=== PATIENT | female | born 1965 | race Caucasian/White ===

== ENCOUNTER 2019-03-14 13:02 | Emergency (ER) | payer MEDICAID, SELFPAY ==
[2019-03-14 13:03] VITALS: BP 161/116; PULSE 112; RESP 16; TEMP 36.3; O2SAT 98; BMI 43.0
[2019-03-14 13:11] VITALS: RESP 18
--- NOTE | 2019-03-14 13:15 | RAD_ITS ---
STUDY: X-RAY - LEFT SHOULDER REASON FOR EXAM: Female, 53 years old. Injury. Pain. TECHNIQUE: 4 view(s) of the shoulder. COMPARISON: None. FINDINGS: Normal glenohumeral articulation. Normal acromioclavicular joint. Normal acromion. Normal humeral head and visualized proximal humerus. There is calcific tendinitis. Normal visualized pulmonary apex. RAD/Shoulder min 2 Views IMPRESSION: Calcific tendinitis. No acute osseous abnormality. Electronically Signed: Gage French MD at 13:43 EDT , Service support ,
[2019-03-14] MEDS: Ibuprofen 600 MG Tablet PO (13:22)
--- NOTE | 2019-03-14 14:22 | ED.VISSUMM ---
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 doing so he had immediate pain to her left shoulder recently, no direct trauma she does this activity routinely she has no history of joint problems no other complaints, she points directly to the anterior shoulder she has difficulty with forward elevation no numbness weakness paresthesias in the left hand Physical Examination: [] Blood pressure 160/100 General, no distress resting comfortably HEENT is generally unremarkable The neck is supple no adenopathy Cardiovascular, regular rate and rhythm Lungs, clear bilateral Abdomen, soft nontender Extremities, no clubbing cyanosis or edema she has some mild pain diffusely over the anterior left shoulder forward elevation is decreased, she can move at the elbow forearm wrist hand all unremarkable neurovascular function normal her neck is nontender chest is nontender there is no direct trauma to the shoulder the rest the exam is unremarkable Neurologic, awake alert answering questions appropriately moving all 4 extremities Test Results: [] Emergency Department Course and Treatment: [] X-rays obtained that shows nothing acute calcific tendinitis noted please see that report, explained the patient the concept of an occult injury to the rotator cuff or other shoulder mechanism muscles, she will be started with a sling Motrin which she can take for pain and she is referred to orthopedics or primary care for further management Treatment Plan: [] Disposition: [] Home stable Impression: [] Left shoulder injury This note was generated with [employer] dictation software. It may contain incorrect words, spelling, and punctuation that were not noted in review of the chart prior to signing ED Disposition - Plan for ED Patient: Referrals: William Willoughby MD [Primary Care Provider] -
--- NOTE | 2019-03-14 14:24 | ED.DEP ---
ED Disposition - Plan for ED Patient: Instructions: ED Tendinitis Rotator Cuff Prescriptions: Ibuprofen [Motrin] 800 mg PO TID PRN PRN #20 tab PRN Reason: Pain Referrals: William Willoughby MD [Primary Care Provider] -
[2019-03-14 14:53] VITALS: RESP 18
== END 2019-03-14 14:53 | disposition home or self-care (01) ==
LOC: ED 13:36
PROVIDERS: Emergency Provider Emergency Medicine; Family Provider Family Medicine; PCP Family Medicine
DX: S49.92XA Unspecified injury of left shoulder and upper arm, initial encounter (principal); X50.3XXA Overexertion from repetitive movements, initial encounter; X50.9XXA Other and unspecified overexertion or strenuous movements or postures, initial encounter; Y93.89 Activity, other specified; Y92.89 Other specified places as the place of occurrence of the external cause; Y99.8 Other external cause status
CPT/HCPCS: 73030; 99283

== ENCOUNTER 2019-06-19 16:32 | Emergency (ER) | payer MEDICAID, SELFPAY ==
[2019-06-19 16:34] VITALS: BP 145/116; PULSE 99; RESP 15; TEMP 35.9; O2SAT 95; BMI 43.7
--- NOTE | 2019-06-19 17:19 | ED.VIS.LOWEX ---
History of Present Illness Chief Complaint: Lower Extremity Injury Detail of Chief Complaint: Left foot injury Informant: Patient Occurred: Today Mechanism/Context: - - Dropped iron skillet on her foot Onset: Today Context: Sudden Onset Current Severity: Moderate Maximum Severity: Moderate Associated Symptoms: Negative for: Parasthesia Narrative: Patient states that she dropped her iron skillet on her left foot at home today. She was not wearing shoes at the time. She is having difficulty with weightbearing and is able to put a small amount of weight on her heel. Past Medical History - Allergies and Home Meds Allergies/Adverse Reactions: Allergies clarithromycin [From Biaxin] Allergy (Verified 06/19/19 16:33) Rash hydrocodone bitartrate [From Vicodin] Allergy (Verified 06/19/19 16:33) Rash naproxen [From Naprosyn] Allergy (Verified 06/19/19 16:33) Rash Penicillins Allergy (Verified 06/19/19 16:33) Rash Sulfa (Sulfonamide Antibiotics) Allergy (Verified 06/19/19 16:33) Rash codeine Adverse Reaction (Verified 06/19/19 16:33) Vomiting Primary Care Physician: William Willoughby MD [Primary Care Provider] - Prior records reviewed: Yes Past Medical History: - - Reviewed Smoking Status: Current every day smoker Review of Systems General: Denies: Chills, Fever Eyes: Denies: Visual changes - bilaterally ENT: Denies: Bilateral ear pain Cardiovascular: Denies: Chest pain Respiratory: Denies: Dyspnea Gastrointestinal: Denies: Abdominal pain Musculoskeletal: Reports: Swelling, Extremity Pain Neurological: Denies: Headache Hematologic: Denies: Easy bruising Allergy: Denies: Uticaria Physical Exam Vital Signs/Narrative: Vital Signs Temp Pulse Resp BP Pulse Ox 06/19/19 16:34 96.7 F L 99 15 145/116 H 95 - Extremity Exam Left Foot: - - Edema or ecchymosis noted over the MTP joint as well as the proximal fourth and fifth metatarsals of the left foot. Good cap refill distally. Normal sensation. No tenderness the ankle or knee. General: Well nourished Head: Normocephalic ENT: No Trauma Neck: Nontender Cardiovascular: Regular rate, Regular rhythm Respiratory: No distress, CTA bilaterally Abdomen: Nontender Skin: - - As above Neurological: Alert, Oriented x3 Psychological: Normal affect Diagnostic/Tx/Re-eval Impressions Foot X-Ray 06/19/19 17:32 IMPRESSION: Osteopenia with osteoarthritic changes. No acute finding. Electronically Signed: Gage French MD at 17:48 EDT , Service support , 06/19/19 17:32 Foot min 3 Views [RAD] Stat - Medical Decision Making Patient was given 1 tab of oxycodone for pain. She will take ibuprofen at home and be given a short course of oxycodone. There is no evidence of fracture at this time. She will be given a postop shoe and crutches, she may weight-bear as tolerated. ED Disposition - Plan for ED Patient: Disposition: Home or Assisted Living Diagnosis: Crush injury of left foot Instructions: CRUSH INJURY, Foot/Toe Prescriptions: Oxycodone HCl/Acetaminophen [Percocet 5/325] 1 tablet PO Q6H PRN PRN 3 Days #10 tablet PRN Reason: Pain Referrals: William Willoughby MD [Primary Care Provider] - 1 Week if not improving
[2019-06-19] MEDS: oxyCODONE 5 MG Tablet PO (17:27)
--- NOTE | 2019-06-19 17:32 | RAD_ITS ---
STUDY: X-RAY - LEFT FOOT CLINICAL: Female, 53 years old. Injury. Pain. TECHNIQUE: 3 view(s) of the foot. COMPARISON: July 16, 2016 FINDINGS: Generalized osteopenia. Stable inferior calcaneal spur. Separate ossification center for the navicular, unchanged. Normal visualized subtalar, talonavicular, calcaneocuboid, tarsal and tarsometatarsal articulations. Normal metatarsi. Stable mild arthrosis of the MTP and IP joints. The soft tissue structures are unremarkable. RAD/Foot min 3 Views IMPRESSION: Osteopenia with osteoarthritic changes. No acute finding. Electronically Signed: Gage French MD at 17:48 EDT , Service support ,
[2019-06-19 18:29] VITALS: BP 125/74; PULSE 62; RESP 15; O2SAT 98
== END 2019-06-19 18:31 | disposition home or self-care (01) ==
PROVIDERS: Emergency Provider Emergency Medicine; Family Provider Family Medicine; PCP Family Medicine
DX: S97.82XA Crushing injury of left foot, initial encounter (principal); F17.200 Nicotine dependence, unspecified, uncomplicated; W20.8XXA Other cause of strike by thrown, projected or falling object, initial encounter; Y93.89 Activity, other specified; Y92.009 Unspecified place in unspecified non-institutional (private) residence as the place of occurrence of the external cause; Y99.8 Other external cause status
CPT/HCPCS: 73630; 99284

== ENCOUNTER 2020-06-15 11:19 | Emergency (ER) | payer MEDICAID, SELFPAY ==
[2020-06-15 11:21] VITALS: BP 155/113; PULSE 97; RESP 18; TEMP 36.2; O2SAT 98; BMI 36.6
--- NOTE | 2020-06-15 11:45 | ED.VIS.GEN ---
History of Present Illness Chief Complaint: Edema Informant: Patient Onset: Today Current Severity: Moderate Maximum Severity: Moderate Narrative: Presents with left anterior foot pain and swelling. She states that she has no injury and had no pain yesterday. She woke this morning with pain over the anterior ankle and foot. She feels the area is swollen and a knot. No paresthesias. Past Medical History - Allergies and Home Meds Allergies/Adverse Reactions: Allergies clarithromycin [From Biaxin] Allergy (Verified 06/15/20 11:23) Rash hydrocodone bitartrate [From Vicodin] Allergy (Verified 06/15/20 11:23) Rash naproxen [From Naprosyn] Allergy (Verified 06/15/20 11:23) Rash Penicillins Allergy (Verified 06/15/20 11:23) Rash Sulfa (Sulfonamide Antibiotics) Allergy (Verified 06/15/20 11:23) Rash codeine Adverse Reaction (Verified 06/15/20 11:23) Vomiting Primary Care Physician: William Willoughby MD [Primary Care Provider] - Past Medical History: None Smoking Status: Current every day smoker Review of Systems General: Denies: Chills, Fever Eyes: Denies: Visual changes - bilaterally ENT: Denies: Bilateral ear pain Cardiovascular: Denies: Chest pain Respiratory: Denies: Dyspnea, Cough Gastrointestinal: Denies: Abdominal pain, Nausea, Vomiting, Diarrhea Genitourinary: Denies: Dysuria Musculoskeletal: Reports: Swelling, Extremity Pain Skin: Denies: Rash Neurological: Denies: Headache Hematologic: Denies: Easy bruising Allergy: Denies: Uticaria Physical Exam Vital Signs/Narrative: Vital Signs Temp Pulse Resp BP Pulse Ox 06/15/20 11:21 97.2 F L 97 18 155/113 H 98 Inital Vital Signs reviewed: Yes General: Well nourished, Well developed Head: Normocephalic ENT: Moist mucous membranes Neck: Supple Cardiovascular: Regular rate, Regular rhythm Respiratory: No distress, CTA bilaterally Abdomen: Soft, Nontender Extremities: - - Focal tenderness along the anterior ankle and proximal foot along the tendon. Minimal edema. No erythema or open wounds. Skin: Normal color Neurological: Alert, Oriented x3, Normal Strength - Increased pain with dorsiflexion. Psychological: Normal affect Diagnostic/Tx/Re-eval Impressions Foot X-Ray 06/15/20 11:50 IMPRESSION: Small plantar spur. Stable appearance of the separate ossification center of the tarsal navicular bone. Electronically Signed: Jama Bhandari, at 12:11 EDT , Service support , 06/15/20 11:50 Foot min 3 Views [RAD] Stat - Medical Decision Making She was given 1 tab of Percocet and p.o. prednisone. She has reproducible tenderness along the tendon. I believe she has tendinitis. She does have allergies noted to naproxen, codeine, and Virgin. She will be given a prescription for prednisone along with 6 tabs of Percocet for breakthrough pain. ED Disposition - Plan for ED Patient: Disposition: Home or Assisted Living Diagnosis: Tendinitis Instructions: Treating Tendonitis of the Foot Prescriptions: Prednisone [Deltasone] 40 mg PO DAILY #10 tab Transmission Status: Pending to [facility] #30 Oxycodone HCl/Acetaminophen [Percocet 5/325] 1 tab PO Q6H PRN PRN 3 Days #6 tab PRN Reason: Pain Transmission Status: Pending to [facility] Referrals: William Willoughby MD [Primary Care Provider] - 1 Week if not improving
--- NOTE | 2020-06-15 11:50 | RAD_ITS ---
STUDY: X-RAY - LEFT FOOT CLINICAL: Female, 54 years old. Patient having left foot pain, swollen on top, no injury TECHNIQUE: 3 view(s) of the foot. COMPARISON: Comparison is made with prior study dated 06/19/2019. FINDINGS: There is a plantar calcaneal spur. Normal visualized subtalar, talonavicular, calcaneocuboid, tarsal and tarsometatarsal articulations. Stable appearance of the separate ossification center of the navicular bone. Normal metatarsi. Normal metatarsophalangeal joint of the great toe. Normal tibial and fibular sesamoid bones. Normal interphalangeal joint of the great toe. Normal phalanges of the great toe. Normal second through fifth metatarsophalangeal joints. Normal interphalangeal joints and phalanges of the lesser toes. The soft tissue structures are unremarkable. RAD/Foot min 3 Views IMPRESSION: Small plantar spur. Stable appearance of the separate ossification center of the tarsal navicular bone. Electronically Signed: Jama Bhandari, at 12:11 EDT , Service support ,
[2020-06-15] MEDS: oxyCODONE 5 MG Tablet PO (11:55)
[2020-06-15] MEDS: predniSONE 20 MG Tablet 60 MG PO (11:55)
[2020-06-15 13:09] VITALS: BP 179/102; PULSE 89; RESP 18; O2SAT 97
== END 2020-06-15 13:10 | disposition home or self-care (01) ==
PROVIDERS: Emergency Provider Emergency Medicine; PCP Family Medicine
DX: M77.9 Enthesopathy, unspecified (principal); F17.200 Nicotine dependence, unspecified, uncomplicated
CPT/HCPCS: 73630; 99283

== ENCOUNTER 2020-07-04 19:30 | Emergency (ER) | payer MEDICAID, SELFPAY ==
[2020-07-04 19:31] VITALS: BP 144/97; PULSE 99; RESP 18; TEMP 36.4; O2SAT 97; BMI 45.2
--- NOTE | 2020-07-04 20:00 | RAD_ITS ---
STUDY: X-RAY - RIGHT KNEE REASON FOR EXAM: Female, 54 years old. WOKE UP WITH RIGHT KNEE PAIN. TECHNIQUE: 4 view(s) of the knee. COMPARISON: None. FINDINGS: Normal visualized distal femur. Normal visualized proximal tibia and fibula. Normal proximal tibiofibular articulation. There is mild degenerative arthrosis of the medial femorotibial compartment. Normal lateral femorotibial compartment. There is mild degenerative arthrosis of the patellofemoral articulation. The soft tissue structures are unremarkable. RAD/Knee 4 or More Views IMPRESSION: Degenerative arthrosis. Electronically Signed: Nandini Fields MD at 20:47 EDT Tel , Service support ,
--- NOTE | 2020-07-04 21:02 | ED.VIS.GEN ---
History of Present Illness Chief Complaint: Lower Extremity Injury Informant: Patient Onset: Days - 3 days Context: Gradual Onset Current Severity: Mild Maximum Severity: Moderate Narrative: She presents with 3-day history of right knee pain and pain into the proximal calf. She denies recent injury. She states she does go up and down steps quite a bit but no recent change in activity. No paresthesias. - Past Medical History (1) Asthma Status: Chronic (2) Anemia Status: Chronic Past Medical History - Allergies and Home Meds Allergies/Adverse Reactions: Allergies clarithromycin [From Biaxin] Allergy (Verified 06/15/20 11:23) Rash hydrocodone bitartrate [From Vicodin] Allergy (Verified 06/15/20 11:23) Rash naproxen [From Naprosyn] Allergy (Verified 06/15/20 11:23) Rash Penicillins Allergy (Verified 06/15/20 11:23) Rash Sulfa (Sulfonamide Antibiotics) Allergy (Verified 06/15/20 11:23) Rash codeine Adverse Reaction (Verified 06/15/20 11:23) Vomiting Primary Care Physician: William Willoughby MD [Primary Care Provider] - Prior records reviewed: Yes Lives: With Family Smoking Status: Current every day smoker Review of Systems General: Denies: Chills, Fever Eyes: Denies: Visual changes - bilaterally ENT: Denies: Bilateral ear pain Cardiovascular: Denies: Chest pain Respiratory: Denies: Dyspnea, Cough Gastrointestinal: Denies: Abdominal pain Musculoskeletal: Reports: Extremity Pain Skin: Denies: Rash Neurological: Denies: Headache Hematologic: Denies: Easy bruising, Easy bleeding Allergy: Denies: Uticaria Physical Exam Vital Signs/Narrative: Vital Signs Temp Pulse Resp BP Pulse Ox 07/04/20 19:31 97.6 F L 99 18 144/97 H 97 Inital Vital Signs reviewed: Yes General: Well nourished, Well developed Head: Normocephalic ENT: Moist mucous membranes Neck: Supple Cardiovascular: Regular rate, Regular rhythm Respiratory: No distress, CTA bilaterally Abdomen: Soft, Nontender Extremities: Calf Tenderness - Proximal posterior calf tenderness. No significant edema, erythema, or palpable cords. Good range of motion at the knee. Strong distal pulses and normal cap refill. Skin: Normal color Neurological: Alert, Oriented x3 Psychological: Normal affect Diagnostic/Tx/Re-eval Impressions Knee X-Ray 07/04/20 20:00 IMPRESSION: Degenerative arthrosis. Electronically Signed: Nandini Fields MD at 20:47 EDT Tel , Service support , Venous Duplex 07/04/20 21:37 IMPRESSION: No demonstrated deep vein thrombosis. Electronically Signed: Nandini Fields MD at 22:30 EDT Tel , Service support , 07/04/20 20:00 Knee 4 or More Views [RAD] Stat - Medical Decision Making Patient was given 1 tab of oxycodone here for pain control while awaiting test results. She does have evidence of arthrosis in her knee. There is no evidence of DVT on ultrasound. Ramesh wrap will be applied and she will be given a short course of steroids to help control pain. She will follow-up with her PCP. ED Disposition - Plan for ED Patient: Disposition: Home or Assisted Living Diagnosis: Right knee sprain Instructions: ED Sprain Knee Prescriptions: Prednisone [Deltasone] 40 mg PO DAILY #10 tablet Referrals: William Willoughby MD [Primary Care Provider] - 1 Week if not improving
[2020-07-04] MEDS: oxyCODONE 5 MG Tablet PO (21:15)
--- NOTE | 2020-07-04 21:37 | US_ITS ---
STUDY: VENOUS DOPPLER ULTRASOUND - RIGHT LOWER EXTREMITY REASON FOR EXAM: Female, 54 years old. PT FEELS RT KNEE NEEDS TO POP AND HAS CALF PAIN TECHNIQUE: Ultrasound evaluation of the deep vein system to include goodman-scale imaging and compression was performed. Goodman-scale imaging and Doppler sonographic evaluation, including duplex spectral analysis and qualitative color flow sonography, was performed. COMPARISON: None. FINDINGS: Common Femoral Vein: Normal compression, spontaneity and augmentation. Normal color Doppler. Common Femoral Vein/Greater Saphenous Junction: Normal compression. Femoral Proximal: Normal compression. Femoral Middle: Normal compression, spontaneity and augmentation. Normal color Doppler. Femoral Distal: Normal compression. Popliteal Vein: Normal compression, spontaneity and augmentation. Normal color Doppler. Posterior Tibial Vein: Normal compression. Peroneal Vein: Normal compression. US/Venous Duplex Imag/Limited/Uni IMPRESSION: No demonstrated deep vein thrombosis. Electronically Signed: Nandini Fields MD at 22:30 EDT Tel , Service support ,
[2020-07-04] MEDS: predniSONE 20 MG Tablet 60 MG PO (22:49)
== END 2020-07-04 23:03 | disposition home or self-care (01) ==
PROVIDERS: Emergency Provider Emergency Medicine; PCP Family Medicine
DX: S83.91XA Sprain of unspecified site of right knee, initial encounter (principal); F17.200 Nicotine dependence, unspecified, uncomplicated; X58.XXXA Exposure to other specified factors, initial encounter
CPT/HCPCS: 73564; 93971; 99283

== ENCOUNTER 2021-01-05 10:21 | Emergency (ER) | payer MEDICAID, SELFPAY ==
[2021-01-05 10:23] VITALS: BP 163/120; PULSE 89; RESP 18; TEMP 36.4; O2SAT 98; BMI 39.1
--- NOTE | 2021-01-05 11:00 | VDLE_ITS ---
Reason For Study: Right knee pain RIGHT GSV is normal. CFV is compressible, spontaneous, phasic, competent and demonstrates normal augmentation. FV is compressible, spontaneous, phasic, competent and demonstrates normal augmentation. POP V is compressible, spontaneous, phasic, competent and demonstrates normal augmentation. T/P Trunk is compressible. PTV is compressible. RT PerV is compressible. Procedure This is a venous duplex using B-mode, color flow and spectral Doppler. Exam performed portable in ED. A preliminary report was called and/or faxed to ED. Interpretation Summary There is no evidence of right lower extremity deep vein thrombosis. Right great saphenous vein appears patent and compressible segmentally. Ordering Physician: Marine Ulloa Referring Physician: William Willoughby Performed By: Pallavi Duffy RVT
--- NOTE | 2021-01-05 11:04 | ED.VISSUMM ---
- ER Visit Summary Date of Service: 01/05/21 Chief Complaint: Right knee pain History of Present Illness: The patient is a 55 F presenting with right knee pain. Patient states she woke up this morning with pain behind her right knee. When she stood up this caused her to fall. She had no injury with the fall. She states she was gardening yesterday but is unsure if this is related. She denies other complaints. Denies fever. Denies chest pain or shortness of breath. Denies PE/DVT risk factors. Physical Examination: Vitals are stable. Patient is afebrile. Alert no acute distress. HEENT exam is unremarkable. Neck is supple. Lungs are clear and equal bilaterally. Heart is regular rate and rhythm. Extremities right posterior knee tenderness with active full range of motion. No erythema or warmth. Normal distal pulses. Skin is warm and dry. No focal neurologic deficit. Remainder of exam is unremarkable. Emergency Department Course and Treatment: Right knee x-ray read by myself and radiology shows normal x-ray examination of the knee. Right lower extremity venous Doppler shows no evidence of DVT. Patient was able to ambulate in the ED. She is advised to rest, ice, elevate. She is allergic to NSAIDs. She is given a short course of Percocet. Advised to follow up with primary care physician. Advised return to ED for worsening complaints. Disposition: Discharge home Impression: Right knee pain This note was generated with [employer] dictation software. It may contain incorrect words, spelling, and punctuation that were not noted in review of the chart prior to signing ED Disposition - Plan for ED Patient: Instructions: ED Knee Sprain Prescriptions: Oxycodone HCl/Acetaminophen [Percocet 5/325] 1 tablet PO Q6H PRN PRN 3 Days #8 tab PRN Reason: Pain Prescription Printed Referrals: William Willoughby MD [Primary Care Provider] -
--- NOTE | 2021-01-05 11:29 | RAD_ITS ---
STUDY: X-RAY - RIGHT KNEE REASON FOR EXAM: Female, 55 years old. pain TECHNIQUE: 4 view(s) of the knee. COMPARISON: 07/04/2020 FINDINGS: Normal visualized distal femur. Normal visualized proximal tibia and fibula. Normal proximal tibiofibular articulation. Normal medial femorotibial compartment. Normal lateral femorotibial compartment. Normal patellofemoral articulation. The soft tissue structures are unremarkable. RAD/Knee 4 or More Views IMPRESSION: Normal x-ray examination of the knee. Electronically Signed: Edward Sargent MD at 11:39 EDT Tel , Service support ,
--- NOTE | 2021-01-05 11:57 | ED.DEP ---
ED Disposition - Plan for ED Patient: Instructions: ED Knee Sprain Prescriptions: Oxycodone HCl/Acetaminophen [Percocet 5/325] 1 tablet PO Q6H PRN PRN 3 Days #8 tab PRN Reason: Pain Prescription Printed Referrals: William Willoughby MD [Primary Care Provider] -
== END 2021-01-05 12:13 | disposition home or self-care (01) ==
LOC: ED 12:07
PROVIDERS: Emergency Provider Emergency Medicine; PCP Family Medicine
DX: M25.561 Pain in right knee (principal); F17.200 Nicotine dependence, unspecified, uncomplicated; J45.909 Unspecified asthma, uncomplicated; E11.9 Type 2 diabetes mellitus without complications; Z79.84 Long term (current) use of oral hypoglycemic drugs
CPT/HCPCS: 73564; 93971; 99282

== ENCOUNTER 2022-01-15 19:12 | Emergency (ER) | payer MEDICAID, SELFPAY ==
[2022-01-15 19:14] VITALS: BP 161/113; PULSE 90; RESP 18; TEMP 36.7; O2SAT 96; BMI 39.9
--- NOTE | 2022-01-15 19:45 | RAD_ITS ---
STUDY: X-RAY - RIGHT FOOT CLINICAL: Female, 56 years old. Fourth and fifth toe pain TECHNIQUE: 3 view(s) of the foot. COMPARISON: None. FINDINGS: Normal talus, calcaneus, and tarsal bones. Normal visualized subtalar, talonavicular, calcaneocuboid, tarsal and tarsometatarsal articulations. Normal metatarsi. Normal metatarsophalangeal joint of the great toe. Normal tibial and fibular sesamoid bones. Normal interphalangeal joint of the great toe. Normal phalanges of the great toe. Normal second through fifth metatarsophalangeal joints. Normal interphalangeal joints and phalanges of the lesser toes. Nonspecific lateral soft tissue swelling. RAD/Foot min 3 Views IMPRESSION: Intact osseous structures. Nonspecific lateral soft tissue swelling. Electronically Signed: Nahum Rascon MD at 20:50 EDT ,
--- NOTE | 2022-01-15 19:47 | ED.VIS.LOWEX ---
HPI History of Present Illness Chief Complaint: Lower Extremity Injury Narrative Narrative: 56-year-old female presenting with right fourth and fifth toe pain. She states he dropped a box of estimated about 20 pounds on her foot prior to arrival. She took nothing for pain. Patient able to ambulate. Patient has bruising to the fifth toe but the fourth toe does not have bruising. She states she is otherwise healthy. PFSH PFSH Home Medications Beclomethasone Diprop Inhaler [Qvar 80 Mcg Inhaler] 2 puff INHALATION BID PRN 01/02/14 [History Last Taken 06/19/19] albuterol sulfate [ProAir HFA] 1 - 2 puff INHALATION Q4H PRN PRN 01/02/14 [History Last Taken 06/19/19] ferrous sulfate [Iron (ferrous sulfate)] 325 mg PO DAILY 02/15/15 [History Last Taken 06/19/19] metformin 1,000 mg PO BIDCM 01/05/21 [History Last Taken Unknown] Allergy/AdvReac Type Severity Reaction Status Date / Time clarithromycin [From Biaxin] Allergy Rash Verified 01/15/22 19:15 hydrocodone bitartrate Allergy Rash Verified 01/15/22 19:15 [From Vicodin] naproxen [From Naprosyn] Allergy Rash Verified 01/15/22 19:15 Penicillins Allergy Rash Verified 01/15/22 19:15 Sulfa (Sulfonamide Allergy Rash Verified 01/15/22 19:15 Antibiotics) codeine AdvReac Vomiting Verified 01/15/22 19:15 Social History Smoking Status: Current every day smoker tobacco type: cigarettes ROS ROS ED Constitutional Constitutional ED: Denies chills or fever(s) Eyes Eyes: Denies blurry vision or change in vision ENT ENT ED: Denies rhinorrhea or sore throat Cardiovascular Cardiovascular: Denies chest pain or palpitations Respiratory/Chest Respiratory/Chest: Denies cough or dyspnea Gastrointestinal Gastrointestinal: Denies abdominal pain or nausea Genitourinary Genitourinary ED: Denies dysuria or hematuria Musculoskeletal Musculoskeletal: Reports other Details: Right foot fourth and fifth toe Integumentary Reports other Details: Bruising to the right fifth toe ; Denies rash Neurologic Neurologic: Denies headache(s) or weakness Psychiatric Psychiatric: Denies anxiety or depression EXAM Physical Exam Const Vital Signs: 01/15/22 19:14 Temperature 98.1 F Temperature Source Temporal Pulse Rate 90 Respiratory Rate 18 Blood Pressure 161/113 H Blood Pressure Mean 129 Pulse Ox 96 Oxygen Delivery Method Room Air Positive well nourished General Appearance ED: NAD HEENT Reports moist mucous membranes normocephalic and atraumatic Resp normal respiratory effort and clear to auscultation bilaterally Cardio regular rate and regular rhythm Extremity Extremity Narrative: Bruising noted to the right fifth toe. Tenderness to palpation of the right fourth and fifth toes. No pain over the navicular. No ankle pain. Right foot neurovascular intact brisk cap refill to all 5 toes. Neuro oriented x3 Sensorium / Orientation: alert Psych mental status grossly normal Skin Skin Narrative: Bruising as noted above Rashes: no rashes MDM MDM MDM Narrative Medical decision making narrative: I obtained an x-ray of the right foot which on my interpretation shows no acute fractures or subluxation. There is soft tissue swelling. The radiologist does agree. Patient was given a shot of Toradol for pain which did help her pain. At this point I feel the patient can be discharged home safely. She is to alternate Tylenol ibuprofen. Impression: 1. Right foot contusion Radiography Diagnostic Testing: Clinical Impression(s) from Imaging Studies Foot X-Ray 01/15/22 19:45 IMPRESSION: Intact osseous structures. Nonspecific lateral soft tissue swelling. Electronically Signed: Nahum Rascon MD at 20:50 EDT Reading Location ID and State: [address] [place] [address] Tel , Service support , Discharge Plan Triage Chief Complaint: Lower Extremity Injury ED Provider: Myron Sheppard Dx/Rx/DC Orders Instructions: ED Foot Contusion Prescriptions: No Action albuterol sulfate [ProAir HFA] 1 PUFF inhaler 1 - 2 puff inhalation Q4H PRN PRN (Reason: Shortness Of Breath) RF: 0 Beclomethasone Diprop Inhaler [Qvar 80 Mcg Inhaler] 1 PUFF inhaler 2 puff inhalation BID PRN (Reason: Shortness Of Breath) RF: 0 ferrous sulfate [Iron (ferrous sulfate)] 325 MG tablet 325 mg PO DAILY RF: 0 metformin 1,000 MG tablet 1,000 mg PO BIDCM RF: 0 Primary Care Provider: William Willoughby Referrals: William Willoughby MD [Primary Care Provider] - Disposition Disposition: Home, Self Care
[2022-01-15] MEDS: Ketorolac 15 MG/ML Vial IV (19:54)
== END 2022-01-15 20:57 | disposition home or self-care (01) ==
PROVIDERS: Emergency Provider Student in an Organized Health Care Education/Training Program; PCP Family Medicine; Visit Provider Student in an Organized Health Care Education/Training Program
DX: S90.31XA Contusion of right foot, initial encounter (principal); F17.210 Nicotine dependence, cigarettes, uncomplicated; X58.XXXA Exposure to other specified factors, initial encounter
CPT/HCPCS: 73630; 96374; 99282

== ENCOUNTER 2022-05-04 14:56 | Emergency (ER) | payer MEDICAID, SELFPAY ==
[2022-05-04 14:59] VITALS: BP 141/110; PULSE 99; RESP 16; TEMP 36.6; O2SAT 96; BMI 39.1
--- NOTE | 2022-05-04 15:33 | EX.ED.DYSGE1 ---
HPI History of Present Illness Chief Complaint: Complaint Detail of Chief Complaint: Dysuria and back pain x2 days Informant: patient Narrative Narrative: Patient presents the emergency department complaint of dysuria that started 2 days ago. Patient also complains of some lower back pain. She denies fever. She denies abdominal pain. She denies nausea or vomiting. She has not had a UTI in some time she states. Patient denies frequency or hematuria. [facility] similar symptoms: [facility] Medical History (Updated 05/04/22 @ 16:[address] Keo Soares DO) Asthma Home Medications Beclomethasone Diprop Inhaler [Qvar 80 Mcg Inhaler] 2 puff inhalation BID PRN Shortness Of Breath 01/02/14 [History Last Taken 06/19/19] albuterol sulfate 90 mcg/actuation aerosol inhaler (ProAir HFA) 1 - 2 puff inhalation Q4H PRN PRN Shortness Of Breath 01/02/14 [History Last Taken 06/19/19] ferrous sulfate 325 mg (65 mg iron) tablet (Iron (ferrous sulfate)) 325 mg PO DAILY 02/15/15 [History Last Taken 06/19/19] metformin 1,000 mg tablet 1,000 mg PO BIDCM 01/05/21 [History Last Taken Unknown] cephalexin 500 mg capsule 500 mg PO Q6 #28 CAPSULES 05/04/22 [Rx Last Taken Unknown] pantoprazole 20 mg tablet,delayed release 50 mg PO DAILY 05/04/22 [History Last Taken Unknown] phenazopyridine 200 mg tablet (Pyridium) 200 mg PO TID 6 doses #6 tabs 05/04/22 [Rx Last Taken Unknown] Allergy/AdvReac Type Severity Reaction Status Date / Time clarithromycin [From Biaxin] Allergy Rash Verified 05/04/22 15:01 hydrocodone bitartrate Allergy Rash Verified 05/04/22 15:01 [From Vicodin] naproxen [From Naprosyn] Allergy Rash Verified 05/04/22 15:01 Penicillins Allergy Rash Verified 05/04/22 15:01 Sulfa (Sulfonamide Allergy Rash Verified 05/04/22 15:01 Antibiotics) codeine AdvReac Vomiting Verified 05/04/22 15:01 Social History Smoking Status: Current every day smoker tobacco type: cigarettes ROS ROS ED Review of Systems ROS Unobtainable: other Constitutional Constitutional ED: Reports lethargy; Denies chills, fever(s), sweats or weight loss Eyes Eyes: Denies blurry vision, change in vision or diplopia ENT ENT ED: Denies rhinorrhea or sore throat Cardiovascular Cardiovascular: Reports chest pain and racing heartbeat; Denies orthopnea Respiratory/Chest Respiratory/Chest: Reports dyspnea and dyspnea on exertion; Denies cough, orthopnea or sputum Gastrointestinal Gastrointestinal: Denies abdominal pain, diarrhea, nausea or vomiting Genitourinary Genitourinary ED: Reports dysuria; Denies hematuria or urinary frequency Musculoskeletal Musculoskeletal: Reports back pain; Denies arthralgias, myalgias or neck pain Integumentary Denies abscess, Abrasions or rash Neurologic Neurologic: Denies headache(s) or weakness Psychiatric Psychiatric: Denies anxiety, depression or suicidal thoughts Endocrine Endocrinology: Denies polydipsia, polyphagia or polyuria Hematologic/Lymphatic Hematologic/Lymphatic: Denies easy bleeding, easy bruising or lymphadenopathy Allergic/Immunologic Allergic/Immunologic ED: Denies mouth swelling, tongue swelling or urticaria EXAM Physical Exam Const Vital Signs: 05/04/22 14:59 Temperature 98 F Temperature Source Temporal Pulse Rate 99 Respiratory Rate 16 Blood Pressure 141/110 H Blood Pressure Mean 120 Pulse Ox 96 Oxygen Delivery Method Room Air Positive well nourished and well developed General Appearance ED: well developed and NAD HEENT Reports TM's clear and moist mucous membranes normocephalic and atraumatic; Negative for trauma or tenderness Tympanic Membrane ED: Yes TM's clear Eyes PERRL and EOMs intact bilaterally General Eye ED: Negative for pale conjunctiva or scleral icterus Neck no lymphadenopathy, supple and no JVD General: Negative for tenderness Chest Wall inspection of chest normal and palpation of chest normal Chest: Negative for tenderness Resp normal respiratory effort and clear to auscultation bilaterally Effort and Inspection: Negative for respiratory distress or pain with movement Auscultation: Negative for rhonchi, wheezes or diminished lung sounds Cardio regular rate, regular rhythm, S1 normal heart sound, S2 normal heart sound and no murmurs Peripheral Pulses: pulses 2+ throughout GI normal to inspection, nondistended, normoactive bowel sounds, soft to palpation, non-tender, non-distended and no masses Back/Spine no CVA tenderness and no thoracic nor lumbar tenderness Extremity normal to inspection General Extremety ED: Negative for edema General Extremity: Negative for edema Neuro oriented x3, CN's II-XII intact bilaterally, no sensory deficits noted and gait normal Sensorium / Orientation: awake, alert, oriented to person, oriented to place and oriented to time Motor Exam: strength 5/5 throughout and strength abnormal Psych mental status grossly normal Skin no rashes or lesions noted and no wounds MDM MDM MDM Narrative Medical decision making narrative: Urinalysis obtained. Urine was consistent with UTI. Patient will be started on Keflex. I will send off a urine culture. Patient also started on Pyridium. She is to use ibuprofen or Tylenol for discomfort. Lab Data Attestation: I reviewed the patient's lab results. Labs: Laboratory Results - last 24 hr 05/04/22 15:06 Urine Color Yellow Urine Clarity Clear Urine pH 6.0 Ur Specific [place] 1.010 Urine Protein 30 H Urine Glucose (UA) Normal Urine Ketones 5 H Urine Occult Blood 50 H Urine Nitrite Negative Urine Bilirubin 1 H Urine Urobilinogen 1 H Ur Leukocyte Esterase 500 H Urine RBC 0 SEEN Urine WBC >100 SEEN Ur Squamous Epith Cells 0-5 SEEN Urine Bacteria 1+ Urine Mucus 0 SEEN Discharge Plan Triage Chief Complaint: Complaint ED Provider: Keo Soares Dx/Rx/DC Orders Clinical Impression: UTI (urinary tract infection) Instructions: ED CYSTITIS Female Adult Prescriptions: New cephalexin [cephalexin] 500 mg capsule 500 mg PO Q6 Qty: 28 0RF phenazopyridine [Pyridium] 200 mg tablet 200 mg PO TID Qty: 6 0RF No Action albuterol sulfate [ProAir HFA] 1 PUFF inhaler 1 - 2 puff inhalation Q4H PRN PRN (Reason: Shortness Of Breath) Label Comments: shortness of breath Beclomethasone Diprop Inhaler [Qvar 80 Mcg Inhaler] 1 PUFF inhaler 2 puff inhalation BID PRN (Reason: Shortness Of Breath) Label Comments: asthma ferrous sulfate [Iron (ferrous sulfate)] 325 MG tablet 325 mg PO DAILY Label Comments: iron supplement/anemia metformin 1,000 MG tablet 1,000 mg PO BIDCM pantoprazole 20 mg tablet,delayed release (DR/EC) 50 mg PO DAILY Label Comments: TAKE 1 TABLET BY MOUTH ONCE DAILY Primary Care Provider: William Willoughby Referrals: William Willoughby MD [Primary Care Provider] - 3-5 Days Disposition Disposition: Home, Self Care
[2022-05-04 15:47] LABS: Mucous, Urine 0 SEEN /hpf (<or=2+); Red Blood Cells-Urine 0 SEEN /hpf (0-5)
[2022-05-04 15:52] LABS: Color, Urine Yellow (Yellow); Glucose, Dipstick Normal (Normal); Ketone-Dipstick 5 mg/dl (Negative); Leukocyte Esterase-Dipstick 500 /ul (Negative); Nitrite-Dipstick Negative (Negative); Occult Blood-Urine 50 /ul (Negative); Protein-Dipstick 30 mg/dl (Negative); Urine Clarity Clear (Clear); Urine Urobilinogen 1 mg/dl (Normal)
[2022-05-04 16:00] LABS: Bacteria 1+ /hpf (None Seen); Squamous Epithelial Cells - UA 0-5 SEEN /hpf (5-10); Urine Bilirubin Dipstick 1 mg/dL (Negative); White Blood Cells >100 SEEN /hpf (0-5)
[2022-05-04] MEDS: Phenazopyridine 95 MG Tablet 190 MG PO (17:00)
[2022-05-04] MEDS: Cephalexin 250 MG Capsule 500 MG PO (17:00)
== END 2022-05-04 17:02 | disposition home or self-care (01) ==
PROVIDERS: Emergency Provider Emergency Medicine; PCP Family Medicine; Visit Provider Emergency Medicine
DX: N39.0 Urinary tract infection, site not specified (principal); F17.210 Nicotine dependence, cigarettes, uncomplicated; J45.909 Unspecified asthma, uncomplicated; Z79.84 Long term (current) use of oral hypoglycemic drugs; Z79.899 Other long term (current) drug therapy
CPT/HCPCS: 81001; 87077; 87086; 87088; 87186; 99283

== ENCOUNTER 2022-06-02 18:55 | Emergency (ER) | payer MEDICAID, SELFPAY ==
[2022-06-02 18:55] VITALS: BP 165/109; PULSE 96; RESP 16; TEMP 36.6; O2SAT 98; BMI 39.1
--- NOTE | 2022-06-02 19:00 | RAD_ITS ---
STUDY: XR Hand Min 3 Views REASON FOR EXAM: Female, 56 years old. INJURYTechnologist Notes PAIN TO LEFT INDEX FINGER AFTER TRYING TO PUT HAND IN POCKET. TECHNIQUE: XR Hand Min 3 Views LEFT COMPARISON: None. FINDINGS: Normal radiocarpal articulation. Normal distal radioulnar joint. Normal visualized carpal bones. Normal carpal articulations Normal carpometacarpal articulation of the thumb. Normal second through fifth carpometacarpal joints. Normal metacarpi. Normal metacarpophalangeal joint of the thumb. Normal interphalangeal joint of the thumb. Normal proximal and distal phalanges of the thumb. Normal metacarpophalangeal joints of the second through fifth fingers. Normal proximal and distal interphalangeal joints of the second through fifth fingers. Normal phalanges of the second through fifth fingers. The soft tissue structures are unremarkable. RAD/Hand Min 3 Views IMPRESSION: There are no acute findings. Electronically Signed: Mason Renee MD at 19:23 EDT ,
--- NOTE | 2022-06-02 20:26 | NURSING ---
pt states she was tired of waiting and walked out the door.
== END 2022-06-02 20:24 | disposition left against medical advice (07) ==
LOC: ED 20:35
PROVIDERS: PCP Family Medicine
DX: Z53.21 Procedure and treatment not carried out due to patient leaving prior to being seen by health care provider (principal)
CPT/HCPCS: 73130

== ENCOUNTER 2023-01-28 18:31 | Emergency (ER) | payer MEDICAID, SELFPAY ==
[2023-01-28 18:33] VITALS: BP 172/104; PULSE 93; RESP 18; TEMP 36.5; O2SAT 99; BMI 42.4
--- NOTE | 2023-01-28 19:00 | EDS_ITS ---
HPI History of Present Illness HPI Narrative: Patient presents with pain and swelling to her left thumb that began this morning. Patient states it began when she woke up today. Patient states the pain is over the distal phalanx of the left thumb. Patient states the pain radiates to the proximal phalanx of the thumb. Patient denies any fevers or chills. Patient denies any redness. Patient denies any discharge or drainage. Patient states it is better whenever she use warm compresses to the area. Patient states it is worse with certain movements. Patient describes her pain as sharp. Patient denies any trauma or injury. Chief Complaint: Upper Extremity Injury Informant: patient Onset/Context/Timing Onset: Today Context: Sudden Onset Timing: Continuous Quality of Pain: Sharp Location: Left thumb Worsened by: Movement Relieved by: Warm compresses Associated Symptoms Associated Symptoms: Negative for Parasthesia, Weakness or Loss of Funtion [facility] Medical History (Updated 01/28/23 @ 19:[address] Skip Mcfadden, DO) Asthma Diabetes GERD (gastroesophageal reflux disease) Home Medications Beclomethasone Diprop Inhaler [Qvar 80 Mcg Inhaler] 2 puff inhalation BID PRN Shortness Of Breath 01/02/14 [History Last Taken 06/19/19] albuterol sulfate 90 mcg/actuation aerosol inhaler (ProAir HFA) 1 - 2 puff inhalation Q4H PRN PRN Shortness Of Breath 01/02/14 [History Last Taken 06/19/19] ferrous sulfate 325 mg (65 mg iron) tablet (Iron (ferrous sulfate)) 325 mg PO DAILY 02/15/15 [History Last Taken 06/19/19] metformin 1,000 mg tablet 1,000 mg PO BIDCM 01/05/21 [History Last Taken Unknown] cephalexin 500 mg capsule 500 mg PO Q6 #28 CAPSULES 05/04/22 [Rx Last Taken Unknown] pantoprazole 20 mg tablet,delayed release 50 mg PO DAILY 05/04/22 [History Last Taken Unknown] phenazopyridine 200 mg tablet (Pyridium) 200 mg PO TID 6 doses #6 tabs 05/04/22 [Rx Last Taken Unknown] clindamycin HCl 300 mg capsule (Cleocin HCl) 300 mg PO Q6H #40 CAPSULES 01/28/23 [Rx Last Taken Unknown] Allergy/AdvReac Type Severity Reaction Status Date / Time clarithromycin [From Biaxin] Allergy Rash Verified 01/28/23 18:34 hydrocodone bitartrate Allergy Rash Verified 01/28/23 18:34 [From Vicodin] naproxen [From Naprosyn] Allergy Rash Verified 01/28/23 18:34 Penicillins Allergy Rash Verified 01/28/23 18:34 Sulfa (Sulfonamide Allergy Rash Verified 01/28/23 18:34 Antibiotics) codeine AdvReac Vomiting Verified 01/28/23 18:34 Surgical History (Updated 01/28/23 @ 19:[address] Skip Mcfadden DO) H/O section Social History Smoking Status: Current every day smoker tobacco type: cigarettes ROS ROS ED Constitutional Constitutional ED: Denies chills or fever(s) Eyes Eyes: Denies blurry vision or change in vision ENT ENT ED: Denies rhinorrhea or sore throat Cardiovascular Cardiovascular: Denies chest pain or palpitations Respiratory/Chest Respiratory/Chest: Reports cough; Denies dyspnea Gastrointestinal Gastrointestinal: Denies nausea or vomiting Genitourinary Genitourinary ED: Denies dysuria or hematuria Musculoskeletal Musculoskeletal: Denies back pain or neck pain Integumentary Denies abscess or rash Neurologic Neurologic: Denies headache(s) or weakness Allergic/Immunologic Allergic/Immunologic ED: Denies mouth swelling or urticaria EXAM Physical Exam Const Vital Signs: 01/28/23 18:33 Temperature 97.7 F L Temperature Source Temporal Pulse Rate 93 Respiratory Rate 18 Blood Pressure 172/104 H Blood Pressure Mean 126 Pulse Ox 99 Oxygen Delivery Method Room Air Positive well nourished, well developed and obese General Appearance ED: well developed and NAD Nutritional Appearance: obese Neck full ROM and supple Extremity Extremity Narrative: There is tenderness over the dorsal aspect of the distal phalanx of the left thumb between the nail margin and the IP joint. There is some questionable fluc tuance. There is no erythema or warmth noted. Range of motion of the IP joint was limited in flexion and extension secondary to pain. Sensation was intact to light touch in all digits. Capillary refill was less than 2 seconds in all digits. Neuro oriented x3, CN's II-XII intact bilaterally, moves all extremities, no focal motor deficits and no sensory deficits noted Sensorium / Orientation: alert Motor Exam: strength 5/5 throughout Psych mental status grossly normal MDM MDM MDM Narrative Medical decision making narrative: Differential diagnosis includes early paronychia, tendinitis, and soft tissue infection. Since there is no trauma or injury, I do not feel x-rays are necessary at this time. Patient was started on clindamycin and given her first dose here. Patient was instructed to use warm compresses to the area. Patient was instructed to follow-up with her primary care physician in 5 to 7 days. Patient was instructed to use ibuprofen as needed for pain. Patient was instructed return if worse in any way. Patient understood and was agreeable with the plan. All questions were answered. Discharge Plan Triage Chief Complaint: Upper Extremity Injury ED Provider: Skip Mcfadden Dx/Rx/DC Orders Clinical Impression: Acute paronychia of left thumb Instructions: ED Paronychia of the Finger or Toe Prescriptions: New clindamycin HCl [Cleocin HCl] 300 mg capsule 300 mg PO Q6H Qty: 40 0RF No Action albuterol sulfate [ProAir HFA] 1 PUFF inhaler 1 - 2 puff inhalation Q4H PRN PRN (Reason: Shortness Of Breath) Label Comments: shortness of breath Beclomethasone Diprop Inhaler [Qvar 80 Mcg Inhaler] 1 PUFF inhaler 2 puff inhalation BID PRN (Reason: Shortness Of Breath) Label Comments: asthma ferrous sulfate [Iron (ferrous sulfate)] 325 MG tablet 325 mg PO DAILY Label Comments: iron supplement/anemia metformin 1,000 MG tablet 1,000 mg PO BIDCM pantoprazole 20 mg tablet,delayed release (DR/EC) 50 mg PO DAILY Label Comments: TAKE 1 TABLET BY MOUTH ONCE DAILY cephalexin [cephalexin] 500 mg capsule 500 mg PO Q6 Qty: 28 0RF phenazopyridine [Pyridium] 200 mg tablet 200 mg PO TID Qty: 6 0RF Primary Care Provider: William Willoughby Referrals: William Willoughby MD [Primary Care Provider] - 5-7 Days Disposition Disposition: Home, Self Care
[2023-01-28] MEDS: Clindamycin HCl 150 MG Capsule 300 MG PO (19:12)
== END 2023-01-28 19:14 | disposition home or self-care (01) ==
LOC: ED 19:10
PROVIDERS: Emergency Provider Emergency Medicine; PCP Family Medicine; Visit Provider Emergency Medicine
DX: L03.012 Cellulitis of left finger (principal); F17.210 Nicotine dependence, cigarettes, uncomplicated; E66.9 Obesity, unspecified
CPT/HCPCS: 99283

== ENCOUNTER 2023-02-16 12:12 | Emergency (ER) | payer MEDICAID, SELFPAY ==
[2023-02-16 12:12] VITALS: BP 165/125; PULSE 119; RESP 18; TEMP 36; O2SAT 95; BMI 42.4
--- NOTE | 2023-02-16 12:19 | ED.VIS.FEGU ---
HPI HPI - Female History of Present Illness Chief Complaint: Complaint Narrative Narrative: 57-year-old female here for dysuria, cloudy urine and back pain for last 2 to 3 days. Patient further states she is got increasing frequency of urination. Denies any vaginal bleeding or discharge. Denies any diarrhea constipation or changes in bowel habits. Denies any recent falls. Patient denies any saddle anesthesia, urinary tension, bowel or bladder incontinence, lower extremity weakness, fever or IV drug use, no recent spinal manipulation or surgery, no recent urinary catheterization. PFSH [facility] Medical History (Updated 02/16/23 @ 14:[address] Perico Scanlon, DO) Asthma Diabetes GERD (gastroesophageal reflux disease) Home Medications Beclomethasone Diprop Inhaler [Qvar 80 Mcg Inhaler] 2 puff inhalation BID PRN Shortness Of Breath 01/02/14 [History Last Taken 06/19/19] albuterol sulfate 90 mcg/actuation aerosol inhaler (ProAir HFA) 1 - 2 puff inhalation Q4H PRN PRN Shortness Of Breath 01/02/14 [History Last Taken 06/19/19] ferrous sulfate 325 mg (65 mg iron) tablet (Iron (ferrous sulfate)) 325 mg PO DAILY 02/15/15 [History Last Taken 06/19/19] metformin 1,000 mg tablet 1,000 mg PO BIDCM 01/05/21 [History Last Taken Unknown] cephalexin 500 mg capsule 500 mg PO Q6 #28 CAPSULES 05/04/22 [Rx Last Taken Unknown] pantoprazole 20 mg tablet,delayed release 50 mg PO DAILY 05/04/22 [History Last Taken Unknown] phenazopyridine 200 mg tablet (Pyridium) 200 mg PO TID 6 doses #6 tabs 05/04/22 [Rx Last Taken Unknown] clindamycin HCl 300 mg capsule (Cleocin HCl) 300 mg PO Q6H #40 CAPSULES 01/28/23 [Rx Last Taken Unknown] cephalexin 500 mg capsule 500 mg PO Q6 7 days #28 CAPSULES 02/16/23 [Rx Last Taken Unknown] ciprofloxacin HCl 500 mg tablet 500 mg PO BID #14 TABLETS 02/16/23 [Rx Last Taken Unknown] Allergy/AdvReac Type Severity Reaction Status Date / Time clarithromycin [From Biaxin] Allergy Rash Verified 02/16/23 12:12 hydrocodone bitartrate Allergy Rash Verified 02/16/23 12:12 [From Vicodin] naproxen [From Naprosyn] Allergy Rash Verified 02/16/23 12:12 Penicillins Allergy Rash Verified 02/16/23 12:12 Sulfa (Sulfonamide Allergy Rash Verified 02/16/23 12:12 Antibiotics) codeine AdvReac Vomiting Verified 02/16/23 12:12 Surgical History H/O section Social History Smoking Status: Current every day smoker tobacco type: cigarettes ROS ROS ED ROS Narrative Constitutional: Denies fever HEENT: Denies sore throat Neck: Denies neck pain Cardiovascular: Denies chest pain, syncope Respiratory: Denies shortness of breath GI: Denies nausea vomiting or abdominal pain : Endorses dysuria, cloudy urine Musculoskeletal: Endorses back pain Neurologic: Denies numbness weakness or loss of sensation Skin denies rash EXAM Physical Exam Narrative Exam Narrative: Nursing triage notes reviewed, Vital signs reviewed Constitutional: please see mdm HENT: MMM Eyes: Pupils equal round and reactive to light, Extraocular muscles intact Neck: No stridor, no JVD, full neck ROM Lungs: Clear to auscultation, No wheezing or rales. No increased work of breathing, no conversational dyspnea, no accessory muscle use, no nasal flaring. No respiratory distress noted Heart: Regular rate and rhythm, No murmurs, No rubs and No gallops, 2+ distal pulses (radial, femoral, posterior tibial) in all extremities Abdomen: Soft, there is no tenderness, rigidity, rebound or guarding, no obvious peritoneal signs, no palpable pulsatile abdominal masses, no auscultated abdominal bruit : No CVAT Extremities: No edema Back: No midline step-offs or deformity Neuro: Intact sensation L1-S1 dermatomal distributions. Intact 5/5 strength in hip flexion (T12-L3). Knee extension (L2-L4). Ankle dorsiflexion (L4-L5). Ankle plantar flexion (S1). Great toe extension (L5). 2+ patellar and Achilles DTRs. Skin: No rash or lesions noted Const Vital Signs: 02/16/23 12:12 02/16/23 13:48 Temperature 96.8 F L Temperature Source Temporal Pulse Rate 119 H 90 Respiratory Rate 18 16 Blood Pressure 165/125 H 145/95 H Blood Pressure Mean 138 111 Pulse Ox 95 98 Oxygen Delivery Method Room Air MDM MDM MDM Narrative Medical decision making narrative: Chief Complaint: Dysuria External records reviewed: Seen for UTI in 2021. Urine culture grew E. coli that time that was sensitive to Bactrim, Keflex, ciprofloxacin MDM: Patient was initially tachycardic, hypertensive, afebrile. Exam I considered the following differential diagnosis: UTI, pyelonephritis, space-occupying spinal lesion Patient's UA showed evidence of UTI with CVA tenderness concern for pyelonephritis will give antibiotics. No signs of sepsis with tachycardia resolving without intervention no fever. Patient did not look toxic. She appeared well. Strict return precautions were discussed. After reviewing the patient's urine culture I was concerned that Keflex would not provide appropriate coverage so I switched her medicine to ciprofloxacin which her prior E. coli bacteria was more sensitive to. I called the patient and alerted her to go back to the pharmacy switch antibiotics. Patient agreed to return the pharmacy today and change antibiotic from Keflex to ciprofloxacin Factors affecting care: History of diabetes Social determinants of health: Current smoker History obtained from others: The patient's daughter Shared decision making: I will have a discussion with the patient and or visitors regarding risk/benefits of further testing or admission. They will be made aware of of the risk/benefits inherent in this decision they will be given the opportunity to voice understanding. Consults: None Lab Data Labs: Laboratory Results - last 24 hr 02/16/23 12:55 Urine Color Yellow Urine Clarity Cloudy Urine pH 6.5 Ur Specific [place] 1.010 Urine Protein 500 H Urine Glucose (UA) Normal Urine Ketones Negative Urine Occult Blood 250 H Urine Nitrite Positive H Urine Bilirubin Negative Urine Urobilinogen Normal Ur Leukocyte Esterase 500 H Urine RBC 25-50 SEEN Urine WBC 25-50 SEEN Ur Squamous Epith Cells 0-5 SEEN Urine Bacteria 2+ Urine Mucus 0 SEEN Discharge Plan Triage Chief Complaint: Complaint ED Provider: Perico Scanlon Dx/Rx/DC Orders Clinical Impression: UTI (urinary tract infection) Prescriptions: New cephalexin 500 mg capsule 500 mg PO Q6 7 Days Qty: 28 0RF ciprofloxacin HCl 500 mg tablet 500 mg PO BID Qty: 14 0RF No Action albuterol sulfate [ProAir HFA] 1 PUFF inhaler 1 - 2 puff inhalation Q4H PRN PRN (Reason: Shortness Of Breath) Label Comments: shortness of breath Beclomethasone Diprop Inhaler [Qvar 80 Mcg Inhaler] 1 PUFF inhaler 2 puff inhalation BID PRN (Reason: Shortness Of Breath) Label Comments: asthma ferrous sulfate [Iron (ferrous sulfate)] 325 MG tablet 325 mg PO DAILY Label Comments: iron supplement/anemia metformin 1,000 MG tablet 1,000 mg PO BIDCM pantoprazole 20 mg tablet,delayed release (DR/EC) 50 mg PO DAILY Label Comments: TAKE 1 TABLET BY MOUTH ONCE DAILY cephalexin [cephalexin] 500 mg capsule 500 mg PO Q6 Qty: 28 0RF phenazopyridine [Pyridium] 200 mg tablet 200 mg PO TID Qty: 6 0RF clindamycin HCl [Cleocin HCl] 300 mg capsule 300 mg PO Q6H Qty: 40 0RF Primary Care Provider: William Willoughby Referrals: William Willoughby MD [Primary Care Provider] - Activity Restrictions/Additional Instructions: Thank you for trusting us with your care today! Please take Tylenol (2 pills, 650 mg), ibuprofen (2 pills, 400 mg) every 6 hours as needed for pain and fever control. Please take antibiotics as prescribed. Please complete entire antibiotic course. Please return if he cannot tolerate antibiotics by mouth. Please return to the emergency department if your symptoms change or worsen. Please follow with your primary care physician for further outpatient evaluation and management. Disposition Disposition: Home, Self Care Discharge Date/Time: 02/16/23 15:06
[2023-02-16] MEDS: Ibuprofen 200 MG Tablet 400 MG PO (12:55)
[2023-02-16] MEDS: oxyCODONE 5 MG Tablet PO (12:55)
[2023-02-16 13:00] LABS: Mucous, Urine 0 SEEN /hpf (<or=2+)
[2023-02-16 13:06] LABS: Color, Urine Yellow (Yellow); Glucose, Dipstick Normal (Normal); Ketone-Dipstick Negative (Negative); Leukocyte Esterase-Dipstick 500 /ul (Negative); Nitrite-Dipstick Positive (Negative); Occult Blood-Urine 250 /ul (Negative); Protein-Dipstick 500 mg/dl (Negative); Urine Bilirubin Dipstick Negative (Negative); Urine Clarity Cloudy (Clear); Urine Urobilinogen Normal (Normal); Urine pH 6.5 (5.0 - 8.0)
[2023-02-16 13:14] LABS: Bacteria 2+ /hpf (None Seen); Red Blood Cells-Urine 25-50 SEEN /hpf (0-5); Squamous Epithelial Cells - UA 0-5 SEEN /hpf (5-10); White Blood Cells 25-50 SEEN /hpf (0-5)
[2023-02-16 13:48] VITALS: BP 145/95; PULSE 90; RESP 16; O2SAT 98
[2023-02-16] MEDS: Cephalexin 250 MG Capsule 500 MG PO (15:02)
== END 2023-02-16 15:06 | disposition home or self-care (01) ==
PROVIDERS: Emergency Provider Emergency Medicine; PCP Family Medicine; Visit Provider Emergency Medicine
DX: N39.0 Urinary tract infection, site not specified (principal); F17.210 Nicotine dependence, cigarettes, uncomplicated
CPT/HCPCS: 81001; 99283

== ENCOUNTER 2023-04-13 11:53 | Emergency (ER) | payer MEDICAID, SELFPAY ==
[2023-04-13 11:53] VITALS: BP 190/140; PULSE 103; RESP 18; TEMP 35.8; O2SAT 99
--- NOTE | 2023-04-13 12:14 | EX.ED.GENINJ ---
HPI History of Present Illness Chief Complaint: Laceration Informant: patient Narrative Narrative: 57-year-old female states she was mowing the grass and something flew up and hit her in the face very hard and she is in a lot of pain. States she has a cut on her face and her tooth hurts. No other injuries. [facility] Medical History Asthma Diabetes GERD (gastroesophageal reflux disease) Home Medications Beclomethasone Diprop Inhaler [Qvar 80 Mcg Inhaler] 2 puff inhalation BID PRN Shortness Of Breath 01/02/14 [History Last Taken 06/19/19] albuterol sulfate 90 mcg/actuation aerosol inhaler (ProAir HFA) 1 - 2 puff inhalation Q4H PRN PRN Shortness Of Breath 01/02/14 [History Last Taken 06/19/19] ferrous sulfate 325 mg (65 mg iron) tablet (Iron (ferrous sulfate)) 325 mg PO DAILY 02/15/15 [History Last Taken 06/19/19] metformin 1,000 mg tablet 1,000 mg PO BIDCM 01/05/21 [History Last Taken Unknown] cephalexin 500 mg capsule 500 mg PO Q6 #28 CAPSULES 05/04/22 [Rx Last Taken Unknown] pantoprazole 20 mg tablet,delayed release 50 mg PO DAILY 05/04/22 [History Last Taken Unknown] phenazopyridine 200 mg tablet (Pyridium) 200 mg PO TID 6 doses #6 tabs 05/04/22 [Rx Last Taken Unknown] clindamycin HCl 300 mg capsule (Cleocin HCl) 300 mg PO Q6H #40 CAPSULES 01/28/23 [Rx Last Taken Unknown] cephalexin 500 mg capsule 500 mg PO Q6 7 days #28 CAPSULES 02/16/23 [Rx Last Taken Unknown] ciprofloxacin HCl 500 mg tablet 500 mg PO BID #14 TABLETS 02/16/23 [Rx Last Taken Unknown] Allergy/AdvReac Type Severity Reaction Status Date / Time clarithromycin [From Biaxin] Allergy Rash Verified 02/16/23 12:12 hydrocodone bitartrate Allergy Rash Verified 02/16/23 12:12 [From Vicodin] naproxen [From Naprosyn] Allergy Rash Verified 02/16/23 12:12 Penicillins Allergy Rash Verified 02/16/23 12:12 Sulfa (Sulfonamide Allergy Rash Verified 02/16/23 12:12 Antibiotics) codeine AdvReac Vomiting Verified 02/16/23 12:12 Surgical History H/O section Social History Smoking Status: Current every day smoker tobacco type: cigarettes ROS ROS ED Eyes Eyes: Denies blurry vision or change in vision ENT ENT ED: Reports as per HPI and dental pain Gastrointestinal Gastrointestinal: Denies nausea or vomiting Neurologic Neurologic: Denies headache(s), paresthesias or weakness Psychiatric Psychiatric: Reports anxiety EXAM Physical Exam Const Vital Signs: 04/13/23 11:53 Temperature 96.5 F L Temperature Source Temporal Pulse Rate 103 H Respiratory Rate 18 Blood Pressure 190/140 H Blood Pressure Mean 156 Pulse Ox 99 Oxygen Delivery Method Room Air Positive well nourished, well developed and obese General Appearance ED: well developed and NAD Nutritional Appearance: obese HEENT HEENT Narrative: Small abrasion to the face below the left lower lip, does not involve the vermilion, there is no lesion at the oral mucosa opposite this, but the nearby mandibular lateral incisor which appears chronically crooked is tender without being loose, and there is a very superficial laceration at the gingiva just caudal to that tooth 0.5 cm without any need for repair. No lip laceration. No other areas of facial tenderness. Moving his jaw well without difficulty, no tenderness below the laceration at the margin of the bony mandible. Eyes PERRL and EOMs intact bilaterally Neck full ROM General: Negative for tenderness Extremity normal to inspection and full ROM Neuro oriented x3, CN's II-XII intact bilaterally, moves all extremities, no focal motor deficits, no sensory deficits noted and gait normal Psych Mood & Affect: anxious and tearful Skin no rashes or lesions noted Skin Narrative: Small superficial abrasion to the left lower face see above. No need for repair. MDM MDM MDM Narrative Medical decision making narrative: Patient reassured, no repair indicated for this. I will have nurses cleanse and place a bandage with bacitracin, I advised twice daily salt water rinses for her mouth to prevent infection and this should heal on its own without any difficulty, and I do not think she needs a mandible x-ray. Given ibuprofen prior to discharge. Discharge Plan Triage Chief Complaint: Laceration ED Provider: Tod Duron Dx/Rx/DC Orders Clinical Impression: Dental injury, Abrasion of face Instructions: First Aid: Cuts and Scrapes Prescriptions: No Action albuterol sulfate [ProAir HFA] 1 PUFF inhaler 1 - 2 puff inhalation Q4H PRN PRN (Reason: Shortness Of Breath) Label Comments: shortness of breath Beclomethasone Diprop Inhaler [Qvar 80 Mcg Inhaler] 1 PUFF inhaler 2 puff inhalation BID PRN (Reason: Shortness Of Breath) Label Comments: asthma ferrous sulfate [Iron (ferrous sulfate)] 325 MG tablet 325 mg PO DAILY Label Comments: iron supplement/anemia metformin 1,000 MG tablet 1,000 mg PO BIDCM pantoprazole 20 mg tablet,delayed release (DR/EC) 50 mg PO DAILY Label Comments: TAKE 1 TABLET BY MOUTH ONCE DAILY cephalexin [cephalexin] 500 mg capsule 500 mg PO Q6 Qty: 28 0RF phenazopyridine [Pyridium] 200 mg tablet 200 mg PO TID Qty: 6 0RF clindamycin HCl [Cleocin HCl] 300 mg capsule 300 mg PO Q6H Qty: 40 0RF cephalexin 500 mg capsule 500 mg PO Q6 7 Days Qty: 28 0RF ciprofloxacin HCl 500 mg tablet 500 mg PO BID Qty: 14 0RF Primary Care Provider: William Willoughby Referrals: William Willoughby MD [Primary Care Provider] - As Needed (And/or dentist) Activity Restrictions/Additional Instructions: Rinse the front of your mouth with mild salt water twice daily to help prevent infection. Apply ice pack to your face as needed. Change Band-Aid to your face as needed until no more bleeding or discharge. Disposition Disposition: Home, Self Care
[2023-04-13 12:28] VITALS: BMI 40.8
[2023-04-13] MEDS: Ibuprofen 600 MG Tablet PO (12:31)
--- NOTE | 2023-04-13 12:35 | ED.RN ---
WOUNDS CLEANSED AND BANDAID APPLIED. VERBALIZED UNDERSTANDING OF INSTRUCTIONS.
== END 2023-04-13 12:37 | disposition home or self-care (01) ==
LOC: ED 12:27
PROVIDERS: Emergency Provider Emergency Medicine; PCP Family Medicine; Visit Provider Emergency Medicine
DX: S00.81XA Abrasion of other part of head, initial encounter (principal); F17.210 Nicotine dependence, cigarettes, uncomplicated; X58.XXXA Exposure to other specified factors, initial encounter
CPT/HCPCS: 99283

== ENCOUNTER 2023-05-11 13:26 | Emergency (ER) | payer MEDICAID, SELFPAY ==
[2023-05-11 13:26] VITALS: BP 170/115
[2023-05-11 13:27] VITALS: PULSE 93; RESP 18; TEMP 35.3; O2SAT 99; BMI 41.8
--- NOTE | 2023-05-11 13:59 | RAD_ITS ---
STUDY: X-RAY - LEFT HAND, ATTENTION LEFT THUMB. REASON FOR EXAM: Female, 57 years old. Injury/Pain -- thumb TECHNIQUE: 3 view(s) of the finger were obtained. COMPARISON: None. FINDINGS: Normal metacarpal head. Normal metacarpophalangeal joint. Normal proximal phalanx. Findings suggestive of an old avulsion fracture at the base of the distal phalanx of the thumb. Normal distal interphalangeal joint. Soft tissue swelling. RAD/Finger(s) Min 2 Views IMPRESSION: Soft tissue swelling. Findings suggestive of an old avulsion fracture at the base of the distal phalanx of the thumb. Electronically Signed: Jama Bhandari MD at 14:29 EDT ,
--- NOTE | 2023-05-11 14:00 | EX.ED.UPPERE ---
HPI History of Present Illness Chief Complaint: Upper Extremity Injury Informant: patient Narrative Narrative: Patient is a 57-year-old female with history of asthma, anemia, diabetes mellitus who is right-hand dominant presenting with atraumatic left thumb pain. Patient notes for the past 2 to 3 days she has noticed a bump on her thumb that is painful. She states when she presses on it it makes of a sensation of nerve pain go up to the tip of her thumb. She denies any trauma or injury. Denies any significant skin changes or swelling. Does not bite her nails. Came in for further evaluation. Has tried ice and ibuprofen. She feels that the ice does not help and ibuprofen does provide some mild relief of the pain. No other complaints or concerns at this time. [facility] Medical History Asthma Diabetes GERD (gastroesophageal reflux disease) Home Medications Beclomethasone Diprop Inhaler [Qvar 80 Mcg Inhaler] 2 puff inhalation BID PRN Shortness Of Breath 01/02/14 [History Last Taken 06/19/19] albuterol sulfate 90 mcg/actuation aerosol inhaler (ProAir HFA) 1 - 2 puff inhalation Q4H PRN PRN Shortness Of Breath 01/02/14 [History Last Taken 06/19/19] ferrous sulfate 325 mg (65 mg iron) tablet (Iron (ferrous sulfate)) 325 mg PO DAILY 02/15/15 [History Last Taken 06/19/19] metformin 1,000 mg tablet 1,000 mg PO BIDCM 01/05/21 [History Last Taken Unknown] cephalexin 500 mg capsule 500 mg PO Q6 #28 CAPSULES 05/04/22 [Rx Last Taken Unknown] pantoprazole 20 mg tablet,delayed release 50 mg PO DAILY 05/04/22 [History Last Taken Unknown] phenazopyridine 200 mg tablet (Pyridium) 200 mg PO TID 6 doses #6 tabs 05/04/22 [Rx Last Taken Unknown] clindamycin HCl 300 mg capsule (Cleocin HCl) 300 mg PO Q6H #40 CAPSULES 01/28/23 [Rx Last Taken Unknown] cephalexin 500 mg capsule 500 mg PO Q6 7 days #28 CAPSULES 02/16/23 [Rx Last Taken Unknown] ciprofloxacin HCl 500 mg tablet 500 mg PO BID #14 TABLETS 02/16/23 [Rx Last Taken Unknown] Allergy/AdvReac Type Severity Reaction Status Date / Time clarithromycin [From Biaxin] Allergy Rash Verified 05/11/23 13:30 hydrocodone bitartrate Allergy Rash Verified 05/11/23 13:30 [From Vicodin] naproxen [From Naprosyn] Allergy Rash Verified 05/11/23 13:30 Penicillins Allergy Rash Verified 05/11/23 13:30 Sulfa (Sulfonamide Allergy Rash Verified 05/11/23 13:30 Antibiotics) codeine AdvReac Vomiting Verified 05/11/23 13:30 Surgical History H/O section Social History Smoking Status: Current every day smoker tobacco type: cigarettes ROS ROS ED Constitutional Constitutional ED: Denies chills or fever(s) Musculoskeletal Musculoskeletal: Reports other Details: left thumb pain Integumentary Denies rash Neurologic Neurologic: Reports paresthesias; Denies weakness Psychiatric Psychiatric: Denies anxiety or depression Hematologic/Lymphatic Hematologic/Lymphatic: Denies easy bleeding EXAM Physical Exam Const Vital Signs: 05/11/23 13:27 05/11/23 13:26 Temperature 95.6 F L Temperature Source Temporal Pulse Rate 93 Respiratory Rate 18 Blood Pressure 170/115 H Blood Pressure Mean 133 Pulse Ox 99 Oxygen Delivery Method Room Air Positive well nourished and well developed General Appearance ED: well developed and NAD Chest Wall inspection of chest normal Resp normal respiratory effort Cardio regular rate Cardio Narrative: 2+ radial pulse on left Extremity Extremity Narrative: Normal range of motion with no deformity of the left hand and specifically the thumb. She does have some associated tenderness to palpation of the left distal phalanges proximal to the nailbed along the radial/dorsal aspect. Neuro oriented x3, no focal motor deficits and no sensory deficits noted Sensorium / Orientation: alert Psych mental status grossly normal Skin Skin Narrative: Overlying erythema, fluctuance or other skin changes associated with the patient's area of pain on her thumb Lesions: no lesions Rashes: no rashes MDM MDM MDM Narrative Medical decision making narrative: Patient is evaluated for atraumatic left thumb pain. She feels that there is a bump there however not able to objectively appreciated. We will obtain an x-ray. There is no overlying skin changes or lower suspicion for paronychia. Does not appear infected. No range of motion pain and low suspicion for acute gout or other intra-articular process. Thumb x-ray reviewed by myself does not show any acute bony abnormality. Patient eloped from the ER prior to me reviewing the x-ray and receiving discharge instructions. I did discuss with patient on my initial evaluation that likely I would recommend warm soaks/compresses and possible outpatient orthopedic evaluation as well as continued alternating ibuprofen and Tylenol. X-ray interpretation by radiology is suggestive of an old erosion fracture at the base of the distal phalanx of the thumb, this does not correlate with the patient's area of pain. There is soft tissue swelling noted on the x-ray. Discharge Plan Triage Chief Complaint: Upper Extremity Injury ED Provider: Payal Lucas Dx/Rx/DC Orders Clinical Impression: Pain of left thumb Prescriptions: No Action albuterol sulfate [ProAir HFA] 1 PUFF inhaler 1 - 2 puff inhalation Q4H PRN PRN (Reason: Shortness Of Breath) Patient Comments: shortness of breath Beclomethasone Diprop Inhaler [Qvar 80 Mcg Inhaler] 1 PUFF inhaler 2 puff inhalation BID PRN (Reason: Shortness Of Breath) Patient Comments: asthma ferrous sulfate [Iron (ferrous sulfate)] 325 MG tablet 325 mg PO DAILY Patient Comments: iron supplement/anemia metformin 1,000 MG tablet 1,000 mg PO BIDCM pantoprazole 20 mg tablet,delayed release (DR/EC) 50 mg PO DAILY Patient Comments: TAKE 1 TABLET BY MOUTH ONCE DAILY cephalexin [cephalexin] 500 mg capsule 500 mg PO Q6 Qty: 28 0RF phenazopyridine [Pyridium] 200 mg tablet 200 mg PO TID Qty: 6 0RF clindamycin HCl [Cleocin HCl] 300 mg capsule 300 mg PO Q6H Qty: 40 0RF cephalexin 500 mg capsule 500 mg PO Q6 7 Days Qty: 28 0RF ciprofloxacin HCl 500 mg tablet 500 mg PO BID Qty: 14 0RF Primary Care Provider: William Willoughby Referrals: William Willoughby MD [Primary Care Provider] - Disposition Disposition: Home, Self Care Discharge Date/Time: 05/11/23 14:36
--- NOTE | 2023-05-11 14:29 | ED.RN ---
AT 1420 PT EDUCATED THAT XRAY RESULTS MAY TAKE 45-60 MINUTES. PT NOT IN ROOM AT 1425. PT NOT IN BATHROOM OR IN HALLWAY.
== END 2023-05-11 14:36 | disposition home or self-care (01) ==
LOC: ED 14:29
PROVIDERS: Emergency Provider Emergency Medicine; PCP Family Medicine; Visit Provider Emergency Medicine
DX: M79.645 Pain in left finger(s) (principal); F17.210 Nicotine dependence, cigarettes, uncomplicated
CPT/HCPCS: 73140; 99282

== ENCOUNTER 2023-08-11 13:41 | Emergency (ER) | payer MEDICAID, SELFPAY ==
[2023-08-11 13:42] VITALS: BP 150/111; PULSE 89; RESP 22; TEMP 35.5; O2SAT 96; BMI 40.1
--- NOTE | 2023-08-11 14:08 | VDLE_ITS ---
Reason For Study: Right knee pain RIGHT GSV is normal. CFV is compressible, spontaneous, phasic, competent and demonstrates normal augmentation. FV is compressible, spontaneous, phasic, competent and demonstrates normal augmentation. POP V is compressible, spontaneous, phasic, competent and demonstrates normal augmentation. T/P Trunk is compressible. PTV is compressible. RT PerV is compressible. Procedure This is a venous duplex using B-mode, color flow and spectral Doppler. Exam performed portable in ED. A preliminary report was called and/or faxed to Dr. Rea. VL/Venous Duplex US, Unilateral Interpretation Summary Deep veins of the right lower extremity are patent and compressible segmentally . There is no evidence of right lower extremity deep vein thrombosis. The right great sapheno us vein appears patent and compressible segmentally. Ordering Physician: Florinda Rea Referring Physician: William Willougbhy Performed By: Pallavi Duffy RVT
--- NOTE | 2023-08-11 14:11 | ED.VIS.LOWEX ---
HPI History of Present Illness Chief Complaint: Lower Extremity Injury Detail of Chief Complaint: Right knee pain Informant: patient Onset/Context/Timing Onset: Days (2 days ago) Narrative Narrative: Patient presents secondary to right knee pain. She states she woke 2 days ago with pain but denies any injury or change in activity. She states pain feels like it is centered over the anterior knee and will radiate both distally and proximally. She does have chronic back pain that is unchanged from baseline. Her back pain does not feel like it is radiating down her right leg. On review of records I did note patient was seen 2 years ago with similar right knee pain. She had an ultrasound that revealed no DVT and an x-ray that revealed chronic changes. She never followed up with orthopedics or anything further. [facility] Medical History Asthma Diabetes GERD (gastroesophageal reflux disease) Home Medications Beclomethasone Diprop Inhaler [Qvar 80 Mcg Inhaler] 2 puff inhalation BID PRN Shortness Of Breath 01/02/14 [History Last Taken 06/19/19] albuterol sulfate 90 mcg/actuation aerosol inhaler (ProAir HFA) 1 - 2 puff inhalation Q4H PRN PRN Shortness Of Breath 01/02/14 [History Last Taken 06/19/19] ferrous sulfate 325 mg (65 mg iron) tablet (Iron (ferrous sulfate)) 325 mg PO DAILY 02/15/15 [History Last Taken 06/19/19] metformin 1,000 mg tablet 1,000 mg PO BIDCM 01/05/21 [History Last Taken Unknown] cephalexin 500 mg capsule 500 mg PO Q6 #28 CAPSULES 05/04/22 [Rx Last Taken Unknown] pantoprazole 20 mg tablet,delayed release 50 mg PO DAILY 05/04/22 [History Last Taken Unknown] phenazopyridine 200 mg tablet (Pyridium) 200 mg PO TID 6 doses #6 tabs 05/04/22 [Rx Last Taken Unknown] clindamycin HCl 300 mg capsule (Cleocin HCl) 300 mg PO Q6H #40 CAPSULES 01/28/23 [Rx Last Taken Unknown] cephalexin 500 mg capsule 500 mg PO Q6 7 days #28 CAPSULES 02/16/23 [Rx Last Taken Unknown] ciprofloxacin HCl 500 mg tablet 500 mg PO BID #14 TABLETS 02/16/23 [Rx Last Taken Unknown] oxycodone-acetaminophen 5 mg-325 mg tablet (Percocet) 1 tab PO Q8H PRN pain 3 days #10 tabs 08/11/23 [Rx Last Taken Unknown] Allergy/AdvReac Type Severity Reaction Status Date / Time clarithromycin [From Biaxin] Allergy Rash Verified 08/11/23 13:48 hydrocodone bitartrate Allergy Rash Verified 08/11/23 13:48 [From Vicodin] naproxen [From Naprosyn] Allergy Rash Verified 08/11/23 13:48 Penicillins Allergy Rash Verified 08/11/23 13:48 Sulfa (Sulfonamide Allergy Rash Verified 08/11/23 13:48 Antibiotics) codeine AdvReac Vomiting Verified 08/11/23 13:48 Surgical History H/O section Social History Smoking Status: Current every day smoker tobacco type: cigarettes ROS ROS ED Constitutional Constitutional ED: Denies chills or fever(s) ENT ENT ED: Denies rhinorrhea Cardiovascular Cardiovascular: Denies chest pain Respiratory/Chest Respiratory/Chest: Denies cough or dyspnea Gastrointestinal Gastrointestinal: Denies abdominal pain, nausea or vomiting Musculoskeletal Musculoskeletal: Reports extremity pain; Denies back pain Integumentary Denies Abrasions or rash Neurologic Neurologic: Denies headache(s) or weakness Psychiatric Psychiatric: Denies anxiety or depression Allergic/Immunologic Allergic/Immunologic ED: Denies lip swelling or urticaria EXAM Physical Exam Const Vital Signs: 08/11/23 13:42 Temperature 96 F L Temperature Source Temporal Pulse Rate 89 Respiratory Rate 22 H Blood Pressure 150/111 H Blood Pressure Mean 124 Pulse Ox 96 Oxygen Delivery Method Room Air Positive well nourished and well developed General Appearance ED: well developed HEENT Reports normocephalic and head/scalp atraumatic Eyes PERRL and EOMs intact bilaterally Neck supple Chest Wall inspection of chest normal and palpation of chest normal Resp normal respiratory effort Resp Narrative: Slight expiratory wheeze bilaterally. Cardio regular rate and regular rhythm GI non-tender Palpation: soft Extremity Extremity Narrative: Mild to moderate muscular tenderness over the proximal calf and distal thigh. No significant edema. No erythema or warmth. No joint line tenderness. No significant edema or evidence of effusion. Strong distal pulses. Neuro oriented x3 and no sensory deficits noted Sensorium / Orientation: alert Motor Exam: strength 5/5 throughout Psych mental status grossly normal Skin no rashes or lesions noted MDM MDM MDM Narrative Medical decision making narrative: Patient is an allergy to NSAIDs and is given a dose of Percocet here for pain. Right knee x-rays obtained to evaluate for any bony injury. Venous ultrasound of the right lower extremity obtained to evaluate for DVT. Treatment and Re-Evaluation Narrative: Venous ultrasound of the right lower extremity reveals no evidence of DVT or Garnica's cyst. Right knee x-rays per my interpretation reveal mild chronic changes with narrowing of the medial joint space. No bony abnormality or significant effusion. Ramesh wrap is applied to the knee. Patient be given crutches that she can use to help with balance. She is referred to orthopedics if not improving. Return instructions given. Discharge Plan Triage Chief Complaint: Lower Extremity Injury ED Provider: Florinda Rea Dx/Rx/DC Orders Clinical Impression: Right knee sprain Instructions: ED Knee Sprain Prescriptions: New oxycodone-acetaminophen [Percocet] 5-325 mg tablet 1 tab PO Q8H PRN (Reason: pain) 3 Days Qty: 10 0RF No Action albuterol sulfate [ProAir HFA] 1 PUFF inhaler 1 - 2 puff inhalation Q4H PRN PRN (Reason: Shortness Of Breath) Patient Comments: shortness of breath Beclomethasone Diprop Inhaler [Qvar 80 Mcg Inhaler] 1 PUFF inhaler 2 puff inhalation BID PRN (Reason: Shortness Of Breath) Patient Comments: asthma ferrous sulfate [Iron (ferrous sulfate)] 325 MG tablet 325 mg PO DAILY Patient Comments: iron supplement/anemia metformin 1,000 MG tablet 1,000 mg PO BIDCM pantoprazole 20 mg tablet,delayed release (DR/EC) 50 mg PO DAILY Patient Comments: TAKE 1 TABLET BY MOUTH ONCE DAILY cephalexin [cephalexin] 500 mg capsule 500 mg PO Q6 Qty: 28 0RF phenazopyridine [Pyridium] 200 mg tablet 200 mg PO TID Qty: 6 0RF clindamycin HCl [Cleocin HCl] 300 mg capsule 300 mg PO Q6H Qty: 40 0RF cephalexin 500 mg capsule 500 mg PO Q6 7 Days Qty: 28 0RF ciprofloxacin HCl 500 mg tablet 500 mg PO BID Qty: 14 0RF Primary Care Provider: William Willoughby Referrals: Luke Bravo MD [Med Staff - Active Staff] - 1 Week if not improving William Willoughby MD [Primary Care Provider] - Disposition Disposition: Home, Self Care
[2023-08-11] MEDS: Acetaminophen 500 MG Tablet PO (14:16)
[2023-08-11] MEDS: oxyCODONE 5 MG Tablet PO (14:16)
--- NOTE | 2023-08-11 14:40 | RAD_ITS ---
STUDY: X-RAY - RIGHT KNEE REASON FOR EXAM: Female, 57 years old. 2 day history of knee pain. No known injury. TECHNIQUE: 4 view(s) of the knee. COMPARISON: Comparison is made with prior study of January 05, 2021. FINDINGS: Normal visualized distal femur. Normal visualized proximal tibia and fibula. Normal proximal tibiofibular articulation. Normal medial femorotibial compartment. Normal lateral femorotibial compartment. Normal patellofemoral articulation. The soft tissue structures are unremarkable. RAD/Knee 4 or More Views IMPRESSION: Normal x-ray examination of the knee. Electronically Signed: Jama Bhandari MD at 15:07 EDT ,
[2023-08-11 15:27] VITALS: BP 162/119; PULSE 76; RESP 18; O2SAT 94
== END 2023-08-11 15:28 | disposition home or self-care (01) ==
PROVIDERS: Emergency Provider Emergency Medicine; PCP Family Medicine; Visit Provider Emergency Medicine
DX: S83.91XA Sprain of unspecified site of right knee, initial encounter (principal); F17.210 Nicotine dependence, cigarettes, uncomplicated; G89.29 Other chronic pain; X58.XXXA Exposure to other specified factors, initial encounter
CPT/HCPCS: 73564; 93971; 99284

== ENCOUNTER 2023-10-05 13:35 | Emergency (ER) | payer MEDICAID, SELFPAY ==
[2023-10-05 13:36] VITALS: BP 173/128; PULSE 91; RESP 18; TEMP 36.1; O2SAT 97; BMI 38.9
--- NOTE | 2023-10-05 13:54 | EDS_ITS ---
HPI History of Present Illness Chief Complaint: Back Detail of Chief Complaint: Lower back pain, right Informant: patient Onset/Context/Timing Onset: Days (Approximately 3 days ago) Context: Sudden Onset Chronic pain exacerbated by: any type of movement Injury: - (No history of trauma per patient) Timing: Continuous and Waxes and wanes Quality: Dull and Aching Location: Lumbar (On the right side) Maximum Severity: Severe Worsened by: improves with Movement, Ambulation, Bending and Lifting Relieved by: Nothing Associated Symptoms Associated Symptoms: - (Denies saddle paresthesia or anesthesia. Denies foot drop with walking. Denies buckling of her knees going up or down stairs.); Negative for Numbness, Tingling, Radiation to Right Leg, Radiation to Left Leg, Fever, Abdominal Pain, Dysuria, Unable to Ambulate, Unable to Transfer, Urinary Retention, Urinary Incontinence, Constipation or Fecal Incontinence Narrative Narrative: Patient is a 58-year-old woman with history of lumbar problems . She denies any recent injury. She denies fever, chills or night sweats. She denies weight loss or weight gain. She denies bowel bladder dysfunction. Denies saddle paresthesia or anesthesia. She denies radicular pain. She denies foot drop. She denies quadricep weakness. Patient states she is applied heat and taken ibuprofen with no improvement. She denies recent dental procedure or any type of procedure. Prior similar symptoms: Yes and With Prior Back Pain Recent Illness/Hospitalization: No [facility] Medical History Asthma Diabetes GERD (gastroesophageal reflux disease) Home Medications Beclomethasone Diprop Inhaler [Qvar 80 Mcg Inhaler] 2 puff inhalation BID PRN Shortness Of Breath 01/02/14 [History Last Taken 06/19/19] albuterol sulfate 90 mcg/actuation aerosol inhaler (ProAir HFA) 1 - 2 puff inhalation Q4H PRN PRN Shortness Of Breath 01/02/14 [History Last Taken ] ferrous sulfate 325 mg (65 mg iron) tablet (Iron (ferrous sulfate)) 325 mg PO DAILY 02/15/15 [History Last Taken 06/19/19] metformin 1,000 mg tablet 1,000 mg PO BIDCM 01/05/21 [History Last Taken Unknown] cephalexin 500 mg capsule 500 mg PO Q6 #28 CAPSULES 05/04/22 [Rx Last Taken Unknown] pantoprazole 20 mg tablet,delayed release 50 mg PO DAILY 05/04/22 [History Last Taken Unknown] phenazopyridine 200 mg tablet (Pyridium) 200 mg PO TID 6 doses #6 tabs 05/04/22 [Rx Last Taken Unknown] clindamycin HCl 300 mg capsule (Cleocin HCl) 300 mg PO Q6H #40 CAPSULES 01/28/23 [Rx Last Taken Unknown] cephalexin 500 mg capsule 500 mg PO Q6 7 days #28 CAPSULES 02/16/23 [Rx Last Taken Unknown] ciprofloxacin HCl 500 mg tablet 500 mg PO BID #14 TABLETS 02/16/23 [Rx Last Taken Unknown] oxycodone-acetaminophen 5 mg-325 mg tablet (Percocet) 1 tab PO Q8H PRN pain 3 days #10 tabs 08/11/23 [Rx Last Taken Unknown] oxycodone-acetaminophen 5 mg-325 mg tablet (Percocet) 1 tab PO Q8H PRN pain 3 days #10 tabs 10/05/23 [Rx Last Taken Unknown] Allergy/AdvReac Type Severity Reaction Status Date / Time clarithromycin [From Biaxin] Allergy Rash Verified 10/05/23 13:36 hydrocodone bitartrate Allergy Rash Verified 10/05/23 13:36 [From Vicodin] naproxen [From Naprosyn] Allergy Rash Verified 10/05/23 13:36 Penicillins Allergy Rash Verified 10/05/23 13:36 Sulfa (Sulfonamide Allergy Rash Verified 10/05/23 13:36 Antibiotics) codeine AdvReac Vomiting Verified 10/05/23 13:36 Surgical History H/O section Social History (Updated 10/05/23 @ 13:[address] Badillo MD) household members: spouse Smoking Status: Current every day smoker tobacco type: cigarettes substance use type: does not use ROS ROS ED Constitutional Constitutional ED: Denies chills, fever(s), subjective or sweats Eyes Eyes: Denies blurry vision or change in vision ENT ENT ED: Denies ear pain, rhinorrhea or sore throat Cardiovascular Cardiovascular: Denies chest pain or palpitations Respiratory/Chest Respiratory/Chest: Denies dyspnea or dyspnea on exertion Gastrointestinal Gastrointestinal: Denies abdominal pain, constipation, nausea or vomiting Genitourinary Genitourinary ED: Denies dysuria, hematuria or urinary frequency Musculoskeletal Musculoskeletal: Reports back pain; Denies arthralgias, myalgias or neck pain Integumentary Denies rash Neurologic Neurologic: Reports other Details: See HPI narrative ; Denies headache(s), paresthesias or weakness Endocrine Endocrinology: Denies cold intolerance, polydipsia or polyuria Hematologic/Lymphatic Hematologic/Lymphatic: Denies easy bleeding or easy bruising EXAM Physical Exam Const Vital Signs: 10/05/23 13:36 Temperature 97.0 F L Temperature Source Temporal Pulse Rate 91 Respiratory Rate 18 Blood Pressure 173/128 H Blood Pressure Mean 143 Pulse Ox 97 Oxygen Delivery Method Room Air Positive well nourished, well developed and obese Constitutional Narrative: Has odor of tobacco noted. General Appearance ED: well developed and NAD Nutritional Appearance: obese HEENT Reports moist mucous membranes HEENT Narrative: Head is atraumatic and normocephalic. Ears are normal. Nares are patent. Posterior pharynx is unremarkable. Eyes PERRL and EOMs intact bilaterally General Eye ED: Negative for pale conjunctiva or scleral icterus Neck no lymphadenopathy, supple and no JVD Resp normal respiratory effort and clear to auscultation bilaterally Cardio regular rate, regular rhythm, S1 normal heart sound, S2 normal heart sound and no murmurs GI normal to inspection, nondistended, normoactive bowel sounds, soft to palpation, non-tender, non-distended and no masses GI Narrative: There is no palpable or pulsatile mass. There is no abdominal bruit. Exam is limited due to but habitus. Back/Spine normal to inspection Back/Spine Narrative: There is right para lumbar discomfort to palpation. Lumbar Spine / Lower Back: ROM limited and straight leg raise negative bilaterally Extremity normal to inspection and no clubbing, cyanosis or edema Extremity Narrative: There is no asymmetry, discoloration, leg vein distention, palpable cords or tenderness along the distribution of the deep venous system. Neuro oriented x3 and no sensory deficits noted Neuro Narrative: EHL is intact bilaterally. Sensation over L3-S1 1 dermatome are intact. There is 5/5 strength with dorsi and plantarflexion of the foot. Will assess for quadricep weakness once patient has been medicated. Sensorium / Orientation: alert Motor Exam: strength 5/5 throughout Deep Tendon Reflexes: Rt Patellar (L4): 1+, Lt Patellar (L4): 1+, Rt Ankle (S1): 1+ and Lt Ankle (S1): 1+ Deep Tendon Reflexes Back: Rt Patellar (L4): 1+, Lt Patellar (L4): 1+, Rt Ankle (S1): 1+ and Lt Ankle (S1): 1+ Plantar Reflex: Downgoing: bilateral Psych mental status grossly normal Skin no rashes or lesions noted and no wounds MDM MDM MDM Narrative Medical decision making narrative: Patient presents with low back pain. There are no red flags that would raise concern for cauda equina syndrome, epidural abscess, spontaneous epidural hematoma or discitis. Suspect this is myofascial lumbar strain. Patient reports rash to naproxen however she cannot take ibuprofen. She was medicated with morphine. Will reassess. Treatment and Re-Evaluation Narrative: Was reassessed at 1510. Sitting up smiling. She has had a 70% reduction of pain. Patient feels comfortable going home. She was prescribed Percocet which she has taken in the past without adverse reaction. Discharge Plan Triage Chief Complaint: Back ED Provider: Lane Badillo Dx/Rx/DC Orders Clinical Impression: Myofascial low back pain, BMI over 35, History of anemia Instructions: ED Back Pain (Acute or Chronic) Prescriptions: New oxycodone-acetaminophen [Percocet] 5-325 mg tablet 1 tab PO Q8H PRN (Reason: pain) 3 Days Qty: 10 0RF No Action albuterol sulfate [ProAir HFA] 1 PUFF inhaler 1 - 2 puff inhalation Q4H PRN PRN (Reason: Shortness Of Breath) Patient Comments: shortness of breath Beclomethasone Diprop Inhaler [Qvar 80 Mcg Inhaler] 1 PUFF inhaler 2 puff inhalation BID PRN (Reason: Shortness Of Breath) Patient Comments: asthma ferrous sulfate [Iron (ferrous sulfate)] 325 MG tablet 325 mg PO DAILY Patient Comments: iron supplement/anemia metformin 1,000 MG tablet 1,000 mg PO BIDCM pantoprazole 20 mg tablet,delayed release (DR/EC) 50 mg PO DAILY Patient Comments: TAKE 1 TABLET BY MOUTH ONCE DAILY cephalexin [cephalexin] 500 mg capsule 500 mg PO Q6 Qty: 28 0RF phenazopyridine [Pyridium] 200 mg tablet 200 mg PO TID Qty: 6 0RF clindamycin HCl [Cleocin HCl] 300 mg capsule 300 mg PO Q6H Qty: 40 0RF cephalexin 500 mg capsule 500 mg PO Q6 7 Days Qty: 28 0RF ciprofloxacin HCl 500 mg tablet 500 mg PO BID Qty: 14 0RF oxycodone-acetaminophen [Percocet] 5-325 mg tablet 1 tab PO Q8H PRN (Reason: pain) 3 Days Qty: 10 0RF Primary Care Provider: William Willoughby Referrals: William Willoughby MD [Primary Care Provider] - 3-5 Days if not improving Activity Restrictions/Additional Instructions: 1. Apply ice 6-10 times a day 2. Take medication as prescribed 3. If you are unable to urinate, loss of bowel control or develop weakness in one of your legs return to the emergency department Disposition Disposition: Home, Self Care
[2023-10-05] MEDS: Ondansetron 4 MG/2 ML Vial IV (14:11)
[2023-10-05] MEDS: Morphine 4 MG/ML Syringe IV (14:11)
== END 2023-10-05 15:26 | disposition home or self-care (01) ==
PROVIDERS: Emergency Provider Emergency Medicine; PCP Family Medicine; Visit Provider Emergency Medicine
DX: M54.50 Low back pain, unspecified (principal); E11.9 Type 2 diabetes mellitus without complications; F17.210 Nicotine dependence, cigarettes, uncomplicated; G89.29 Other chronic pain; J45.909 Unspecified asthma, uncomplicated; E66.9 Obesity, unspecified
CPT/HCPCS: 96374; 96375; 99283; A4216; J2405

== ENCOUNTER 2023-11-01 13:32 | Emergency (ER) | payer MEDICAID, SELFPAY ==
[2023-11-01 13:33] VITALS: BP 164/113; PULSE 95; RESP 18; TEMP 35.8; O2SAT 100
[2023-11-01 13:46] VITALS: O2SAT 98
--- NOTE | 2023-11-01 13:47 | EDS_ITS ---
HPI <TYLER Farrell - Last Filed: 11/01/23 14:46> HPI - Fall History of Present Illness Chief Complaint: Fall Narrative Narrative: 58-year-old female fell on the ice this morning landing on her left hip and buttock. She was able to get up and walk but has continued pain in that area. She has chronic bilateral low back pain. She has no pain radiating down the leg, no weakness or paresthesias. There is no head injury. [facility] <TYLER Farrell - Last Filed: 11/01/23 14:46> [facility] Medical History Asthma Diabetes GERD (gastroesophageal reflux disease) Home Medications Beclomethasone Diprop Inhaler [Qvar 80 Mcg Inhaler] 2 puff inhalation BID PRN Shortness Of Breath 01/02/14 [History Last Taken 06/19/19] albuterol sulfate 90 mcg/actuation aerosol inhaler (ProAir HFA) 1 - 2 puff inhalation Q4H PRN PRN Shortness Of Breath 01/02/14 [History Last Taken 06/19/19] ferrous sulfate 325 mg (65 mg iron) tablet (Iron (ferrous sulfate)) 325 mg PO DAILY 02/15/15 [History Last Taken 06/19/19] metformin 1,000 mg tablet 1,000 mg PO BIDCM 01/05/21 [History Last Taken Unknown] cephalexin 500 mg capsule 500 mg PO Q6 #28 CAPSULES 05/04/22 [Rx Last Taken Unknown] pantoprazole 20 mg tablet,delayed release 50 mg PO DAILY 05/04/22 [History Last Taken Unknown] phenazopyridine 200 mg tablet (Pyridium) 200 mg PO TID 6 doses #6 tabs 05/04/22 [Rx Last Taken Unknown] clindamycin HCl 300 mg capsule (Cleocin HCl) 300 mg PO Q6H #40 CAPSULES 01/28/23 [Rx Last Taken Unknown] cephalexin 500 mg capsule 500 mg PO Q6 7 days #28 CAPSULES 02/16/23 [Rx Last Taken Unknown] ciprofloxacin HCl 500 mg tablet 500 mg PO BID #14 TABLETS 02/16/23 [Rx Last T aken Unknown] oxycodone-acetaminophen 5 mg-325 mg tablet (Percocet) 1 tab PO Q8H PRN pain 3 days #10 tabs 08/11/23 [Rx Last Taken Unknown] oxycodone-acetaminophen 5 mg-325 mg tablet (Percocet) 1 tab PO Q8H PRN pain 3 days #10 tabs 10/05/23 [Rx Last Taken Unknown] ondansetron 4 mg disintegrating tablet 4 mg PO Q6H PRN nausea and vomiting 2 days #8 tabs 11/01/23 [Rx Last Taken Unknown] oxycodone-acetaminophen 5 mg-325 mg tablet (Percocet) 1 tab PO Q6H PRN pain 2 days #8 tabs 11/01/23 [Rx Last Taken Unknown] Allergy/AdvReac Type Severity Reaction Status Date / Time clarithromycin [From Biaxin] Allergy Rash Verified 11/01/23 13:33 hydrocodone bitartrate Allergy Rash Verified 11/01/23 13:33 [From Vicodin] naproxen [From Naprosyn] Allergy Rash Verified 11/01/23 13:33 Penicillins Allergy Rash Verified 11/01/23 13:33 Sulfa (Sulfonamide Allergy Rash Verified 11/01/23 13:33 Antibiotics) codeine AdvReac Vomiting Verified 11/01/23 13:33 Surgical History H/O section Social History (Updated 10/05/23 @ 13:[address] Badillo MD) household members: spouse Smoking Status: Current every day smoker tobacco type: cigarettes substance use type: does not use ROS <TYLER Farrell - Last Filed: 11/01/23 14:46> ROS ED ROS Narrative Neuro: Negative for motor/sensory dysfunction. Skin: Negative for wound. Musc: Positive for left hip pain, trauma. Heme: Negative for easy bruising, bleeding, lymphadenopathy. EXAM <TYLER Farrell - Last Filed: 11/01/23 14:46> Physical Exam Narrative Exam Narrative: CONST: Patient sitting in no acute distress. EYES: Normal inspection. NECK: Normal inspection. RESP: No respiratory distress, CTAB. CVS: Regular rate and rhythm, no murmur, no gallop. Back: Normal inspection, no midline tenderness. No bruising. SKIN: Color normal, no rash, warm, dry, intact. EXTREMITIES: Normal appearance, no shortening or rotation, tender left buttock and slightly left hip, no other tenderness, 5/5 strength in hip flexion, knee flexion/extension, DF/PF. Normal sensation, 2+ DP pulses. Full ROM upper extremities, nontender, 2+ radial pulses. NEURO: Oriented x4. PSYCH: Normal affect. Const Vital Signs: 11/01/23 13:33 11/01/23 13:46 Temperature 96.4 F L Temperature Source Temporal Pulse Rate 95 Respiratory Rate 18 Respiratory Effort Normal Non-Labored Respiratory Depth Normal Respiratory Pattern Normal Blood Pressure 164/113 H Blood Pressure Mean 130 Pulse Ox 100 98 Oxygen Delivery Method Room Air Room Air <Dr. Eitan Sánchez DO - Last Filed: 11/01/23 14:46> Physical Exam Const Vital Signs: 11/01/23 13:33 11/01/23 13:46 Temperature 96.4 F L Temperature Source Temporal Pulse Rate 95 Respiratory Rate 18 Respiratory Effort Normal Non-Labored Respiratory Depth Normal Respiratory Pattern Normal Blood Pressure 164/113 H Blood Pressure Mean 130 Pulse Ox 100 98 Oxygen Delivery Method Room Air Room Air MDM <TYLER Farrell - Last Filed: 11/01/23 14:46> [facility] Narrative Medical decision making narrative: History gathered from: Patient and daughter Mechanical fall on the ice injuring her left buttock and hip. No head injury. Ambulated into the ED. No external signs of trauma or bruising. Reproducible tenderness left buttock and slightly left greater trochanter. Distal pulses intact. Left hip/pelvic x-ray shows no acute findings. Patient feels improved after IM Toradol, will continue ice and NSAIDs at home, and was prescribed Percocet for breakthrough pain. Discharged in stable condition. I have personally performed a face to face assessment of the patient and have reviewed the DINESH Note. I performed a substantive portion of the visit including all aspects of the following. My kaur findings include: History is patient feeling the isolating on the left buttock region. She notes pain near the ischial tuberosity. No low back pain. Painful to touch after sitting. Exam is tender to palpation at the ischial tuberosity. No focal palpable hematoma. No midline lumbar tenderness. Neurovascular intact distal. Medical Dasha Novoa interpretation of the plain films of the left hip and pelvis is no acute fracture. Patient was advised of the x-ray findings. Advised on conservative treatment. Expect soreness 1 to 2 weeks. Tylenol and Motrin for pain. We can write for some narcotic pain medicine for severe pain. Follow-up 10 to 14 days if not improved Radiography Diagnostic Testing: Clinical Impression(s) from Imaging Studies Hip/Pelvis X-Ray 11/01/23 13:53 IMPRESSION: No evidence of displaced pelvic or hip fracture. Electronically Signed: Mason Renee MD at 14:15 EST , <Dr. Eitan Sánchez, DO - Last Filed: 11/01/23 14:46> [facility] MDM Narrative Medical decision making narrative: History gathered from: Patient and daughter Mechanical fall on the ice injuring her left buttock and hip. No head injury. Ambulated into the ED. No external signs of trauma or bruising. Reproducible tenderness left buttock and slightly left greater trochanter. Distal pulses intact. Left hip/pelvic x-ray shows no acute findings. Patient feels improved after IM Toradol, will continue ice and NSAIDs at home. Discharged in stable condition. I have personally performed a face to face assessment of the patient and have reviewed the DINESH Note. I performed a substantive portion of the visit including all aspects of the following. My kaur findings include: History is patient feeling the isolating on the left buttock region. She notes pain near the ischial tuberosity. No low back pain. Painful to touch after sitting. Exam is tender to palpation at the ischial tuberosity. No focal palpable hematoma. No midline lumbar tenderness. Neurovascular intact distal. Yolanda Novoa interpretation of the plain films of the left hip and pelvis is no acute fracture. Patient was advised of the x-ray findings. Advised on conservative treatment. Expect soreness 1 to 2 weeks. Tylenol and Motrin for pain. We can write for some narcotic pain medicine for severe pain. Follow-up 10 to 14 days if not improved Radiography Diagnostic Testing: Clinical Impression(s) from Imaging Studies Hip/Pelvis X-Ray 11/01/23 13:53 IMPRESSION: No evidence of displaced pelvic or hip fracture. Electronically Signed: Mason Renee MD at 14:15 EST , Discharge Plan Triage Chief Complaint: Fall ED Midlevel Provider: Aysha Isabel ED Provider: Eitan Sánchez Dx/Rx/DC Orders Clinical Impression: Contusion of left buttock Instructions: Bruises (Contusions) Prescriptions: New oxycodone-acetaminophen [Percocet] 5-325 mg tablet 1 tab PO Q6H PRN (Reason: pain) 2 Days Qty: 8 0RF ondansetron 4 mg tablet,disintegrating 4 mg PO Q6H PRN (Reason: nausea and vomiting) 2 Days Qty: 8 0RF No Action albuterol sulfate [ProAir HFA] 1 PUFF inhaler 1 - 2 puff inhalation Q4H PRN PRN (Reason: Shortness Of Breath) Patient Comments: shortness of breath Beclomethasone Diprop Inhaler [Qvar 80 Mcg Inhaler] 1 PUFF inhaler 2 puff inhalation BID PRN (Reason: Shortness Of Breath) Patient Comments: asthma ferrous sulfate [Iron (ferrous sulfate)] 325 MG tablet 325 mg PO DAILY Patient Comments: iron supplement/anemia metformin 1,000 MG tablet 1,000 mg PO BIDCM pantoprazole 20 mg tablet,delayed release (DR/EC) 50 mg PO DAILY Patient Comments: TAKE 1 TABLET BY MOUTH ONCE DAILY cephalexin [cephalexin] 500 mg capsule 500 mg PO Q6 Qty: 28 0RF phenazopyridine [Pyridium] 200 mg tablet 200 mg PO TID Qty: 6 0RF clindamycin HCl [Cleocin HCl] 300 mg capsule 300 mg PO Q6H Qty: 40 0RF cephalexin 500 mg capsule 500 mg PO Q6 7 Days Qty: 28 0RF ciprofloxacin HCl 500 mg tablet 500 mg PO BID Qty: 14 0RF oxycodone-acetaminophen [Percocet] 5-325 mg tablet 1 tab PO Q8H PRN (Reason: pain) 3 Days Qty: 10 0RF oxycodone-acetaminophen [Percocet] 5-325 mg tablet 1 tab PO Q8H PRN (Reason: pain) 3 Days Qty: 10 0RF Primary Care Provider: William Willoughby Referrals: Waelder,, MD [Primary Care Provider] - Activity Restrictions/Additional Instructions: Ice and use ibuprofen every 6 hours as needed Disposition Disposition: Home, Self Care
--- NOTE | 2023-11-01 13:53 | RAD_ITS ---
EXAM: XR LEFT HIP WITH PELVIS WHEN PERFORMED, 2 OR 3 VIEWS CLINICAL INDICATION: pain TECHNIQUE: Two or three views of the left hip with pelvis when performed. COMPARISON: No relevant prior studies available. FINDINGS: BONES/JOINTS: Unremarkable. No displaced fracture. No destructive or sclerotic lesions. Note that overlapping bowel shadows may however obscure fine detail. Sacroiliac joint is unremarkable. No widening of the pubic symphysis. The articular structures are unremarkable. SOFT TISSUES: Unremarkable. No soft tissue swelling or gas. RAD/HIP, UNI W/ Pelvis 2-3 Views IMPRESSION: No evidence of displaced pelvic or hip fracture. Electronically Signed: Mason Renee MD at 14:15 EST Reading Location ID and State: [facility] / [place] , Service support ,
[2023-11-01] MEDS: Ketorolac 30 MG/ML Syringe IM (14:09)
--- OUTSIDE RECORDS SUMMARY | 2023-11-01 14:18 | XMS RPT_ITS | CCD ---
Author Name Unknown Address [address] [place] [address] Organization [facility] Care Team Providers Care Flash Drier Operator Name Role Phone STAS CASTELLANO Admitting Unavailable STAS CASTELLANO Attending Unavailable STAS CASTELLANO Primary Care Unavailable ONIEL WILLOUGHBY Consulting Unavailable CASE, ONIEL Referring Unavailable PROVIDER, UNKNOWN Consulting Unavailable ONIEL RICKETTS Admitting Unavailable ONIEL RICKETTS Attending Unavailable ONIEL WILLOUGHBY Referring Unavailable ONIEL RICKETTS Primary Care Unavailable ONIEL WILLOUGHBY Consulting Unavailable PROVIDER, UNKNOWN Consulting Unavailable Oniel Willoughby MD Primary Care Provider Oniel Willoughby MD Primary Care Provider Oniel Willoughby MD Primary Care Provider GUERLINE TURK, DR MEAD Attending Unavailab ONIEL Baron MD Primary Care Unavailable CANDIDO TURK, NAVIN Wolff Attending Unavail able ONIEL WILLOUGHBY MD Care Unavailable ONIEL WILLOUGHBY Primary Care Unavailable Parth SMITH Referring Unavailable ONIEL WILLOUGHBY Primary Care Unavailable Parth SMITH Attending Unavailable ONIEL WILLOUGHBY Primary Care Unavailable ONIEL WILLOUGHBY Primary Care Unavailable ANUPAMA UGALDE Attending Unavailable ONIEL WILLOUGHBY Primary Care Unavailable ANUPAMA UGALDE Referring Unavailable ONIEL WILLOUGHBY Primary Care Unavailable ONIEL WILLOUGHBY Primary Care Unavailable VIDHI BOWERS Referring Unavailable ANUPAMA UGALDE Attending Unavailable ONIEL WILLOUGHBY Primary Care Unavailable VIDHI BOWERS Attending Unavailable ONIEL WILLOUGHBY Primary Care Unavailable Parth SMITH Referring Unavailable Allergies Allergy Classification Reported Allergen(s) Allergy Type Date of Onset Reaction(s) Facility (1 source) Acetaminophen / HYDROcodone Drug Allergy [facility] (1 source) Naproxen Drug Allergy [facility] (1 source) Penicillins Drug allergy (disorder) [facility] (1 source) Sulfonamides (Antibiotic) Drug allergy (disorder) [facility] (1 source) NSAID Drug allergy (disorder) [facility] (20 sources) Acetaminophen / HYDROcodone; Translations: [HYDROCODONE-ACET AMINOPHEN] Drug Allergy 07-31-20 08 Vomiting [facility] (20 sources) Clarithromycin; Translations: [CLARITHROMYCIN] Drug Allergy 06-25-20 05 [facility] Work Phone: (20 sources) Codeine; Translations: [CODEINE] Drug Allergy 11-11-19 12 GI Upset [facility] (20 sources) Doxycycline; Translations: [DOXYCYCLINE] Drug Allergy 07-24-20 09 [facility] Work Phone: (20 sources) meloxicam; Translations: [MELOXICAM] Drug Allergy 04-27-20 14 Other: See Comments [facility] (20 sources) Naproxen; Translations: [NAPROXEN] Drug Allergy 06-25-20 05 [facility] (20 sources) Penicillin G; Translations: [PENICILLIN G] Drug Allergy 06-25-20 05 [facility] (20 sources) Sulfonamides (Antibiotic); Translations: [SULFA (SULFONAMIDE ANTIBIOTICS)] Drug Intolerance 06-25-20 05 Anaphylaxis [facility] (20 sources) traMADol; Translations: [TRAMADOL] Drug Allergy 11-11-19 12 Intolerance [facility] Medications Current Medications Medication Drug Class(es) Dates Sig (Normalized) Sig (Original) amoxicillin 875 mg / clavulanate 125 mg oral tablet (3 sources) Penicillin-class Antibacterial Start: 05-22-2023 End: 05-29-2023 take 1 tablet by mouth twice daily amoxicillin-clav ulanic acid (AUGMENTIN) 875-125 mg per tablet Indications: Mastoid pain, right Take 1 tablet by mouth twice daily for 7 days. 14 tablet 0 05/22/2023 05/29/2023 Active Completed/Discontinued Medications Medication Drug Class(es) Dates Sig (Normalized) Sig (Original) [id number] actuat albuterol 0.09 mg/actuat metered dose inhaler (20 sources) beta2-Adrenergic Agonist Start: 01-02-2022 End: 09-21-2023 take 1-2 puff(s) by inhalation every six hours as needed albuterol HFA (PROAIR HFA) 90 mcg/actuation inhaler Indications: Asthma, unspecified asthma severity, unspecified whether complicated, unspecified whether persistent INHALE 1 (ONE) TO 2 (TWO) PUFFS EVERY 6 HOURS NEEDED 18 g 3 09/21/2023 Active Problems Active Problems Problem Classification Problem Date Documented Date Episodic/Chronic Asthma (20 sources) Asthma; Translations: [Unspecified asthma, uncomplicated] Onset: 08-23-2007 12-13-2015 Chronic Deficiency and other anemia (1 source) Iron deficiency anemia; Translations: [Iron deficiency anemia, unspecified] 04-28-2023 Episodic Diabetes mellitus without complication (20 sources) Type 2 diabetes mellitus without complication; Translations: [Type 2 diabetes mellitus without complications] Onset: 08-08-2020 08-08-2020 Chronic Esophageal disorders (20 sources) Gastroesophageal reflux disease; Translations: [Gastro-esophageal reflux disease without esophagitis] Onset: 07-16-2012 07-16-2012 Chronic Esophageal disorders (1 source) Esophageal disorders; Translations: [Gastroesophageal reflux disease with esophagitis without hemorrhage] Onset: 07-16-2012 Genitourinary symptoms and ill-defined conditions (1 source) Infrequent urination; Translations: [Other difficulties with micturition] Episodic Headache; including migraine (20 sources) Tension-type headache; Translations: [Tension-type headache, unspecified, not intractable] Onset: 08-23-2007 01-14-2010 Chronic Immunizations and screening for infectious disease (5 sources) Patient encounter status; Translations: [Encounter for immunization] Episodic Osteoarthritis (20 sources) Osteoarthritis; Translations: [Unspecified osteoarthritis, unspecified site] Onset: 07-16-2012 07-16-2012 Chronic Other connective tissue disease (1 source) Pain in finger of left hand; Translations: [Pain in left finger(s)] Episodic Other connective tissue disease (3 sources) Pain in left thumb; Translations: [Pain in left finger(s)] 04-28-2023 Episodic Other connective tissue disease (3 sources) Digital mucous cyst of left hand; Translations: [Ganglion, left hand] 05-18-2023 Episodic Other ear and sense organ disorders (1 source) Pain of ear structure; Translations: [Otalgia, right ear] 05-22-2023 Episodic Other hereditary and degenerative nervous system conditions (20 sources) Restless legs; Translations: [Restless legs syndrome] Onset: 07-16-2012 07-16-2012 Chronic Other liver diseases (1 source) Elevated liver enzymes level; Translations: [Abnormal levels of other serum enzymes] 04-28-2023 Episodic Other lower respiratory disease (1 source) Cough; Translations: [Acute cough] Episodic Other nutritional; endocrine; and metabolic disorders (20 sources) Body mass index 40+ - severely obese; Translations: [Morbid (severe) obesity due to excess calories] Onset: 02-23-2018 02-23-2018 Chronic Other upper respiratory infections (1 source) Bacterial sinusitis; Translations: [Chronic sinusitis, unspecified] Chronic Other upper respiratory infections (2 sources) Acute sinusitis; Translations: [Acute sinusitis, unspecified] Episodic Past or Other Problems Problem Classification Problem Date Documented Da te Episodic/Chronic Deficiency and other anemia (1 source) Iron deficiency anemia, unspecified; Translations: [Iron deficiency anemia, unspecified iron deficiency anemia type] Onset: 04-28-2023 Episodic Other connective tissue disease (1 source) Pain in left finger(s); Translations: [Pain of left thumb] Onset: 05-18-2023 Episodic Other liver diseases (1 source) Abnormal levels of other serum enzymes; Translations: [Elevated liver enzymes] Onset: 04-28-2023 Episodic Other non-traumatic joint disorders (20 sources) Pain in left knee; Translations: [Pain in joint, lower leg] Onset: 07-16-2012 07-16-2012 Episodic Other non-traumatic joint disorders (20 sources) Pain in elbow; Translations: [Pain in left elbow] Onset: 04-22-2017 04-22-2017 Episodic Other screening for suspected conditions (not mental disorders or infectious disease) (1 source) Encounter for screening for lipoid disorders; Translations: [Screening for lipid disorders] Onset: 04-28-2023 Episodic Spondylosis; intervertebral disc disorders; other back problems (20 sources) Low back pain; Translations: [Lumbago] Onset: 01-01-2015 01-01-2015 Episodic Results Test Name Value Interpretation Reference Range Facil ity Vital Signs Date Time Vital Sign Value Performing Clinician Briseyda carlson 05-22-2023 14:35-0400 Body temperature 97.9 [degF] Serge Wright SCREW MACHINE OPERATOR SWISS TYPE.CASH ACCOUNTANT Work Phone: [facility] 05-22-2023 14:35-0400 Body weight 114.4 kg Serge Wright SCREW MACHINE OPERATOR SWISS TYPE.CASH ACCOUNTANT Work Phone: [facility] 05-22-2023 14:35-0400 Diastolic blood pressure 88 mm[Hg] Sergeanastasiia Wright SCREW MACHINE OPERATOR SWISS TYPE.CASH ACCOUNTANT Work Phone: [facility] 05-22-2023 14:35-0400 Heart rate 82 /min Serge Wright SCREW MACHINE OPERATOR SWISS TYPE.CASH ACCOUNTANT Work Phone: [facility] 05-22-2023 14:35-0400 Respiratory rate 18 /min Serge Wright SCREW MACHINE OPERATOR SWISS TYPE.CASH ACCOUNTANT Work Phone: [facility] 05-22-2023 14:35-0400 SaO2% (BldA) [Mass fraction] 98 % Serge Wright SCREW MACHINE OPERATOR SWISS TYPE.CASH ACCOUNTANT Work Phone: [facility] 05-22-2023 14:35-0400 Systolic blood pressure 152 mm[Hg] Serge Wright SCREW MACHINE OPERATOR SWISS TYPE.CASH ACCOUNTANT Work Phone: [facility] 04-28-2023 11:46-0400 Body weight 115.21 kg NA Smith PA-C Work Phone: [facility] 04-28-2023 11:46-0400 Diastolic blood pressure 84 mm[Hg] NA Smith PA-C Work Phone: [facility] 04-28-2023 11:46-0400 Heart rate 85 /min NA Smith PA-C Work Phone: [facility] 04-28-2023 11:46-0400 Respiratory rate 16 /min NA Smith PA-C Work Phone: [facility] 04-28-2023 11:46-0400 SaO2% (BldA) [Mass fraction] 96 % NA Smith PA-C Work Phone: [facility] 04-28-2023 11:46-0400 Systolic blood pressure 126 mm[Hg] NA Smith PA-C Work Phone: [facility] 12-17-2022 15:06-0500 Body temperature 98.01 [degF] Sherri Athy PA-C Work Phone: [facility] 12-17-2022 15:06-0500 Body weight 118.66 kg Sherri Athy PA-C Work Phone: [facility] 12-17-2022 15:06-0500 Diastolic blood pressure 78 mm[Hg] Sherri Athy PA-C Work Phone: [facility] 12-17-2022 15:06-0500 Heart rate 77 /min Sherri Athy PA-C Work Phone: [facility] 12-17-2022 15:06-0500 Respiratory rate 16 /min Sherri Athy PA-C Work Phone: [facility] 12-17-2022 15:06-0500 SaO2% (BldA) [Mass fraction] 97 % Sherri Athy PA-C Work Phone: [facility] 12-17-2022 15:06-0500 Systolic blood pressure 112 mm[Hg] Sherri Athy PA-C Work Phone: [facility] 12-04-2022 14:12-0500 Body temperature 98.01 [degF] Jesus Squires MD Work Phone: [facility] 12-04-2022 14:12-0500 Body weight 118.39 kg Jesus Squires MD Work Phone: [facility] 12-04-2022 14:12-0500 Diastolic blood pressure 110 mm[Hg] Jesus Squires MD Work Phone: [facility] 12-04-2022 14:12-0500 Heart rate 105 /min Jesus Squires MD Work Phone: [facility] 12-04-2022 14:12-0500 Respiratory rate 21 /min Jesus Squires MD Work Phone: [facility] 12-04-2022 14:12-0500 SaO2% (BldA) [Mass fraction] 96 % Jesus Squires MD Work Phone: [facility] 12-04-2022 14:12-0500 Systolic blood pressure 172 mm[Hg] Jesus Squires MD Work Phone: [facility] 09-16-2022 18:39-0500 Diastolic blood pressure 76 mm[Hg] Vidhi Haagen SCREW MACHINE OPERATOR SWISS TYPE.CASH ACCOUNTANT Work Phone: [facility] 09-16-2022 18:39-0500 Systolic blood pressure 118 mm[Hg] Vidhi Haagen SCREW MACHINE OPERATOR SWISS TYPE.CASH ACCOUNTANT Work Phone: [facility] 09-16-2022 14:39-0500 Body height 165.1 cm Vidhi Haagen SCREW MACHINE OPERATOR SWISS TYPE.CASH ACCOUNTANT Work Phone: [facility] 09-16-2022 14:39-0500 Body weight 119.3 kg Vidhi Haagen SCREW MACHINE OPERATOR SWISS TYPE.CASH ACCOUNTANT Work Phone: [facility] 09-16-2022 14:39-0500 Heart rate 88 /min Vidhi Haagen SCREW MACHINE OPERATOR SWISS TYPE.CASH ACCOUNTANT Work Phone: [facility] 09-16-2022 14:39-0500 Respiratory rate 18 /min Vidhi Haagen SCREW MACHINE OPERATOR SWISS TYPE.CASH ACCOUNTANT Work Phone: [facility] 09-16-2022 14:39-0500 SaO2% (BldA) [Mass fraction] 96 % Vidhi Haagen SCREW MACHINE OPERATOR SWISS TYPE.CASH ACCOUNTANT Work Phone: [facility] 06-03-2022 10:27-0400 Body temperature 97.9 [degF] Carolina Callaway SCREW MACHINE OPERATOR SWISS TYPE.CASH ACCOUNTANT Work Phone: [facility] 06-03-2022 10:27-0400 Body weight 115.3 kg Carolina Callaway SCREW MACHINE OPERATOR SWISS TYPE.CASH ACCOUNTANT Work Phone: [facility] 06-03-2022 10:27-0400 Diastolic blood pressure 76 mm[Hg] Carolina Callaway SCREW MACHINE OPERATOR SWISS TYPE.CASH ACCOUNTANT Work Phone: [facility] 06-03-2022 10:27-0400 Heart rate 88 /min Carolina Callaway SCREW MACHINE OPERATOR SWISS TYPE.CASH ACCOUNTANT Work Phone: [facility] 06-03-2022 10:27-0400 Respiratory rate 18 /min Carolina Callaway SCREW MACHINE OPERATOR SWISS TYPE.CASH ACCOUNTANT Work Phone: [facility] 06-03-2022 10:27-0400 SaO2% (BldA) [Mass fraction] 97 % Carolina Callaway SCREW MACHINE OPERATOR SWISS TYPE.CASH ACCOUNTANT Work Phone: [facility] 06-03-2022 10:27-0400 Systolic blood pressure 118 mm[Hg] Carolina Callaway SCREW MACHINE OPERATOR SWISS TYPE.CASH ACCOUNTANT Work Phone: [facility] Encounters Encounter Date Encounter Type Care Provider Facility Start: 09-23-2023 ambulatory Oniel Willoughby MD Work Phone: [facility] Start: 09-21-2023 Refill Oniel Willoughby MD Work Phone: [facility] Procedures Date Procedure Procedure Detail Performing Clinician Start: 05-18-2023 Arthrocentesis aspir &/inj small jt/bursa w/o us Anupama Ugalde PA-C Work Phone: Start: 09-16-2022 INFLUENZA VACCINE QUADRIVALENT 6 MO - 64 YRS IM Vidhi Bowers SCREW MACHINE OPERATOR SWISS TYPE.CASH ACCOUNTANT Work Phone: Start: 09-17-2021 Mammography Carolina mo SCREW MACHINE OPERATOR SWISS TYPE.CASH ACCOUNTANT Work Phone: Start: 08-08-2019 Adult depression scr eening assessment Carolina Callaway SCREW MACHINE OPERATOR SWISS TYPE.CASH ACCOUNTANT Work Phone: Plan of Treatment Date Care Activity Detail Author Start: 03-22-2027 Urine microalbumin profile [facility] Start: 05-13-2024 ANNUAL PCP TEAM BRUSH CUTTER YULISSA DISEASE VISIT ANNUAL PCP TEAM CHRONIC DISEASE VISIT [facility] Start: 04-28-2024 3 comp foot exam completed DIABETIC FOOT EXAM [facility] Start: 04-28-2024 ANNUAL PCP TEAM BRUSH CUTTER YULISSA DISEASE VISIT ANNUAL PCP TEAM CHRONIC DISEASE VISIT [facility] Start: 04-28-2024 Hepatitis B surface antibody level LDL CHOLESTEROL [facility] Start: 10-29-2023 Hemoglobin A1c/Hemoglobin.total in Blood HBA1C [facility] Start: 09-16-2023 ANNUAL PCP TEAM BRUSH CUTTER YULISSA DISEASE VISIT ANNUAL PCP TEAM CHRONIC DISEASE VISIT [facility] Start: 09-16-2023 COVID-19 VACCINE (#1) COVID-19 VACCI NE (#1) [facility] Immunizations Immunization Date Immunization Notes Care Provider Fa dave 09-16-2022 pneumococcal Conjuga te, unspecified formulation Vidhi Haagen SCREW MACHINE OPERATOR SWISS TYPE.[facility] Work Phone: [facility] Work Phone: 09-16-2022 influenza, injectabl e, quadrivalent, contains preservative Vidhi Haagen SCREW MACHINE OPERATOR SWISS TYPE.[facility] Work Phone: [facility] 09-16-2022 pneumococcal (PCV20) vaccine, 20 valent (PREVNAR 20) Vidhi Yipagen SCREW MACHINE OPERATOR SWISS TYPE.[facility] Work Phone: [facility] 09-16-2022 influenza virus vacc ine, unspecified formulation Oniel Willoughby MD Work Phone: [facility] 08-08-2019 influenza, injectabl e, quadrivalent, contains preservative Carolina Callaway SCREW MACHINE OPERATOR SWISS TYPE.[facility] Work Phone: [facility] Work Phone: 04-22-2017 pneumococcal polysaccharide vaccine, 23 valent Carolina Callaway SCREW MACHINE OPERATOR SWISS TYPE.[facility] Work Phone: [facility] Work Phone: 03-22-2017 tetanus toxoid, redu je diphtheria toxoid, and acellular pertussis vaccine, adsorbed Carolina Callaway SCREW MACHINE OPERATOR SWISS TYPE.[facility] Work Phone: [facility] Work Phone: 07-14-2016 influenza, injectabl e, quadrivalent, preservative free Carolina Callaway SCREW MACHINE OPERATOR SWISS TYPE.[facility] Work Phone: [facility] Work Phone: 08-04-2013 influenza virus vacc ine, unspecified formulation Carolina Callaway SCREW MACHINE OPERATOR SWISS TYPE.CASH ACCOUNTANT Work Phone: [facility] 08-03-2010 influenza virus vacc ine, unspecified formulation Carolina Nilton SCREW MACHINE OPERATOR SWISS TYPE.CASH ACCOUNTANT Work Phone: [facility] Work Phone: 08-24-2008 influenza virus vacc ine, unspecified formulation Carolina Callaway SCREW MACHINE OPERATOR SWISS TYPE.CASH ACCOUNTANT Work Phone: [facility] Work Phone: 03-25-2007 tetanus and diphther ia toxoids, adsorbed, preservative free, for adult use (2 Lf of tetanus toxoid and 2 Lf of diphtheria toxoid) Carolina Callaway SCREW MACHINE OPERATOR SWISS TYPE.CASH ACCOUNTANT Work Phone: [facility] Payers Date Payer Category Payer Unknown [id number] 2003 Medicaid [id number] 1966 Unknown [id number] 1965 Unknown [id number] 1965 Unknown [id number] 1965 Unknown [id number] Social History Date Type Detail Facility [facility]: [facility] History of tobacco use Cigarette Sm[facility] Start: 06-03-2022 End: 04-20-2023 Cigarettes smoked current (pack per day) - Reported 0.5 [facility] Start: 06-03-2022 Tobacco use and exposure Smokeless tobacco non-user [facility] Start: 06-03-2022 End: 06-15-2023 Alcohol intake Current non-drinker of alcohol (finding) [facility] Start: 1965 [facility]igned [facility] Start: 05-24-2022 End: 06-11-2022 Exposure to SARS-CoV-2 (event) Not sure [facility] Work Phone: Start: 04-20-2023 End: 04-28-2023 Tobacco use panel [facility] Adult Depression Screening Assessment 0 [facility] Medical Equipment Procedure Code Equipment Code Equipment Origin al Text Equipment Identifier Dates Start: 08-08-2020 End: 08-26-2023 Clinical Notes 01-18-2015 to 09-23-2023 Telephone Encounter - Angela Carver LPN - 09/21/2023 4:35 PM ESTTelephone Encounter - Mellissa Tenorio LPN - 08/26/2023 11:25 AM Anupama Rodrigues PA-C - 06/15/2023 11:09 AM EDT Note Date & Type Note Facility 09-23-2023 Note Patient Outreach (IN [facility]) ---- AYSHA AGUILA ([id number]) 1965 F Date Time Provider Department 09/23/23 ONIEL WILLOUGHBY During your visit today, we recorded the following information about you: Allergies As of Date: 09/23/2023 Noted Allergy Reaction BIAXIN (CLARITHROMYCIN) 06/25/2005 2 - Rash Comments: albertpacaro is ok CODEINE 11/11/2011 8 - GI Upset DOXYCYCLINE 07/24/2009 2 - Rash MELOXICAM 04/27/2014 14 - Other: See Comments Comments: headaches NAPROSYN (NAPROXEN) 06/25/2005 Comments: headache PENICILLIN G 06/25/2005 2 - Rash SULFA (SULFONAMIDE ANTIBIOTICS) 06/25/2005 10 - Anaphylaxis Comments: headache TRAMADOL 11/11/2011 5 - Intolerance Comments: getts bad headache VICODIN (HYDROCODONE-ACETAMINOPHE*07/31/2008 11 - Vomiting Date Reviewed: 06/15/2023 Reviewed by: Anupama Ugalde PA-C - Fully Assessed Visit Diagnosis:Encounter for screening mammogram for breast cancer [Z12.31] Order(s):[facility] SCREENING [[id number]] Order #: [id number] FUTURE Prescriptions as of 09/28/2023 - albuterol HFA (PROAIR HFA) 90 mcg/actuation inhaler INHALE 1 (ONE) TO 2 (TWO) PUFFS EVERY 6 HOURS NEEDED - ferrous sulfate 325 mg (65 mg iron) tablet Take 1 tablet by mouth once daily. take separately from multivitamin - blood sugar diagnostic (BLOOD GLUCOSE TEST) test strip Test blood sugar(s) 2 times daily. Dx: Type 2 DM - Uncontrolled Insulin: No - metFORMIN (GLUCOPHAGE) 1,000 mg tablet Take 0.5 tablets by mouth daily with breakfast. - pantoprazole DR (PROTONIX) 20 mg tablet Take 1 tablet by mouth once daily. - Lancets lancets tTest blood sugar(s) 2 times daily. Dx: Type 2 DM - Uncontrolled 65 Insulin: no - ibuprofen (MOTRIN) 800 mg tablet Take 1 tablet by mouth every 8 hours as needed (FOR PAIN. TAKE WITH FOOD). - Blood-Glucose Meter monitoring kit Glucose Meter of Choice - Kit - Dx: Type 2 DM - Uncontrolled Insulin NO - Blood-Glucose Meter (TRUE METRIX GLUCOSE METER) Use as directed. Problem List As Of Date 09/23/2023 Noted Resolved Tension Headache [G44.209] 08/23/2007 Generalized anxiety disorder [F41.1] 08/23/2007 04/22/2017 Asthma [J45.909] 08/23/2007 Routine general medical examination at [facility]*01/14/2010 07/16/2012 Class: Chronic Routine gynecological examination [Z01.419] 01/14/2010 07/16/2012 Class: Chronic Restless legs [G25.81] 07/16/2012 GERD (gastroesophageal reflux disease) [K21.9] 07/16/2012 Osteoarthritis [M19.90] 07/16/2012 Patellofemoral arthralgia of left knee [M25.562]07/16/2012 Carcinoma in situ of cervix uteri [D06.9] 07/19/2012 03/05/2015 Mucous polyp of cervix [N84.1] 07/19/2012 02/08/2015 Abnormal ultrasound of uterus [R93.5] 07/30/2012 02/08/2015 Other and unspecified ovarian cyst [N83.209] 07/30/2012 03/05/2015 Unspecified disorder of lower leg joint [M25.9] 08/15/2013 12/08/2013 Lumbago [M54.50] 01/01/2015 Dysmenorrhea [N94.6] 01/01/2015 03/05/2015 Heavy menses [N92.0] 01/01/2015 03/05/2015 Fibroid [D21.9] 01/01/2015 03/05/2015 Esophageal reflux [K21.9] 01/18/2015 01/18/2015 Left elbow pain [M25.522] 04/22/2017 Obesity, Class III, BMI 40-49.9 (morbid obesity*02/23/2018 Diabetes mellitus type 2, controlled, without c*08/08/2020 Encounter Status:Closed by KENNY LUNA on 09/28/23 [facility] 09-21-2023 Miscellaneous Notes Patient has been identified by name and date of : Pharmacy phones for refill(s): Requested Prescriptions Pending Prescriptions Disp Refills albuterol HFA (PROAIR HFA) 90 mcg/actuation inhaler 18 g 3 Sig: INHALE 1 (ONE) TO 2 (TWO) PUFFS EVERY 6 HOURS NEEDED ferrous sulfate 325 mg (65 mg iron) tablet 90 tablet 1 Sig: Take 1 tablet by mouth once daily. take separately from multivitamin Date of last office visit in primary care: 05/13/2023 Date of next office visit in primary care: 10/30/2023 Last 2 Encounter Wt Readings: Date: Wt: 05/22/2023 114.4 kg (252 lb 3.2 oz) 05/13/2023 114.3 kg (252 lb) Previous labs/tests for medication: Blood Pressure: BUN (mg/dL) Date Value 04/28/2023 5 07/20/2021 6 Sodium (mmol/L) Date Value 04/28/2023 139 07/20/2021 143 Last 1 Encounter BP Readings: Date: BP: 05/22/2023 152/88 Please advise. Thank you. Angela Carver LPN. documented in this encounter [facility] 08-26-2023 Miscellaneous Notes Patient has been identified by name and date of : Yes, Provider Dr. Willoughby Date 08/26/23 Time 11:25 am Patient phones for refill(s): Requested Prescriptions Pending Prescriptions Disp Refills blood sugar diagnostic (BLOOD GLUCOSE TEST) test strip 200 Strip 1 Sig: Test blood sugar(s) 2 times daily. Dx: Type 2 DM - Uncontrolled E11.65 Insulin: No Date of last office visit in primary care: 05/13/2023 Date of next office visit in primary care: 10/30/2023 Last 2 Encounter Wt Readings: Date: Wt: 05/22/2023 114.4 kg (252 lb 3.2 oz) 05/13/2023 114.3 kg (252 lb) Previous labs/tests for medication: Diabetes: Hemoglobin A1C (%) Date Value 04/28/2023 6.4 09/10/2022 6.5 03/13/2021 6.4 07/13/2020 6.9 Thank you. Mellissa Tenorio LPN. documented in this encounter [facility] 07-07-2023 Miscellaneous Notes Pt switched pharmacy to [facility]. Patient has been identified by name and date of : Yes, Provider Dr Willoughby Date 07/07/23 Time 2:13 pm Patient phones for refill(s): Requested Prescriptions Pending Prescriptions Disp Refills metFORMIN (GLUCOPHAGE) 1,000 mg tablet 45 tablet 1 Sig: Take 0.5 tablets by mouth daily with breakfast. pantoprazole DR (PROTONIX) 20 mg tablet 90 tablet 1 Sig: Take 1 tablet by mouth once daily. Date of last office visit in primary care: 05/13/23 next apt 10/30/22 Last 2 Encounter Wt Readings: Date: Wt: 05/22/2023 114.4 kg (252 lb 3.2 oz) 05/13/2023 114.3 kg (252 lb) Previous labs/tests for medication: Diabetes: Hemoglobin A1C (%) Date Value 04/28/2023 6.4 09/10/2022 6.5 03/13/2021 6.4 07/13/2020 6.9 Thank you. Mellissa Tenorio LPN documented in this encounter [facility] 06-25-2023 Miscellaneous Notes I called and spoke with patient. She is fearful of having the surgery. She does not wish to reschedule at this time. Case message sent and post op appointments have been cancelled. Spouse is calling to cancel procedure and reschedule please advise the patient. documented in this encounter [facility] 06-16-2023 Miscellaneous Notes Surgery has been scheduled as requested. Surgical request completed for left thumb excision digital mucous cyst at [facility] on 07/03/2023. Post op appointments have been scheduled and mailed to the patient. documented in this encounter [facility] 06-15-2023 Note HNO ID: [id number] Author: Anupama Ugalde PA-C Service: ? Author Type: Physician Cdl Truck Driver Type: Progress Notes Filed: 06/15/2023 12:34 PM Note Text: Anupama Ugalde PA-C Department of Orthopaedics Orthopaedics [address] [facility] [address] Dept: [phone] Dept June 15, 2023 CHIEF COMPLAINT: Pain and Established Patient of the Left Thumb (4 weeks post visit L thumb pain with injection given). ASSESSMENT: M67.442 Digital mucinous cyst of finger of left hand (primary encounter diagnosis) M79.645 Pain of left thumb SUMMARY/PLAN: Patient presents about 4 weeks status post left thumb injection for a digital mucous cyst. The cyst has decreased significantly in size the patient is still complaining of pain over the thumb if she bumps it. She is interested in pursuing surgical options. We discussed surgical intervention, the patients questions were addressed. The risks, benefits, alternatives and were discussed, patinet understands and wishes to pursue surgical intervention. Exam: Palpable mass over the IP joint is no longer appreciated as it was on previous exam. Extensor aspect of the IP joint is tender near the area where the cyst was previously present. No nail deformity noted. No arthritic changes of the thumb are noted. Patient has full and active range of motion of the left thumb without any locking or catching. Sensation is intact the pad of the digit. Imaging: IMPRESSION: NO ACUTE BONY ABNORMALITY. Steel Worker: [facility] Transcribe Date/Time: May 01 2023 1:46P Dictated by : MAKSIM ROSS MD This examination was interpreted and the report reviewed and electronically signed by: MAKSIM ROSS MD on May 01 2023 1:48PM EST Results-Findings * * *Final Report* * * DATE OF EXAM: Apr 28 2023 1:26PM WOX [id number] - XR DIGIT 3V FRONTAL/LAT/OBL LT / PROCEDURE REASON: Pain of left thumb * * * * Physician Interpretation * * * * HISTORY: 57-YEAR-OLD FEMALE WITH Pain of left thumb . Left thumb pain and lump at the lateral side of the IP joint x 2-3 days without injury TECHNIQUE: XR DIGIT 3V FRONTAL/LAT/OBL LT Laterality: LEFT Number of different views (projections): 3 COMPARISON: None RESULT: Thumb of the left hand: Bones and joints are intact of the first ray. No fracture. No erosions. A marker is placed area of concern however no focal soft tissue abnormalities identified on the radiograph. Ms. Aysha Aguila was advised as to contrast therapies and/or to take analgesics/anti-inflammatories as needed and all contraindications were reviewed. Supporting Information Below: Medications: Current Outpatient Medications Medication Sig pantoprazole DR (PROTONIX) 20 mg tablet Take 1 tablet by mouth once daily. Lancets lancets tTest blood sugar(s) 2 times daily. Dx: Type 2 DM - Uncontrolled E11.65 Insulin: no albuterol HFA (PROAIR HFA) 90 mcg/actuation inhaler INHALE 1 (ONE) TO 2 (TWO) PUFFS EVERY 6 HOURS NEEDED metFORMIN (GLUCOPHAGE) 1,000 mg tablet Take 1 tablet by mouth daily with breakfast. (Patient taking differently: Take 1,000 mg by mouth daily with breakfast. Taking 1/2 tablet daily) ibuprofen (MOTRIN) 800 mg tablet Take 1 tablet by mouth every 8 hours as needed (FOR PAIN. TAKE WITH FOOD). ferrous sulfate 325 mg (65 mg iron) tablet Take 1 tablet by mouth once daily. take separately from multivitamin blood sugar diagnostic (BLOOD GLUCOSE TEST) test strip Test blood sugar(s) 2 times daily. Dx: Type 2 DM - Uncontrolled E11.65 Insulin: No Blood-Glucose Meter (TRUE METRIX GLUCOSE METER) Use as directed. Blood-Glucose Meter monitoring kit Glucose Meter of Choice - Kit - Dx: Type 2 DM - Uncontrolled E11.65 Insulin NO No current facility-administered medications for this visit. Allergies: Biaxin [Clarithromycin], Codeine, Doxycycline, Meloxicam, Naprosyn [Naproxen], Penicillin G, Sulfa (Sulfonamide Antibiotics), Tramadol, and Vicodin [Hydrocodone-Acetaminophen] This note was partially generated using Breezy voice recognition system, and there may be some incorrect words, spellings, and punctuation that were not noted in checking the note before saving. Anupama Ugalde PA-C [facility] 06-15-2023 Note HNO ID: [id number] Author: Florinda Olson Service: ? Author Type: ? Type: Progress Notes Filed: 06/15/2023 12:34 PM Note Text: Patient presents with: Left Thumb - Pain, Established Patient: 4 weeks post visit L thumb pain with injection given Patient reports constant pain in her left thumb. The pain is in the joint and there is ivanna in the nail. She states the previous injection gave her about 2 weeks of relief. AMB ROOMING INTAKE FLOWSHEET DATA Pain Pain Level: 7 Pain Location: Hand-Left Description: Aching, Throbbing Duration Amount of Time: 6 Duration Units: Weeks Frequency: Continuous Intervention/Comfort measure: Medication, Heat [facility] 06-15-2023 History of Present illness Narrative Anupama Ugalde PA-C Department of Orthopaedics Orthopaedics [address] [place] [address] Dept: [phone] Dept June 15, 2023 CHIEF COMPLAINT: Pain and Established Patient of the Left Thumb (4 weeks post visit L thumb pain with injection given). ASSESSMENT: M67.442 Digital mucinous cyst of finger of left hand (primary encounter diagnosis) M79.645 Pain of left thumb SUMMARY/PLAN: Patient presents about 4 weeks status post left thumb injection for a digital mucous cyst. The cyst has decreased significantly in size the patient is still complaining of pain over the thumb if she bumps it. She is interested in pursuing surgical options. We discussed surgical intervention, the patients questions were addressed. The risks, benefits, alternatives and were discussed, patinet understands and wishes to pursue surgical intervention. Exam: Palpable mass over the IP joint is no longer appreciated as it was on previous exam. Extensor aspect of the IP joint is tender near the area where the cyst was previously present. No nail deformity noted. No arthritic changes of the thumb are noted. Patient has full and active range of motion of the left thumb without any locking or catching. Sensation is intact the pad of the digit. Imaging: IMPRESSION: NO ACUTE BONY ABNORMALITY. Steel Worker: [facility] Transcribe Date/Time: May 01 2023 1:46P Dictated by : MAKSIM ROSS MD This examination was interpreted and the report reviewed and electronically signed by: MAKSIM ROSS MD on May 01 2023 1:48PM EST Results-Findings * * *Final Report* * * DATE OF EXAM: Apr 28 2023 1:26PM WOX [id number] - XR DIGIT 3V FRONTAL/LAT/OBL LT / PROCEDURE REASON: Pain of left thumb * * * * Physician Interpretation * * * * HISTORY: 57-YEAR-OLD FEMALE WITH Pain of left thumb . Left thumb pain and lump at the lateral side of the IP joint x 2-3 days without injury TECHNIQUE: XR DIGIT 3V FRONTAL/LAT/OBL LT Laterality: LEFT Number of different views (projections): 3 COMPARISON: None RESULT: Thumb of the left hand: Bones and joints are intact of the first ray. No fracture. No erosions. A marker is placed area of concern however no focal soft tissue abnormalities identified on the radiograph. Ms. Aysha Aguila was advised as to contrast therapies and/or to take analgesics/anti-inflammatories as needed and all contraindications were reviewed. Supporting Information Below: Medications: Current Outpatient Medications Medication Sig pantoprazole DR (PROTONIX) 20 mg tablet Take 1 tablet by mouth once daily. Lancets lancets tTest blood sugar(s) 2 times daily. Dx: Type 2 DM - Uncontrolled E11.65 Insulin: no albuterol HFA (PROAIR HFA) 90 mcg/actuation inhaler INHALE 1 (ONE) TO 2 (TWO) PUFFS EVERY 6 HOURS NEEDED metFORMIN (GLUCOPHAGE) 1,000 mg tablet Take 1 tablet by mouth daily with breakfast. (Patient taking differently: Take 1,000 mg by mouth daily with breakfast. Taking 1/2 tablet daily) ibuprofen (MOTRIN) 800 mg tablet Take 1 tablet by mouth every 8 hours as needed (FOR PAIN. TAKE WITH FOOD). ferrous sulfate 325 mg (65 mg iron) tablet Take 1 tablet by mouth once daily. take separately from multivitamin blood sugar diagnostic (BLOOD GLUCOSE TEST) test strip Test blood sugar(s) 2 times daily. Dx: Type 2 DM - Uncontrolled E11.65 Insulin: No Blood-Glucose Meter (TRUE METRIX GLUCOSE METER) Use as directed. Blood-Glucose Meter monitoring kit Glucose Meter of Choice - Kit - Dx: Type 2 DM - Uncontrolled E11.65 Insulin NO No current facility-administered medications for this visit. Allergies: Biaxin [Clarithromycin], Codeine, Doxycycline, Meloxicam, Naprosyn [Naproxen], Penicillin G, Sulfa (Sulfonamide Antibiotics), Tramadol, and Vicodin [Hydrocodone-Acetaminophen] This note was partially generated using Breezy voice recognition system, and there may be some incorrect words, spellings, and punctuation that were not noted in checking the note before saving. Anupama Ugalde PA-C Patient presents with: Left Thumb - Pain, Established Patient: 4 weeks post visit L thumb pain with injection given Patient reports constant pain in her left thumb. The pain is in the joint and there is ivanna in the nail. She states the previous injection gave her about 2 weeks of relief. AMB ROOMING INTAKE FLOWSHEET DATA Pain Pain Level: 7 Pain Location: Hand-Left Description: Aching, Throbbing Duration Amount of Time: 6 Duration Units: Weeks Frequency: Continuous Intervention/Comfort measure: Medication, Heat documented in this encounter [facility] 05-28-2023 Miscellaneous Notes Patient has been identified by name and date of : Yes Last office visit in this department: 05/13/2023 RX INSTRUCTIONS: Patient aware RX will be sent to pharmacy. No need to notify patient. Patient phones requesting refills as follows: Requested Prescriptions Pending Prescriptions Disp Refills pantoprazole DR (PROTONIX) 20 mg tablet 90 tablet 1 Sig: Take 1 tablet by mouth once daily. Please review and advise. Анна Smith documented in this encounter [facility] 05-28-2023 Miscellaneous Notes Patient has been identified by name and date of : Yes, Provider Date Time Pharmacy phones for refill(s): Requested Prescriptions Pending Prescriptions Disp Refills Lancets lancets 100 Each 3 Sig: tTest blood sugar(s) 2 times daily. Dx: Type 2 DM - Uncontrolled E11.65 Insulin: no albuterol HFA (PROAIR HFA) 90 mcg/actuation inhaler 18 g 3 Sig: INHALE 1 (ONE) TO 2 (TWO) PUFFS EVERY 6 HOURS NEEDED Date of last office visit with pcp: Date of last office visit in primary care: 04/28/23 Last 2 Encounter Wt Readings: Date: Wt: 05/22/2023 114.4 kg (252 lb 3.2 oz) 05/13/2023 114.3 kg (252 lb) Previous labs/tests for medication: Diabetes: Hemoglobin A1C (%) Date Value 04/28/2023 6.4 09/10/2022 6.5 03/13/2021 6.4 07/13/2020 6.9 Please advise. Thank you. Marisol Dumont, RN documented in this encounter [facility] 05-22-2023 Note HNO ID: [id number] Author: Serge Wright APRN.CASH ACCOUNTANT Service: ? Author Type: Nurse Practitioner Type: Progress Notes Filed: 05/22/2023 5:00 PM Note Text: Subjective HPI HPI Aysha Aguila is a 57 year old female who presents today for CC of pain, swelling behind right ear. This started 2 days ago, worsening. Has tried otc medication for relief. Symptoms are worsened by nothing. Denies uri and inner ear pain. .Patient presents with: lump behind right ear: X 2 days PAST MEDICAL HISTORY Diagnosis Date - Asthma - Bronchitis - Carcinoma in situ of cervix uteri 1999 - Diabetes mellitus (adult onset) (HCC) - Heartburn - Migraine headache - Seasonal allergies - Tobacco use disorder PAST SURGICAL HISTORY Procedure Laterality Date - DELIVERY ONLY 1980 - CONIZATION CERVIX W/WO [facility] RPR ELTRD EXC 1999 LEEP-Cervix - ESOPHAGOGASTRODUODENOSCOPY TRANSORAL DIAGNOSTIC 01/18/15 EGD - HYSTEROSCOPY THERAPEUTIC 10/2011 [facility] w/ polyp resection - LAPS W/VAG HYSTERECT 250 GM/ANDRMVL TUBEAND/OVARIES 02/22/15 [facility], bilateral salpingectomy, left oophorectomy - LIG/TRNSXJ FLP TUBE ABDL/VAG APPR UNI/BI 1998 Tubal ligation ALLERGIES Biaxin [Clarithromycin], Codeine, Doxycycline, Meloxicam, Naprosyn [Naproxen], Penicillin G, Sulfa (Sulfonamide Antibiotics), Tramadol, and Vicodin [Hydrocodone-Acetaminophen] MEDICATIONS - metFORMIN (GLUCOPHAGE) 1,000 mg tablet Take 1 tablet by mouth daily with breakfast. (Patient taking differently: Take 1,000 mg by mouth daily with breakfast. Taking 1/2 tablet daily) - ibuprofen (MOTRIN) 800 mg tablet Take 1 tablet by mouth every 8 hours as needed (FOR PAIN. TAKE WITH FOOD). - ferrous sulfate 325 mg (65 mg iron) tablet Take 1 tablet by mouth once daily. take separately from multivitamin - albuterol HFA (PROAIR HFA) 90 mcg/actuation inhaler INHALE 1 (ONE) TO 2 (TWO) PUFFS EVERY 6 HOURS NEEDED - Lancets lancets tTest blood sugar(s) 2 times daily. Dx: Type 2 DM - Uncontrolled E11.65 Insulin: no - pantoprazole DR (PROTONIX) 20 mg tablet Take 1 tablet by mouth once daily. - blood sugar diagnostic (BLOOD GLUCOSE TEST) test strip Test blood sugar(s) 2 times daily. Dx: Type 2 DM - Uncontrolled E11.65 Insulin: No - Blood-Glucose Meter (TRUE METRIX GLUCOSE METER) Use as directed. - amoxicillin-clavulanic acid (AUGMENTIN) 875-125 mg per tablet Take 1 tablet by mouth twice daily for 7 days. - predniSONE (DELTASONE) 20 mg tablet Take 2 tablets by mouth once daily for 5 days. - Blood-Glucose Meter monitoring kit Glucose Meter of Choice - Kit - Dx: Type 2 DM - Uncontrolled E11.65 Insulin NO FAMILY HISTORY Problem Relation Age of Onset - Diabetes Mother - Hypertension Mother - Diabetes Father - Hypertension Father - Stroke Father - Diabetes Brother - Diabetes Other - Coronary Artery Disease Other - other (Other) Other mother had 23 brothers and sisters from same parents - Diabetes Paternal Uncle - Alcohol/Drug Paternal Uncle - Stroke Paternal Uncle - Diabetes Paternal Uncle - Alcohol/Drug Paternal Uncle - Stroke Paternal Uncle Social History Tobacco Use - Smoking status: Light Smoker Packs/day: 0.50 Years: 30.00 Total pack years: 15.00 Types: Cigarettes - Smokeless tobacco: Never Vaping Use - Vaping Use: Never used Substance Use Topics - Alcohol use: No - Drug use: No Comment: remote marijuana (teens) Review of Systems Constitutional: Negative for fever. Skin: Negative for itching and rash. Objective Blood pressure 152/88, pulse 82, temperature 36.6 ?C (97.9 ?F), temperature source Tympanic, resp. rate 18, weight 114.4 kg (252 lb 3.2 oz), last menstrual period 02/01/2015, SpO2 98 %. Physical Exam Constitutional: General: She is not in acute distress. Appearance: She is not toxic-appearing or diaphoretic. HENT: Head: Normocephalic and atraumatic. Right Ear: Hearing, tympanic membrane and ear canal normal. There is mastoid tenderness. Left Ear: Hearing, tympanic membrane, ear canal and external ear normal. No mastoid tenderness. Pulmonary: Effort: Pulmonary effort is normal. No accessory muscle usage or respiratory distress. Lymphadenopathy: Cervical: No cervical adenopathy. Right cervical: No superficial cervical adenopathy. Left cervical: No superficial cervical adenopathy. Neurological: Mental Status: She is alert and oriented to person, place, and time. ASSESSMENT/PLAN: 1. Mastoid pain, right - ICD9: 388.70, ICD10: H92.01 No erythema or abscess, try steroid if worsens take atb, urgent f/u for worsening s/s. - AMOXICILLIN 875 MG-POTASSIUM CLAVULANATE 125 MG TABLET - PREDNISONE 20 MG TABLET Serge Wright APRN.[facility] 05-22-2023 History of Present illness Narrative Subjective HPI HPI Aysha Aguila is a 57 year old female who presents today for CC of pain, swelling behind right ear. This started 2 days ago, worsening. Has tried otc medication for relief. Symptoms are worsened by nothing. Denies uri and inner ear pain. .Patient presents with: lump behind right ear: X 2 days PAST MEDICAL HISTORY Diagnosis Date Asthma Bronchitis Carcinoma in situ of cervix uteri 1999 Diabetes mellitus (adult onset) (HCC) Heartburn Migraine headache Seasonal allergies Tobacco use disorder PAST SURGICAL HISTORY Procedure Laterality Date DELIVERY ONLY 1980 CONIZATION CERVIX W/WO [facility] RPR ELTRD EXC 1999 LEEP-Cervix ESOPHAGOGASTRODUODENOSCOPY TRANSORAL DIAGNOSTIC 01/18/15 EGD HYSTEROSCOPY THERAPEUTIC 10/2011 [facility] w/ polyp resection LAPS W/VAG HYSTERECT 250 GM/&RMVL TUBE&/OVARIES 02/22/15 [facility], bilateral salpingectomy, left oophorectomy LIG/TRNSXJ FLP TUBE ABDL/VAG APPR UNI/BI 1998 Tubal ligation ALLERGIES Biaxin [Clarithromycin], Codeine, Doxycycline, Meloxicam, Naprosyn [Naproxen], Penicillin G, Sulfa (Sulfonamide Antibiotics), Tramadol, and Vicodin [Hydrocodone-Acetaminophen] MEDICATIONS metFORMIN (GLUCOPHAGE) 1,000 mg tablet Take 1 tablet by mouth daily with breakfast. (Patient taking differently: Take 1,000 mg by mouth daily with breakfast. Taking 1/2 tablet daily) ibuprofen (MOTRIN) 800 mg tablet Take 1 tablet by mouth every 8 hours as needed (FOR PAIN. TAKE WITH FOOD). ferrous sulfate 325 mg (65 mg iron) tablet Take 1 tablet by mouth once daily. take separately from multivitamin albuterol HFA (PROAIR HFA) 90 mcg/actuation inhaler INHALE 1 (ONE) TO 2 (TWO) PUFFS EVERY 6 HOURS NEEDED Lancets lancets tTest blood sugar(s) 2 times daily. Dx: Type 2 DM - Uncontrolled E11.65 Insulin: no pantoprazole DR (PROTONIX) 20 mg tablet Take 1 tablet by mouth once daily. blood sugar diagnostic (BLOOD GLUCOSE TEST) test strip Test blood sugar(s) 2 times daily. Dx: Type 2 DM - Uncontrolled E11.65 Insulin: No Blood-Glucose Meter (TRUE METRIX GLUCOSE METER) Use as directed. amoxicillin-clavulanic acid (AUGMENTIN) 875-125 mg per tablet Take 1 tablet by mouth twice daily for 7 days. predniSONE (DELTASONE) 20 mg tablet Take 2 tablets by mouth once daily for 5 days. Blood-Glucose Meter monitoring kit Glucose Meter of Choice - Kit - Dx: Type 2 DM - Uncontrolled E11.65 Insulin NO FAMILY HISTORY Problem Relation Age of Onset Diabetes Mother Hypertension Mother Diabetes Father Hypertension Father Stroke Father Diabetes Brother Diabetes Other Coronary Artery Disease Other other (Other) Other mother had 23 brothers and sisters from same parents Diabetes Paternal Uncle Alcohol/Drug Paternal Uncle Stroke Paternal Uncle Diabetes Paternal Uncle Alcohol/Drug Paternal Uncle Stroke Paternal Uncle Social History Tobacco Use Smoking status: Light Smoker Packs/day: 0.50 Years: 30.00 Total pack years: 15.00 Types: Cigarettes Smokeless tobacco: Never Vaping Use Vaping Use: Never used Substance Use Topics Alcohol use: No Drug use: No Comment: remote marijuana (teens) Review of Systems Constitutional: Negative for fever. Skin: Negative for itching and rash. Objective Blood pressure 152/88, pulse 82, temperature 36.6 C (97.9 F), temperature source Tympanic, resp. rate 18, weight 114.4 kg (252 lb 3.2 oz), last menstrual period 02/01/2015, SpO2 98 %. Physical Exam Constitutional: General: She is not in acute distress. Appearance: She is not toxic-appearing or diaphoretic. HENT: Head: Normocephalic and atraumatic. Right Ear: Hearing, tympanic membrane and ear canal normal. There is mastoid tenderness. Left Ear: Hearing, tympanic membrane, ear canal and external ear normal. No mastoid tenderness. Pulmonary: Effort: Pulmonary effort is normal. No accessory muscle usage or respiratory distress. Lymphadenopathy: Cervical: No cervical adenopathy. Right cervical: No superficial cervical adenopathy. Left cervical: No superficial cervical adenopathy. Neurological: Mental Status: She is alert and oriented to person, place, and time. ASSESSMENT/PLAN: 1. Mastoid pain, right - ICD9: 388.70, ICD10: H92.01 No erythema or abscess, try steroid if worsens take atb, urgent f/u for worsening s/s. - AMOXICILLIN 875 MG-POTASSIUM CLAVULANATE 125 MG TABLET - PREDNISONE 20 MG TABLET Serge Wright APRN.CASH ACCOUNTANT documented in this encounter [facility] 05-18-2023 Note HNO ID: [id number] Author: Anupama Ugalde PA-C Service: ? Author Type: Physician Cdl Truck Driver Type: Progress Notes Filed: 05/18/2023 9:26 AM Note Text: Anupama Ugalde PA-C Department of Orthopaedics Orthopaedics [address] [facility] [address] Dept: [phone] Dept May 18, 2023 CHIEF COMPLAINT: Pain and Established Patient of the Left Thumb and Referred by Vidhi Bowers (Last seen 08/13/20 Right knee pain. ) Ms. Aysha Aguila is a 57 year old female who presents with pain in her left thumb /cuticle area which has been bothering her for almost the past month. She says that she has a painful lump just over the knuckle. She is right-hand dominant. 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 She has tried taking ibuprofen for the pain which is not beneficial. She denies any known injury. She is a diabetic, her last hemoglobin A1c this month was 6.4. ASSESSMENT: M67.442 Digital mucinous cyst of finger of left hand (primary encounter diagnosis) M79.645 Pain of left thumb PLAN: She has a small digital mucous cyst over the left thumb IP joint, we discussed trying a corticosteroid injection to see if that will shrink of the cyst. Certainly if cyst persists and remains painful she can follow-up and we will discuss surgical excision. Patient agrees to plan. Ms. Aysha Aguila was advised as to contrast therapies and/or to take analgesics/anti-inflammatories as needed and all contraindications were reviewed. OBJECTIVE: Ms. Aysha Aguila is a pleasant 57 year old in no apparent distress. Gen:LMP 02/01/2015 nl development, obese, no deformities ENT: Normocephalic, normal hearing, moist mucosa CV: Pulses:Radial= 2+ and symmetric, capillary refill < 2 secs, no peripheral edema/varicosities Skin: no rash, bruising or lesions. Good turgor. Psych: cooperative and appropriate, alert and oriented x 3, good mood and affect. Musculoskeletal: Palpable mass over the left IP joint, slightly ulnar. No noted nail deformity. Patient has full and active range of motion in the left thumb without any locking or catching of the digit. The digit is stable to collateral stresses, there is no pain or tenderness at the basal joint or over the first dorsal compartment. Sensation is intact to the pad of the digit. Small Joint Arthro/Inj: L thumb IP Informed Consent Consent Obtained: Written Dorado Protocol A moment to CARE was completed. SIGN IN Sign in communication not applicable due to emergent procedure. Personnel directly involved with the procedure wore the appropriate PPE. Special Equipment: Yes Patient/Surrogate Stated/Verified: Patient name, Date of , Relevant allergies and Intended procedure TIME OUT Intended patient and procedure match the source document(s). Consent documented and matches the intended procedure. Relevant labs, photos, and/or imaging studies have been reviewed. Correct side/site marked and visible. Medications required for procedure verified. No fire risk assessment and interventions applicable. No implant(s) inserted. 05/18/2023 9:26 AM The procedure site was prepped in the usual sterile fashion. Medications: 3 mg betamethasone acetate-betamethasone sodium phosphate 6 mg/mL Anesthetics: 0.5 mL lidocaine (PF) 10 mg/mL (1 %) Outcome: tolerated well, no immediate complications Post-injection instructions were reviewed with the patient and the patient voiced understanding of these instructions. SIGN OUT All instruments, equipment, possible retained foreign bodies accounted for. Imaging: See Epic Supporting Subjective Information Below: Past Surgical History: PAST SURGICAL HISTORY Procedure Laterality Date DELIVERY ONLY 1980 CONIZATION CERVIX W/WO [facility] RPR ELTRD EXC 1999 LEEP-Cervix ESOPHAGOGASTRODUODENOSCOPY TRANSORAL DIAGNOSTIC 01/18/15 EGD HYSTEROSCOPY THERAPEUTIC 10/2011 [facility] w/ polyp resection LAPS W/VAG HYSTERECT 250 GM/ANDRMVL TUBEAND/OVARIES 02/22/15 [facility], bilateral salpingectomy, left oophorectomy LIG/TRNSXJ FLP TUBE ABDL/VAG APPR UNI/BI 1998 Tubal ligation Medications: Current Outpatient Medications Medication Sig metFORMIN (GLUCOPHAGE) 1,000 mg tablet Take 1 tablet by mouth daily with breakfast. (Patient taking differently: Take 1,000 mg by mouth daily with breakfast. Taking 1/2 tablet daily) ibuprofen (MOTRIN) 800 mg tablet Take 1 tablet by mouth every 8 hours as needed (FOR PAIN. TAKE WITH FOOD). ferrous sulfate 325 mg (65 mg iron) tablet Take 1 tablet by mouth once daily. take separately from multivitamin albuterol HFA (PROAIR HFA) 90 mcg/actuation inhaler INHALE 1 (ONE) TO 2 (TWO) PUFFS EVERY 6 HOURS NEEDED Lancets lancets tTest blood sugar(s) 2 times daily. Dx: Type 2 DM - Uncontrolled E11.65 Insulin: no pantoprazole DR (PROTONIX) 20 mg tablet Take 1 tablet by mouth once daily. blood sugar diagnostic (BLOOD GLUCOSE TEST) test strip Test blood sugar(s) (more content not included)... [facility] 05-18-2023 Note HNO ID: [id number] Author: Juany Yan Ma Service: ? Author Type: ? Type: Progress Notes Filed: 05/18/2023 9:26 AM Note Text: Patient presents with: Left Thumb - Pain, Established Patient Referred by Vidhi Bowers: Last seen 08/13/20 Right knee pain. AMB ROOMING INTAKE FLOWSHEET DATA Pain Pain Level: 8 Pain Location: (Left thumb) Description: Sharp, Aching, Stabbing Duration Amount of Time: 3 Duration Units: Weeks Frequency: Continuous Intervention/Comfort measure: Medication Patient states she is having pain when she touches the cuticle of her left thumb or when she is tapping her thumb with the end of her fingernail. No specific injury. Patient is right hand dominant. 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 X-rays done at [facility] on 04/28/23, and on 05/11/23 at [facility] uploaded into [employer]. [facility] 05-18-2023 History of Present illness Narrative Associated Order(s): Small Joint Arthro/Inj: L thumb IP Post-Procedure Diagnose(s): Digital mucinous cyst of finger of left hand Anupama Ugalde PA-C Department of Orthopaedics Orthopaedics [address] [facility] [address] Dept: [phone] Dept May 18, 2023 CHIEF COMPLAINT: Pain and Established Patient of the Left Thumb and Referred by Vidhi Bowers (Last seen 08/13/20 Right knee pain. ) Ms. Aysha Aguila is a 57 year old female who presents with pain in her left thumb /cuticle area which has been bothering her for almost the past month. She says that she has a painful lump just over the knuckle. She is right-hand dominant. 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 She has tried taking ibuprofen for the pain which is not beneficial. She denies any known injury. She is a diabetic, her last hemoglobin A1c this month was 6.4. ASSESSMENT: M67.442 Digital mucinous cyst of finger of left hand (primary encounter diagnosis) M79.645 Pain of left thumb PLAN: She has a small digital mucous cyst over the left thumb IP joint, we discussed trying a corticosteroid injection to see if that will shrink of the cyst. Certainly if cyst persists and remains painful she can follow-up and we will discuss surgical excision. Patient agrees to plan. Ms. Aysha Aguila was advised as to contrast therapies and/or to take analgesics/anti-inflammatories as needed and all contraindications were reviewed. OBJECTIVE: Ms. Aysha Aguila is a pleasant 57 year old in no apparent distress. Gen:LMP 02/01/2015 nl development, obese, no deformities ENT: Normocephalic, normal hearing, moist mucosa CV: Pulses:Radial= 2+ and symmetric, capillary refill < 2 secs, no peripheral edema/varicosities Skin: no rash, bruising or lesions. Good turgor. Psych: cooperative and appropriate, alert and oriented x 3, good mood and affect. Musculoskeletal: Palpable mass over the left IP joint, slightly ulnar. No noted nail deformity. Patient has full and active range of motion in the left thumb without any locking or catching of the digit. The digit is stable to collateral stresses, there is no pain or tenderness at the basal joint or over the first dorsal compartment. Sensation is intact to the pad of the digit. Small Joint Arthro/Inj: L thumb IP Informed Consent Consent Obtained: Written Dorado Protocol A moment to CARE was completed. SIGN IN Sign in communication not applicable due to emergent procedure. Personnel directly involved with the procedure wore the appropriate PPE. Special Equipment: Yes Patient/Surrogate Stated/Verified: Patient name, Date of , Relevant allergies and Intended procedure TIME OUT Intended patient and procedure match the source document(s). Consent documented and matches the intended procedure. Relevant labs, photos, and/or imaging studies have been reviewed. Correct side/site marked and visible. Medications required for procedure verified. No fire risk assessment and interventions applicable. No implant(s) inserted. 05/18/2023 9:26 AM The procedure site was prepped in the usual sterile fashion. Medications: 3 mg betamethasone acetate-betamethasone sodium phosphate 6 mg/mL Anesthetics: 0.5 mL lidocaine (PF) 10 mg/mL (1 %) Outcome: tolerated well, no immediate complications Post-injection instructions were reviewed with the patient and the patient voiced understanding of these instructions. SIGN OUT All instruments, equipment, possible retained foreign bodies accounted for. Imaging: See Epic Supporting Subjective Information Below: Past Surgical History: PAST SURGICAL HISTORY Procedure Laterality Date DELIVERY ONLY 1980 CONIZATION CERVIX W/WO [facility] RPR ELTRD EXC 1999 LEEP-Cervix ESOPHAGOGASTRODUODENOSCOPY TRANSORAL DIAGNOSTIC 01/18/15 EGD HYSTEROSCOPY THERAPEUTIC 10/2011 [facility] w/ polyp resection LAPS W/VAG HYSTERECT 250 GM/&RMVL TUBE&/OVARIES 02/22/15 [facility], bilateral salpingectomy, left oophorectomy LIG/TRNSXJ FLP TUBE ABDL/VAG APPR UNI/BI 1998 Tubal ligation Medications: Current Outpatient Medications Medication Sig metFORMIN (GLUCOPHAGE) 1,000 mg tablet Take 1 tablet by mouth daily with breakfast. (Patient taking differently: Take 1,000 mg by mouth daily with breakfast. Taking 1/2 tablet daily) ibuprofen (MOTRIN) 800 mg tablet Take 1 tablet by mouth every 8 hours as needed (FOR PAIN. TAKE WITH FOOD). ferrous sulfate 325 mg (65 mg iron) tablet Take 1 tablet by mouth once daily. take separately from multivitamin albuterol HFA (PROAIR HFA) 90 mcg/actuation inhaler INHALE 1 (ONE) TO 2 (TWO) PUFFS EVERY 6 HOURS NEEDED Lancets lancets tTest blood sugar(s) 2 times daily. Dx: Type 2 DM - Uncontrolled E11.65 Insulin: no pantoprazole DR (PROTONIX) 20 mg tablet Take 1 tablet by mouth once daily. blood sugar diagnostic (BLOOD GLUCOSE TEST) test strip Test blood sugar(s) 2 times daily. Dx: Type 2 DM - Uncontrolled E11.65 Insulin: No Blood-Glucose Meter monitoring kit Glucose Meter of Choice - Kit - Dx: Type 2 DM - Uncontrolled E11.65 Insulin NO Blood-Glucose Meter (TRUE METRIX GLUCOSE METER) Use as directed. No current facility-administered medications for this visit. Allergies: Biaxin [Clarithromycin], Codeine, Doxycycline, Meloxicam, Naprosyn [Naproxen], Penicillin G, Sulfa (Sulfonamide Antibiotics), Tramadol, and Vicodin [Hydrocodone-Acetaminophen] ROS: General (negative for fatigue, malaise, weight loss/gain) HEENT (negative for headache, earache, recent vision changes, sinus pain, sore throat) Respiratory (no recent shortness of breath, hemoptysis) CV (negative for chest tightness, palpitations) Musculoskeletal (see HPI) Psych (no depression, anxiety) This note was partially generated using Breezy voice recognition system, and there may be some incorrect words, spellings, and punctuation that were not noted in checking the note before saving. Anupama Ugalde PA-C Patient presents with: Left Thumb - Pain, Established Patient Referred by Vidhi Bowers: Last seen 08/13/20 Right knee pain. AMB ROOMING INTAKE FLOWSHEET DATA Pain Pain Level: 8 Pain Location: (Left thumb) Description: Sharp, Aching, Stabbing Duration Amount of Time: 3 Duration Units: Weeks Frequency: Continuous Intervention/Comfort measure: Medication Patient states she is having pain when she touches the cuticle of her left thumb or when she is tapping her thumb with the end of her fingernail. No specific injury. Patient is right hand dominant. 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 X-rays done at [facility] on 04/28/23, and on 05/11/23 at [facility] uploaded into [employer]. documented in this encounter [facility] 05-13-2023 Note HNO ID: [id number] Author: Vidhi Bowers APRN.CASH ACCOUNTANT Service: ? Author Type: Nurse Practitioner Type: Progress Notes Filed: 05/13/2023 11:36 AM Note Text: This is a 57 year old female who presents today with: Patient presents with: Acute Visit: right thumb HISTORY OF PRESENT ILLNESS: Aysha Aguila is a 57 year old female. Patient presents with: Acute Visit: right thumb Pt presents today with complaint of left thumb nodule that is spreading across the DIP and base of cuticle. Refers that it has been going on since 04/28. No injuries to the area. Denies any known past injuries to the thumb. She is right-handed. Seems like the area is getting worse. Refers that when she rubs at the base of the cuticle, she will get tingling on the finger tip. She was seen by Yair on 04/28/2023. Suspected OA. Had an x-ray of the finger and started on prednisone at that time. Xray showed no bony abnormality or soft tissue swelling. She was also in the ER on 05/11 with same complaint. Reported to the emergency room that for the past 2 to 3 days she had noticed a bump on her thumb that was painful. When she presses on the bump it causes a sensation of nerve pain going to the tip of her thumb. She denies any trauma or injury. No significant changes in skin or swelling. She had tried ice and ibuprofen. Ice was unhelpful but the ibuprofen did provide some mild relief. She had an xray in the ER --this showed suggestion of an old avulsion fracture at the base of the distal phalanx of the thumb. They also noted some soft tissue swelling. Patient reports that she never received any results from her emergency room visit. It should be noted per the ER records which were obtained after her office visit that patient eloped from the ER prior to reviewing the x-ray and receiving discharge instructions. PAST MEDICAL HISTORY: PAST MEDICAL HISTORY Diagnosis Date Asthma Bronchitis Carcinoma in situ of cervix uteri 1999 Diabetes mellitus (adult onset) (HCC) Heartburn Migraine headache Seasonal allergies Tobacco use disorder PAST SURGICAL HISTORY Procedure Laterality Date DELIVERY ONLY 1980 CONIZATION CERVIX W/WO [facility] RPR ELTRD EXC 1999 LEEP-Cervix ESOPHAGOGASTRODUODENOSCOPY TRANSORAL DIAGNOSTIC 01/18/15 EGD HYSTEROSCOPY THERAPEUTIC 10/2011 [facility] w/ polyp resection LAPS W/VAG HYSTERECT 250 GM/ANDRMVL TUBEAND/OVARIES 02/22/15 [facility], bilateral salpingectomy, left oophorectomy LIG/TRNSXJ FLP TUBE ABDL/VAG APPR UNI/BI 1998 Tubal ligation ALLERGIES Biaxin [Clarithromycin], Codeine, Doxycycline, Meloxicam, Naprosyn [Naproxen], Penicillin G, Sulfa (Sulfonamide Antibiotics), Tramadol, and Vicodin [Hydrocodone-Acetaminophen] MEDICATIONS Current Outpatient Medications Medication Sig metFORMIN (GLUCOPHAGE) 1,000 mg tablet Take 1 tablet by mouth daily with breakfast. ibuprofen (MOTRIN) 800 mg tablet Take 1 tablet by mouth every 8 hours as needed (FOR PAIN. TAKE WITH FOOD). ferrous sulfate 325 mg (65 mg iron) tablet Take 1 tablet by mouth once daily. take separately from multivitamin albuterol HFA (PROAIR HFA) 90 mcg/actuation inhaler INHALE 1 (ONE) TO 2 (TWO) PUFFS EVERY 6 HOURS NEEDED Lancets lancets tTest blood sugar(s) 2 times daily. Dx: Type 2 DM - Uncontrolled E11.65 Insulin: no pantoprazole DR (PROTONIX) 20 mg tablet Take 1 tablet by mouth once daily. blood sugar diagnostic (BLOOD GLUCOSE TEST) test strip Test blood sugar(s) 2 times daily. Dx: Type 2 DM - Uncontrolled E11.65 Insulin: No Blood-Glucose Meter (TRUE METRIX GLUCOSE METER) Use as directed. Blood-Glucose Meter monitoring kit Glucose Meter of Choice - Kit - Dx: Type 2 DM - Uncontrolled E11.65 Insulin NO No current facility-administered medications for this visit. FAMILY HISTORY Problem Relation Age of Onset Diabetes Mother Hypertension Mother Diabetes Father Hypertension Father Stroke Father Diabetes Brother Diabetes Other Coronary Artery Disease Other other (Other) Other mother had 23 brothers and sisters from same parents Diabetes Paternal Uncle Alcohol/Drug Paternal Uncle Stroke Paternal Uncle Diabetes Paternal Uncle Alcohol/Drug Paternal Uncle Stroke Paternal Uncle Social History Tobacco Use Smoking status: Light Smoker Packs/day: 0.50 Years: 30.00 Total pack years: 15.00 Types: Cigarettes Smokeless tobacco: Never Vaping Use Vaping Use: Never used Substance Use Topics Alcohol use: No Drug use: No Comment: remote marijuana (teens) EXAM: BP 130/88 Pulse 86 Resp 16 Wt 114.3 kg (252 lb) LMP 02/01/2015 SpO2 96% BMI 41.93 kg/m? PHYSICAL EXAM: General Appearance: Well appearing, alert, in no acute distress, well-hydrated, well nourished.. Skin: Skin color, texture, turgor normal, no suspicious rashes or lesions. Head: Normocephalic, no masses, lesions, tenderness or abnormalities. Eyes: Anicteric sclera. Pupils are (more content not included)... [facility] 04-28-2023 Miscellaneous Notes Patient has been identified by name and date of : Yes, Provider Laog Date 04/28/23 Time 512p Pharmacy phones for refill(s): Requested Prescriptions Pending Prescriptions Disp Refills ibuprofen (MOTRIN) 800 mg tablet 270 tablet 1 Sig: Take 1 tablet by mouth every 8 hours as needed (FOR PAIN. TAKE WITH FOOD). Date of last office visit in primary care: NA Last 2 Encounter Wt Readings: Date: Wt: 04/28/2023 115.2 kg (254 lb) 12/17/2022 118.7 kg (261 lb 9.6 oz) Previous labs/tests for medication: Not applicable Please advise. Thank you. Karol Braun RN documented in this encounter [facility] 04-28-2023 Note HNO ID: [id number] Author: Angelia Colby RT(R) Service: Radiology Author Type: Technologist Type: Progress Notes Filed: 04/28/2023 1:27 PM Note Text: Radiology Service Progress Note PATIENT NAME: Aysha Aguila DATE OF SERVICE: April 28, 2023 TIME: 1:13 PM PATIENT IDENTITY VERIFICATION COMPLETED USING TWO (2) IDENTIFIERS: Name and Date of confirmed by patient verbally. FALL SCREENING: Has the patient had 2 falls in the last year or 1 fall with injury or currently using an Ambulatory Assistive Device (Walker, Cane, Wheelchair, Crutches, etc.)? No PATIENT GENDER DATA: Female. status: : No status: NO. PATIENT RELEVANT IMPLANT DATA REVIEWED: Yes RADIOLOGY DEPARTMENT: General X-ray: Exam(s) Completed: Upper Extremity X-Ray(s): Fingers/Thumb, left PERIPHERAL IV DATA: Not applicable SIGNED BY: RT Pinky(R) April 28, 2023 1:13 PM [facility] 04-28-2023 Note HNO ID: [id number] Author: Parth Smith PA-C Service: ? Author Type: Physician Cdl Truck Driver Type: Progress Notes Filed: 04/28/2023 4:59 PM Note Text: 57 year old female with c/o left thumb lateral distal IPJ with tender nodule over last 2 days. No know overuse or injury. Used ibuprofen 800mg without improvement twice. Diabetes Mellitus Type 2: Current medications: Metformin 1000mg daily with breakfast. Taking medication as directed consistently? Yes Medication side effects: none Medical Issues / Complications: None Checking blood sugars at home? No. Has monitor but not checking Watching diet? Not a whole lot Physical Activity: Regular Hypoglycemic spells? No Any visual disturbance? No Chest pain? No New numbness, tingling or loss of sensation? No Any recent foot problems, sores or rashes? No Any recent or sudden weight loss? No Change in urination? No. If yes: Any recent illness? No Last eye exam: due. Last foot exam: due. HBA1C: Hemoglobin A1C (%) Date Value 09/10/2022 6.5 03/13/2021 6.4 07/13/2020 6.9 ) CMP: Glucose 120 09/10/2022 BUN 7 09/10/2022 Creatinine 0.55 09/10/2022 Sodium 141 09/10/2022 Potassium 3.6 09/10/2022 Chloride 105 09/10/2022 CO2 26 09/10/2022 Protein, Total 6.5 09/10/2022 Albumin 4.0 09/10/2022 Calcium 9.1 09/10/2022 Alkaline Phosphatase 138 09/10/2022 Bilirubin, Total 0.4 09/10/2022 AST 31 09/10/2022 ALT 26 09/10/2022 Last 2 Encounter Wt Readings: Date: Wt: 04/28/2023 115.2 kg (254 lb) 12/17/2022 118.7 kg (261 lb 9.6 oz) GERD Current medication: protonix. Current symptoms: none. Last Mg level if on PPI chronically: 07/13/2020. Heartburn is controlled: Yes. Dysphagia: No. Bloody or black stools: No. Bowel changes: No. Last EGD and/or colonoscopy: 01/18/2015. FINAL DIAGNOSIS 1. Stomach, antrum, biopsy (A) - Active chronic Helicobacter gastritis, see comment. 2. Esophagus at 38 cm, biopsy (B) - Squamous and gastric type mucosa with only mild chronic inflammation. - Negative for goblet cells and dysplasia. TWB/jw 01-22-15 COMMENT 1. An immunohistochemical stain of the gastric biopsy confirms the presence of Helicobacter organisms. TWB Gage Mena M.D., Ph.D. (Electronic Signature) Component Latest Ref Rng AND Units 07/20/2021 09/10/2022 WBC 3.70 - 11.00 k/uL 9.46 10.76 RBC 3.90 - 5.20 m/uL 5.04 5.39 (H) Hemoglobin 11.5 - 15.5 g/dL 14.2 15.7 (H) Hematocrit 36.0 - 46.0 % 45.8 47.8 (H) MCV 80.0 - 100.0 fL 90.9 88.7 MCH 26.0 - 34.0 pg 28.2 29.1 MCHC 30.5 - 36.0 g/dL 31.0 32.8 RDW-CV 11.5 - 15.0 % 13.8 13.5 Platelet Count 150 - 400 k/uL 292 298 MPV 9.0 - 12.7 fL 11.0 10.7 Neut% % 61.7 66.8 Abs Neut (ANC) 1.45 - 7.50 k/uL 5.84 7.18 Lymph% % 27.7 23.2 Abs Lymph 1.00 - 4.00 k/uL 2.62 2.50 Carson% % 6.3 6.2 Abs Carson <0.87 k/uL 0.60 0.67 Eosin% % 3.2 2.6 Abs Eosin <0.46 k/uL 0.30 0.28 Baso% % 1.1 0.7 Abs Baso <0.11 k/uL 0.10 0.08 Immature Gran % % 0.5 IMMATURE GRANS (ABS) <0.10 k/uL 0.05 NRBC /100 WBC 0.0 Absolute nRBC <0.01 k/uL <0.01 <0.01 DTYPE Auto Nucleated Reds 0 /100 WBC 0.0 Diff Type Auto Diff Iron 41 - 186 ug/dL TIBC 232 - 386 ug/dL Transferrin Saturation 15 - 57 % HISTORIES FAMILY HISTORY Problem Relation Age of Onset Diabetes Mother Hypertension Mother Diabetes Father Hypertension Father Stroke Father Diabetes Brother Diabetes Other Coronary Artery Disease Other other (Other) Other mother had 23 brothers and sisters from same parents Diabetes Paternal Uncle Alcohol/Drug Paternal Uncle Stroke Paternal Uncle Diabetes Paternal Uncle Alcohol/Drug Paternal Uncle Stroke Paternal Uncle PAST MEDICAL HISTORY Diagnosis Date Asthma Bronchitis Carcinoma in situ of cervix uteri 1999 Diabetes mellitus (adult onset) (HCC) Heartburn Migraine headache Seasonal allergies Tobacco use disorder PAST SURGICAL HISTORY Procedure Laterality Date DELIVERY ONLY 1980 CONIZATION CERVIX W/WO [facility] RPR ELTRD EXC 1999 LEEP-Cervix ESOPHAGOGASTRODUODENOSCOPY TRANSORAL DIAGNOSTIC 01/18/15 EGD HYSTEROSCOPY THERAPEUTIC 10/2011 [facility] w/ polyp resection LAPS W/VAG HYSTERECT 250 GM/ANDRMVL TUBEAND/OVARIES 02/22/15 [facility], bilateral salpingectomy, left oophorectomy LIG/TRNSXJ FLP TUBE ABDL/VAG APPR UNI/BI 1998 Tubal ligation Social History Tobacco Use Smoking status: Light Smoker Packs/day: 0.50 Years: 30.00 Total pack years: 15.00 Types: Cigarettes Smokeless tobacco: Never Vaping Use Vaping Use: Never used Substance Use Topics Alcohol use: No Drug use: No Comment: remote marijuana (teens) ACTIVE PROBLEM LIST Tension Headache Asthma Restless Legs Gerd (Gastroesophageal Reflux Disease) Osteoarthritis Patellofemoral Arthralgia of Left Knee Lumbago Left Elbow Pain Obesity, Class Iii, Bmi 40-49.9 (Morbid Obesity) (Hcc) Diabetes Mellitus Type 2, Controlled, Without Complicati (more content not included)... [facility] 04-28-2023 History of Present illness Narrative 57 year old female with c/o left thumb lateral distal IPJ with tender nodule over last 2 days. No know overuse or injury. Used ibuprofen 800mg without improvement twice. Diabetes Mellitus Type 2: Current medications: Metformin 1000mg daily with breakfast. Taking medication as directed consistently? Yes Medication side effects: none Medical Issues / Complications: None Checking blood sugars at home? No. Has monitor but not checking Watching diet? Not a whole lot Physical Activity: Regular Hypoglycemic spells? No Any visual disturbance? No Chest pain? No New numbness, tingling or loss of sensation? No Any recent foot problems, sores or rashes? No Any recent or sudden weight loss? No Change in urination? No. If yes: Any recent illness? No Last eye exam: due. Last foot exam: due. HBA1C: Hemoglobin A1C (%) Date Value 09/10/2022 6.5 03/13/2021 6.4 07/13/2020 6.9 ) CMP: Glucose 120 09/10/2022 BUN 7 09/10/2022 Creatinine 0.55 09/10/2022 Sodium 141 09/10/2022 Potassium 3.6 09/10/2022 Chloride 105 09/10/2022 CO2 26 09/10/2022 Protein, Total 6.5 09/10/2022 Albumin 4.0 09/10/2022 Calcium 9.1 09/10/2022 Alkaline Phosphatase 138 09/10/2022 Bilirubin, Total 0.4 09/10/2022 AST 31 09/10/2022 ALT 26 09/10/2022 Last 2 Encounter Wt Readings: Date: Wt: 04/28/2023 115.2 kg (254 lb) 12/17/2022 118.7 kg (261 lb 9.6 oz) GERD Current medication: protonix. Current symptoms: none. Last Mg level if on PPI chronically: 07/13/2020. Heartburn is controlled: Yes. Dysphagia: No. Bloody or black stools: No. Bowel changes: No. Last EGD and/or colonoscopy: 01/18/2015. FINAL DIAGNOSIS 1. Stomach, antrum, biopsy (A) - Active chronic Helicobacter gastritis, see comment. 2. Esophagus at 38 cm, biopsy (B) - Squamous and gastric type mucosa with only mild chronic inflammation. - Negative for goblet cells and dysplasia. TWB/jw 01-22-15 COMMENT 1. An immunohistochemical stain of the gastric biopsy confirms the presence of Helicobacter organisms. TWB Gage Mena M.D., Ph.D. (Electronic Signature) Component Latest Ref Rng & Units 07/20/2021 09/10/2022 WBC 3.70 - 11.00 k/uL 9.46 10.76 RBC 3.90 - 5.20 m/uL 5.04 5.39 (H) Hemoglobin 11.5 - 15.5 g/dL 14.2 15.7 (H) Hematocrit 36.0 - 46.0 % 45.8 47.8 (H) MCV 80.0 - 100.0 fL 90.9 88.7 MCH 26.0 - 34.0 pg 28.2 29.1 MCHC 30.5 - 36.0 g/dL 31.0 32.8 RDW-CV 11.5 - 15.0 % 13.8 13.5 Platelet Count 150 - 400 k/uL 292 298 MPV 9.0 - 12.7 fL 11.0 10.7 Neut% % 61.7 66.8 Abs Neut (ANC) 1.45 - 7.50 k/uL 5.84 7.18 Lymph% % 27.7 23.2 Abs Lymph 1.00 - 4.00 k/uL 2.62 2.50 Carson% % 6.3 6.2 Abs Carson <0.87 k/uL 0.60 0.67 Eosin% % 3.2 2.6 Abs Eosin <0.46 k/uL 0.30 0.28 Baso% % 1.1 0.7 Abs Baso <0.11 k/uL 0.10 0.08 Immature Gran % % 0.5 IMMATURE GRANS (ABS) <0.10 k/uL 0.05 NRBC /100 WBC 0.0 Absolute nRBC <0.01 k/uL <0.01 <0.01 DTYPE Auto Nucleated Reds 0 /100 WBC 0.0 Diff Type Auto Diff Iron 41 - 186 ug/dL TIBC 232 - 386 ug/dL Transferrin Saturation 15 - 57 % HISTORIES FAMILY HISTORY Problem Relation Age of Onset Diabetes Mother Hypertension Mother Diabetes Father Hypertension Father Stroke Father Diabetes Brother Diabetes Other Coronary Artery Disease Other other (Other) Other mother had 23 brothers and sisters from same parents Diabetes Paternal Uncle Alcohol/Drug Paternal Uncle Stroke Paternal Uncle Diabetes Paternal Uncle Alcohol/Drug Paternal Uncle Stroke Paternal Uncle PAST MEDICAL HISTORY Diagnosis Date Asthma Bronchitis Carcinoma in situ of cervix uteri 1999 Diabetes mellitus (adult onset) ([facility]) Heartburn Migraine headache Seasonal allergies Tobacco use disorder PAST SURGICAL HISTORY Procedure Laterality Date DELIVERY ONLY 1980 CONIZATION CERVIX W/WO D&C RPR ELTRD EXC 1999 LEEP-Cervix ESOPHAGOGASTRODUODENOSCOPY TRANSORAL DIAGNOSTIC 01/18/15 EGD HYSTEROSCOPY THERAPEUTIC 10/2011 D&C w/ polyp resection LAPS W/VAG HYSTERECT 250 GM/&RMVL TUBE&/OVARIES 02/22/15 LAVH, bilateral salpingectomy, left oophorectomy LIG/TRNSXJ FLP TUBE ABDL/VAG APPR UNI/BI 1998 Tubal ligation Social History Tobacco Use Smoking status: Light Smoker Packs/day: 0.50 Years: 30.00 Total pack years: 15.00 Types: Cigarettes Smokeless tobacco: Never Vaping Use Vaping Use: Never used Substance Use Topics Alcohol use: No Drug use: No Comment: remote marijuana (teens) ACTIVE PROBLEM LIST Tension Headache Asthma Restless Legs Gerd (Gastroesophageal Reflux Disease) Osteoarthritis Patellofemoral Arthralgia of Left Knee Lumbago Left Elbow Pain Obesity, Class Iii, Bmi 40-49.9 (Morbid Obesity) ([facility]) Diabetes Mellitus Type 2, Controlled, Without Complications ([facility]) Current Outpatient Medications Medication Sig Dispense Refill ferrous sulfate 325 mg (65 mg iron) tablet Take 1 tablet by mouth once daily. take separately from multivitamin 90 tablet 1 albuterol HFA (PROAIR HFA) 90 mcg/actuation inhaler INHALE 1 (ONE) TO 2 (TWO) PUFFS EVERY 6 HOURS NEEDED 18 g 3 Lancets lancets tTest blood sugar(s) 2 times daily. Dx: Type 2 DM - Uncontrolled E11.65 Insulin: no 100 Each 3 benzonatate (TESSALON PERLES) 100 mg capsule Take 2 capsules by mouth three times daily as needed. [address] (PROTONIX) 20 mg tablet Take 1 tablet by mouth once daily. 90 tablet 1 ibuprofen (MOTRIN) 800 mg tablet Take 1 tablet by mouth every 8 hours as needed (FOR PAIN. TAKE WITH FOOD). 270 tablet 1 blood sugar diagnostic (BLOOD GLUCOSE TEST) test strip Test blood sugar(s) 2 times daily. Dx: Type 2 DM - Uncontrolled E11.65 Insulin: No 200 Strip 1 Blood-Glucose Meter (TRUE METRIX GLUCOSE METER) Use as directed. 1 Each 0 metFORMIN (GLUCOPHAGE) 1,000 mg tablet Take 1 tablet by mouth daily with breakfast. 90 tablet 1 Blood-Glucose Meter monitoring kit Glucose Meter of Choice - Kit - Dx: Type 2 DM - Uncontrolled E11.65 Insulin NO 1 Each 0 No current facility-administered medications for this visit. DILATED RETINAL EXAM Never done SPIROMETRY Never done COLORECTAL CANCER SCREENING Never done SHINGRIX VACCINE(1 of 2) Never done PAP TESTING due on 07/19/2017 HPV TESTING due on 07/19/2017 DIABETIC FOOT EXAM due on 07/16/2022 MAMMOGRAM due on 09/17/2022 DEPRESSION ASSESSMENT Never done HBA1C due on 03/10/2023 EXAM: BP 126/84 Pulse 85 Resp 16 Wt 115.2 kg (254 lb) LMP 02/01/2015 SpO2 96% BMI 42.27 kg/m Pleasant overweight adult woman in no acute distress. Alert and oriented all spheres. Normal affect and cognition. Speech normal. No deficits to learning or comprehension. Skin warm, dry, pink to lips and nailbeds. Normal turgor. Respirations regular and unlabored. Chest is normal shape. Lungs are clear to all joaquin with good air exchange through out. HRRR without murmur or gallop. No lifts, heaves, or rubs. Extrem: no clubbing or cyanosis. Edema: none. Extremities are warm and pink with prompt capillary refill. Feet:Shoes and socks removed, Are you having foot pain no, No deformities, ulcers, calluses, normal distal pulses, and sensitive to 10 gm monofilament ASSESSMENT/PLAN: 1. Pain of left thumb - ICD9: 729.5, ICD10: M79.645 (primary diagnosis) Suspect OA - XR DIGIT GENERAL 3V FRONTAL/LAT/OBL LEFT - PREDNISONE 20 MG TABLET Educated on new medication administration, warnings and cautions, common side effects, anticipated duration or therapy, and instructions on cessation management to avoid risks if stops medication. Patient choice was discussed in shared decision making. May want to monitor blood sugars on steroid 2. Controlled type 2 diabetes mellitus without complication, without long-term current use of insulin (HCC) - ICD9: 250.00, ICD10: E11.9 - Controlled - Continue current medications - HGB A1C - COMP METABOLIC PANEL - CONSULT TO OPHTHALMOLOGY - METFORMIN 1,000 MG TABLET - ALBUMIN/CREAT RATIO RND UR 3. Elevated liver enzymes - ICD9: 790.5, ICD10: R74.8 Recheck - COMP METABOLIC PANEL 4. Gastroesophageal reflux disease with esophagitis without hemorrhage - ICD9: 530.81, 530.10, ICD10: K21.00 - Discussed lifestyle modifications including losing weight, limiting caffeine, no meals three hours before sleep, and head of bed elevation - COMP METABOLIC PANEL - CBC - MAGNESIUM BLD 5. Iron deficiency anemia, unspecified iron deficiency anemia type - ICD9: 280.9, ICD10: D50.9 - CBC - IRON + TIBC 6. Screening for lipid disorders - ICD9: V77.91, ICD10: Z13.220 - LIPID PANEL BASIC 7. Screening for colorectal cancer - ICD9: V76.51, V76.41, ICD10: Z12.11, Z12.12 - FECAL OCCULT BLOOD TEST Parth Smith PA-C Some of this note may have been copied and pasted for the purpose of history context and comparison. documented in this encounter [facility] 02-16-2023 Miscellaneous Notes Triage protocol recommended: See provider within 24 hours for evaluation. To ER for severe sx's. Patient states she will go to [facility] today, declined appt at this time. Reason for Disposition Side (flank) or lower back pain present Answer Assessment - Initial Assessment Questions 1. SYMPTOM: -painful urination -urinary frequency -lower abdominal discomfort -lower back pain -denies fever, chills, sweats, hematuria 2. ONSET: 2-3 days ago 3. PAIN: moderate to severe 4. CAUSE: Pt believes she has a UTI 5. OTHER SYMPTOMS: as above 6. : no Protocols used: Urinary [id number] documented in this encounter [facility] 01-22-2023 Miscellaneous Notes Patient has been identified by name and date of : Yes, Provider Dr. Willoughby Date 01/22/23 Time 3:03 am Patient phones for refill(s): Requested Prescriptions Pending Prescriptions Disp Refills albuterol HFA (PROAIR HFA) 90 mcg/actuation inhaler 18 g 3 Sig: INHALE 1 (ONE) TO 2 (TWO) PUFFS EVERY 6 HOURS NEEDED Date of last office visit in primary care: 09/16/22 Last 2 Encounter Wt Readings: Date: Wt: 12/17/2022 118.7 kg (261 lb 9.6 oz) 12/04/2022 118.4 kg (261 lb) Previous labs/tests for medication: Not applicable Thank you. Mellissa Tenorio LPN documented in this encounter [facility] 12-24-2022 Miscellaneous Notes Patient has been identified by name and date of : Yes Requested Prescriptions Pending Prescriptions Disp Refills Lancets lancets 100 Each 11 Sig: tTest blood sugar(s) 2 times daily. Dx: Type 2 DM - Uncontrolled E11.65 Insulin: no RX INSTRUCTIONS: Patient aware RX will be sent to pharmacy. No need to notify patient. Edilma Stein documented in this encounter [facility] 12-17-2022 Note HNO ID: [id number] Author: Sherri Acosta PA-C Service: ? 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 Subjective Aysha Aguila is a 57 year old female. HPI Presents with the chief complaint of hoarse voice and cough. She was seen on the 16 and given Tessalon. She had called her primary doctor a week later when she was not better and they placed her on doxycycline. This did improve her sinus congestion. She states she overall does not feel bad but her voice is hoarse. Denies chest pain. She does have a history of asthma and does wheeze off and on. No fever. COVID and flu testing was negative. She is smoker. Review of Systems Constitutional: Negative. HENT: Positive for voice change. Negative for congestion, ear pain, sinus pressure and sinus pain. Respiratory: Positive for cough and wheezing. Cardiovascular: Negative. Gastrointestinal: Negative. Genitourinary: Negative. Musculoskeletal: Negative. All other systems reviewed and are negative. PAST MEDICAL HISTORY Diagnosis Date Asthma Bronchitis Carcinoma in situ of cervix uteri 1999 Diabetes mellitus (adult onset) ([facility]) Heartburn Migraine headache Seasonal allergies Tobacco use disorder Current Outpatient Medications Medication Sig Dispense Refill doxycycline (VIBRA-TABS) 100 mg tablet Take 1 tablet by mouth twice daily for 10 days. 20 tablet 0 benzonatate (TESSALON PERLE) 100 mg capsule Take 1 capsule by mouth every 8 hours as needed for cough for up to 15 days. 30 capsule 0 metFORMIN (GLUCOPHAGE) 1,000 mg tablet Take 1 tablet by mouth daily with breakfast. [address] (PROTONIX) 20 mg tablet Take 1 tablet by mouth once daily. 90 tablet 1 ferrous sulfate 325 mg (65 mg iron) tablet Take 1 tablet by mouth once daily. take separately from multivitamin 90 tablet 1 ibuprofen (MOTRIN) 800 mg tablet Take 1 tablet by mouth every 8 hours as needed (FOR PAIN. TAKE WITH FOOD). 270 tablet 1 blood sugar diagnostic (BLOOD GLUCOSE TEST) test strip Test blood sugar(s) 2 times daily. Dx: Type 2 DM - Uncontrolled E11.65 Insulin: No 200 Strip 1 albuterol HFA (PROAIR HFA) 90 mcg/actuation inhaler INHALE 1 (ONE) TO 2 (TWO) PUFFS EVERY 6 HOURS NEEDED 18 g 3 Lancets lancets tTest blood sugar(s) 2 times daily. Dx: Type 2 DM - Uncontrolled E11.65 Insulin: no 100 Each 11 Blood-Glucose Meter (TRUE METRIX GLUCOSE METER) Use as directed. 1 Each 0 predniSONE (DELTASONE) 20 mg tablet Take 2 tablets by mouth once daily for 5 days. 10 tablet 0 benzonatate (TESSALON PERLES) 100 mg capsule Take 2 capsules by mouth three times daily as needed. 30 capsule 0 Blood-Glucose Meter monitoring kit Glucose Meter of Choice - Kit - Dx: Type 2 DM - Uncontrolled E11.65 Insulin NO 1 Each 0 No current facility-administered medications for this visit. PAST SURGICAL HISTORY Procedure Laterality Date DELIVERY ONLY 1981 CONIZATION CERVIX W/WO DANDC RPR ELTRD EXC 1999 LEEP-Cervix ESOPHAGOGASTRODUODENOSCOPY TRANSORAL DIAGNOSTIC 01/18/15 EGD HYSTEROSCOPY THERAPEUTIC 10/2011 DANDC w/ polyp resection LAPS W/VAG HYSTERECT 250 GM/ANDRMVL TUBEAND/OVARIES 02/22/15 LAVH, bilateral salpingectomy, left oophorectomy LIG/TRNSXJ FLP TUBE ABDL/VAG APPR UNI/BI 1998 Tubal ligation FAMILY HISTORY Problem Relation Age of Onset Diabetes Mother Hypertension Mother Diabetes Father Hypertension Father Stroke Father Diabetes Brother Diabetes Other Coronary Artery Disease Other other (Other) Other mother had 23 brothers and sisters from same parents Diabetes Paternal Uncle Alcohol/Drug Paternal Uncle Stroke Paternal Uncle Diabetes Paternal Uncle Alcohol/Drug Paternal Uncle Stroke Paternal Uncle Social History Tobacco Use Smoking status: Light Smoker Packs/day: 0.50 Years: 30.00 Pack years: 15.00 Types: Cigarettes Smokeless tobacco: Never Vaping Use Vaping Use: Never used Substance Use Topics Alcohol use: No Drug use: No Comment: remote marijuana (teens) Objective BP 112/78 Pulse 77 Temp 36.7 ?C (98 ?F) (Tympanic) Resp 16 Wt 118.7 kg (261 lb 9.6 oz) LMP 02/01/2015 SpO2 97% BMI 43.53 kg/m? Physical Exam Vitals reviewed. Constitutional: Appearance: Normal appearance. HENT: Head: Normocephalic and atraumatic. Right Ear: Tympanic membrane, ear canal and external ear normal. Left Ear: Tympanic membrane, ear canal and external ear normal. Nose: Nose normal. Mouth/Throat: Mouth: Mucous membranes are moist. Pharynx: Oropharynx is clear. Comments: Hoarse voice Cardiovascular: Rate and Rhythm: Normal rate and regular rhythm. Heart sounds: Normal heart sounds. Pulmonary: Effort: Pulmonary effort is normal. Breath sounds: Wheezing present. Musculoskeletal: Cervical back: Neck supple. Lymphadenopathy: Cervical: No cervical adenopathy. Skin (more content not included)... [facility] 12-17-2022 History of Present illness Narrative This note was created using Revizerriter. Subjective Aysha Aguila is a 57 year old female. HPI Presents with the chief complaint of hoarse voice and cough. She was seen on the 16 and given Tessalon. She had called her primary doctor a week later when she was not better and they placed her on doxycycline. This did improve her sinus congestion. She states she overall does not feel bad but her voice is hoarse. Denies chest pain. She does have a history of asthma and does wheeze off and on. No fever. COVID and flu testing was negative. She is smoker. Review of Systems Constitutional: Negative. HENT: Positive for voice change. Negative for congestion, ear pain, sinus pressure and sinus pain. Respiratory: Positive for cough and wheezing. Cardiovascular: Negative. Gastrointestinal: Negative. Genitourinary: Negative. Musculoskeletal: Negative. All other systems reviewed and are negative. PAST MEDICAL HISTORY Diagnosis Date Asthma Bronchitis Carcinoma in situ of cervix uteri 1999 Diabetes mellitus (adult onset) ([facility]) Heartburn Migraine headache Seasonal allergies Tobacco use disorder Current Outpatient Medications Medication Sig Dispense Refill doxycycline (VIBRA-TABS) 100 mg tablet Take 1 tablet by mouth twice daily for 10 days. 20 tablet 0 benzonatate (TESSALON PERLE) 100 mg capsule Take 1 capsule by mouth every 8 hours as needed for cough for up to 15 days. 30 capsule 0 metFORMIN (GLUCOPHAGE) 1,000 mg tablet Take 1 tablet by mouth daily with breakfast. [address] (PROTONIX) 20 mg tablet Take 1 tablet by mouth once daily. 90 tablet 1 ferrous sulfate 325 mg (65 mg iron) tablet Take 1 tablet by mouth once daily. take separately from multivitamin 90 tablet 1 ibuprofen (MOTRIN) 800 mg tablet Take 1 tablet by mouth every 8 hours as needed (FOR PAIN. TAKE WITH FOOD). 270 tablet 1 blood sugar diagnostic (BLOOD GLUCOSE TEST) test strip Test blood sugar(s) 2 times daily. Dx: Type 2 DM - Uncontrolled E11.65 Insulin: No 200 Strip 1 albuterol HFA (PROAIR HFA) 90 mcg/actuation inhaler INHALE 1 (ONE) TO 2 (TWO) PUFFS EVERY 6 HOURS NEEDED 18 g 3 Lancets lancets tTest blood sugar(s) 2 times daily. Dx: Type 2 DM - Uncontrolled E11.65 Insulin: no 100 Each 11 Blood-Glucose Meter (TRUE METRIX GLUCOSE METER) Use as directed. 1 Each 0 predniSONE (DELTASONE) 20 mg tablet Take 2 tablets by mouth once daily for 5 days. 10 tablet 0 benzonatate (TESSALON PERLES) 100 mg capsule Take 2 capsules by mouth three times daily as needed. 30 capsule 0 Blood-Glucose Meter monitoring kit Glucose Meter of Choice - Kit - Dx: Type 2 DM - Uncontrolled E11.65 Insulin NO 1 Each 0 No current facility-administered medications for this visit. PAST SURGICAL HISTORY Procedure Laterality Date DELIVERY ONLY 1980 CONIZATION CERVIX W/WO D&C RPR ELTRD EXC 1999 LEEP-Cervix ESOPHAGOGASTRODUODENOSCOPY TRANSORAL DIAGNOSTIC 01/18/15 EGD HYSTEROSCOPY THERAPEUTIC 10/2011 D&C w/ polyp resection LAPS W/VAG HYSTERECT 250 GM/&RMVL TUBE&/OVARIES 02/22/15 LAVH, bilateral salpingectomy, left oophorectomy LIG/TRNSXJ FLP TUBE ABDL/VAG APPR UNI/BI 1998 Tubal ligation FAMILY HISTORY Problem Relation Age of Onset Diabetes Mother Hypertension Mother Diabetes Father Hypertension Father Stroke Father Diabetes Brother Diabetes Other Coronary Artery Disease Other other (Other) Other mother had 23 brothers and sisters from same parents Diabetes Paternal Uncle Alcohol/Drug Paternal Uncle Stroke Paternal Uncle Diabetes Paternal Uncle Alcohol/Drug Paternal Uncle Stroke Paternal Uncle Social History Tobacco Use Smoking status: Light Smoker Packs/day: 0.50 Years: 30.00 Pack years: 15.00 Types: Cigarettes Smokeless tobacco: Never Vaping Use Vaping Use: Never used Substance Use Topics Alcohol use: No Drug use: No Comment: remote marijuana (teens) Objective BP 112/78 Pulse 77 Temp 36.7 C (98 F) (Tympanic) Resp 16 Wt 118.7 kg (261 lb 9.6 oz) LMP 02/01/2015 SpO2 97% BMI 43.53 kg/m Physical Exam Vitals reviewed. Constitutional: Appearance: Normal appearance. HENT: Head: Normocephalic and atraumatic. Right Ear: Tympanic membrane, ear canal and external ear normal. Left Ear: Tympanic membrane, ear canal and external ear normal. Nose: Nose normal. Mouth/Throat: Mouth: Mucous membranes are moist. Pharynx: Oropharynx is clear. Comments: Hoarse voice Cardiovascular: Rate and Rhythm: Normal rate and regular rhythm. Heart sounds: Normal heart sounds. Pulmonary: Effort: Pulmonary effort is normal. Breath sounds: Wheezing present. Musculoskeletal: Cervical back: Neck supple. Lymphadenopathy: Cervical: No cervical adenopathy. Skin: General: Skin is warm and dry. Findings: No rash. Neurological: Mental Status: She is alert. Assessment and Plan ASSESSMENT/PLAN: 1. Laryngitis - ICD9: 464.00, ICD10: J04.0 We will treat with prednisone and given Tessalon for cough. Discussed if she has a worsening cough, fever, chest pain or shortness of breath would recommend being seen again for x-ray. She did just complete doxycycline which did help her symptoms other than her hoarse voice. Commended voice rest as well. Sherri Acosta PA-C documented in this encounter [facility] 12-10-2022 Miscellaneous Notes Faxed as requested. 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 Form has been forwarded to: Provider's desk. Provider name: Case Yusuf LPN documented in this encounter [facility] 12-09-2022 Miscellaneous Notes Pt notified. Pat Sadler RN Rx sent. Call if symptoms worsen at all or if not better in one to two weeks Patient calling and states she was seen in [facility] on 12/04 for sore throat, cough and sinus issues. Tested negative for COVID. Benzonatate was ordered for pt. Pt states she does not feel much better. Her cough is better with the medication, but she continues to cough. Throat is still irritated and she has sinus pressure between her eyes and in her forehead. Nasal congestion continues and pt has sweats at times. No increased in SOB. Has asthma and uses inhaler with good effect. Denies fever (but having sweats), nausea, vomiting or diarrhea. Drinking fluids well. Decreased appetite. Uses [facility]. Patient requesting PCP advise due to her medical history. Thank you. documented in this encounter [facility] 12-04-2022 Note HNO ID: [id number] Author: Jesus Squires MD Service: ? Author Type: Physician Type: Progress Notes Filed: 12/04/2022 2:40 PM Note Text: Patient presents with: Sore Throat: YIP, sinus, congestion x 3 days HPI: Feeling sick for 3 days. Positive symptoms: Sore throat, Sinus pressure, Nasal Congestion, Headache, Cough, Sore throat, Rhinorrhea, Post nasal drainage, Negative symptoms: Shortness of breath, OTC: Sudafed PAST MEDICAL HISTORY Diagnosis Date Asthma Bronchitis Carcinoma in situ of cervix uteri 1999 Diabetes mellitus (adult onset) ([facility]) Heartburn Migraine headache Seasonal allergies Tobacco use disorder PAST SURGICAL HISTORY Procedure Laterality Date DELIVERY ONLY 1980 CONIZATION CERVIX W/WO [facility] RPR ELTRD EXC 1999 LEEP-Cervix ESOPHAGOGASTRODUODENOSCOPY TRANSORAL DIAGNOSTIC 01/18/15 EGD HYSTEROSCOPY THERAPEUTIC 10/2011 [facility] w/ polyp resection LAPS W/VAG HYSTERECT 250 GM/ANDRMVL TUBEAND/OVARIES 02/22/15 LAVH, bilateral salpingectomy, left oophorectomy LIG/TRNSXJ FLP TUBE ABDL/VAG APPR UNI/BI 1998 Tubal ligation MEDICATIONS: Current Outpatient Medications Medication Sig metFORMIN (GLUCOPHAGE) 1,000 mg tablet Take 1 tablet by mouth daily with breakfast. pantoprazole DR (PROTONIX) 20 mg tablet Take 1 tablet by mouth once daily. ferrous sulfate 325 mg (65 mg iron) tablet Take 1 tablet by mouth once daily. take separately from multivitamin ibuprofen (MOTRIN) 800 mg tablet Take 1 tablet by mouth every 8 hours as needed (FOR PAIN. TAKE WITH FOOD). blood sugar diagnostic (BLOOD GLUCOSE TEST) test strip Test blood sugar(s) 2 times daily. Dx: Type 2 DM - Uncontrolled E11.65 Insulin: No albuterol HFA (PROAIR HFA) 90 mcg/actuation inhaler INHALE 1 (ONE) TO 2 (TWO) PUFFS EVERY 6 HOURS NEEDED Blood-Glucose Meter monitoring kit Glucose Meter of Choice - Kit - Dx: Type 2 DM - Uncontrolled E11.65 Insulin NO Lancets lancets tTest blood sugar(s) 2 times daily. Dx: Type 2 DM - Uncontrolled E11.65 Insulin: no Blood-Glucose Meter (TRUE METRIX GLUCOSE METER) Use as directed. No current facility-administered medications for this visit. ALLERGIES: ALLERGIES Allergen Reactions Biaxin [Clarithromy* Rash zpak is ok Codeine GI Upset Doxycycline Rash Meloxicam Other: See Comments headaches Naprosyn [Naproxen] headache Penicillin G Rash Sulfa (Sulfonamide * Anaphylaxis headache Tramadol Intolerance getts bad headache Vicodin [Hydrocodon* Vomiting VITALS: BP 172/110 Pulse 105 Temp 36.7 ?C (98 ?F) Resp 21 Wt 118.4 kg (261 lb) LMP 02/01/2015 SpO2 96% BMI 43.43 kg/m? Last 6 Encounter BP Readings: Date: BP: 12/04/2022 172/110 09/16/2022 118/76 07/31/2022 122/80 06/12/2022 122/78 06/03/2022 118/76 09/17/2021 142/90 PHYSICAL EXAM: GEN: mildly ill appearing HEENT: PERRL, EOMI, conjunctiva clear Ears: canals clear. TMs without erythema, bulge, or effusion Sinuses: tender frontal sinus, tender maxillary sinuses Throat: moist mucous membranes, mild erythema, no exudate Neck: supple, no thyromegaly, no lymphadenopathy HEART: regular rate and rhythm, no murmurs LUNGS: clear to auscultation, no wheezes or crackles, no increased WOB ASSESSMENT/PLAN: 1. Acute non-recurrent sinusitis, unspecified location - ICD9: 461.9, ICD10: J01.90 (primary diagnosis) 2. Acute cough - ICD9: 786.2, ICD10: R05.1 - suspect viral URI, differential includes COVID-19. - Discussed supportive care treatment with home isolation, rest, cold medicine, and analgesia. - Red flags to seek further treatment include chest pain, shortness of breath, and lethargy; in the ER if severe. - BENZONATATE 100 MG CAPSULE - 2019 CORONAVIRUS Jesus Squires MD [facility] 12-04-2022 History of Present illness Narrative Patient presents with: Sore Throat: YIP, sinus, congestion x 3 days HPI: Feeling sick for 3 days. Positive symptoms: Sore throat, Sinus pressure, Nasal Congestion, Headache, Cough, Sore throat, Rhinorrhea, Post nasal drainage, Negative symptoms: Shortness of breath, OTC: Sudafed PAST MEDICAL HISTORY Diagnosis Date Asthma Bronchitis Carcinoma in situ of cervix uteri 1999 Diabetes mellitus (adult onset) ([facility]) Heartburn Migraine headache Seasonal allergies Tobacco use disorder PAST SURGICAL HISTORY Procedure Laterality Date DELIVERY ONLY 1980 CONIZATION CERVIX W/WO D&C RPR ELTRD EXC 1999 LEEP-Cervix ESOPHAGOGASTRODUODENOSCOPY TRANSORAL DIAGNOSTIC 01/18/15 EGD HYSTEROSCOPY THERAPEUTIC 10/2011 D&C w/ polyp resection LAPS W/VAG HYSTERECT 250 GM/&RMVL TUBE&/OVARIES 02/22/15 LAVH, bilateral salpingectomy, left oophorectomy LIG/TRNSXJ FLP TUBE ABDL/VAG APPR UNI/BI 1998 Tubal ligation MEDICATIONS: Current Outpatient Medications Medication Sig metFORMIN (GLUCOPHAGE) 1,000 mg tablet Take 1 tablet by mouth daily with breakfast. pantoprazole DR (PROTONIX) 20 mg tablet Take 1 tablet by mouth once daily. ferrous sulfate 325 mg (65 mg iron) tablet Take 1 tablet by mouth once daily. take separately from multivitamin ibuprofen (MOTRIN) 800 mg tablet Take 1 tablet by mouth every 8 hours as needed (FOR PAIN. TAKE WITH FOOD). blood sugar diagnostic (BLOOD GLUCOSE TEST) test strip Test blood sugar(s) 2 times daily. Dx: Type 2 DM - Uncontrolled E11.65 Insulin: No albuterol HFA (PROAIR HFA) 90 mcg/actuation inhaler INHALE 1 (ONE) TO 2 (TWO) PUFFS EVERY 6 HOURS NEEDED Blood-Glucose Meter monitoring kit Glucose Meter of Choice - Kit - Dx: Type 2 DM - Uncontrolled . Insulin NO Lancets lancets tTest blood sugar(s) 2 times daily. Dx: Type 2 DM - Uncontrolled E11.65 Insulin: no Blood-Glucose Meter (TRUE METRIX GLUCOSE METER) Use as directed. No current facility-administered medications for this visit. ALLERGIES: ALLERGIES Allergen Reactions Biaxin [Clarithromy* Rash zpak is ok Codeine GI Upset Doxycycline Rash Meloxicam Other: See Comments headaches Naprosyn [Naproxen] headache Penicillin G Rash Sulfa (Sulfonamide * Anaphylaxis headache Tramadol Intolerance getts bad headache Vicodin [Hydrocodon* Vomiting VITALS: BP 172/110 Pulse 105 Temp 36.7 C (98 F) Resp 21 Wt 118.4 kg (261 lb) LMP 02/01/2015 SpO2 96% BMI 43.43 kg/m Last 6 Encounter BP Readings: Date: BP: 12/04/2022 172/110 09/16/2022 118/76 07/31/2022 122/80 06/12/2022 122/78 06/03/2022 118/76 09/17/2021 142/90 PHYSICAL EXAM: GEN: mildly ill appearing HEENT: PERRL, EOMI, conjunctiva clear Ears: canals clear. TMs without erythema, bulge, or effusion Sinuses: tender frontal sinus, tender maxillary sinuses Throat: moist mucous membranes, mild erythema, no exudate Neck: supple, no thyromegaly, no lymphadenopathy HEART: regular rate and rhythm, no murmurs LUNGS: clear to auscultation, no wheezes or crackles, no increased WOB ASSESSMENT/PLAN: 1. Acute non-recurrent sinusitis, unspecified location - ICD9: 461.9, ICD10: J01.90 (primary diagnosis) 2. Acute cough - ICD9: 786.2, ICD10: R05.1 - suspect viral URI, differential includes COVID-19. - Discussed supportive care treatment with home isolation, rest, cold medicine, and analgesia. - Red flags to seek further treatment include chest pain, shortness of breath, and lethargy; in the ER if severe. - BENZONATATE 100 MG CAPSULE - 2019 CORONAVIRUS Jesus Squires MD documented in this encounter [facility] 10-22-2022 Note Patient Outreach (IN [facility]) ---- AYSHA AUGILA ([id number]) 1965 F Date Time Provider Department 10/22/22 ONIEL WILLOUGHBY During your visit today, we recorded the following information about you: Allergies As of Date: 10/22/2022 Noted Allergy Reaction BIAXIN (CLARITHROMYCIN) 06/25/2005 2 - Rash Comments: ila is ok CODEINE 11/11/2011 8 - GI Upset DOXYCYCLINE 07/24/2009 2 - Rash MELOXICAM 04/27/2014 14 - Other: See Comments Comments: headaches NAPROSYN (NAPROXEN) 06/25/2005 Comments: headache PENICILLIN G 06/25/2005 2 - Rash SULFA (SULFONAMIDE ANTIBIOTICS) 06/25/2005 10 - Anaphylaxis Comments: headache TRAMADOL 11/11/2011 5 - Intolerance Comments: getts bad headache VICODIN (HYDROCODONE-ACETAMINOPHE*07/31/2008 11 - Vomiting Date Reviewed: 09/16/2022 Reviewed by: Rebel Fraga LPN - Fully Assessed Visit Diagnosis:Encounter for screening mammogram for breast cancer [Z12.31] Order(s):[facility] SCREENING [[id number]] Order #: [id number] FUTURE Prescriptions as of 10/27/2022 - metFORMIN (GLUCOPHAGE) 1,000 mg tablet Take 1 tablet by mouth daily with breakfast. - pantoprazole DR (PROTONIX) 20 mg tablet Take 1 tablet by mouth once daily. - ferrous sulfate 325 mg (65 mg iron) tablet Take 1 tablet by mouth once daily. take separately from multivitamin - ibuprofen (MOTRIN) 800 mg tablet Take 1 tablet by mouth every 8 hours as needed (FOR PAIN. TAKE WITH FOOD). - blood sugar diagnostic (BLOOD GLUCOSE TEST) test strip Test blood sugar(s) 2 times daily. Dx: Type 2 DM - Uncontrolled E11.65 Insulin: No - albuterol HFA (PROAIR HFA) 90 mcg/actuation inhaler INHALE 1 (ONE) TO 2 (TWO) PUFFS EVERY 6 HOURS NEEDED - Blood-Glucose Meter monitoring kit Glucose Meter of Choice - Kit - Dx: Type 2 DM - Uncontrolled E11.65 Insulin NO - Lancets lancets tTest blood sugar(s) 2 times daily. Dx: Type 2 DM - Uncontrolled E11.65 Insulin: no - Blood-Glucose Meter (TRUE METRIX GLUCOSE METER) Use as directed. Problem List As Of Date 10/22/2022 Noted Resolved Tension Headache [G44.209] 08/23/2007 Generalized anxiety disorder [F41.1] 08/23/2007 04/22/2017 Asthma [J45.909] 08/23/2007 Routine general medical examination at [facility]01/14/2010 07/16/2012 Class: Chronic Routine gynecological examination [Z01.419] 01/14/2010 07/16/2012 Class: Chronic Restless legs [G25.81] 07/16/2012 GERD (gastroesophageal reflux disease) [K21.9] 07/16/2012 Osteoarthritis [M19.90] 07/16/2012 Patellofemoral arthralgia of left knee [M25.562]07/16/2012 Carcinoma in situ of cervix uteri [D06.9] 07/19/2012 03/05/2015 Mucous polyp of cervix [N84.1] 07/19/2012 02/08/2015 Abnormal ultrasound of uterus [R93.5] 07/30/2012 02/08/2015 Other and unspecified ovarian cyst [N83.209] 07/30/2012 03/05/2015 Unspecified disorder of lower leg joint [M25.9] 08/15/2013 12/08/2013 Lumbago [M54.50] 01/01/2015 Dysmenorrhea [N94.6] 01/01/2015 03/05/2015 Heavy menses [N92.0] 01/01/2015 03/05/2015 Fibroid [D21.9] 01/01/2015 03/05/2015 Esophageal reflux [K21.9] 01/18/2015 01/18/2015 Left elbow pain [M25.522] 04/22/2017 Obesity, Class III, BMI 40-49.9 (morbid obesity*02/23/2018 Diabetes mellitus type 2, controlled, without c*08/08/2020 Encounter Status:Closed by JEREMY, PRODUSER on 10/27/22 [facility] 09-16-2022 Instructions Vidhi Bowers APRN.CNP - 09/16/2022 3:15 PM EST Schedule ultrasound. Continue same medication. 3. Check into Shingrix (shingles shot). Find out whether to get at doctor's office or pharmacy. 4. Let me know about colon cancer screening. Health Promotion: - Eat healthy -- go to [employer] to get started - Have a yearly physical - Mammogram yearly after age 40 - Get at least 30 minutes of physical activity daily - Get at least 7 to 8 hours of sleep each night - Reach and maintain a healthy weight - Get help to quit or don't start smoking - Limit alcohol use to one drink or less - Do not use illegal drugs or misuse prescription drugs - Wear a helmet when riding a bike and wear protective gear for sports - Wear a seatbelt in cars and not text and drive - Wear sunscreen documented in this encounter [facility] 09-16-2022 History of Present illness Narrative This is a 57 year old female who presents today with: No chief complaint on file. HISTORY OF PRESENT ILLNESS: Aysha Aguila is a 57 year old female. No chief complaint on file. Only concern is urination. Refers that she only urinates once daily. Doesn't feel like she is urinating a lot. No pain w/ urination. Doesn't feel like she is emptying bladder. Refers a little leakage of urine (mostly stress related). DM: Reports overall feeling well. Medication side effects: No. Home sugar checks: yes -- 106-120. Hypoglycemic spells: No. Watching diet: No. Unexpected weight loss: No. Polyuria, polydipsia: No. Vision Changes: last eye visit last year. Foot lesions or numbness or pain: No. REVIEW OF SYSTEMS GENERAL: No weight loss, malaise or fevers/chills HEENT: Negative for frequent or significant headaches, No changes in hearing or vision. NECK: Negative for lumps, goiter, pain and significant neck swelling RESPIRATORY: Negative for cough, hemoptysis, wheezing, dyspnea or shortness of breath. Hasn't needed inhaler, but keeps on hand. CARDIOVASCULAR: Negative for chest pain, leg swelling, orthopnea, or palpitations GI: No nausea, vomiting, or diarrhea/constipation. No hematochezia/melena. No heartburn or reflux symptoms. : see above. MUSCULOSKELETAL: Negative for joint pain or swelling. SKIN: Negative for lesions, rash, and itching ENDOCRINE: Negative for cold or heat intolerance, polyuria, polydipsia and goiter. Gets cold. NEURO: No history of headaches, syncope, paralysis, seizures or tremors PAST MEDICAL HISTORY: PAST MEDICAL HISTORY Diagnosis Date Asthma Bronchitis Carcinoma in situ of cervix uteri 1999 Diabetes mellitus (adult onset) (HCC) Heartburn Migraine headache Seasonal allergies Tobacco use disorder PAST SURGICAL HISTORY Procedure Laterality Date DELIVERY ONLY 1980 CONIZATION CERVIX W/WO D&C RPR ELTRD EXC 1999 LEEP-Cervix ESOPHAGOGASTRODUODENOSCOPY TRANSORAL DIAGNOSTIC 01/18/15 EGD HYSTEROSCOPY THERAPEUTIC 10/2011 D&C w/ polyp resection LAPS W/VAG HYSTERECT 250 GM/&RMVL TUBE&/OVARIES 02/22/15 LAVH, bilateral salpingectomy, left oophorectomy LIG/TRNSXJ FLP TUBE ABDL/VAG APPR UNI/BI 1998 Tubal ligation ALLERGIES Biaxin [Clarithromycin], Codeine, Doxycycline, Meloxicam, Naprosyn [Naproxen], Penicillin G, Sulfa (Sulfonamide Antibiotics), Tramadol, and Vicodin [Hydrocodone-Acetaminophen] MEDICATIONS Current Outpatient Medications Medication Sig metFORMIN (GLUCOPHAGE) 1,000 mg tablet Take 1 tablet by mouth daily with breakfast. pantoprazole DR (PROTONIX) 20 mg tablet Take 1 tablet by mouth once daily. ferrous sulfate 325 mg (65 mg iron) tablet Take 1 tablet by mouth once daily. take separately from multivitamin ibuprofen (MOTRIN) 800 mg tablet Take 1 tablet by mouth every 8 hours as needed (FOR PAIN. TAKE WITH FOOD). blood sugar diagnostic (BLOOD GLUCOSE TEST) test strip Test blood sugar(s) 2 times daily. Dx: Type 2 DM - Uncontrolled E11.65 Insulin: No Blood-Glucose Meter monitoring kit Glucose Meter of Choice - Kit - Dx: Type 2 DM - Uncontrolled E11.65 Insulin NO Lancets lancets tTest blood sugar(s) 2 times daily. Dx: Type 2 DM - Uncontrolled E11.65 Insulin: no albuterol HFA (PROAIR HFA) 90 mcg/actuation inhaler INHALE 1 (ONE) TO 2 (TWO) PUFFS EVERY 6 HOURS NEEDED fluticasone (FLONASE) 50 mcg/actuation nasal spray Use 2 Sprays in each nostril once daily. Rinse mouth after use. Blood-Glucose Meter (TRUE METRIX GLUCOSE METER) Use as directed. No current facility-administered medications for this visit. FAMILY HISTORY Problem Relation Age of Onset Diabetes Mother Hypertension Mother Diabetes Father Hypertension Father Stroke Father Diabetes Brother Diabetes Other Coronary Artery Disease Other other (Other) Other mother had 23 brothers and sisters from same parents Diabetes Paternal Uncle Alcohol/Drug Paternal Uncle Stroke Paternal Uncle Diabetes Paternal Uncle Alcohol/Drug Paternal Uncle Stroke Paternal Uncle Social History Tobacco Use Smoking status: Light Smoker Packs/day: 0.50 Years: 30.00 Pack years: 15.00 Types: Cigarettes Smokeless tobacco: Never Vaping Use Vaping Use: Never used Substance Use Topics Alcohol use: No Drug use: No Comment: remote marijuana (teens) EXAM: BP 148/90 Pulse 88 Resp 18 Ht 165.1 cm (5' 5 ) Wt 119.3 kg (263 lb) LMP 02/01/2015 SpO2 96% BMI 43.77 kg/m 118/76 PHYSICAL EXAM: General Appearance: Well appearing, alert, in no acute distress, well-hydrated, well nourished.. Skin: Skin color, texture, turgor normal, no suspicious rashes or lesions. Head: Normocephalic, no masses, lesions, tenderness or abnormalities. Eyes: Anicteric sclera. Pupils are equally round and reactive to light. Extraocular movements are intact. . Ears: External ears normal, canals clear. Oropharynx: Lips, mucosa, and tongue normal, teeth and gums normal, oropharynx normal. Neck: Supple, no adenopathy; thyroid symmetric, normal size, no bruits. Lungs: Lungs clear to auscultation. No wheezing, rhonchi, rales.. Heart: RRR without murmur, gallop, or rubs. No ectopy. Abdomen: Abdomen soft, non-tender. Bowel sounds normal. No masses, organomegaly. Extremities: No deformities, edema, skin discoloration, clubbing or cyanosis. Good capillary refill. . Neurologic: Gait normal. ASSESSMENT/PLAN: 1. Routine physical examination - ICD9: V70.0, ICD10: Z00.00 (primary diagnosis) - Counseled on healthy diet and regular exercise - Colorectal cancer screening recommended - screening declined -- she will let us know when ready to pursue - Follow up for annual exam in one year 2. Controlled type 2 diabetes mellitus without complication, without long-term current use of insulin (HCC) - ICD9: 250.00, ICD10: E11.9 Controlled. - Continue current medications - METFORMIN 1,000 MG TABLET - BLOOD GLUCOSE TEST STRIPS 3. Gastroesophageal reflux disease with esophagitis without hemorrhage - ICD9: 530.81, 530.10, ICD10: K21.00 - stable. - PANTOPRAZOLE 20 MG TABLET,DELAYED RELEASE 4. Restless legs - ICD9: 333.94, ICD10: G25.81 Stable. - FERROUS SULFATE 325 MG (65 MG IRON) TABLET 5. Asthma, unspecified asthma severity, unspecified whether complicated, unspecified whether persistent - ICD9: 493.90, ICD10: J45.909 Mild intermittent Asthma stable - Continue current meds - Avoidance of triggers recommended - ALBUTEROL SULFATE HFA 90 MCG/ACTUATION AEROSOL INHALER 6. Encounter for immunization - ICD9: V03.89, ICD10: Z23 - PNEUMOCOCCAL VACCINE (PREVNAR 20) - INFLUENZA VACCINE QUADRIVALENT 6 MO - 64 YRS IM 7. Infrequent urination - ICD9: 788.69, ICD10: R39.198 BMP was normal. Doesn't feel like emptying bladder completed -- will get ultrasound to r/o retention. Does admit to some stress incontinence. - US KIDNEY/BLADDER Discussed treatment plan and patient voices understanding. Patient's questions answered appropriately. Medications and potential side effects were discussed and patient voices understanding. Return to the office as scheduled or as needed for worsening/no improvement. Vidhi Bowers APRN.CARMELITA documented in this encounter [facility] 09-08-2022 Miscellaneous Notes Spoke with pt and information listed below given. Pt verbalizes understanding. Physical scheduled and pt will get lab work done prior to apt. Mellissa Tenorio LPN Way over due for labs and check up. Patient only has one day left of her medication. Patient requesting 2 week dose of medications to be sent to [facility] and 90 day supplies to be sent to [facility]. Last Office Visit: 07/31/2022 Future Office Visit:None Requested Prescriptions Pending Prescriptions Disp Refills metFORMIN (GLUCOPHAGE) 1,000 mg tablet 90 tablet 3 Sig: Take 1 tablet by mouth daily with breakfast. pantoprazole DR (PROTONIX) 20 mg tablet 90 tablet 1 Sig: Take 1 tablet by mouth once daily. ferrous sulfate 325 mg (65 mg iron) tablet 90 tablet 3 Sig: Take 1 tablet by mouth once daily. take separately from multivitamin ferrous sulfate 325 mg (65 mg iron) tablet 14 tablet 0 Sig: Take 1 tablet by mouth once daily. take separately from multivitamin pantoprazole DR (PROTONIX) 20 mg tablet 14 tablet 0 Sig: Take 1 tablet by mouth once daily. metFORMIN (GLUCOPHAGE) 1,000 mg tablet 14 tablet 0 Sig: Take 1 tablet by mouth daily with breakfast. Date of Last Labs: 07/20/2021 documented in this encounter [facility] 08-06-2022 Miscellaneous Notes The following approved medication requests have been transmitted electronically. Requested Prescriptions Signed Prescriptions Disp Refills ibuprofen (MOTRIN) 800 mg tablet 270 tablet 0 Sig: Take 1 tablet by mouth every 8 hours as needed (FOR PAIN. TAKE WITH FOOD). Authorizing Provider: Parth SMITH blood sugar diagnostic (BLOOD GLUCOSE TEST) test strip 200 Strip 1 Sig: Test blood sugar(s) 2 times daily. Dx: Type 2 DM - Uncontrolled E11.65 Insulin: No Authorizing Provider: Parth SMITH PA-C Last office visit: 07/31/22 Next appointment scheduled: No future appointments scheduled at this time. Last labs: 03/13/21 HGBA1C 6.4 Patient phones requesting refills as follows: Requested Prescriptions Pending Prescriptions Disp Refills ibuprofen (MOTRIN) 800 mg tablet 270 tablet 1 Sig: Take 1 tablet by mouth every 8 hours as needed (FOR PAIN. TAKE WITH FOOD). blood sugar diagnostic (BLOOD GLUCOSE TEST) test strip 200 Strip 1 Sig: Test blood sugar(s) 2 times daily. Dx: Type 2 DM - Uncontrolled E11.65 Insulin: No Please review and advise. Angie Bocanegra LPN documented in this encounter [facility] 08-04-2022 Miscellaneous Notes Pt notified 4-6 weeks to heal from injury. If problematic after 4 weeks, let me know. Thanks, Yair Smith PA-C Patient returned call and went over results from Yair SCOTT. Patient asking what is she to do with the finger still swollen and red? Left message for patient to return call. Aysha Gonzáles Ma Please advise no fracture evident Yair Vance PA-C Patient calling for x-ray results done yesterday. Jazmine Taylor LPN documented in this encounter [facility] 06-11-2022 Miscellaneous Notes Patient calls to report she has a new injury to left index finger. Triage completed and recommendation would have been to go to ED d/t description of finger being bent and not able to move but after completing triage noted patient had already been seen in UC with x-ray completed. note recommends follow up with PCP if not improving. Appt scheduled for tomorrow 06/12/2022. Reason for Disposition Jammed finger Answer Assessment - Initial Assessment Questions 1. MECHANISM: Patient reports she was putting her hand in her pants pocket and stoved it. Patient told this nurse it was a new injury. After triage completed. Noted patient already seen in UC with note to follow up with PCP for no improvement. Scheduled for tomorrow. 2. ONSET: 4 days ago 3. LOCATION:Left index finger first joint to the tip. No damage to the nail. 4. APPEARANCE of the INJURY: Redness/swelling to finger from first joint to tip of finger. 5. SEVERITY: Not able to bend the finger or fully open it. 6. SIZE: Finger tip to the first joint swelling/redness 7. PAIN: - MODERATE (4-7): interferes with normal activities or awakens from sleep. - SEVERE (8-10): excruciating pain, unable to hold a glass of water or bend finger even a little. Moderate to severe. Taking ibuprofen with no relief. 8. TETANUS: No break in the skin. 9. OTHER SYMPTOMS: No fever or warmth to finger. 10. : No Protocols used: Finger [id number] documented in this encounter [facility] 06-03-2022 Instructions Carolina Callaway APRN.CASH ACCOUNTANT - 06/03/2022 11:18 AM EDT R.I.C.E. The general care of your injury includes the following: Resting, Icing, Compressing and Elevating the injured area. Remember this as RICE. REST: Limit the use of the injured body part. ICE: By applying ice to the affected area, swelling and pain can be reduced. Place some ice cubes in a re-sealable (Ziploc) bag and add some water. Put a thin washcloth between the bag and your skin. Apply the ice bag to the area for at least 20 minutes. Do this at least 4 times per day. Using the ice for longer times and more frequently is OK. NEVER APPLY ICE DIRECTLY TO THE SKIN. COMPRESS: Compression means to apply pressure around the injured area such as with a splint, cast or an shiloh bandage. Compression decreases swelling and improves comfort. Compression should be tight enough to relieve swelling but not so tight as to decrease circulation. Increasing pain, numbness, tingling, or change in skin color, are all signs of decreased circulation. ELEVATE: Elevate the injured part. For example, elevate your foot by placing it on a chair while sitting, or propping it up on pillows when lying down. documented in this encounter [facility] 06-03-2022 History of Present illness Narrative This note was created using Revizerriter. Subjective Aysha Aguila is a 56 year old female. 56 year old female with PMH asthma, DM, GERD, and OA presents with complaints of left finger pain. Acute onset yesterday States that she was putting my hand in pocket and jammed my finger Left index finger +pain Limited and reduced ROM Denies numbness or tingling Denies skin rash or lesions. Utilized a family members finger splint Denies prior history of fractures Right hand dominant. The history is provided by the patient. No er tech was used. Musculoskeletal Problem This is a new problem. The current episode started yesterday. The problem occurs constantly. The problem has been unchanged. Pertinent negatives include no abdominal pain, anorexia, arthralgias, change in bowel habit, chest pain, chills, congestion, coughing, diaphoresis, fatigue, fever, headaches, joint swelling, myalgias, nausea, neck pain, numbness, rash, sore throat, swollen glands, urinary symptoms, vertigo, visual change, vomiting or weakness. Exacerbated by: touching and movement. She has tried immobilization for the symptoms. The treatment provided mild relief. PAST MEDICAL HISTORY Diagnosis Date Asthma Bronchitis Carcinoma in situ of cervix uteri 1999 Diabetes mellitus (adult onset) (HCC) Heartburn Migraine headache Seasonal allergies Tobacco use disorder PAST SURGICAL HISTORY Procedure Laterality Date DELIVERY ONLY 1980 CONIZATION CERVIX W/WO D&C RPR ELTRD EXC 1999 LEEP-Cervix ESOPHAGOGASTRODUODENOSCOPY TRANSORAL DIAGNOSTIC 01/18/15 EGD HYSTEROSCOPY THERAPEUTIC 10/2011 D&C w/ polyp resection LAPS W/VAG HYSTERECT 250 GM/&RMVL TUBE&/OVARIES 02/22/15 LAVH, bilateral salpingectomy, left oophorectomy LIG/TRNSXJ FLP TUBE ABDL/VAG APPR UNI/BI 1998 Tubal ligation ALLERGIES Biaxin [Clarithromycin], Codeine, Doxycycline, Meloxicam, Naprosyn [Naproxen], Penicillin G, Sulfa (Sulfonamide Antibiotics), Tramadol, and Vicodin [Hydrocodone-Acetaminophen] MEDICATIONS ferrous sulfate 325 mg (65 mg iron) tablet Take 1 tablet by mouth once daily. take separately from multivitamin pantoprazole DR (PROTONIX) 20 mg tablet Take 1 tablet by mouth once daily. metFORMIN (GLUCOPHAGE) 1,000 mg tablet Take 1 tablet by mouth daily with breakfast. Lancets lancets tTest blood sugar(s) 2 times daily. Dx: Type 2 DM - Uncontrolled E11.65 Insulin: no blood sugar diagnostic (BLOOD GLUCOSE TEST) test strip Test blood sugar(s) 2 times daily. Dx: Type 2 DM - Uncontrolled E11.65 Insulin: No albuterol HFA (PROAIR HFA) 90 mcg/actuation inhaler INHALE 1 (ONE) TO 2 (TWO) PUFFS EVERY 6 HOURS NEEDED fluticasone (FLONASE) 50 mcg/actuation nasal spray Use 2 Sprays in each nostril once daily. Rinse mouth after use. ibuprofen (MOTRIN) 800 mg tablet TAKE 1 TABLET BY MOUTH 3 times daily NEEDED FOR PAIN WITH FOOD Blood-Glucose Meter (TRUE METRIX GLUCOSE METER) Use as directed. blood sugar diagnostic (BLOOD GLUCOSE TEST) test strip Test blood sugar(s) 1 times daily. Dx: Type 2 DM - Controlled E11.9 Insulin: Yes Blood-Glucose Meter monitoring kit Glucose Meter of Choice - Kit - Dx: Type 2 DM - Uncontrolled E11.65 Insulin NO FAMILY HISTORY Problem Relation Age of Onset Diabetes Mother Hypertension Mother Diabetes Father Hypertension Father Stroke Father Diabetes Brother Diabetes Other Coronary Artery Disease Other other (Other) Other mother had 23 brothers and sisters from same parents Diabetes Paternal Uncle Alcohol/Drug Paternal Uncle Stroke Paternal Uncle Diabetes Paternal Uncle Alcohol/Drug Paternal Uncle Stroke Paternal Uncle Social History Tobacco Use Smoking status: Light Smoker Packs/day: 0.50 Years: 30.00 Pack years: 15.00 Types: Cigarettes Smokeless tobacco: Never Vaping Use Vaping Use: Never used Substance Use Topics Alcohol use: No Drug use: No Comment: remote marijuana (teens) Review of Systems Constitutional: Negative for chills, diaphoresis, fatigue and fever. HENT: Negative for congestion and sore throat. Eyes: Negative for pain, discharge, redness and itching. Respiratory: Negative for apnea, cough, choking and chest tightness. Cardiovascular: Negative for chest pain, palpitations and leg swelling. Gastrointestinal: Negative for abdominal pain, anorexia, change in bowel habit, nausea and vomiting. Musculoskeletal: Negative for arthralgias, joint swelling, myalgias and neck pain. Skin: Negative for color change, pallor and rash. Allergic/Immunologic: Negative for environmental allergies, food allergies and immunocompromised state. Neurological: Negative for dizziness, vertigo, facial asymmetry, weakness, numbness and headaches. Hematological: Negative for adenopathy. Does not bruise/bleed easily. Psychiatric/Behavioral: Negative for agitation and behavioral problems. Objective BP 118/76 Pulse 88 Temp 36.6 C (97.9 F) (Tympanic) Resp 18 Wt 115.3 kg (254 lb 3.2 oz) LMP 02/01/2015 SpO2 97% BMI 43.63 kg/m Physical Exam Vitals and nursing note reviewed. Constitutional: General: She is not in acute distress. Appearance: Normal appearance. She is normal weight. She is not ill-appearing, toxic-appearing or diaphoretic. HENT: Head: Normocephalic and atraumatic. Right Ear: Ear canal and external ear normal. Left Ear: Ear canal and external ear normal. Nose: Nose normal. No congestion or rhinorrhea. Mouth/Throat: Mouth: Mucous membranes are moist. Pharynx: No oropharyngeal exudate or posterior oropharyngeal erythema. Eyes: General: Right eye: No discharge. Left eye: No discharge. Extraocular Movements: Extraocular movements intact. Conjunctiva/sclera: Conjunctivae normal. Pupils: Pupils are equal, round, and reactive to light. Cardiovascular: Rate and Rhythm: Normal rate and regular rhythm. Pulses: Normal pulses. Heart sounds: Normal heart sounds. No murmur heard. No friction rub. Pulmonary: Effort: Pulmonary effort is normal. No respiratory distress. Breath sounds: Normal breath sounds. No stridor. No wheezing, rhonchi or rales. Chest: Chest wall: No tenderness. Abdominal: General: Abdomen is flat. There is no distension. Palpations: Abdomen is soft. There is no mass. Tenderness: There is no abdominal tenderness. There is no right CVA tenderness, left CVA tenderness, guarding or rebound. Hernia: No hernia is present. Musculoskeletal: General: Tenderness and signs of injury present. No swelling or deformity. Normal range of motion. Cervical back: Normal range of motion and neck supple. No rigidity. Right lower leg: No edema. Left lower leg: No edema. Comments: Generalized pain to left index finger. +neuro +sensation +flexion +extension Hesitant to perform ROM Lymphadenopathy: Cervical: No cervical adenopathy. Skin: General: Skin is warm and dry. Capillary Refill: Capillary refill takes less than 2 seconds. Coloration: Skin is not jaundiced or pale. Findings: No bruising, erythema, lesion or rash. Neurological: General: No focal deficit present. Mental Status: She is alert and oriented to person, place, and time. Cranial Nerves: No cranial nerve deficit. Sensory: No sensory deficit. Motor: No weakness. Coordination: Coordination normal. Gait: Gait normal. Psychiatric: Mood and Affect: Mood normal. Behavior: Behavior normal. Thought Content: Thought content normal. Judgment: Judgment normal. Assessment and Plan ASSESSMENT/PLAN: 1. Finger pain, left - ICD9: 729.5, ICD10: M79.645 Injured yesterday Exam reveals generalized TTP No red flags - XR DIGIT GENERAL 3V FRONTAL/LAT/OBL LEFT-negative for fracture RICE OTC analgesics Follow up with PCP if symptoms persist Carolina Callaway, [employer] MACHINE OPERATOR [employer] ACC[employer]ANT documented in this encounter [facility] documented as of this encounter (statuses as of 06/03/2022) [facility]04[facility]02[facility]2015 History of Past illness Narrative* Problem Noted Date Resolved Date Esophageal reflux 01/18/2015 01/18/2015 Dysmenorrhea 01/01/2015 03/05/2015 Heavy menses 01/01/2015 03/05/2015 Fibroid 01/01/2015 03/05/2015 Unspecified disorder of lower leg joint 08/15/20 13 12/08/2013 Abnormal ultrasound of uterus 07/30/2012 Other and unspecified ovarian cyst 07/30/2012 03/05/2015 Carcinoma in situ of cervix uteri 07/19/2012 03/05/2015 Mucous polyp of cervix 07/19/2012 5 Routine general medical exam ination at a health care facility 01/14/2010 07/16/2012 Overview: 01/14/2010, from Dr. Cade Routine gynecological examination 01/14/2010 07/16/2012 Generalized anxiety disorder 08/23/200702/2017 documented as of this encounter (statuses as of 06/11/2022) [facility]2015 History of Past illness Narrative* Problem Noted Date Resolved Date Esophageal reflux 01/18/2015 01/18/2015 Dysmenorrhea 01/01/2015 03/05/2015 Heavy menses 01/01/2015 03/05/2015 Fibroid 01/01/2015 03/05/2015 Unspecified disorder of lower leg joint 08/15/20 13 12/08/2013 Abnormal ultrasound of uterus 07/30/2012 Other and unspecified ovarian cyst 07/30/2012 03/05/2015 Carcinoma in situ of cervix uteri 07/19/2012 03/05/2015 Mucous polyp of cervix 07/19/2012 5 Routine general medical exam ination at a health care facility 01/14/2010 07/16/2012 Overview: 01/14/2010, from Dr. Cade Routine gynecological examination 01/14/2010 07/16/2012 Generalized anxiety disorder 08/23/200702/2017 documented as of this encounter (statuses as of 08/04/2022) [facility] History of Past illness Narrative* Problem Noted Date Resolved Date Esophageal reflux 01/18/2015 01/18/2015 Dysmenorrhea 01/01/2015 03/05/2015 Heavy menses 01/01/2015 03/05/2015 Fibroid 01/01/2015 03/05/2015 Unspecified disorder of lower leg joint 08/15/20 13 12/08/2013 Abnormal ultrasound of uterus 07/30/2012 Other and unspecified ovarian cyst 07/30/2012 03/05/2015 Carcinoma in situ of cervix uteri 07/19/2012 03/05/2015 Mucous polyp of cervix 07/19/2012 5 Routine general medical exam ination at a health care facility 01/14/2010 07/16/2012 Overview: 01/14/2010, from Dr. Cade Routine gynecological examination 01/14/2010 07/16/2012 Generalized anxiety disorder 08/23/200702/2017 documented as of this encounter (statuses as of 08/06/2022) [facility] History of Past illness Narrative* Problem Noted Date Resolved Date Esophageal reflux 01/18/2015 01/18/2015 Dysmenorrhea 01/01/2015 03/05/2015 Heavy menses 01/01/2015 03/05/2015 Fibroid 01/01/2015 03/05/2015 Unspecified disorder of lower leg joint 08/15/20 13 12/08/2013 Abnormal ultrasound of uterus 07/30/2012 Other and unspecified ovarian cyst 07/30/2012 03/05/2015 Carcinoma in situ of cervix uteri 07/19/2012 03/05/2015 Mucous polyp of cervix 07/19/2012 5 Routine general medical exam ination at a health care facility 01/14/2010 07/16/2012 Overview: 01/14/2010, from Dr. Cade Routine gynecological examination 01/14/2010 07/16/2012 Generalized anxiety disorder 08/23/200702/2017 documented as of this encounter (statuses as of 09/08/2022) [facility] History of Past illness Narrative* Problem Noted Date Resolved Date Esophageal reflux 01/18/2015 01/18/2015 Dysmenorrhea 01/01/2015 03/05/2015 Heavy menses 01/01/2015 03/05/2015 Fibroid 01/01/2015 03/05/2015 Unspecified disorder of lower leg joint 08/15/20 13 12/08/2013 Abnormal ultrasound of uterus 07/30/2012 Other and unspecified ovarian cyst 07/30/2012 03/05/2015 Carcinoma in situ of cervix uteri 07/19/2012 03/05/2015 Mucous polyp of cervix 07/19/2012 5 Routine general medical exam ination at a health care facility 01/14/2010 07/16/2012 Overview: 01/14/2010, from Dr. Cade Routine gynecological examination 01/14/2010 07/16/2012 Generalized anxiety disorder 08/23/200702/2017 documented as of this encounter (statuses as of 09/16/2022) [facility] History of Past illness Narrative* Problem Noted Date Resolved Date Esophageal reflux 01/18/2015 01/18/2015 Dysmenorrhea 01/01/2015 03/05/2015 Heavy menses 01/01/2015 03/05/2015 Fibroid 01/01/2015 03/05/2015 Unspecified disorder of lower leg joint 08/15/20 13 12/08/2013 Abnormal ultrasound of uterus 07/30/2012 Other and unspecified ovarian cyst 07/30/2012 03/05/2015 Carcinoma in situ of cervix uteri 07/19/2012 03/05/2015 Mucous polyp of cervix 07/19/2012 5 Routine general medical exam ination at a health care facility 01/14/2010 07/16/2012 Overview: 01/14/2010, from Dr. Cade Routine gynecological examination 01/14/2010 07/16/2012 Generalized anxiety disorder 08/23/200702/2017 documented as of this encounter (statuses as of 10/27/2022) [facility] History of Past illness Narrative* Problem Noted Date Resolved Date Esophageal reflux 01/18/2015 01/18/2015 Dysmenorrhea 01/01/2015 03/05/2015 Heavy menses 01/01/2015 03/05/2015 Fibroid 01/01/2015 03/05/2015 Unspecified disorder of lower leg joint 08/15/20 13 12/08/2013 Abnormal ultrasound of uterus 07/30/2012 Other and unspecified ovarian cyst 07/30/2012 03/05/2015 Carcinoma in situ of cervix uteri 07/19/2012 03/05/2015 Mucous polyp of cervix 07/19/2012 5 Routine general medical exam ination at a health care facility 01/14/2010 07/16/2012 Overview: 01/14/2010, from Dr. Cade Routine gynecological examination 01/14/2010 07/16/2012 Generalized anxiety disorder 08/23/200702/2017 documented as of this encounter (statuses as of 12/04/2022) [address]02-2015 History of Past illness Narrative* Problem Noted Date Resolved Date Esophageal reflux 01/18/2015 01/18/2015 Dysmenorrhea 01/01/2015 03/05/2015 Heavy menses 01/01/2015 03/05/2015 Fibroid 01/01/2015 03/05/2015 Unspecified disorder of lower leg joint 08/15/20 13 12/08/2013 Abnormal ultrasound of uterus 07/30/2012 Other and unspecified ovarian cyst 07/30/2012 03/05/2015 Carcinoma in situ of cervix uteri 07/19/2012 03/05/2015 Mucous polyp of cervix 07/19/2012 5 Routine general medical exam ination at a health care facility 01/14/2010 07/16/2012 Overview: 01/14/2010, from Dr. Cade Routine gynecological examination 01/14/2010 07/16/2012 Generalized anxiety disorder 08/23/200702/2017 documented as of this encounter (statuses as of 12/10/2022) [place] [address]-02-2015 History of Past illness Narrative* Problem Noted Date Resolved Date Esophageal reflux 01/18/2015 01/18/2015 Dysmenorrhea 01/01/2015 03/05/2015 Heavy menses 01/01/2015 03/05/2015 Fibroid 01/01/2015 03/05/2015 Unspecified disorder of lower leg joint 08/15/20 13 12/08/2013 Abnormal ultrasound of uterus 07/30/2012 Other and unspecified ovarian cyst 07/30/2012 03/05/2015 Carcinoma in situ of cervix uteri 07/19/2012 03/05/2015 Mucous polyp of cervix 07/19/2012 5 Routine general medical exam ination at a health care facility 01/14/2010 07/16/2012 Overview: 01/14/2010, from Dr. Cade Routine gynecological examination 01/14/2010 07/16/2012 Generalized anxiety disorder 08/23/200702/2017 documented as of this encounter (statuses as of 12/10/2022) [facility] History of Past illness Narrative* Problem Noted Date Resolved Date Esophageal reflux 01/18/2015 01/18/2015 Dysmenorrhea 01/01/2015 03/05/2015 Heavy menses 01/01/2015 03/05/2015 Fibroid 01/01/2015 03/05/2015 Unspecified disorder of lower leg joint 08/15/20 13 12/08/2013 Abnormal ultrasound of uterus 07/30/2012 Other and unspecified ovarian cyst 07/30/2012 03/05/2015 Carcinoma in situ of cervix uteri 07/19/2012 03/05/2015 Mucous polyp of cervix 07/19/2012 5 Routine general medical exam ination at a health care facility 01/14/2010 07/16/2012 Overview: 01/14/2010, from Dr. Cade Routine gynecological examination 01/14/2010 07/16/2012 Generalized anxiety disorder 08/23/200702/2017 documented as of this encounter (statuses as of 12/18/2022) [facility] History of Past illness Narrative* Problem Noted Date Resolved Date Esophageal reflux 01/18/2015 01/18/2015 Dysmenorrhea 01/01/2015 03/05/2015 Heavy menses 01/01/2015 03/05/2015 Fibroid 01/01/2015 03/05/2015 Unspecified disorder of lower leg joint 08/15/20 13 12/08/2013 Abnormal ultrasound of uterus 07/30/2012 Other and unspecified ovarian cyst 07/30/2012 03/05/2015 Carcinoma in situ of cervix uteri 07/19/2012 03/05/2015 Mucous polyp of cervix 07/19/2012 5 Routine general medical exam ination at a health care facility 01/14/2010 07/16/2012 Overview: 01/14/2010, from Dr. Cade Routine gynecological examination 01/14/2010 07/16/2012 Generalized anxiety disorder 08/23/200702/2017 documented as of this encounter (statuses as of 12/25/2022) [facility] History of Past illness Narrative* Problem Noted Date Resolved Date Esophageal reflux 01/18/2015 01/18/2015 Dysmenorrhea 01/01/2015 03/05/2015 Heavy menses 01/01/2015 03/05/2015 Fibroid 01/01/2015 03/05/2015 Unspecified disorder of lower leg joint 08/15/20 13 12/08/2013 Abnormal ultrasound of uterus 07/30/2012 Other and unspecified ovarian cyst 07/30/2012 03/05/2015 Carcinoma in situ of cervix uteri 07/19/2012 03/05/2015 Mucous polyp of cervix 07/19/2012 5 Routine general medical exam ination at a health care facility 01/14/2010 07/16/2012 Overview: 01/14/2010, from Dr. Cade Routine gynecological examination 01/14/2010 07/16/2012 Generalized anxiety disorder 08/23/200702/2017 documented as of this encounter (statuses as of 01/23/2023) [facility] History of Past illness Narrative* Problem Noted Date Resolved Date Esophageal reflux 01/18/2015 01/18/2015 Dysmenorrhea 01/01/2015 03/05/2015 Heavy menses 01/01/2015 03/05/2015 Fibroid 01/01/2015 03/05/2015 Unspecified disorder of lower leg joint 08/15/20 13 12/08/2013 Abnormal ultrasound of uterus 07/30/2012 Other and unspecified ovarian cyst 07/30/2012 03/05/2015 Carcinoma in situ of cervix uteri 07/19/2012 03/05/2015 Mucous polyp of cervix 07/19/2012 5 Routine general medical exam ination at a health care facility 01/14/2010 07/16/2012 Overview: 01/14/2010, from Dr. Cade Routine gynecological examination 01/14/2010 07/16/2012 Generalized anxiety disorder 08/23/200702/2017 documented as of this encounter (statuses as of 04/10/2023) [facility]2015 History of Past illness Narrative* Problem Noted Date Diagnosed Date Resolved Date Esophageal reflux 01/18/2015 01/18/2015 Dysmenorrhea 01/01/2015 03/05/2015 Heavy menses 01/01/2015 03/05/2015 Fibroid 01/01/2015 03/05/2015 Unspecified disorder of lower leg joint 08/15/2013 12/08/2013 Abnormal ultrasound of uterus 07/30/2012 02/08/2015 Other and unspecified ovarian cyst 07/30/2012 03/05/2015 Carcinoma in situ of cervix uteri 07/19/2012 03/05/2015 Mucous polyp of cervix 07/19/201202/08 Routine general medical exam ination at a health care facility 01/14/2010 07/16/2012 Overview: 01/14/2010, from Dr. Cade Routine gynecological examination 01/14/2010 07/16/2012 Generalized anxiety disorder 08/23/2007 04/22/2017 documented as of this encounter (statuses as of 04/29/2023) [facility] History of Past illness Narrative* Problem Noted Date Diagnosed Date Resolved Date Esophageal reflux 01/18/2015 01/18/2015 Dysmenorrhea 01/01/2015 03/05/2015 Heavy menses 01/01/2015 03/05/2015 Fibroid 01/01/2015 03/05/2015 Unspecified disorder of lower leg joint 08/15/2013 12/08/2013 Abnormal ultrasound of uterus 07/30/2012 02/08/2015 Other and unspecified ovarian cyst 07/30/2012 03/05/2015 Carcinoma in situ of cervix uteri 07/19/2012 03/05/2015 Mucous polyp of cervix 07/19/201202/08 Routine general medical exam ination at a health care facility 01/14/2010 07/16/2012 Overview: 01/14/2010, from Dr. Cade Routine gynecological examination 01/14/2010 07/16/2012 Generalized anxiety disorder 08/23/2007 04/22/2017 documented as of this encounter (statuses as of 04/29/2023) [facility] History of Past illness Narrative* Problem Noted Date Diagnosed Date Resolved Date Esophageal reflux 01/18/2015 01/18/2015 Dysmenorrhea 01/01/2015 03/05/2015 Heavy menses 01/01/2015 03/05/2015 Fibroid 01/01/2015 03/05/2015 Unspecified disorder of lower leg joint 08/15/2013 12/08/2013 Abnormal ultrasound of uterus 07/30/2012 02/08/2015 Other and unspecified ovarian cyst 07/30/2012 03/05/2015 Carcinoma in situ of cervix uteri 07/19/2012 03/05/2015 Mucous polyp of cervix 07/19/201202/08 Routine general medical exam ination at a health care facility 01/14/2010 07/16/2012 Overview: 01/14/2010, from Dr. Cade Routine gynecological examination 01/14/2010 07/16/2012 Generalized anxiety disorder 08/23/2007 04/22/2017 documented as of this encounter (statuses as of 05/18/2023) [facility] History of Past illness Narrative* Problem Noted Date Diagnosed Date Resolved Date Esophageal reflux 01/18/2015 01/18/2015 Dysmenorrhea 01/01/2015 03/05/2015 Heavy menses 01/01/2015 03/05/2015 Fibroid 01/01/2015 03/05/2015 Unspecified disorder of lower leg joint 08/15/2013 12/08/2013 Abnormal ultrasound of uterus 07/30/2012 02/08/2015 Other and unspecified ovarian cyst 07/30/2012 03/05/2015 Carcinoma in situ of cervix uteri 07/19/2012 03/05/2015 Mucous polyp of cervix 07/19/201202/08 Routine general medical exam ination at a health care facility 01/14/2010 07/16/2012 Overview: 01/14/2010, from Dr. Cade Routine gynecological examination 01/14/2010 07/16/2012 Generalized anxiety disorder 08/23/2007 04/22/2017 documented as of this encounter (statuses as of 05/23/2023) [facility] History of Past illness Narrative* Problem Noted Date Diagnosed Date Resolved Date Esophageal reflux 01/18/2015 01/18/2015 Dysmenorrhea 01/01/2015 03/05/2015 Heavy menses 01/01/2015 03/05/2015 Fibroid 01/01/2015 03/05/2015 Unspecified disorder of lower leg joint 08/15/2013 12/08/2013 Abnormal ultrasound of uterus 07/30/2012 02/08/2015 Other and unspecified ovarian cyst 07/30/2012 03/05/2015 Carcinoma in situ of cervix uteri 07/19/2012 03/05/2015 Mucous polyp of cervix 07/19/201202/08 Routine general medical exam ination at a health care facility 01/14/2010 07/16/2012 Overview: 01/14/2010, from Dr. Cade Routine gynecological examination 01/14/2010 07/16/2012 Generalized anxiety disorder 08/23/2007 04/22/2017 documented as of this encounter (statuses as of 05/29/2023) [facility] History of Past illness Narrative* Problem Noted Date Diagnosed Date Resolved Date Esophageal reflux 01/18/2015 01/18/2015 Dysmenorrhea 01/01/2015 03/05/2015 Heavy menses 01/01/2015 03/05/2015 Fibroid 01/01/2015 03/05/2015 Unspecified disorder of lower leg joint 08/15/2013 12/08/2013 Abnormal ultrasound of uterus 07/30/2012 02/08/2015 Other and unspecified ovarian cyst 07/30/2012 03/05/2015 Carcinoma in situ of cervix uteri 07/19/2012 03/05/2015 Mucous polyp of cervix 07/19/201202/08 Routine general medical exam ination at a health care facility 01/14/2010 07/16/2012 Overview: 01/14/2010, from Dr. Cade Routine gynecological examination 01/14/2010 07/16/2012 Generalized anxiety disorder 08/23/2007 04/22/2017 documented as of this encounter (statuses as of 05/29/2023) [facility] History of Past illness Narrative* Problem Noted Date Diagnosed Date Resolved Date Esophageal reflux 01/18/2015 01/18/2015 Dysmenorrhea 01/01/2015 03/05/2015 Heavy menses 01/01/2015 03/05/2015 Fibroid 01/01/2015 03/05/2015 Unspecified disorder of lower leg joint 08/15/2013 12/08/2013 Abnormal ultrasound of uterus 07/30/2012 02/08/2015 Other and unspecified ovarian cyst 07/30/2012 03/05/2015 Carcinoma in situ of cervix uteri 07/19/2012 03/05/2015 Mucous polyp of cervix 07/19/201202/08 Routine general medical exam ination at a health care facility 01/14/2010 07/16/2012 Overview: 01/14/2010, from Dr. Cade Routine gynecological examination 01/14/2010 07/16/2012 Generalized anxiety disorder 08/23/2007 04/22/2017 documented as of this encounter (statuses as of 06/15/2023) [facility] History of Past illness Narrative* Problem Noted Date Diagnosed Date Resolved Date Esophageal reflux 01/18/2015 01/18/2015 Dysmenorrhea 01/01/2015 03/05/2015 Heavy menses 01/01/2015 03/05/2015 Fibroid 01/01/2015 03/05/2015 Unspecified disorder of lower leg joint 08/15/2013 12/08/2013 Abnormal ultrasound of uterus 07/30/2012 02/08/2015 Other and unspecified ovarian cyst 07/30/2012 03/05/2015 Carcinoma in situ of cervix uteri 07/19/2012 03/05/2015 Mucous polyp of cervix 07/19/201202/08 Routine general medical exam ination at a health care facility 01/14/2010 07/16/2012 Overview: 01/14/2010, from Dr. Cade Routine gynecological examination 01/14/2010 07/16/2012 Generalized anxiety disorder 08/23/2007 04/22/2017 documented as of this encounter (statuses as of 06/16/2023) [facility] History of Past illness Narrative* Problem Noted Date Diagnosed Date Resolved Date Esophageal reflux 01/18/2015 01/18/2015 Dysmenorrhea 01/01/2015 03/05/2015 Heavy menses 01/01/2015 03/05/2015 Fibroid 01/01/2015 03/05/2015 Unspecified disorder of lower leg joint 08/15/2013 12/08/2013 Abnormal ultrasound of uterus 07/30/2012 02/08/2015 Other and unspecified ovarian cyst 07/30/2012 03/05/2015 Carcinoma in situ of cervix uteri 07/19/2012 03/05/2015 Mucous polyp of cervix 07/19/201202/08 Routine general medical exam ination at a health care facility 01/14/2010 07/16/2012 Overview: 01/14/2010, from Dr. Cade Routine gynecological examination 01/14/2010 07/16/2012 Generalized anxiety disorder 08/23/2007 04/22/2017 documented as of this encounter (statuses as of 06/26/2023) [facility] History of Past illness Narrative* Problem Noted Date Diagnosed Date Resolved Date Esophageal reflux 01/18/2015 01/18/2015 Dysmenorrhea 01/01/2015 03/05/2015 Heavy menses 01/01/2015 03/05/2015 Fibroid 01/01/2015 03/05/2015 Unspecified disorder of lower leg joint 08/15/2013 12/08/2013 Abnormal ultrasound of uterus 07/30/2012 02/08/2015 Other and unspecified ovarian cyst 07/30/2012 03/05/2015 Carcinoma in situ of cervix uteri 07/19/2012 03/05/2015 Mucous polyp of cervix 07/19/201202/08 Routine general medical exam ination at a health care facility 01/14/2010 07/16/2012 Overview: 01/14/2010, from Dr. Cade Routine gynecological examination 01/14/2010 07/16/2012 Generalized anxiety disorder 08/23/2007 04/22/2017 documented as of this encounter (statuses as of 07/08/2023) [facility] History of Past illness Narrative* Problem Noted Date Diagnosed Date Resolved Date Esophageal reflux 01/18/2015 01/18/2015 Dysmenorrhea 01/01/2015 03/05/2015 Heavy menses 01/01/2015 03/05/2015 Fibroid 01/01/2015 03/05/2015 Unspecified disorder of lower leg joint 08/15/2013 12/08/2013 Abnormal ultrasound of uterus 07/30/2012 02/08/2015 Other and unspecified ovarian cyst 07/30/2012 03/05/2015 Carcinoma in situ of cervix uteri 07/19/2012 03/05/2015 Mucous polyp of cervix 07/19/201202/08 Routine general medical exam ination at a health care facility 01/14/2010 07/16/2012 Overview: 01/14/2010, from Dr. Cade Routine gynecological examination 01/14/2010 07/16/2012 Generalized anxiety disorder 08/23/2007 04/22/2017 documented as of this encounter (statuses as of 08/27/2023) [facility] History of Past illness Narrative* Problem Noted Date Diagnosed Date Resolved Date Esophageal reflux 01/18/2015 01/18/2015 Dysmenorrhea 01/01/2015 03/05/2015 Heavy menses 01/01/2015 03/05/2015 Fibroid 01/01/2015 03/05/2015 Unspecified disorder of lower leg joint 08/15/2013 12/08/2013 Abnormal ultrasound of uterus 07/30/2012 02/08/2015 Other and unspecified ovarian cyst 07/30/2012 03/05/2015 Carcinoma in situ of cervix uteri 07/19/2012 03/05/2015 Mucous polyp of cervix 07/19/201202/08 Routine general medical exam ination at a health care facility 01/14/2010 07/16/2012 Overview: 01/14/2010, from Dr. Cade Routine gynecological examination 01/14/2010 07/16/2012 Generalized anxiety disorder 08/23/2007 04/22/2017 documented as of this encounter (statuses as of 09/22/2023) [facility] History of Past illness Narrative* Problem Noted Date Diagnosed Date Resolved Date Esophageal reflux 01/18/2015 01/18/2015 Dysmenorrhea 01/01/2015 03/05/2015 Heavy menses 01/01/2015 03/05/2015 Fibroid 01/01/2015 03/05/2015 Unspecified disorder of lower leg joint 08/15/2013 12/08/2013 Abnormal ultrasound of uterus 07/30/2012 02/08/2015 Other and unspecified ovarian cyst 07/30/2012 03/05/2015 Carcinoma in situ of cervix uteri 07/19/2012 03/05/2015 Mucous polyp of cervix 07/19/201202/08 Routine general medical exam ination at a health care facility 01/14/2010 07/16/2012 Overview: 01/14/2010, from Dr. Cade Routine gynecological examination 01/14/2010 07/16/2012 Generalized anxiety disorder 08/23/2007 04/22/2017 documented as of this encounter (statuses as of 09/28/2023) [facility] note* Diagnosis Finger pain, left- Primary Pain in limb [facility] Diagnosis Controlled type 2 diabetes mellitus without complication, without long-term current use of insulin (HCC) Gastroesophageal reflux disease with esophagitis without hemorrhage Restless legs Restless legs syndrome (RLS) [facility] Diagnosis Routine physical examination- Primary Routine general medical examination at a health care facility Controlled type 2 diabetes mellitus without complication, without long-term current use of insulin (HCC) Gastroesophageal reflux disease with esophagitis without hemorrhage Restless legs Restless legs syndrome (RLS) Asthma, unspecified asthma severity, unspecified whether complicated, unspecified whether persistent Encounter for immunization Need for other specified prophylactic vaccination against single bacterial disease Infrequent urination Other abnormality of urination [facility] Diagnosis Encounter for screening mammogram for breast cancer [facility] Diagnosis Acute non-recurrent sinusitis, unspecified location- Primary Acute cough [facility] Diagnosis Bacterial sinusitis- Primary Unspecified sinusitis (chronic) documented in this encounter [facility] note* Diagnosis Laryngitis- Primary Acute laryngitis, without mention of obstruction [facility] Diagnosis Controlled type 2 diabetes mellitus without complication, without long-term current use of insulin (HCC) documented in this encounter [facility] note* Diagnosis Asthma, unspecified asthma severity, unspecified whether complicated, unspecified whether persistent [facility] Diagnosis Pain of left thumb- Primary Pain in limb Controlled type 2 diabetes mellitus without complication, without long-term current use of insulin (HCC) Elevated liver enzymes Other nonspecific abnormal serum enzyme levels Gastroesophageal reflux disease with esophagitis without hemorrhage Iron deficiency anemia, unspecified iron deficiency anemia type Screening for lipid disorders Screening for colorectal cancer Special screening for malignant neoplasms, colon documented in this encounter [facility] note* Diagnosis Digital mucinous cyst of finger of left hand- Primary Pain of left thumb Pain in limb documented in this encounter [facility] note* Diagnosis Mastoid pain, right- Primary documented in this encounter [facility] note* Diagnosis Controlled type 2 diabetes mellitus without complication, without long-term current use of insulin (HCC) Asthma, unspecified asthma severity, unspecified whether complicated, unspecified whether persistent documented in this encounter [facility] note* Diagnosis Gastroesophageal reflux disease with esophagitis without hemorrhage documented in this encounter [facility] note* Diagnosis Digital mucinous cyst of finger of left hand- Primary Pain of left thumb Pain in limb [facility] Diagnosis Digital mucinous cyst of finger of left hand- Primary Digital mucinous cyst of finger of left hand documented in this encounter [facility] note* Diagnosis Controlled type 2 diabetes mellitus without complication, without long-term current use of insulin (HCC) Gastroesophageal reflux disease with esophagitis without hemorrhage documented in this encounter [facility] note* Diagnosis Controlled type 2 diabetes mellitus without complication, without long-term current use of insulin (HCC) documented in this encounter [facility] note* Diagnosis Asthma, unspecified asthma severity, unspecified whether complicated, unspecified whether persistent Restless legs Restless legs syndrome (RLS) documented in this encounter [facility] note* Diagnosis Encounter for screening mammogram for breast cancer documented in this encounter [facility] for referral (narrative)* Diagnostic Procedure Only (Urgent) - Closed Specialty Diagnoses / Procedures Referred By Contac t Referred To Contact XR IMAGING Diagnoses Finger pain, left Procedures XR DIGIT GENERAL 3V FRONTAL/LAT/OBL LEFT RADEX FINGR MINIMUM 2 VIEWS Carolina Callaway APRN.CASH ACCOUNTANT [address] [place] [address] Xr Imaging Referral ID Status Reason Start Date Expiration Date V isits Requested Visits Authorized [id number] Closed Auto-Generate d Referral 06/03/2022 07/03/2023 1 1 [facility] for referral (narrative)* Diagnostic Procedure Only (Routine) - Authorized Specialty Diagnoses / Procedures [facility] Referred To Contact US IMAGING Diagnoses Infrequent urination Procedures US KIDNEY/BLADDER US RETROPERITONEAL REAL TIME W/IMAGE COMPLETE Vidhi Bowers APRN.CASH ACCOUNTANT [address] [place] [address] Us Imaging Referral ID Status Reason Start Date Expiration Date Visits Requested Visits Authorized [id number] Authorized Auto-Generat ed Referral 2 10/16/2023 1 1 * Medication Prior Authorization - Closed Specialty Diagnoses / Procedures [facility] Referred To Contact Diagnoses Asthma, unspecified asthma severity, unspecified whether complicated, unspecified whether persistent Vidhi Bowers APRN.CASH ACCOUNTANT [address] [place] [address] Referral ID Status Reason Start Date Expiration Date Visits Re quested Visits Authorized [id number] Closed 1 1 [facility] for referral (narrative)* Diagnostic Procedure Only (Routine) - Pending Review Specialty Diagnoses / Procedures [facility] Referred To Contact BR IMAGING Diagnoses Encounter for screening mammogram for breast cancer Procedures MIKA SCREENING SCREENING MAMMOGRAPHY BI 2-VIEW BREAST INC CAD Oniel Willoughby MD [address] [place] [address] [facility] [address] [place] [address] Referral ID Status Reason Start Date Expiration Date Visits Requested Visits Authorized [id number] Pending Review Auto-Generat ed Referral 10/22/2022 11/21/2023 1 1 [facility] Diagnostic Procedure Only (Routine) - Pending Review Specialty Diagnoses / Procedures Referred By Shelby dominguez Referred To Contact BR IMAGING Diagnoses Encounter for screening mammogram for breast cancer Procedures MIKA SCREENING SCREENING MAMMOGRAPHY BI 2-VIEW BREAST INC CAD Oniel Willoughby MD [address] [place] [address] [facility] [address] [place] [address] Referral ID Status Reason Start Date Expiration Date Visits Requested Visits Authorized [id number] Pending Review Auto-Generat ed Referral 09/23/2023 10/22/2024 1 1 [facility] Summary Purpose Family History No Family History Records FoundNo Family History Records FoundNo Family History Records Found Advance Directives No Advanced Directives Records FoundNo Advanced Directives Records FoundNo Advanced Directives Records Found Health Concerns Infection Onset Date Last Indicated Resolved Time COVID-19 Rule-Out 12/04/2022 12/04/2022 Infection Onset Date Last Indicated Resolved Time COVID-19 Rule-Out 12/04/2022 12/04/2022 12/05/2022 4:58 AM EST Reason for Referral Specialty Diagnoses / Procedures Referred By Shelby dominguez Referred To Contact Ophthalmology Diagnoses Controlled type 2 diabetes mellitus without complication, without long-term current use of insulin (HCC) Procedures CONSULT TO OPHTHALMOLOGY OFFICE/OUTPATIENT NEW HIGH MDM 60-74 MINUTES Parth Smith PA-C [address] [place] [address] Referral ID Status Reason Start Date Expiration Date Visits Requested Visits Authorized [id number] Authorized PCP Requested Referral 04/28/2023 04/27/2024 1 1 Specialty Diagnoses / Procedures Referred By Shelby dominguez Referred To Contact XR IMAGING Diagnoses Pain of left thumb Procedures XR DIGIT GENERAL 3V FRONTAL/LAT/OBL LEFT RADEX FINGR MINIMUM 2 VIEWS Parth Smith PA-C [address] [place] [address] Xr Imaging Referral ID Status Reason Start Date Expiration Date V isits Requested Visits Authorized [id number] Closed Auto-Generate d Referral 04/28/2023 05/27/2024 1 1 Medications Administered Section Inactive Administered Medications - up to 3 most recent administrations Medication Order MAR Action Action Date Dose Rate Site betamethasone acetate-betamethasone sodium phosphate 3 mg injection (CELESTONE) 3 mg, Injection - FOR ORTHO USE ONLY, ONE TIME INJECTION, 1 dose, Starting on Thu05/18/23 at 0926, Until Thu05/18/23 at 09 Given 05/18/2023 9:26 AM EDT 3 mg Hand, Left lidocaine (PF) 10 mg/mL (1 %) 0.5 mL injection (XYLOCAINE) 0.5 mL, Injection - FOR ORTHO USE ONLY, ONE TIME INJECTION, 1 dose, Starting on Thu05/18/23 at 0926, Until Thu05/18/23 at 09 Given 05/18/2023 9:26 AM EDT 0.5 mL Hand, Left Additional Source Comments INFORMATION SOURCE (unrecogn ized section and content) DATE CREATED AUTHOR AUTHOR'S ORGANIZ ATION 03/27/2023 [facility] DATE CREATED AUTHOR AUTHOR'S ORGANIZ ATION 09/29/2023 [facility] Source Comments (unrecognize d section and content) In the event this informatio n is protected by the Federal Confidentiality of Alcohol and Drug Abuse Patient Records regulations: The Federal rules restrict any use of the information to criminally investigate or prosecute any alcohol or drug abuse patient.[facility] the event this information is protected by the Federal Confidentiality of Alcohol and Drug Abuse Patient Records regulations: The Federal rules restrict any use of the information to criminally investigate or prosecute any alcohol or drug abuse patient.[facility] the event this information is protected by the Federal Confidentiality of Alcohol and Drug Abuse Patient Records regulations: The Federal rules restrict any use of the information to criminally investigate or prosecute any alcohol or drug abuse patient.[facility] the event this information is protected by the Federal Confidentiality of Alcohol and Drug Abuse Patient Records regulations: The Federal rules restrict any use of the information to criminally investigate or prosecute any alcohol or drug abuse patient.[facility] the event this information is protected by the Federal Confidentiality of Alcohol and Drug Abuse Patient Records regulations: The Federal rules restrict any use of the information to criminally investigate or prosecute any alcohol or drug abuse patient.[facility] the event this information is protected by the Federal Confidentiality of Alcohol and Drug Abuse Patient Records regulations: The Federal rules restrict any use of the information to criminally investigate or prosecute any alcohol or drug abuse patient.[facility] the event this information is protected by the Federal Confidentiality of Alcohol and Drug Abuse Patient Records regulations: The Federal rules restrict any use of the information to criminally investigate or prosecute any alcohol or drug abuse patient.[facility] the event this information is protected by the Federal Confidentiality of Alcohol and Drug Abuse Patient Records regulations: The Federal rules restrict any use of the information to criminally investigate or prosecute any alcohol or drug abuse patient.[facility] the event this information is protected by the Federal Confidentiality of Alcohol and Drug Abuse Patient Records regulations: The Federal rules restrict any use of the information to criminally investigate or prosecute any alcohol or drug abuse patient.[facility] the event this information is protected by the Federal Confidentiality of Alcohol and Drug Abuse Patient Records regulations: The Federal rules restrict any use of the information to criminally investigate or prosecute any alcohol or drug abuse patient.[facility] the event this information is protected by the Federal Confidentiality of Alcohol and Drug Abuse Patient Records regulations: The Federal rules restrict any use of the information to criminally investigate or prosecute any alcohol or drug abuse patient.[facility] the event this information is protected by the Federal Confidentiality of Alcohol and Drug Abuse Patient Records regulations: The Federal rules restrict any use of the information to criminally investigate or prosecute any alcohol or drug abuse patient.[facility] the event this information is protected by the Federal Confidentiality of Alcohol and Drug Abuse Patient Records regulations: The Federal rules restrict any use of the information to criminally investigate or prosecute any alcohol or drug abuse patient.[facility] the event this information is protected by the Federal Confidentiality of Alcohol and Drug Abuse Patient Records regulations: The Federal rules restrict any use of the information to criminally investigate or prosecute any alcohol or drug abuse patient.[facility] the event this information is protected by the Federal Confidentiality of Alcohol and Drug Abuse Patient Records regulations: The Federal rules restrict any use of the information to criminally investigate or prosecute any alcohol or drug abuse patient.[facility] the event this information is protected by the Federal Confidentiality of Alcohol and Drug Abuse Patient Records regulations: The Federal rules restrict any use of the information to criminally investigate or prosecute any alcohol or drug abuse patient.[facility] the event this information is protected by the Federal Confidentiality of Alcohol and Drug Abuse Patient Records regulations: The Federal rules restrict any use of the information to criminally investigate or prosecute any alcohol or drug abuse patient.[facility] the event this information is protected by the Federal Confidentiality of Alcohol and Drug Abuse Patient Records regulations: The Federal rules restrict any use of the information to criminally investigate or prosecute any alcohol or drug abuse patient.[facility] the event this information is protected by the Federal Confidentiality of Alcohol and Drug Abuse Patient Records regulations: The Federal rules restrict any use of the information to criminally investigate or prosecute any alcohol or drug abuse patient.[facility] the event this information is protected by the Federal Confidentiality of Alcohol and Drug Abuse Patient Records regulations: The Federal rules restrict any use of the information to criminally investigate or prosecute any alcohol or drug abuse patient.[facility] the event this information is protected by the Federal Confidentiality of Alcohol and Drug Abuse Patient Records regulations: The Federal rules restrict any use of the information to criminally investigate or prosecute any alcohol or drug abuse patient.[facility] the event this information is protected by the Federal Confidentiality of Alcohol and Drug Abuse Patient Records regulations: The Federal rules restrict any use of the information to criminally investigate or prosecute any alcohol or drug abuse patient.[facility] the event this information is protected by the Federal Confidentiality of Alcohol and Drug Abuse Patient Records regulations: The Federal rules restrict any use of the information to criminally investigate or prosecute any alcohol or drug abuse patient.[facility] the event this information is protected by the Federal Confidentiality of Alcohol and Drug Abuse Patient Records regulations: The Federal rules restrict any use of the information to criminally investigate or prosecute any alcohol or drug abuse patient.[facility] the event this information is protected by the Federal Confidentiality of Alcohol and Drug Abuse Patient Records regulations: The Federal rules restrict any use of the information to criminally investigate or prosecute any alcohol or drug abuse patient.[facility] the event this information is protected by the Federal Confidentiality of Alcohol and Drug Abuse Patient Records regulations: The Federal rules restrict any use of the information to criminally investigate or prosecute any alcohol or drug abuse patient.[facility] the event this information is protected by the Federal Confidentiality of Alcohol and Drug Abuse Patient Records regulations: The Federal rules restrict any use of the information to criminally investigate or prosecute any alcohol or drug abuse patient.[facility] Reason for Visit (unrecogniz ed section and content) Reason Comments Finger Injury Reason Comments Results Reason Onset Date Comments Refill Request 08/05/2022 Reason Onset Date Comments Refill Request 09/08/2022 Reason Comments Sore Throat YIP, sinus, congestio n x 3 days Reason Comments Patient Update Requesting Advise Reason Comments Forms Reason Comments Cough Cough, sinus and con gestion x 2 weeks Reason Onset Date Comments Refill Request 12/24/2022 Reason Onset Date Comments Refill Request 01/22/2023 Reason Comments urinary symptoms Reason Comments Thumb Pain Left Reason Onset Date Comments Refill Request 04/28/2023 Reason Comments Pain Established Patient Referred by Vidhi Bowers Last seen Right knee pain. Specialty Diagnoses / Procedures Referred By Shelby dominguez Referred To Contact Orthopedics Diagnoses Pain of left thumb Procedures CONSULT TO ORTHOPAEDICS OFFICE/OUTPATIENT [facility] 60-74 MINUTES Vidhi Bowers, NEHA.CARMELITA [address] [place] [address] Referral ID Status Reason Start Date Expiration Date V isits Requested Visits Authorized [id number] Closed PCP Requested Referral 05/13/2023 05/12/2024 1 1 Reason Comments lump behind right ear X 2 days Reason Onset Date Comments Refill Request 05/28/2023 Reason Comments Pain 4 weeks post visit L thumb pain with injection given Established Patient 4 weeks post visit L thumb pain with injection given Reason Comments Schedule Surgery Reason Comments Appointment Reason Onset Date Comments Refill Request 07/07/2023 Reason Onset Date Comments Refill Request 08/26/2023 Reason Onset Date Comments Refill Request 09/21/2023 Care Teams (unrecognized sec tion and content) Flash Drier Operator Relationship Specialty Start Date End Date Oniel Willoughby MD [address] [place] [address] PCP - General Family Practice 07/16/12 Flash Drier Operator Relationship Specialty Start Date End Date Oniel Willoughby MD [address] [place] [address] PCP - General Family Medicine 07/16/12 Flash Drier Operator Relationship Specialty Start Date End Date Oniel Willoughby MD [address] [place] [address] PCP - General Family Medicine 07/16/12 Flash Drier Operator Relationship Specialty Start Date End Date Oniel Willoughby MD [address] [place] [address] PCP - General Family Medicine 07/16/12 Flash Drier Operator Relationship Specialty Start Date End Date Oniel Willoughby MD [address] [place], [place] [id number] PCP - General Family Medicine 07/16/12 Flash Drier Operator Relationship Specialty Start Date End Date Oniel Willoughby MD [address] [place] [address] PCP - General Family Medicine 07/16/12 Flash Drier Operator Relationship Specialty Start Date End Date Oniel Willoughby MD [address] [place] [address] PCP - General Family Medicine 07/16/12 Flash Drier Operator Relationship Specialty Start Date End Date Oniel Willoughby MD [address] [place] [address] PCP - General Family Medicine 07/16/12 Flash Drier Operator Relationship Specialty Start Date End Date Oniel Willoughby MD [address] [place] [address] PCP - General Family Medicine 07/16/12 Flash Drier Operator Relationship Specialty Start Date End Date Oniel Willoughby MD [address] [place] [address] PCP - General Family Medicine 07/16/12 Flash Drier Operator Relationship Specialty Start Date End Date Oniel Willoughby MD [address] [place] [address] PCP - General Family Medicine 07/16/12 Flash Drier Operator Relationship Specialty Start Date End Date Oniel Willoughby MD [address] [place] [address] PCP - General Family Medicine 07/16/12 Flash Drier Operator Relationship Specialty Start Date End Date Oniel Willoughby MD [address] [place] [address] PCP - General Family Medicine 07/16/12 Flash Drier Operator Relationship Specialty Start Date End Date Oniel Willoughby MD [address] [facility], [place] [address] PCP - General Family Medicine 07/16/12 Flash Drier Operator Relationship Specialty Start Date End Date Oniel Willoughby MD [address] [facility], [place] [address] PCP - General Family Medicine 07/16/12 Flash Drier Operator Relationship Specialty Start Date End Date Oniel Willoughby MD [address] [facility], [place] [address] PCP - [facility] Medicine 07/16/12 Flash Drier Operator Relationship Specialty Start Date End Date Oniel Willoughby MD [address] [place] [address] PCP - [facility] Medicine 07/16/12 Flash Drier Operator Relationship Specialty Start Date End Date Oniel Willoughby MD [address] [facility], [place] [address] PCP - General [facility] Medicine 07/16/12 Flash Drier Operator Relationship Specialty Start Date End Date Oniel Willoughby MD [address] [place], [place] [address] PCP - General Family Medicine 07/16/12 FOR RECORDS PERTAINING TO PATIENTS WHO ARE OR HAVE BEEN ENROLLED IN A CHEMICAL DEPENDENCY/SUBSTANCEABUSE PROGRAM, SOME INFORMATION MAY BE OMITTED. This clinical summary was aggregated from multiple sources. Caution should be exercised in using it in the provision of clinical care. This summary normalizes information from multiple sources, and as a consequence, information in this document may materially change the coding, format and clinical context of patient data. In addition, data may be omitted in some cases. CLINICAL DECISIONS SHOULD BE BASED ON THE PRIMARY CLINICAL RECORDS. [facility] [employer] [facility]. provides no warranty or guarantee of the accuracy or completeness of information in this document.
== END 2023-11-01 15:05 | disposition home or self-care (01) ==
PROVIDERS: Emergency Provider Emergency Medicine; PCP Family Medicine; Visit Provider Emergency Medicine
DX: S30.0XXA Contusion of lower back and pelvis, initial encounter (principal); E11.9 Type 2 diabetes mellitus without complications; F17.210 Nicotine dependence, cigarettes, uncomplicated; W00.9XXA Unspecified fall due to ice and snow, initial encounter
CPT/HCPCS: 73502; 96372; 99282

== ENCOUNTER 2023-11-13 17:18 | Emergency (ER) | payer MEDICAID, SELFPAY ==
[2023-11-13 17:20] VITALS: BP 160/127; PULSE 96; RESP 16; TEMP 36.2; O2SAT 98; BMI 38.9
--- NOTE | 2023-11-13 17:29 | EX.ED.DYSGE1 ---
HPI History of Present Illness Chief Complaint: Complaint Informant: patient Onset/Context/Timing Onset: Days Context: Gradual Onset Narrative Narrative: Patient presents with decreased urine output and dysuria. She states she has frequency but is only able to go a small amount. She is complaining of pain across her kidney area. She called her PCP and was able to get appointment for Thursday, but was advised to come to the ER for evaluation. No fever or chills. She does not get frequent UTIs. [facility] Medical History Asthma Diabetes GERD (gastroesophageal reflux disease) Home Medications Beclomethasone Diprop Inhaler [Qvar 80 Mcg Inhaler] 2 puff inhalation BID PRN Shortness Of Breath 01/02/14 [History Last Taken 06/19/19] albuterol sulfate 90 mcg/actuation aerosol inhaler (ProAir HFA) 1 - 2 puff inhalation Q4H PRN PRN Shortness Of Breath 01/02/14 [History Last Taken 06/19/19] ferrous sulfate 325 mg (65 mg iron) tablet (Iron (ferrous sulfate)) 325 mg PO DAILY 02/15/15 [History Last Taken 06/19/19] metformin 1,000 mg tablet 1,000 mg PO BIDCM 01/05/21 [History Last Taken Unknown] cephalexin 500 mg capsule 500 mg PO Q6 #28 CAPSULES 05/04/22 [Rx Last Taken Unknown] pantoprazole 20 mg tablet,delayed release 50 mg PO DAILY 05/04/22 [History Last Taken Unknown] phenazopyridine 200 mg tablet (Pyridium) 200 mg PO TID 6 doses #6 tabs 05/04/22 [Rx Last Taken Unknown] clindamycin HCl 300 mg capsule (Cleocin HCl) 300 mg PO Q6H #40 CAPSULES 01/28/23 [Rx Last Taken Unknown] cephalexin 500 mg capsule 500 mg PO Q6 7 days #28 CAPSULES 02/16/23 [Rx Last Taken Unknown] ciprofloxacin HCl 500 mg tablet 500 mg PO BID #14 TABLETS 02/16/23 [Rx Last Taken Unknown] oxycodone-acetaminophen 5 mg-325 mg tablet (Percocet) 1 tab PO Q8H PRN pain 3 days #10 tabs 08/11/23 [Rx Last Taken Unknown] oxycodone-acetaminophen 5 mg-325 mg tablet (Percocet) 1 tab PO Q8H PRN pain 3 days #10 tabs 10/05/23 [Rx Last Taken Unknown] ondansetron 4 mg disintegrating tablet 4 mg PO Q6H PRN nausea and vomiting 2 days #8 tabs 11/01/23 [Rx Last Taken Unknown] oxycodone-acetaminophen 5 mg-325 mg tablet (Percocet) 1 tab PO Q6H PRN pain 2 days #8 tabs 11/01/23 [Rx Last Taken Unknown] ciprofloxacin HCl 500 mg tablet (Cipro) 500 mg PO BID #14 tabs 11/13/23 [Rx Last Taken Unknown] Allergy/AdvReac Type Severity Reaction Status Date / Time clarithromycin [From Biaxin] Allergy Rash Verified 11/13/23 17:19 hydrocodone bitartrate Allergy Rash Verified 11/13/23 17:19 [From Vicodin] naproxen [From Naprosyn] Allergy Rash Verified 11/13/23 17:19 Penicillins Allergy Rash Verified 11/13/23 17:19 Sulfa (Sulfonamide Allergy Rash Verified 11/13/23 17:19 Antibiotics) codeine AdvReac Vomiting Verified 11/13/23 17:19 Surgical History H/O section Social History household members: spouse Smoking Status: Current every day smoker tobacco type: cigarettes substance use type: does not use ROS ROS ED Constitutional Constitutional ED: Denies chills or fever(s) Eyes Eyes: Denies discharge from eye(s) ENT ENT ED: Denies discharge from eye(s), rhinorrhea or sore throat Cardiovascular Cardiovascular: Denies chest pain Respiratory/Chest Respiratory/Chest: Denies cough or dyspnea Gastrointestinal Gastrointestinal: Denies abdominal pain, nausea or vomiting Genitourinary Genitourinary ED: Reports difficulty urinating, dysuria and urinary frequency Musculoskeletal Musculoskeletal: Reports back pain; Denies extremity pain Integumentary Denies Abrasions or rash Neurologic Neurologic: Denies headache(s) or weakness Allergic/Immunologic Allergic/Immunologic ED: Denies lip swelling or urticaria EXAM Physical Exam Const Vital Signs: 11/13/23 17:20 Temperature 97.2 F L Temperature Source Temporal Pulse Rate 96 Respiratory Rate 16 Blood Pressure 160/127 H Blood Pressure Mean 138 Pulse Ox 98 Oxygen Delivery Method Room Air Positive well nourished and well developed General Appearance ED: well developed HEENT Reports moist mucous membranes Eyes EOMs intact bilaterally Chest Wall inspection of chest normal and palpation of chest normal Resp normal respiratory effort and clear to auscultation bilaterally Cardio regular rate and regular rhythm GI non-tender Palpation: soft Back/Spine Back/Spine Narrative: Mild tenderness in the CVA region bilaterally. Extremity normal to inspection Neuro oriented x3 and no sensory deficits noted Motor Exam: strength 5/5 throughout Psych mental status grossly normal Skin no rashes or lesions noted MDM MDM MDM Narrative Medical decision making narrative: UA and urine culture ordered. After patient urinates we will perform a bladder scan to see if she is retaining urine. Lab Data Labs: Laboratory Results - last 24 hr 11/13/23 17:45 Urine Color Yellow Urine Clarity Cloudy Urine pH 6.5 Ur Specific [place] 1.015 Urine Protein 30 H Urine Glucose (UA) Normal Urine Ketones Negative Urine Occult Blood 150 H Urine Nitrite Positive H Urine Bilirubin Negative Urine Urobilinogen 1 H Ur Leukocyte Esterase 500 H Urine RBC 10-25 SEEN Urine WBC >100 SEEN Ur Squamous Epith Cells 0-5 SEEN Urine Bacteria 1+ Urine Mucus 0 SEEN Treatment and Re-Evaluation :: Urinalysis does reveal gross infection with 1+ bacteria and greater than 100 white cells. Nitrites are positive. Bladder scan after she urinated revealed no residual urine. Given the patient's antibiotic allergies she will be treated with a 1 week course of Cipro, first dose given here. Urine culture has been sent. She is encouraged to increase p.o. fluids and use Tylenol or ibuprofen as needed for pain. Return instructions given. Discharge Plan Triage Chief Complaint: Complaint ED Provider: Florinda Rea Dx/Rx/DC Orders Clinical Impression: Pyelonephritis Instructions: ED Pyelonephritis, Female (Adult) Prescriptions: New ciprofloxacin HCl [Cipro] 500 mg tablet 500 mg PO BID Qty: 14 0RF No Action albuterol sulfate [ProAir HFA] 1 PUFF inhaler 1 - 2 puff inhalation Q4H PRN PRN (Reason: Shortness Of Breath) Patient Comments: shortness of breath Beclomethasone Diprop Inhaler [Qvar 80 Mcg Inhaler] 1 PUFF inhaler 2 puff inhalation BID PRN (Reason: Shortness Of Breath) Patient Comments: asthma ferrous sulfate [Iron (ferrous sulfate)] 325 MG tablet 325 mg PO DAILY Patient Comments: iron supplement/anemia metformin 1,000 MG tablet 1,000 mg PO BIDCM pantoprazole 20 mg tablet,delayed release (DR/EC) 50 mg PO DAILY Patient Comments: TAKE 1 TABLET BY MOUTH ONCE DAILY cephalexin [cephalexin] 500 mg capsule 500 mg PO Q6 Qty: 28 0RF phenazopyridine [Pyridium] 200 mg tablet 200 mg PO TID Qty: 6 0RF clindamycin HCl [Cleocin HCl] 300 mg capsule 300 mg PO Q6H Qty: 40 0RF cephalexin 500 mg capsule 500 mg PO Q6 7 Days Qty: 28 0RF ciprofloxacin HCl 500 mg tablet 500 mg PO BID Qty: 14 0RF oxycodone-acetaminophen [Percocet] 5-325 mg tablet 1 tab PO Q8H PRN (Reason: pain) 3 Days Qty: 10 0RF oxycodone-acetaminophen [Percocet] 5-325 mg tablet 1 tab PO Q8H PRN (Reason: pain) 3 Days Qty: 10 0RF oxycodone-acetaminophen [Percocet] 5-325 mg tablet 1 tab PO Q6H PRN (Reason: pain) 2 Days Qty: 8 0RF ondansetron 4 mg tablet,disintegrating 4 mg PO Q6H PRN (Reason: nausea and vomiting) 2 Days Qty: 8 0RF Primary Care Provider: William Willoughby Referrals: William Willoughby MD [Primary Care Provider] - [facility] appointment Disposition Disposition: Home, Self Care
--- OUTSIDE RECORDS SUMMARY | 2023-11-13 17:34 | XMS RPT_ITS | CCD ---
Author Name Unknown Address [address] [place] [address] Organization [facility] Care Team Providers Care Telephone Answering Service Operator Name Role Phone STAS CASTELLANO Admitting [...] (1 source) Acetaminophen / HYDROcodone Drug Allergy [facility] (1 source) Naproxen Drug Allergy [facility] (1 source) Penicillins Drug allergy (disorder) [facility] (1 source) Sulfonamides (Antibiotic) Drug allergy (disorder) [facility] (1 source) NSAID Drug allergy (disorder) [facility] (20 sources) Acetaminophen / HYDROcodone; Translations: [HYDROCODONE-ACET AMINOPHEN] Drug Allergy 07-31-20 08 Vomiting [facility] (20 sources) Clarithromycin; Translations: [CLARITHROMYCIN] Drug Allergy 06-25-20 05 [facility] Work Phone: (20 sources) Codeine; Translations: [CODEINE] Drug Allergy 11-11-19 12 GI Upset [facility] (20 sources) Doxycycline; Translations: [DOXYCYCLINE] Drug Allergy 07-24-20 09 [facility] Work Phone: (20 sources) meloxicam; Translations: [MELOXICAM] Drug Allergy 04-27-20 14 Other: See Comments [facility] (20 sources) Naproxen; Translations: [NAPROXEN] Drug Allergy 06-25-20 05 [facility] (20 sources) Penicillin G; Translations: [PENICILLIN G] Drug Allergy 06-25-20 05 [facility] (20 sources) Sulfonamides (Antibiotic); Translations: [SULFA (SULFONAMIDE ANTIBIOTICS)] Drug Intolerance 06-25-20 05 Anaphylaxis [facility] (20 sources) traMADol; Translations: [TRAMADOL] Drug Allergy 11-11-19 12 Intolerance [facility] Medications Current Medications Medication Drug Class(es) Dates [...] Drug Class(es) Dates Sig (Normalized) Sig (Original) [id number] 200 actuat albuterol 0.09 mg/actuat metered dose [...] 14:35-0400 Body temperature 97.9 [degF] Serge Wright NON CATEGORICAL PRESCHOOL TEACHER.MID LEVEL CLINICIAN Work Phone: [facility] 05-22-2023 14:35-0400 Body weight 114.4 kg Serge Wright NON CATEGORICAL PRESCHOOL TEACHER.MID LEVEL CLINICIAN Work Phone: [facility] 05-22-2023 14:35-0400 Diastolic blood pressure 88 mm[Hg] Sergeanastasiia Wright NON CATEGORICAL PRESCHOOL TEACHER.MID LEVEL CLINICIAN Work Phone: [facility] 05-22-2023 14:35-0400 Heart rate 82 /min Serge Wright NON CATEGORICAL PRESCHOOL TEACHER.MID LEVEL CLINICIAN Work Phone: [facility] 05-22-2023 14:35-0400 Respiratory rate 18 /min Serge Wright NON CATEGORICAL PRESCHOOL TEACHER.MID LEVEL CLINICIAN Work Phone: [facility] 05-22-2023 14:35-0400 SaO2% (BldA) [Mass fraction] 98 % Serge Wright NON CATEGORICAL PRESCHOOL TEACHER.MID LEVEL CLINICIAN Work Phone: [facility] 05-22-2023 14:35-0400 Systolic blood pressure 152 mm[Hg] Serge Wright NON CATEGORICAL PRESCHOOL TEACHER.MID LEVEL CLINICIAN Work Phone: [facility] 04-28-2023 11:46-0400 Body weight 115.21 kg NA Smith PA-C Work Phone: [facility] 04-28-2023 11:46-0400 Diastolic blood pressure 84 mm[Hg] NA Smith PA-C Work Phone: [facility] 04-28-2023 11:46-0400 Heart rate 85 /min NA Smith PA-C Work Phone: [facility] 04-28-2023 11:46-0400 Respiratory rate 16 /min NA Smith PA-C Work Phone: [facility] 04-28-2023 11:46-0400 SaO2% (BldA) [Mass fraction] 96 % NA Smith PA-C Work Phone: [facility] 04-28-2023 11:46-0400 Systolic blood pressure 126 mm[Hg] NA Smith PA-C Work Phone: [facility] 12-17-2022 15:06-0500 Body temperature 98.01 [degF] Sherri Athy PA-C Work Phone: [facility] 12-17-2022 15:06-0500 Body weight 118.66 kg Hserri Athy PA-C Work Phone: [facility] 12-17-2022 15:06-0500 Diastolic blood pressure 78 mm[Hg] Sherri Athy PA-C Work Phone: [facility] 12-17-2022 15:06-0500 Heart rate 77 /min Sherri Athy PA-C Work Phone: [facility] 12-17-2022 15:06-0500 Respiratory rate 16 /min Sherri Athy PA-C Work Phone: [facility] 12-17-2022 15:06-0500 SaO2% (BldA) [Mass fraction] 97 % Sherri Athy PA-C Work Phone: [facility] 12-17-2022 15:06-0500 Systolic blood pressure 112 mm[Hg] Sherri Athy PA-C Work Phone: [facility] 12-04-2022 14:12-0500 Body temperature 98.01 [degF] Jesus Squires MD Work Phone: [facility] 12-04-2022 14:12-0500 Body weight 118.39 kg Jesus Squires MD Work Phone: [facility] 12-04-2022 14:12-0500 Diastolic blood pressure 110 mm[Hg] Jesus Squires MD Work Phone: [facility] 12-04-2022 14:12-0500 Heart rate 105 /min Jesus Squires MD Work Phone: [facility] 12-04-2022 14:12-0500 Respiratory rate 21 /min Jesus Squires MD Work Phone: [facility] 12-04-2022 14:12-0500 SaO2% (BldA) [Mass fraction] 96 % Jesus Squires MD Work Phone: [facility] 12-04-2022 14:12-0500 Systolic blood pressure 172 mm[Hg] Jesus Squires MD Work Phone: [facility] 09-16-2022 18:39-0500 Diastolic blood pressure 76 mm[Hg] Vidhi Haagen NON CATEGORICAL PRESCHOOL TEACHER.MID LEVEL CLINICIAN Work Phone: [facility] 09-16-2022 18:39-0500 Systolic blood pressure 118 mm[Hg] Vidhi Haagen NON CATEGORICAL PRESCHOOL TEACHER.MID LEVEL CLINICIAN Work Phone: [facility] 09-16-2022 14:39-0500 Body height 165.1 cm Vidhi Haagen NON CATEGORICAL PRESCHOOL TEACHER.MID LEVEL CLINICIAN Work Phone: [facility] 09-16-2022 14:39-0500 Body weight 119.3 kg Vidhi Haagen NON CATEGORICAL PRESCHOOL TEACHER.MID LEVEL CLINICIAN Work Phone: [facility] 09-16-2022 14:39-0500 Heart rate 88 /min Vidhi Haagen NON CATEGORICAL PRESCHOOL TEACHER.MID LEVEL CLINICIAN Work Phone: [facility] 09-16-2022 14:39-0500 Respiratory rate 18 /min Vidhi Haagen NON CATEGORICAL PRESCHOOL TEACHER.MID LEVEL CLINICIAN Work Phone: [facility] 09-16-2022 14:39-0500 SaO2% (BldA) [Mass fraction] 96 % Vidhi Haagen NON CATEGORICAL PRESCHOOL TEACHER.MID LEVEL CLINICIAN Work Phone: [facility] 06-03-2022 10:27-0400 Body temperature 97.9 [degF] Carolina Callaway NON CATEGORICAL PRESCHOOL TEACHER.MID LEVEL CLINICIAN Work Phone: [facility] 06-03-2022 10:27-0400 Body weight 115.3 kg Carolina Callaway NON CATEGORICAL PRESCHOOL TEACHER.MID LEVEL CLINICIAN Work Phone: [facility] 06-03-2022 10:27-0400 Diastolic blood pressure 76 mm[Hg] Carolina Callaway NON CATEGORICAL PRESCHOOL TEACHER.MID LEVEL CLINICIAN Work Phone: [facility] 06-03-2022 10:27-0400 Heart rate 88 /min Carolina Callaway NON CATEGORICAL PRESCHOOL TEACHER.MID LEVEL CLINICIAN Work Phone: [facility] 06-03-2022 10:27-0400 Respiratory rate 18 /min Carolina Callaway NON CATEGORICAL PRESCHOOL TEACHER.MID LEVEL CLINICIAN Work Phone: [facility] 06-03-2022 10:27-0400 SaO2% (BldA) [Mass fraction] 97 % Carolina Callaway NON CATEGORICAL PRESCHOOL TEACHER.MID LEVEL CLINICIAN Work Phone: [facility] 06-03-2022 10:27-0400 Systolic blood pressure 118 mm[Hg] Carolina Callaway NON CATEGORICAL PRESCHOOL TEACHER.MID LEVEL CLINICIAN Work Phone: [facility] Encounters Encounter Date Encounter Type Care Provider Facility Start: 09-23-2023 ambulatory Oniel Willoughby MD Work Phone: [facility] [place] Start: 09-21-2023 Refill Oniel Willoughby MD Work Phone: [facility] [place] Procedures Date Procedure Procedure Detail Performing Clinician Start: 05-18-2023 Arthrocentesis aspir &/inj small jt/bursa w/o us Anupama Ugalde PA-C Work Phone: Start: 09-16-2022 INFLUENZA VACCINE QUADRIVALENT 6 MO - 64 YRS IM Vidhi Bowers NON CATEGORICAL PRESCHOOL TEACHER.MID LEVEL CLINICIAN Work Phone: Start: 09-17-2021 Mammography Carolina mo NON CATEGORICAL PRESCHOOL TEACHER.MID LEVEL CLINICIAN Work Phone: Start: 08-08-2019 Adult depression scr eening assessment Carolina Callaway NON CATEGORICAL PRESCHOOL TEACHER.MID LEVEL CLINICIAN Work Phone: Plan of Treatment Date Care Activity Detail Author Start: 03-22-2027 Urine microalbumin profile [facility] Start: 05-13-2024 ANNUAL PCP TEAM TIRE CORD WEAVER YULISSA DISEASE VISIT ANNUAL PCP TEAM CHRONIC DISEASE VISIT [facility] Start: 04-28-2024 3 comp foot exam completed DIABETIC FOOT EXAM [facility] Start: 04-28-2024 ANNUAL PCP TEAM TIRE CORD WEAVER YULISSA DISEASE VISIT ANNUAL PCP TEAM CHRONIC DISEASE VISIT [facility] Start: 04-28-2024 Hepatitis B surface antibody level LDL CHOLESTEROL [facility] Start: 10-29-2023 Hemoglobin A1c/Hemoglobin.total in Blood HBA1C [facility] Start: 09-16-2023 ANNUAL PCP TEAM TIRE CORD WEAVER YULISSA DISEASE VISIT ANNUAL PCP TEAM CHRONIC DISEASE VISIT [facility] Start: 09-16-2023 COVID-19 VACCINE (#1) COVID-19 VACCI NE (#1) [facility] Immunizations Immunization Date Immunization Notes Care Provider Fa dave 09-16-2022 pneumococcal Conjuga te, unspecified formulation Vidhi Haagen NON CATEGORICAL PRESCHOOL TEACHER.[facility] Work Phone: [facility] Work Phone: 09-16-2022 influenza, injectabl e, quadrivalent, contains preservative Vidhi Haagen NON CATEGORICAL PRESCHOOL TEACHER.[facility] Work Phone: [facility] 09-16-2022 pneumococcal (PCV20) vaccine, 20 valent (PREVNAR 20) Vidhi Yipagen NON CATEGORICAL PRESCHOOL TEACHER.[facility] Work Phone: [facility] 09-16-2022 influenza virus vacc ine, unspecified formulation Oniel Willoughby MD Work Phone: [facility] 08-08-2019 influenza, injectabl e, quadrivalent, contains preservative Carolina Callaway NON CATEGORICAL PRESCHOOL TEACHER.[facility] Work Phone: [facility] Work Phone: 04-22-2017 pneumococcal polysaccharide vaccine, 23 valent Carolina Callaway NON CATEGORICAL PRESCHOOL TEACHER.[facility] Work Phone: [facility] Work Phone: 03-22-2017 tetanus toxoid, redu je diphtheria toxoid, and acellular pertussis vaccine, adsorbed Carolina Callaway NON CATEGORICAL PRESCHOOL TEACHER.[facility] Work Phone: [facility] Work Phone: 07-14-2016 influenza, injectabl e, quadrivalent, preservative free Carolina Callaway NON CATEGORICAL PRESCHOOL TEACHER.[facility] Work Phone: [facility] Work Phone: 08-04-2013 influenza virus vacc ine, unspecified formulation Carolina Callaway NON CATEGORICAL PRESCHOOL TEACHER.MID LEVEL CLINICIAN Work Phone: [facility] 08-03-2010 influenza virus vacc ine, unspecified formulation Carolina Nilton NON CATEGORICAL PRESCHOOL TEACHER.MID LEVEL CLINICIAN Work Phone: [facility] Work Phone: 08-24-2008 influenza virus vacc ine, unspecified formulation Carolina Callaway NON CATEGORICAL PRESCHOOL TEACHER.MID LEVEL CLINICIAN Work Phone: [facility] Work Phone: 03-25-2007 tetanus and diphther ia toxoids, adsorbed, preservative free, for adult use (2 Lf of tetanus toxoid and 2 Lf of diphtheria toxoid) Carolina Callaway NON CATEGORICAL PRESCHOOL TEACHER.MID LEVEL CLINICIAN Work Phone: [facility] Payers Date Payer Category Payer Unknown [id number] 2003 Medicaid [id number] 1966 Unknown [id number] 1965 Unknown [id number] 1965 Unknown [id number] 1965 Unknown [id number] Social History Date Type Detail Facility Start: [facility]-03-2022 [facility] History of tobacco use [facility] Start: 06-03-2022 End: 04-20-2023 Cigarettes smoked current (pack per day) - Reported 0.5 [facility] Start: 06-03-2022 Tobacco use and exposure Smokeless tobacco non-user [facility] Start: 06-03-2022 End: 06-15-2023 Alcohol intake Current non-drinker of alcohol (finding) [facility] Start: 1965 [facility] Assigned At [facility] Start: 05-24-2022 End: 06-11-2022 Exposure to SARS-CoV-2 (event) Not sure [facility] Work Phone: Start: 04-20-2023 End: 04-28-2023 Tobacco use panel [facility] Adult Depression Screening Assessment 0 [facility] Medical Equipment Procedure Code Equipment Code Equipment [...] Patient Outreach (IN TMMN) ---- AYSHA AGUILA ([id number]) 1965 F Date Time Provider Department 09/23/23 [...] for screening mammogram for breast cancer [Z12.31] Order(s):[facility] SCREENING [[id number]] Order #: [id number] FUTURE Prescriptions as of 09/28/2023 - albuterol [...] [J45.909] 08/23/2007 Routine general medical examination at [facility]*01/14/2010 07/16/2012 Class: Chronic Routine gynecological [...] Encounter Status:Closed by KENNY LUNA on 09/28/23 [facility] 09-21-2023 Miscellaneous Notes Patient has been identified [...] Angela Carver LPN. documented in this encounter [facility] 08-26-2023 Miscellaneous Notes Patient has been identified [...] Mellissa Tenorio LPN. documented in this encounter [facility] 07-07-2023 Miscellaneous Notes Pt switched pharmacy to [facility]. Patient has been identified by name and [...] Mellissa Tenorio LPN documented in this encounter [facility] 06-25-2023 Miscellaneous Notes I called and spoke with patient. She is fearful of having the surgery. She does not wish to reschedule at this time. Case message sent and post op appointments have been cancelled. Spouse is calling to cancel procedure and reschedule please advise the patient. documented in this encounter [facility] 06-16-2023 Miscellaneous Notes Surgery has been scheduled as requested. Surgical request completed for left thumb excision digital mucous cyst at [facility] on 07/03/2023. Post op appointments have been scheduled and mailed to the patient. documented in this encounter [facility] 06-15-2023 Note HNO ID: [id number] Author: Anupama Ugalde PA-C Service: ? Author Type: Physician Director Of Program Management Type: Progress Notes Filed: 06/15/2023 12:34 PM Note Text: Anupama Ugalde PA-C Department of Orthopaedics Orthopaedics [address] [facility] [address] Dept: [phone] Dept June 15, 2023 CHIEF COMPLAINT: Pain [...] digit. Imaging: IMPRESSION: NO ACUTE BONY ABNORMALITY. Client Server Programmer: [facility] Transcribe Date/Time: May 01 2023 1:46P Dictated [...] [Hydrocodone-Acetaminophen] This note was partially generated using [employer] voice recognition system, and there may be some incorrect words, spellings, and punctuation that were not noted in checking the note before saving. Anupama Ugalde PA-C [facility] 06-15-2023 Note HNO ID: [id number] Author: Florinda Olson Service: ? Author Type: [...] Weeks Frequency: Continuous Intervention/Comfort measure: Medication, Heat [facility] 06-15-2023 History of Present illness Narrative Anupama Ugalde PA-C Department of Orthopaedics Orthopaedics [address] [place] [address] Dept: [phone] Dept June 15, 2023 CHIEF COMPLAINT: Pain [...] digit. Imaging: IMPRESSION: NO ACUTE BONY ABNORMALITY. Client Server Programmer: [facility] Transcribe Date/Time: May 01 2023 1:46P [...] [Hydrocodone-Acetaminophen] This note was partially generated using [employer] voice recognition system, and there may be [...] measure: Medication, Heat documented in this encounter [facility] 05-28-2023 Miscellaneous Notes Patient has been identified [...] advise. Анна Smith documented in this encounter [facility] 05-28-2023 Miscellaneous Notes Patient has been identified [...] Marisol Dumont, RN documented in this encounter [facility] 05-22-2023 Note HNO ID: [id number] Author: Serge Wright APRN.MID LEVEL CLINICIAN Service: ? Author Type: Nurse Practitioner Type: [...] DELIVERY ONLY 1980 - CONIZATION CERVIX W/WO [facility] RPR ELTRD EXC 1999 LEEP-Cervix - ESOPHAGOGASTRODUODENOSCOPY TRANSORAL DIAGNOSTIC 01/18/15 EGD - HYSTEROSCOPY THERAPEUTIC 10/2011 [facility] w/ polyp resection - LAPS W/VAG HYSTERECT [...] - PREDNISONE 20 MG TABLET Serge Wright APRN.[facility] 05-22-2023 History of Present illness Narrative Subjective [...] - PREDNISONE 20 MG TABLET Serge Wright APRN.MID LEVEL CLINICIAN documented in this encounter [facility] 05-18-2023 Note HNO ID: [id number] Author: Anupama Ugalde PA-C Service: ? Author Type: Physician Director Of Program Management Type: Progress Notes Filed: 05/18/2023 9:26 AM Note Text: Anupama Ugalde PA-C Department of Orthopaedics Orthopaedics [address] [facility] [address] Dept: [phone] Dept May 18, 2023 CHIEF COMPLAINT: Pain [...] thumb IP Informed Consent Consent Obtained: Written [place] Protocol A moment to CARE was completed. [...] Date DELIVERY ONLY 1980 CONIZATION CERVIX W/WO [facility] RPR ELTRD EXC 1999 LEEP-Cervix ESOPHAGOGASTRODUODENOSCOPY TRANSORAL DIAGNOSTIC 01/18/15 EGD HYSTEROSCOPY THERAPEUTIC 10/2011 [facility] w/ polyp resection LAPS W/VAG HYSTERECT 250 [...] Test blood sugar(s) (more content not included)... [facility] 05-18-2023 Note HNO ID: [id number] Author: Juany Yan Ma Service: ? Author [...] and does not help. X-rays done at [facility] on 04/28/23, and on 05/11/23 at [facility] uploaded into [employer]. [facility] 05-18-2023 History of Present illness Narrative Associated Order(s): Small Joint Arthro/Inj: L thumb IP Post-Procedure Diagnose(s): Digital mucinous cyst of finger of left hand Anupama Ugalde PA-C Department of Orthopaedics Orthopaedics [address] [facility] [address] Dept: [phone] Dept May 18, 2023 CHIEF COMPLAINT: Pain [...] thumb IP Informed Consent Consent Obtained: Written [place] Protocol A moment to CARE was completed. [...] anxiety) This note was partially generated using [employer] voice recognition system, and there may be [...] and does not help. X-rays done at [facility] on 04/28/23, and on 05/11/23 at [facility] uploaded into [employer]. documented in this encounter [facility] 05-13-2023 Note HNO ID: [id number] Author: Vidhi oBwers APRN.MID LEVEL CLINICIAN Service: ? Author Type: Nurse Practitioner Type: [...] Date DELIVERY ONLY 1980 CONIZATION CERVIX W/WO [facility] RPR ELTRD EXC 1999 LEEP-Cervix ESOPHAGOGASTRODUODENOSCOPY TRANSORAL DIAGNOSTIC 01/18/15 EGD HYSTEROSCOPY THERAPEUTIC 10/2011 [facility] w/ polyp resection LAPS W/VAG HYSTERECT 250 [...] sclera. Pupils are (more content not included)... [facility] 04-28-2023 Miscellaneous Notes Patient has been identified [...] Karol Braun RN documented in this encounter [facility] 04-28-2023 Note HNO ID: [id number] Author: Angelia Colby RT(R) Service: Radiology Author [...] RT Pinky(R) April 28, 2023 1:13 PM [facility] 04-28-2023 Note HNO ID: [id number] Author: Parth Smith PA-C Service: ? Author Type: Physician Director Of Program Management Type: Progress Notes Filed: 04/28/2023 4:59 PM [...] Lymph 1.00 - 4.00 k/uL 2.62 2.50 [place]% % 6.3 6.2 Abs [place] <0.87 k/uL 0.60 0.67 Eosin% % 3.2 [...] Date DELIVERY ONLY 1980 CONIZATION CERVIX W/WO [facility] RPR ELTRD EXC 1999 LEEP-Cervix ESOPHAGOGASTRODUODENOSCOPY TRANSORAL DIAGNOSTIC 01/18/15 EGD HYSTEROSCOPY THERAPEUTIC 10/2011 [facility] w/ polyp resection LAPS W/VAG HYSTERECT 250 [...] Controlled, Without Complicati (more content not included)... [facility] 04-28-2023 History of Present illness Narrative 57 [...] Lymph 1.00 - 4.00 k/uL 2.62 2.50 [place]% % 6.3 6.2 Abs [place] <0.87 k/uL 0.60 0.67 Eosin% % 3.2 [...] cervix uteri 1999 Diabetes mellitus (adult onset) ([facility]) Heartburn Migraine headache Seasonal allergies Tobacco use [...] Obesity, Class Iii, Bmi 40-49.9 (Morbid Obesity) ([facility]) Diabetes Mellitus Type 2, Controlled, Without Complications ([facility]) Current Outpatient Medications Medication Sig Dispense Refill [...] context and comparison. documented in this encounter [facility] 02-16-2023 Miscellaneous Notes Triage protocol recommended: See [...] above 6. : no Protocols used: Urinary [id number] documented in this encounter [facility] 01-22-2023 Miscellaneous Notes Patient has been identified by name and date of : Yes, Provider Dr. iWlloughby Date 01/22/23 Time 3:03 am Patient phones [...] Mellissa Tenorio LPN documented in this encounter [facility] 12-24-2022 Miscellaneous Notes Patient has been identified by name and date of : Yes Requested Prescriptions Pending Prescriptions Disp Refills Lancets lancets 100 Each 11 Sig: tTest blood sugar(s) 2 times daily. Dx: Type 2 DM - Uncontrolled E11.65 Insulin: no RX INSTRUCTIONS: Patient aware RX will be sent to pharmacy. No need to notify patient. Edilma Stein documented in this encounter [facility] 12-17-2022 Note HNO ID: [id number] Author: Sherri Acosta PA-C Service: ? Author Type: Physician Director Of Program Management Type: Progress Notes Filed: 12/17/2022 3:27 PM Note Text: This note was created using Munchkinriter. Subjective Aysha Aguila is a 57 year [...] cervix uteri 1999 Diabetes mellitus (adult onset) ([facility]) Heartburn Migraine headache Seasonal allergies Tobacco use [...] cervical adenopathy. Skin (more content not included)... [facility] 12-17-2022 History of Present illness Narrative This note was created using Munchkinriter. Subjective Aysha Aguila is a 57 year [...] cervix uteri 1999 Diabetes mellitus (adult onset) ([facility]) Heartburn Migraine headache Seasonal allergies Tobacco use [...] Sherri Acosta PA-C documented in this encounter [facility] 12-10-2022 Miscellaneous Notes Faxed as requested. Patient has been identified by name and date of : Yes, Provider [place] Date 12/03/22 Type of form: CMN [employer] Incontinence liner Form received via: Fax When form is completed, fax form to fax number provided. Form has been forwarded to: Provider's desk. Provider name: Case Yusuf LPN documented in this encounter [facility] 12-09-2022 Miscellaneous Notes Pt notified. Pat Sadler RN Rx sent. Call if symptoms worsen at all or if not better in one to two weeks Patient calling and states she was seen in [facility] on 12/04 for sore throat, cough [...] Drinking fluids well. Decreased appetite. Uses [facility]. Patient requesting PCP advise due to her medical history. Thank you. documented in this encounter [facility] 12-04-2022 Note HNO ID: [id number] Author: Jesus Squires MD Service: ? Author [...] Date DELIVERY ONLY 1980 CONIZATION CERVIX W/WO [facility] RPR ELTRD EXC 1999 LEEP-Cervix ESOPHAGOGASTRODUODENOSCOPY TRANSORAL DIAGNOSTIC 01/18/15 EGD HYSTEROSCOPY THERAPEUTIC 10/2011 [facility] w/ polyp resection LAPS W/VAG HYSTERECT 250 [...] CAPSULE - 2019 CORONAVIRUS Jesus Squires MD [facility] 12-04-2022 History of Present illness Narrative Patient [...] Jesus Squires MD documented in this encounter [facility] 10-22-2022 Note Patient Outreach (IN [facility]) ---- AYSHA AGUILA ([id number]) 1965 F Date Time Provider Department 10/22/22 [...] for screening mammogram for breast cancer [Z12.31] Order(s):[facility] SCREENING [[id number]] Order #: [id number] FUTURE Prescriptions as of 10/27/2022 - metFORMIN [...] [J45.909] 08/23/2007 Routine general medical examination at [facility]01/14/2010 07/16/2012 Class: Chronic Routine gynecological examination [...] Encounter Status:Closed by JEREMY, PRODUSER on 10/27/22 [facility] 09-16-2022 Instructions Vidhi Bowers APRN.CNP - 09/16/2022 3:15 PM EST Schedule ultrasound. Continue same medication. 3. Check into Shingrix (shingles shot). Find out whether to get at doctor's office or pharmacy. 4. Let me know about colon cancer screening. Health Promotion: - Eat healthy -- go to [email or web address] to get started - Have a yearly [...] - Wear sunscreen documented in this encounter [facility] 09-16-2022 History of Present illness Narrative This [...] Vidhi Bowers APRN.CARMELITA documented in this encounter [facility] 09-08-2022 Miscellaneous Notes Spoke with pt and information listed below given. Pt verbalizes understanding. Physical scheduled and pt will get lab work done prior to apt. Mellissa Tenorio LPN Way over due for labs and check up. Patient only has one day left of her medication. Patient requesting 2 week dose of medications to be sent to [facility] and 90 day supplies to be sent to [facility]. Last Office Visit: 07/31/2022 Future Office Visit:None [...] Last Labs: 07/20/2021 documented in this encounter [facility] 08-06-2022 Miscellaneous Notes The following approved medication [...] Angie Bocanegra LPN documented in this encounter [facility] 08-04-2022 Miscellaneous Notes Pt notified 4-6 weeks [...] Jazmine Taylor LPN documented in this encounter [facility] 06-11-2022 Miscellaneous Notes Patient calls to report [...] finger. 10. : No Protocols used: Finger [id number] documented in this encounter [facility] 06-03-2022 Instructions Carolina Callaway APRN.MID LEVEL CLINICIAN - 06/03/2022 11:18 AM EDT [facility] [...] when lying down. documented in this encounter [facility] 06-03-2022 History of Present illness Narrative This note was created using Munchkinriter. Subjective Aysha Aguila is a 56 year [...] history is provided by the patient. No sales service assistant was used. Musculoskeletal Problem This is a [...] with PCP if symptoms persist Carolina Callaway, NON CATEG[employer]ICAL PRESCHOOL TEACHER.MID LEVEL CLINICIAN documented in this encounter [facility] documented as of this encounter (statuses as of 06/03/2022) [facility] History of Past illness Narrative* Problem Noted [...] of this encounter (statuses as of 06/11/2022) [facility] History of Past illness Narrative* Problem Noted [...] of this encounter (statuses as of 08/04/2022) [facility] History of Past illness Narrative* Problem Noted [...] of this encounter (statuses as of 08/06/2022) [facility] History of Past illness Narrative* Problem Noted [...] of this encounter (statuses as of 09/08/2022) [facility] History of Past illness Narrative* Problem Noted [...] of this encounter (statuses as of 09/16/2022) [facility] History of Past illness Narrative* Problem Noted [...] of this encounter (statuses as of 10/27/2022) [facility] History of Past illness Narrative* Problem Noted [...] of this encounter (statuses as of 12/04/2022) [address]02-2015 History of Past illness Narrative* Problem [...] of this encounter (statuses as of 12/10/2022) [place] [address]02-2015 History of Past illness Narrative* Problem Noted [...] of this encounter (statuses as of 12/10/2022) [facility] History of Past illness Narrative* Problem Noted [...] of this encounter (statuses as of 12/18/2022) [facility] [place] History of Past illness Narrative* Problem Noted [...] of this encounter (statuses as of 12/25/2022) [facility] [place] History of Past illness Narrative* Problem Noted [...] of this encounter (statuses as of 01/23/2023) [facility] [place] History of Past illness Narrative* Problem Noted [...] of this encounter (statuses as of 04/10/2023) [facility] [place] History of Past illness Narrative* Problem Noted [...] of this encounter (statuses as of 04/29/2023) [facility] [place] History of Past illness Narrative* Problem Noted [...] of this encounter (statuses as of 04/29/2023) [facility] [place] History of Past illness Narrative* Problem Noted [...] of this encounter (statuses as of 05/18/2023) [facility] [place] History of Past illness Narrative* Problem Noted [...] of this encounter (statuses as of 05/23/2023) [facility] [place] History of Past illness Narrative* Problem Noted [...] of this encounter (statuses as of 05/29/2023) [facility] [place] History of Past illness Narrative* Problem Noted [...] of this encounter (statuses as of 05/29/2023) [facility] [place] History of Past illness Narrative* Problem Noted [...] of this encounter (statuses as of 06/15/2023) [facility] [place] History of Past illness Narrative* Problem Noted [...] of this encounter (statuses as of 06/16/2023) [facility] [place] History of Past illness Narrative* Problem Noted [...] of this encounter (statuses as of 06/26/2023) [facility] [place] History of Past illness Narrative* Problem Noted [...] of this encounter (statuses as of 07/08/2023) [facility] History of Past illness Narrative* Problem Noted [...] of this encounter (statuses as of 08/27/2023) [facility] [place] History of Past illness Narrative* Problem Noted [...] of this encounter (statuses as of 09/22/2023) [facility] History of Past illness Narrative* Problem Noted [...] of this encounter (statuses as of 09/28/2023) [facility] note* Diagnosis Finger pain, left- Primary Pain in limb [facility] Diagnosis Controlled type 2 diabetes mellitus without complication, without long-term current use of insulin (HCC) Gastroesophageal reflux disease with esophagitis without hemorrhage Restless legs Restless legs syndrome (RLS) [facility] Diagnosis Routine physical examination- Primary Routine [...] abnormality of urination [facility] Diagnosis Encounter for screening mammogram for breast cancer [facility] Diagnosis Acute non-recurrent sinusitis, unspecified location- Primary Acute cough [facility] Diagnosis Bacterial sinusitis- Primary Unspecified sinusitis (chronic) documented in this encounter [facility] note* Diagnosis Laryngitis- Primary Acute laryngitis, without mention of obstruction [facility] Diagnosis Controlled type 2 diabetes mellitus without complication, without long-term current use of insulin (HCC) documented in this encounter [facility] note* Diagnosis Asthma, unspecified asthma severity, unspecified whether complicated, unspecified whether persistent [facility] Diagnosis Pain of left thumb- Primary [...] malignant neoplasms, colon documented in this encounter [facility] note* Diagnosis Digital mucinous cyst of finger of left hand- Primary Pain of left thumb Pain in limb documented in this encounter [facility] note* Diagnosis Mastoid pain, right- Primary documented in this encounter [facility] note* Diagnosis Controlled type 2 diabetes mellitus without complication, without long-term current use of insulin (HCC) Asthma, unspecified asthma severity, unspecified whether complicated, unspecified whether persistent documented in this encounter [facility] note* Diagnosis Gastroesophageal reflux disease with esophagitis without hemorrhage documented in this encounter [facility] note* Diagnosis Digital mucinous cyst of finger of left hand- Primary Pain of left thumb Pain in limb [facility] Diagnosis Digital mucinous cyst of finger of left hand- Primary Digital mucinous cyst of finger of left hand documented in this encounter [facility] note* Diagnosis Controlled type 2 diabetes mellitus without complication, without long-term current use of insulin (HCC) Gastroesophageal reflux disease with esophagitis without hemorrhage documented in this encounter [facility] note* Diagnosis Controlled type 2 diabetes mellitus without complication, without long-term current use of insulin (HCC) documented in this encounter [facility] note* Diagnosis Asthma, unspecified asthma severity, unspecified whether complicated, unspecified whether persistent Restless legs Restless legs syndrome (RLS) documented in this encounter [facility] note* Diagnosis Encounter for screening mammogram for breast cancer documented in this encounter [facility] for referral (narrative)* Diagnostic Procedure Only (Urgent) - Closed Specialty Diagnoses / Procedures Referred By Contac t Referred To Contact XR IMAGING Diagnoses Finger pain, left Procedures XR DIGIT GENERAL 3V FRONTAL/LAT/OBL LEFT RADEX FINGR MINIMUM 2 VIEWS Carolina Callaway APRN.MID LEVEL CLINICIAN [address] [place] [address] Xr Imaging Referral ID Status Reason Start Date Expiration Date V isits Requested Visits Authorized [id number] Closed Auto-Generate d Referral 06/03/2022 07/03/2023 1 1 [facility] for referral (narrative)* Diagnostic Procedure Only (Routine) - Authorized Specialty Diagnoses / Procedures [facility] US IMAGING Diagnoses Infrequent urination Procedures US KIDNEY/BLADDER US RETROPERITONEAL REAL TIME W/IMAGE COMPLETE Vidhi Bowers APRN.MID LEVEL CLINICIAN [address] [place] [address] Us Imaging Referral ID Status Reason Start Date Expiration Date Visits Requested Visits Authorized [id number] Authorized Auto-Generat ed Referral 2 10/16/2023 1 1 * Medication Prior Authorization - Closed Specialty Diagnoses / Procedures [facility] To Contact Diagnoses Asthma, unspecified asthma severity, unspecified whether complicated, unspecified whether persistent Vidhi Bowers APRN.MID LEVEL CLINICIAN [address] [place] [address] Referral ID Status Reason Start Date Expiration Date Visits Re quested Visits Authorized [id number] Closed 1 1 [facility] for referral (narrative)* Diagnostic Procedure Only (Routine) - Pending Review Specialty Diagnoses / Procedures [facility] Referred To Contact BR IMAGING Diagnoses Encounter for screening mammogram for breast cancer Procedures MIKA SCREENING SCREENING MAMMOGRAPHY BI 2-VIEW BREAST INC CAD Oniel Willoughby MD [address] [place] [address] [facility] [address] [place] [address] Referral ID Status Reason Start Date Expiration Date Visits Requested Visits Authorized [id number] Pending Review Auto-Generat ed Referral 10/22/2022 11/21/2023 1 1 [facility] Diagnostic Procedure Only (Routine) - Pending Review Specialty Diagnoses / Procedures Referred By Shelby dominguez Referred To Contact BR IMAGING Diagnoses Encounter for screening mammogram for breast cancer Procedures MIKA SCREENING SCREENING MAMMOGRAPHY BI 2-VIEW BREAST INC CAD Oniel Willoughby MD [address] [place] [address] [facility] [address] [place] [address] Referral ID Status Reason Start Date Expiration Date Visits Requested Visits Authorized [id number] Pending Review Auto-Generat ed Referral 09/23/2023 10/22/2024 1 1 [facility] Summary Purpose Family History No Family History [...] HIGH MDM 60-74 MINUTES Parth Smith PA-C [address] [place] [address] Referral ID Status Reason Start Date Expiration Date Visits Requested Visits Authorized [id number] Authorized PCP Requested Referral 04/28/2023 04/27/2024 1 1 Specialty Diagnoses / Procedures Referred By Shelby dominguez Referred To Contact XR IMAGING Diagnoses Pain of left thumb Procedures XR DIGIT GENERAL 3V FRONTAL/LAT/OBL LEFT RADEX FINGR MINIMUM 2 VIEWS Parth Smith PA-C [address] [place] [address] Xr Imaging Referral ID Status Reason Start Date Expiration Date V isits Requested Visits Authorized [id number] Closed Auto-Generate d Referral 04/28/2023 05/27/2024 1 [...] DATE CREATED AUTHOR AUTHOR'S ORGANIZ ATION 03/27/2023 [facility] DATE CREATED AUTHOR AUTHOR'S ORGANIZ ATION 09/29/2023 [facility] Source Comments (unrecognize d section and content) In the event this informatio n is protected by the Federal Confidentiality of Alcohol and Drug Abuse Patient Records regulations: The Federal rules restrict any use of the information to criminally investigate or prosecute any alcohol or drug abuse patient.[facility] the event this information is protected by the Federal Confidentiality of Alcohol and Drug Abuse Patient Records regulations: The Federal rules restrict any use of the information to criminally investigate or prosecute any alcohol or drug abuse patient.[facility] the event this information is protected by the Federal Confidentiality of Alcohol and Drug Abuse Patient Records regulations: The Federal rules restrict any use of the information to criminally investigate or prosecute any alcohol or drug abuse patient.[facility] the event this information is protected by the Federal Confidentiality of Alcohol and Drug Abuse Patient Records regulations: The Federal rules restrict any use of the information to criminally investigate or prosecute any alcohol or drug abuse patient.[facility] the event this information is protected by the Federal Confidentiality of Alcohol and Drug Abuse Patient Records regulations: The Federal rules restrict any use of the information to criminally investigate or prosecute any alcohol or drug abuse patient.[facility] the event this information is protected by the Federal Confidentiality of Alcohol and Drug Abuse Patient Records regulations: The Federal rules restrict any use of the information to criminally investigate or prosecute any alcohol or drug abuse patient.[facility] the event this information is protected by the Federal Confidentiality of Alcohol and Drug Abuse Patient Records regulations: The Federal rules restrict any use of the information to criminally investigate or prosecute any alcohol or drug abuse patient.[facility] the event this information is protected by the Federal Confidentiality of Alcohol and Drug Abuse Patient Records regulations: The Federal rules restrict any use of the information to criminally investigate or prosecute any alcohol or drug abuse patient.[facility] the event this information is protected by the Federal Confidentiality of Alcohol and Drug Abuse Patient Records regulations: The Federal rules restrict any use of the information to criminally investigate or prosecute any alcohol or drug abuse patient.[facility] the event this information is protected by the Federal Confidentiality of Alcohol and Drug Abuse Patient Records regulations: The Federal rules restrict any use of the information to criminally investigate or prosecute any alcohol or drug abuse patient.[facility] the event this information is protected by the Federal Confidentiality of Alcohol and Drug Abuse Patient Records regulations: The Federal rules restrict any use of the information to criminally investigate or prosecute any alcohol or drug abuse patient.[facility] the event this information is protected by the Federal Confidentiality of Alcohol and Drug Abuse Patient Records regulations: The Federal rules restrict any use of the information to criminally investigate or prosecute any alcohol or drug abuse patient.[facility] the event this information is protected by the Federal Confidentiality of Alcohol and Drug Abuse Patient Records regulations: The Federal rules restrict any use of the information to criminally investigate or prosecute any alcohol or drug abuse patient.[facility] the event this information is protected by the Federal Confidentiality of Alcohol and Drug Abuse Patient Records regulations: The Federal rules restrict any use of the information to criminally investigate or prosecute any alcohol or drug abuse patient.[facility] the event this information is protected by the Federal Confidentiality of Alcohol and Drug Abuse Patient Records regulations: The Federal rules restrict any use of the information to criminally investigate or prosecute any alcohol or drug abuse patient.[facility] the event this information is protected by the Federal Confidentiality of Alcohol and Drug Abuse Patient Records regulations: The Federal rules restrict any use of the information to criminally investigate or prosecute any alcohol or drug abuse patient.[facility] the event this information is protected by the Federal Confidentiality of Alcohol and Drug Abuse Patient Records regulations: The Federal rules restrict any use of the information to criminally investigate or prosecute any alcohol or drug abuse patient.[facility] the event this information is protected by the Federal Confidentiality of Alcohol and Drug Abuse Patient Records regulations: The Federal rules restrict any use of the information to criminally investigate or prosecute any alcohol or drug abuse patient.[facility] the event this information is protected by the Federal Confidentiality of Alcohol and Drug Abuse Patient Records regulations: The Federal rules restrict any use of the information to criminally investigate or prosecute any alcohol or drug abuse patient.[facility] the event this information is protected by the Federal Confidentiality of Alcohol and Drug Abuse Patient Records regulations: The Federal rules restrict any use of the information to criminally investigate or prosecute any alcohol or drug abuse patient.[facility] [place] the event this information is protected by the Federal Confidentiality of Alcohol and Drug Abuse Patient Records regulations: The Federal rules restrict any use of the information to criminally investigate or prosecute any alcohol or drug abuse patient.[facility] [place] the event this information is protected by the Federal Confidentiality of Alcohol and Drug Abuse Patient Records regulations: The Federal rules restrict any use of the information to criminally investigate or prosecute any alcohol or drug abuse patient.[facility] [place]on[place] the event this information is protected by the Federal Confidentiality of Alcohol and Drug Abuse Patient Records regulations: The Federal rules restrict any use of the information to criminally investigate or prosecute any alcohol or drug abuse patient.[facility] [place]on[place] the event this information is protected by the Federal Confidentiality of Alcohol and Drug Abuse Patient Records regulations: The Federal rules restrict any use of the information to criminally investigate or prosecute any alcohol or drug abuse patient.[facility] [place] the event this information is protected by the Federal Confidentiality of Alcohol and Drug Abuse Patient Records regulations: The Federal rules restrict any use of the information to criminally investigate or prosecute any alcohol or drug abuse patient.[facility] [place] the event this information is protected by the Federal Confidentiality of Alcohol and Drug Abuse Patient Records regulations: The Federal rules restrict any use of the information to criminally investigate or prosecute any alcohol or drug abuse patient.[facility] [place]onIn the event this information is protected by the Federal Confidentiality of Alcohol and Drug Abuse Patient Records regulations: The Federal rules restrict any use of the information to criminally investigate or prosecute any alcohol or drug abuse patient.[facility] [place] Reason for Visit (unrecogniz ed section and [...] left thumb Procedures CONSULT TO ORTHOPAEDICS OFFICE/OUTPATIENT [facility] 60-74 MINUTES Vidhi Bowers, NEHA.CARMELITA [address] [place] [address] Referral ID Status Reason Start Date Expiration Date V isits Requested Visits Authorized [id number] Closed PCP Requested Referral 05/13/2023 05/12/2024 1 [...] Care Teams (unrecognized sec tion and content) Telephone Answering Service Operator Relationship Specialty Start Date End Date Oniel Willoughby MD [address] [place] [address] PCP - General Family Practice 07/16/12 Telephone Answering Service Operator Relationship Specialty Start Date End Date Oniel Willoughby MD [address] [place] [address] PCP - General Family Medicine 07/16/12 Telephone Answering Service Operator Relationship Specialty Start Date End Date Oniel Willoughby MD [address] [place] [address] PCP - General Family Medicine 07/16/12 Telephone Answering Service Operator Relationship Specialty Start Date End Date Oniel Willoughby MD [address] [place] [address] PCP - General Family Medicine 07/16/12 Telephone Answering Service Operator Relationship Specialty Start Date End Date Oniel Willoughby MD [address] [place], [place] [id number] PCP - General Family Medicine 07/16/12 Telephone Answering Service Operator Relationship Specialty Start Date End Date Oniel Willoughby MD [address] [place] [address] PCP - General Family Medicine 07/16/12 Telephone Answering Service Operator Relationship Specialty Start Date End Date Oniel Willoughby MD [address] [place] [address] PCP - General Family Medicine 07/16/12 Telephone Answering Service Operator Relationship Specialty Start Date End Date Oniel Willoughby MD [address] [place] [address] PCP - General Family Medicine 07/16/12 Telephone Answering Service Operator Relationship Specialty Start Date End Date nOiel Willoughby MD [address] [place] [address] PCP - General Family Medicine 07/16/12 Telephone Answering Service Operator Relationship Specialty Start Date End Date Oniel Willoughby MD [address] [place] [address] PCP - General Family Medicine 07/16/12 Telephone Answering Service Operator Relationship Specialty Start Date End Date Oniel Willoughby MD [address] [place] [address] PCP - General Family Medicine 07/16/12 Telephone Answering Service Operator Relationship Specialty Start Date End Date Oniel Willoughby MD [address] [place] [address] PCP - General Family Medicine 07/16/12 Telephone Answering Service Operator Relationship Specialty Start Date End Date Oniel Willoughby MD [address] [place] [address] PCP - General Family Medicine 07/16/12 Telephone Answering Service Operator Relationship Specialty Start Date End Date Oniel Willoughby MD [address] [facility], [place] [id number] PCP - General Family Medicine 07/16/12 Telephone Answering Service Operator Relationship Specialty Start Date End Date Oniel Willoughby MD [address] [facility], [place] [address] PCP - General Family Medicine 07/16/12 Telephone Answering Service Operator Relationship Specialty Start Date End Date Oniel Willoughby MD [address] [facility], [place] [address] PCP - [facility] Medicine 07/16/12 Telephone Answering Service Operator Relationship Specialty Start Date End Date Oniel Willoughby MD [address] [place] [address] PCP - [facility] Medicine 07/16/12 Telephone Answering Service Operator Relationship Specialty Start Date End Date Oniel Willoughby MD [address] [facility], [place] [id number] PCP - General [facility] Medicine 07/16/12 Telephone Answering Service Operator Relationship Specialty Start Date End Date Oniel Willoughby MD [address] [place], [place] [id number] PCP - General Family Medicine 07/16/12 FOR [...] BE BASED ON THE PRIMARY CLINICAL RECORDS. [facility]. provides no warranty or guarantee of the accuracy or completeness of information in this document.
[2023-11-13 17:50] LABS: Mucous, Urine 0 SEEN /hpf (<or=2+)
[2023-11-13 17:57] LABS: Color, Urine Yellow (Yellow); Glucose, Dipstick Normal (Normal); Ketone-Dipstick Negative (Negative); Leukocyte Esterase-Dipstick 500 /ul (Negative); Nitrite-Dipstick Positive (Negative); Occult Blood-Urine 150 /ul (Negative); Protein-Dipstick 30 mg/dl (Negative); Specific Gravity, Urine 1.015 (1.002-1.030); Urine Bilirubin Dipstick Negative (Negative); Urine Clarity Cloudy (Clear); Urine Urobilinogen 1 mg/dl (Normal); Urine pH 6.5 (5.0 - 8.0)
[2023-11-13 18:07] LABS: White Blood Cells >100 SEEN /hpf (0-5)
[2023-11-13 18:08] LABS: Bacteria 1+ /hpf (None Seen); Red Blood Cells-Urine 10-25 SEEN /hpf (0-5); Squamous Epithelial Cells - UA 0-5 SEEN /hpf (5-10)
[2023-11-13] MEDS: Ciprofloxacin 500 MG Tablet PO (19:07)
== END 2023-11-13 19:08 | disposition home or self-care (01) ==
PROVIDERS: Emergency Provider Emergency Medicine; PCP Family Medicine; Visit Provider Emergency Medicine
DX: N12 Tubulo-interstitial nephritis, not specified as acute or chronic (principal); F17.210 Nicotine dependence, cigarettes, uncomplicated
CPT/HCPCS: 81001; 87077; 87086; 87088; 87186; 99282

== ENCOUNTER 2024-04-01 21:06 | Emergency (ER) | payer MEDICAID, SELFPAY ==
[2024-04-01 21:07] VITALS: BP 139/104; PULSE 97; RESP 18; TEMP 36.1; O2SAT 99
[2024-04-01 21:08] VITALS: BMI 40.6
--- NOTE | 2024-04-01 21:15 | EDS_ITS ---
HPI <TYLER Farrell - Last Filed: 04/01/24 22:15> History of Present Illness Chief Complaint: Lower Extremity Injury Narrative Narrative: Patient states her dog's leash wrapped around her left knee causing it to twist on 03/21/2024. She had some pain then which seemed to improve but over the last few days it has been hurting more in the inner knee especially with walking. No swelling, bruising or skin changes. She denies the leg giving out, locking or clicking. She is not taking any pain relievers. PFS <TYLER Farrell - Last Filed: 04/01/24 22:15> [facility] Medical History Asthma Diabetes GERD (gastroesophageal reflux disease) Home Medications ?Medication ?Instructions ?Recorded ?Last Taken ?Type Beclomethasone Diprop Inhaler 2 puff inhalation BID PRN 01/02/14 06/19/19 History [Qvar 80 Mcg Inhaler] Shortness Of Breath albuterol sulfate 90 mcg/actuation 1 - 2 puff inhalation Q4H PRN PRN 01/02/14 06/19/19 History aerosol inhaler (ProAir HFA) Shortness Of Breath ferrous sulfate 325 mg (65 mg 325 mg PO DAILY 02/15/15 06/19/19 History iron) tablet (Iron (ferrous sulfate)) metformin 1,000 mg tablet 1,000 mg PO BIDCM 01/05/21 Unknown History cephalexin 500 mg capsule 500 mg PO Q6 #28 CAPSULES 05/04/22 Unknown Rx pantoprazole 20 mg tablet,delayed 50 mg PO DAILY 05/04/22 Unknown History release phenazopyridine 200 mg tablet 200 mg PO TID 6 doses #6 tabs 05/04/22 Unknown Rx (Pyridium) clindamycin HCl 300 mg capsule 300 mg PO Q6H #40 CAPSULES 01/28/23 Unknown Rx (Cleocin HCl) cephalexin 500 mg capsule 500 mg PO Q6 7 days #28 CAPSULES 02/16/23 Unknown Rx ciprofloxacin HCl 500 mg tablet 500 mg PO BID #14 TABLETS 02/16/23 Unknown Rx oxycodone-acetaminophen 5 mg-325 1 tab PO Q8H PRN pain 3 days #10 08/11/23 Unknown Rx mg tablet (Percocet) tabs oxycodone-acetaminophen 5 mg-325 1 tab PO Q8H PRN pain 3 days #10 10/05/23 Unknown Rx mg tablet (Percocet) tabs ondansetron 4 mg disintegrating 4 mg PO Q6H PRN nausea and 11/01/23 Unknown Rx tablet vomiting 2 days #8 tabs oxycodone-acetaminophen 5 mg-325 1 tab PO Q6H PRN pain 2 days #8 11/01/23 Unknown Rx mg tablet (Percocet) tabs ciprofloxacin HCl 500 mg tablet 500 mg PO BID #14 tabs 11/13/23 Unknown Rx (Cipro) Allergy/AdvReac Type Severity Reaction Status Date / Time clarithromycin (From Biaxin) Allergy Rash Verified 04/01/24 21:08 hydrocodone bitartrate (From Allergy Rash Verified 04/01/24 21:08 Vicodin) naproxen (From Naprosyn) Allergy Rash Verified 04/01/24 21:08 Penicillins Allergy Rash Verified 04/01/24 21:08 Sulfa (Sulfonamide Allergy Rash Verified 04/01/24 21:08 Antibiotics) codeine AdvReac Vomiting Verified 04/01/24 21:08 Surgical History H/O section Social History household members: spouse Smoking Status: Current every day smoker tobacco type: cigarettes substance use type: does not use ROS <TYLER Farrell - Last Filed: 04/01/24 22:15> ROS ED ROS Narrative Neuro: Negative for motor/sensory dysfunction. Skin: Negative for rash, abscess, or wound. Musc: Positive for left knee pain. No swelling. EXAM <TYLER Farrell - Last Filed: 04/01/24 22:15> Physical Exam Narrative Exam Narrative: CONST: Patient sitting in no acute distress. EYES: Normal inspection. SKIN: Color normal, no rash, warm, dry, intact. EXTREMITIES: Normal appearance of both lower extremities. Left knee extension intact but slightly limited by pain. Tender to palpation over the patella and medial joint line. Pain with valgus stress but no laxity, negative anterior and posterior drawer, negative modified Yuval's. 5/5 strength, normal sensation, 2+ DP pulse. NEURO: Alert and answering questions appropriately. PSYCH: Normal affect. Const Vital Signs: 04/01/24 21:07 Temperature 97 F L Temperature Source Temporal Pulse Rate 97 Respiratory Rate 18 Blood Pressure 139/104 H Blood Pressure Mean 115 Pulse Ox 99 Oxygen Delivery Method Room Air <Dr. Skip Mcfadden, - Last Filed: 04/01/24 22:04> Physical Exam Const Vital Signs: 04/01/24 21:07 Temperature 97 F L Temperature Source Temporal Pulse Rate 97 Respiratory Rate 18 Blood Pressure 139/104 H Blood Pressure Mean 115 Pulse Ox 99 Oxygen Delivery Method Room Air MDM <TYLER Farrell - Last Filed: 04/01/24 22:15> [facility] Narrative Medical decision making narrative: Patient has left knee pain from an injury over a week ago where her knee twisted in her dog's leash. She is tenderness over the medial joint line. No effusion, neurovascularly intact. No evidence of gross meniscal or ligamentous injury. X-ray shows possible avulsion fracture of the tibial spine. I provided knee immobilizer, crutches, and orthopedic follow-up and recommended [id number]-[id number] analgesia. She was discharged in stable condition. <Dr. Skip Mcfadden, DO - Last Filed: 04/01/24 22:04> [facility] Treatment and Re-Evaluation Narrative: I have personally performed a face to face assessment of the patient and have reviewed the DINESH Note. I performed a substantive portion of the visit including all aspects of the following. My kaur findings include: History: Patient presents with left knee pain that began tonight. Patient states her dog leash got wrapped around her knee. Patient states that this caused her knee to twist. Patient states her pain is mainly over the anterior medial aspect of the left knee. Patient denies any snapping or popping sensation. Patient states her pain is worse with certain movements. Patient denies any paresthesias or weakness. Patient denies any other injuries. Exam: Vital signs are stable. Patient is afebrile. Patient is in no acute distress. Musculoskeletal exam reveals tenderness over the medial aspect of the left knee. There is some mild edema. There is no deformity noted. Range of motion was limited in all motions of the left knee secondary to pain. There is no laxity appreciated. Varus and valgus stress test were negative. Heaven's test was negative. However, there was some guarding on examination. Pedal pulses are equal bilaterally. Sensation was intact to light touch bilaterally in the lower extremities. Strength is 5/5 bilaterally in the lower extremities. Medical Decision Making: Differential diagnosis includes occult fracture, sprain, and contusion. X-rays of the left knee will be obtained to assess for occult fracture and effusion. X-rays of the left knee were obtained. There are 4 views. On my independent interpretation, there is no acute fracture. There is no effusion noted. There is mild soft tissue swelling noted. Radiologist also interpreted the x-rays and noted a questionable avulsion fracture off the medial tibial spine which would be new compared to previous x-ray. Patient was given a knee immobilizer. Patient was instructed to use ice to her knee. Patient was instructed to keep her knee elevated. Patient was instructed to take Tylenol as needed for pain. Patient was instructed to follow-up with her primary care physician in 5 to 7 days. Patient understood and was agreeable with the plan. All questions were answered. Discharge Plan Triage Chief Complaint: Lower Extremity Injury ED Midlevel Provider: Aysha Isabel ED Provider: Skip Mcfadden Dx/Rx/DC Orders Clinical Impression: Acute pain of left knee, Closed fracture of tibial spine Instructions: ED Knee Sprain Prescriptions: No Action albuterol sulfate [ProAir HFA] 1 PUFF inhaler 1 - 2 puff inhalation Q4H PRN PRN (Reason: Shortness Of Breath) Patient Comments: shortness of breath Beclomethasone Diprop Inhaler [Qvar 80 Mcg Inhaler] 1 PUFF inhaler 2 puff inhalation BID PRN (Reason: Shortness Of Breath) Patient Comments: asthma ferrous sulfate [Iron (ferrous sulfate)] 325 MG tablet 325 mg PO DAILY Patient Comments: iron supplement/anemia metformin 1,000 MG tablet 1,000 mg PO BIDCM pantoprazole 20 mg tablet,delayed release (DR/EC) 50 mg PO DAILY Patient Comments: TAKE 1 TABLET BY MOUTH ONCE DAILY cephalexin [cephalexin] 500 mg capsule 500 mg PO Q6 Qty: 28 0RF phenazopyridine [Pyridium] 200 mg tablet 200 mg PO TID Qty: 6 0RF clindamycin HCl [Cleocin HCl] 300 mg capsule 300 mg PO Q6H Qty: 40 0RF cephalexin 500 mg capsule 500 mg PO Q6 7 Days Qty: 28 0RF ciprofloxacin HCl 500 mg tablet 500 mg PO BID Qty: 14 0RF oxycodone-acetaminophen [Percocet] 5-325 mg tablet 1 tab PO Q8H PRN (Reason: pain) 3 Days Qty: 10 0RF ciprofloxacin HCl [Cipro] 500 mg tablet 500 mg PO BID Qty: 14 0RF oxycodone-acetaminophen [Percocet] 5-325 mg tablet 1 tab PO Q8H PRN (Reason: pain) 3 Days Qty: 10 0RF oxycodone-acetaminophen [Percocet] 5-325 mg tablet 1 tab PO Q6H PRN (Reason: pain) 2 Days Qty: 8 0RF ondansetron 4 mg tablet,disintegrating 4 mg PO Q6H PRN (Reason: nausea and vomiting) 2 Days Qty: 8 0RF Primary Care Provider: William Willoughby Referrals: Ab Conley MD [Med Staff - Active Staff] - William Willoughby MD [Primary Care Provider] - Activity Restrictions/Additional Instructions: Use the knee immobilizer and Tylenol every 6 hours as needed. Please follow-up with the orthopedic doctor. Print Language: Lithuanian Disposition Disposition: Home, Self Care
--- NOTE | 2024-04-01 21:15 | RAD_ITS ---
EXAM: XR LEFT KNEE COMPLETE, 4 OR MORE VIEWS CLINICAL INDICATION: PAIN TECHNIQUE: Four or more views of the left knee. COMPARISON: 08/11/2023 FINDINGS: BONES/JOINTS: Possible avulsion fracture of the medial tibial spine which would be new compared to the prior examination. Patellar enthesophytes. Marginal osteophytes particularly of the medial patellofemoral joint space. No sclerotic or destructive changes observed. SOFT TISSUES: Mild anterior soft tissue swelling. No radiopaque foreign body. RAD/Knee 4 or More Views IMPRESSION: Possible avulsion fracture of the medial tibial spine which would be new compared to the prior examination. Degenerative changes and anterior soft tissue swelling. Consider follow-up MRI. Electronically Signed: Arun Holt DO at 21:39 EDT ,
== END 2024-04-01 22:17 | disposition home or self-care (01) ==
PROVIDERS: Emergency Provider Emergency Medicine; PCP Family Medicine; Visit Provider Emergency Medicine
DX: S82.112A Displaced fracture of left tibial spine, initial encounter for closed fracture (principal); E11.9 Type 2 diabetes mellitus without complications; F17.210 Nicotine dependence, cigarettes, uncomplicated; J45.909 Unspecified asthma, uncomplicated; X58.XXXA Exposure to other specified factors, initial encounter
CPT/HCPCS: 73564; 99284

== ENCOUNTER 2025-06-17 18:08 | Emergency (ER) | payer MEDICAID, SELFPAY ==
[2025-06-17 18:08] VITALS: BP 186/90; PULSE 87; RESP 16; TEMP 36.8; O2SAT 97
--- NOTE | 2025-06-17 18:47 | EX.ED.DYSGE1 ---
HPI History of Present Illness Chief Complaint: Itching Narrative Narrative: 59-year-old female past medical history of asthma, diabetes, smoker, presents with her sister because of bee sting to the left periorbital area/nose that she sustained approximately 40 minutes ago. She states she was outside minding her own business when a bee stung her in the face. She has never been stung by a bee prior to this. She has noticed swelling and itching in the periorbital area around her left eye. She denies any loss of vision, no throat closing, no difficulty swallowing, no difficulty breathing. She denies other injuries or stings. She and her sister were concerned because their relative, her other sister has anaphylaxis to bee stings. [facility] Medical History MCL sprain of left knee GERD (gastroesophageal reflux disease) Diabetes Asthma Home Medications ?Medication ?Instructions ?Recorded ?Last Taken ?Type Beclomethasone Diprop Inhaler 2 puff inhalation BID PRN 01/02/14 06/19/19 History [Qvar 80 Mcg Inhaler] Shortness Of Breath albuterol sulfate 90 mcg/actuation 1 - 2 puff inhalation Q4H PRN PRN 01/02/14 06/19/19 History aerosol inhaler (ProAir HFA) Shortness Of Breath ferrous sulfate 325 mg (65 mg 325 mg PO DAILY 02/15/15 06/19/19 History iron) tablet (Iron (ferrous sulfate)) metformin 1,000 mg tablet 1,000 mg PO BIDCM 01/05/21 Unknown History cephalexin 500 mg capsule 500 mg PO Q6 #28 CAPSULES 05/04/22 Unknown Rx pantoprazole 20 mg tablet,delayed 50 mg PO DAILY 05/04/22 Unknown History release phenazopyridine 200 mg tablet 200 mg PO TID 6 doses #6 tabs 05/04/22 Unknown Rx (Pyridium) clindamycin HCl 300 mg capsule 300 mg PO Q6H #40 CAPSULES 01/28/23 Unknown Rx (Cleocin HCl) cephalexin 500 mg capsule 500 mg PO Q6 7 days #28 CAPSULES 02/16/23 Unknown Rx ciprofloxacin HCl 500 mg tablet 500 mg PO BID #14 TABLETS 02/16/23 Unknown Rx oxycodone-acetaminophen 5 mg-325 1 tab PO Q8H PRN pain 3 days #10 08/11/23 Unknown Rx mg tablet (Percocet) tabs oxycodone-acetaminophen 5 mg-325 1 tab PO Q8H PRN pain 3 days #10 10/05/23 Unknown Rx mg tablet (Percocet) tabs ondansetron 4 mg disintegrating 4 mg PO Q6H PRN nausea and 11/01/23 Unknown Rx tablet vomiting 2 days #8 tabs oxycodone-acetaminophen 5 mg-325 1 tab PO Q6H PRN pain 2 days #8 11/01/23 Unknown Rx mg tablet (Percocet) tabs ciprofloxacin HCl 500 mg tablet 500 mg PO BID #14 tabs 11/13/23 Unknown Rx (Cipro) Allergy/AdvReac Type Severity Reaction Status Date / Time clarithromycin (From Biaxin) Allergy Rash Verified 04/05/24 13:26 hydrocodone bitartrate (From Allergy Rash Verified 04/05/24 13:26 Vicodin) naproxen (From Naprosyn) Allergy Rash Verified 04/05/24 13:26 Penicillins Allergy Rash Verified 04/05/24 13:26 Sulfa (Sulfonamide Allergy Rash Verified 04/05/24 13:26 Antibiotics) codeine AdvReac Vomiting Verified 04/05/24 13:26 Surgical History H/O section Social History household members: spouse Smoking Status: Current every day smoker tobacco type: cigarettes substance use type: does not use ROS ROS ED ROS Narrative Review of systems positive for left periorbital swelling. No loss of vision. No throat closing, no difficulty swallowing or breathing. No prior anaphylaxis, has never been stung by a bee previously. No other symptoms. States area is itchy. EXAM Physical Exam Narrative Exam Narrative: GCS 15. ABCs intact. Mild tenderness to palpation more towards bridge of nose in the periorbital area of the left eye. PERRL, EOMI. Mild periorbital swelling, but eye is not swollen shut. Cardiovascular examination regular rate and rhythm. Lungs are clear to auscultation bilaterally. The remainder the HEENT examination shows airway to be patent, no angioedema, no swelling of tongue. No Ton angina. No drooling or trismus. No stridor. Const Vital Signs: 06/17/25 18:08 Temperature 98.3 F Temperature Source Oral Pulse Rate 87 Respiratory Rate 16 Blood Pressure 186/90 H Blood Pressure Mean 122 Pulse Ox 97 Oxygen Delivery Method Room Air MDM MDM MDM Narrative Medical decision making narrative: I do not feel differential diagnosis is applicable in this case. She is not having an anaphylactic reaction. I feel this is more of a localized swelling to the bee sting. She was told that she may have more periorbital edema when she wakes up in the morning after lying flat. She was given 25 mg of Benadryl orally here. They will take [id number]-[id number] medications. She had been given an ice pack for comfort. I feel she can be discharged to follow-up and once again I do not feel she needs epinephrine, nor do I feel she needs a prescription for an EpiPen. Return instructions to the emergency department were reviewed. Otherwise follow-up with the primary care provider. Disposition is discharged home in stable condition. History & Record Review Discussion w/independent historian: Patient and Family (Sister) Discharge Plan Triage Chief Complaint: Itching ED Provider: Lorenzo Ryan Dx/Rx/DC Orders Clinical Impression: Accidental bee sting, Periorbital swelling Instructions: ED Bee Sting Local React Prescriptions: No Action albuterol sulfate [ProAir HFA] 1 PUFF inhaler 1 - 2 puff inhalation Q4H PRN PRN (Reason: Shortness Of Breath) Patient Comments: shortness of breath Beclomethasone Diprop Inhaler [Qvar 80 Mcg Inhaler] 1 PUFF inhaler 2 puff inhalation BID PRN (Reason: Shortness Of Breath) Patient Comments: asthma ferrous sulfate [Iron (ferrous sulfate)] 325 MG tablet 325 mg PO DAILY Patient Comments: iron supplement/anemia metformin 1,000 MG tablet 1,000 mg PO BIDCM pantoprazole 20 mg tablet,delayed release (DR/EC) 50 mg PO DAILY Patient Comments: TAKE 1 TABLET BY MOUTH ONCE DAILY cephalexin [cephalexin] 500 mg capsule 500 mg PO Q6 Qty: 28 0RF phenazopyridine [Pyridium] 200 mg tablet 200 mg PO TID Qty: 6 0RF clindamycin HCl [Cleocin HCl] 300 mg capsule 300 mg PO Q6H Qty: 40 0RF cephalexin 500 mg capsule 500 mg PO Q6 7 Days Qty: 28 0RF ciprofloxacin HCl 500 mg tablet 500 mg PO BID Qty: 14 0RF oxycodone-acetaminophen [Percocet] 5-325 mg tablet 1 tab PO Q8H PRN (Reason: pain) 3 Days Qty: 10 0RF ciprofloxacin HCl [Cipro] 500 mg tablet 500 mg PO BID Qty: 14 0RF oxycodone-acetaminophen [Percocet] 5-325 mg tablet 1 tab PO Q8H PRN (Reason: pain) 3 Days Qty: 10 0RF oxycodone-acetaminophen [Percocet] 5-325 mg tablet 1 tab PO Q6H PRN (Reason: pain) 2 Days Qty: 8 0RF ondansetron 4 mg tablet,disintegrating 4 mg PO Q6H PRN (Reason: nausea and vomiting) 2 Days Qty: 8 0RF Primary Care Provider: William Willoughby Referrals: William Willoughby MD [Primary Care Provider] - 3-5 Days if not improving Activity Restrictions/Additional Instructions: Ice to affected area. You may noticed increased swelling of your eye when you wake up in the morning. Benadryl 25 mg every 4-6 hours as needed for itching and swelling. Return with new or worsening symptoms including difficulty breathing, difficulty swallowing, loss of vision, new or worsening symptoms. Print Language: Lithuanian Disposition Disposition: Home, Self Care
--- OUTSIDE RECORDS SUMMARY | 2025-06-17 18:56 | XMS RPT_ITS | CCD ---
Author Organization [facility] Care Team Providers Care 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 Name Role Phone STAS CASTELLANO Admitting Unavailable STAS CASTELLANO Attending Unavailable STAS CASTELLANO Primary Care Unavailable WILLIAM GREENE Consulting Unavailable WILLIAM GREENE Referring Unavailable PROVIDER, UNKNOWN Consulting Unavailable WILLIAM LYLES Admitting Unavailable WILLIAM LYLES Attending Unavailable WILLIAM GREENE Referring Unavailable WILLIAM LYLES Primary Care Unavailable WILLIAM GREENE Consulting Unavailable PROVIDER, UNKNOWN Consulting Unavailable William Greene MD Primary Care Provider William Greene MD Primary Care Provider William Greene MD Primary Care Provider GUERLINE TURK, DR MEAD Attending Unavailab WILLIAM Baron MD Primary Care Unavailable NAVIN REY MD Attending Unavail able WILLIAM GREENE MD Primary Care Unavailable Dr. William Greene Primary Care Provider Dr. Skip Rubio Attending Provider William Greene MD Primary Care Provider Robinson SEARCH ENGINE OPTIMIZATION CONSULTANT.MAJOR DONOR COORDINATOR Vidhi Unavailable Caroline SEARCH ENGINE OPTIMIZATION CONSULTANT.MAJOR DONOR COORDINATOR, Antoinette A Unavailable William Greene Primary Care Unavailable MILDRED HENDRICKS Attending Unavailable MILDRED HENDRICKS Referring Unavailable William Greene Primary Care Unavailable Ab Conley Attending Unavailable Ab Conley Referring Unavailable William Greene Primary Care Unavailable William Greene Referring Unavailable Ab Conley Attending Unavailable William Greene Primary Care Unavailable William Greene Referring Unavailable Ab Conley Attending Unavailable Florinda Rea Attending Unavailable William Greene Primary Care Unavailable William Greene Primary Care Unavailable Skip Mcfadden Attending Unavailable Caroline SEARCH ENGINE OPTIMIZATION CONSULTANT.MAJOR DONOR COORDINATOR, Antoinette Bearden Unavailable JC, WILLIAM Saleem Primary Care Unavailable VIDHI BOWERS Referring Unavailable JC, WILLIAM Saleem Primary Care Unavailable VIDHI BOWERS Attending Unavailable JC, WILLIAM Saleem Primary Care Unavailable VIDHI BOWERS Attending Unavailable JC, WILLIAM Saleem Primary Care Unavailable VIDHI BOWERS Attending Unavailable VIDHI BOWERS Attending Unavailable JC, Stiven Primary Care Unavailable HARAD, VIDHI Referring Unavailable JC, WILLIAM Saleem Primary Care Unavailable RADHA SOTO Attending Unavailable JC, WILLIAM Saleem Primary Care Unavailable ROBINSON, VIDHI Referring Unavailable JC, WILLIAM Saleem Primary Care Unavailable JC, WILLIAM Saleem Primary Care Unavailable VIDHI BOWERS Attending Unavailable Allergies Allergy Classification Reported Allergen(s) Allergy Type Date of Onset Reaction(s) Facility Acetaminophen / HYDROcodone (2 sources) Acetaminophen / HYDROcodone Drug Allergy 8 Vomiting [facility] Angiotensin 2 Receptor Blockers (ARB) (2 sources) Losartan Drug Allergy 4 Other: See Comments [facility] Doxycycline (2 sources) Doxycycline Drug Allergy 9 Rash [facility] Macrolides (antibiotic) (2 sources) Clarithromycin Drug Allergy 5 Rash [facility] Work Phone: NSAIDs (4 sources) meloxicam Drug Allergy 5 Other: See Comments [facility] Opioid Agonists (4 sources) Codeine Drug Allergy 2 GI Upset, Intolerance [facility] Penicillins (antibiotic) (2 sources) Penicillin G Drug Allergy 5 Rash [facility] Sulfonamides (antibiotic) (2 sources) Sulfonamides (Antibiotic) Drug Allergy 5 Anaphylaxis [facility] (1 source) Acetaminophen / HYDROcodone Drug Allergy [facility] Repository (1 source) Naproxen Drug Allergy [facility] Repository (1 source) Penicillins Drug allergy (disorder) [facility] Repository (1 source) Sulfonamides (Antibiotic) Drug allergy (disorder) [facility] Repository (1 source) NSAID Drug allergy (disorder) [facility] Repository (20 sources) Clarithromycin; Translations: [CLARITHROMYCIN] Drug Allergy 5 [facility] Work Phone: (20 sources) Codeine; Translations: [CODEINE] Drug Allergy 2 GI Upset [facility] (9 sources) HYDROcodone; Translations: [hydrocodone bitartrate] Drug Allergy 2 [facility] (20 sources) Naproxen; Translations: [NAPROXEN] Drug Allergy 5 [facility] (9 sources) Penicillins; Translations: [Penicillins] Allergy to substance 2 [facility] (20 sources) Sulfonamides (Antibiotic); Translations: [Sulfa (Sulfonamide Antibiotics)] Allergy to substance 5 Anaphylaxis [facility] (20 sources) Acetaminophen / HYDROcodone; Translations: [HYDROCODONE-ACETA MINOPHEN] Drug Allergy 8 Vomiting [facility] (20 sources) Doxycycline; Translations: [DOXYCYCLINE] Drug Allergy 9 [facility] Work Phone: (20 sources) meloxicam; Translations: [MELOXICAM] Drug Allergy 4 Other: See Comments [facility] (20 sources) Penicillin G; Translations: [PENICILLIN G] Drug Allergy 5 [facility] (20 sources) traMADol; Translations: [TRAMADOL] Drug Allergy 2 Intolerance [facility] (11 sources) Losartan; Translations: [LOSARTAN] Drug Allergy 4 Other: See Comments [facility] Work Phone: (1 source) Clarithromycin Drug Allergy 4 [facility] Repository (1 source) Codeine Drug Allergy 4 [facility] Repository (1 source) Naproxen Drug Allergy 4 [facility] Repository Medications Current Medications Medication Drug Class(es) Dates Sig (Normalized) Sig (Original) acetaminophen 325 mg / oxyCODONE hydrochloride 5 mg oral tablet (20 sources) Opioid Agonist Start: 11-01-2023 take 1 tablet by mouth every six hours Oxycodone-Acetami nophen (Percocet) 5-325 mg tablet Active 1 TABLET PO EVERY 6 HOURS 8 2 November 01, 2023 Start: 08-11-2023 take 1 tablet by una th every eight hours Oxycodone-Acetaminophen (Percocet) 5-325 mg tablet Active 1 TABLET PO Q8H 10 October 05, 2023 Start: 01-05-2021 End: 01-08-2021 take 1 tablet by mouth every six hours as needed Oxycodone-Acetaminophen Discontinued 1 TABLET PO EVERY 6 HOURS NEEDED 8 January 05, 2021 January 07, 2021 11:03pm Start: 06-15-2020 End: 06-18-2020 take 1 tablet by mouth every six hours as needed Oxycodone-Acetaminophen Discontinued 1 TABLET PO EVERY 6 HOURS NEEDED 6 June 15, 2020 June 17, 2020 11:02pm Start: 06-19-2019 End: 07-01-2019 take 1 tablet by mouth every six hours as needed Oxycodone-Acetaminophen Discontinued 1 TABLET PO EVERY 6 HOURS NEEDED 10 June 19, 2019 June 30, 2019 11:09pm [id number] 200 actuat albuterol 0.09 mg/actuat metered dose inhaler (20 sources) beta2-Adrenergic Agonist Start: 01-25-2024 End: 07-14-2024 take 1-2 puff(s) by inhalation every six hours as needed albuterol HFA (PROAIR HFA) 90 mcg/actuation inhaler Indications: Asthma, unspecified asthma severity, unspecified whether complicated, unspecified whether persistent (HCC) INHALE 1 (ONE) TO 2 (TWO) PUFFS EVERY 6 HOURS NEEDED 18 g 3 07/14/2024 Active Start: 01-02-2022 End: 01-23-2024 take 1-2 puff(s) by inhalation every six hours as needed albuterol HFA (PROAIR HFA) 90 mcg/actuation inhaler Indications: Asthma, unspecified asthma severity, unspecified whether complicated, unspecified whether persistent INHALE 1 (ONE) TO 2 (TWO) PUFFS EVERY 6 HOURS NEEDED 18 g 3 01/02/2022 09/16/2022 Discontinued Start: 01-02-2014 take 1 puff(s) by in halation every four hours as needed Albuterol Sulfate (Proair Hfa) 1 PUFF inhaler Active 1 - 2 PUFF INHALATION EVERY 4 HOURS NEEDED January 02, 2014 10:18pm Comment on above: INHALE 1 (ONE) TO 2 (TWO) PUFFS EVERY 6 HOURS NEEDED Albuterol Sulfate (Proair Hfa) 1 PUFF inhaler (7 sources) Start: 01-02-2014 take 1 puff(s) by inhalation every four hours as needed Albuterol Sulfate (Proair Hfa) 1 PUFF inhaler Active 1 - 2 PUFF INHALATION EVERY 4 HOURS NEEDED January 01, 2014 11:00pm Start: 01-02-2014 take 1 puff(s) by in halation every four hours as needed Albuterol Sulfate (Proair Hfa) 1 PUFF inhaler Active 1 - 2 PUFF INHALATION EVERY 4 HOURS NEEDED January 02, 2014 12:00am amoxicillin 875 mg / clavulanate 125 mg oral tablet (4 sources) Penicillin-class Antibacterial Start: 03-02-2025 End: 03-09-2025 take 1 tablet by mouth twice daily at mealtime amoxicillin-clavulanate potassium (AUGMENTIN) 875-125 mg per tablet Take 1 tablet by mouth two times a day for 7 days. Take with food 14 tablet 03/02/2025 03/09/2025 Active Start: 05-22-2023 End: 05-29-2023 take 1 tablet by mouth twice daily amoxicillin-clavulanic acid (AUGMENTIN) 875-125 mg per tablet Indications: Mastoid pain, right Take 1 tablet by mouth twice daily for 7 days. 14 tablet 0 05/22/2023 05/29/2023 Active Comment on above: Take 1 tablet by [facility] twice daily for 7 days. Beclomethasone Diprop Inhaler (8 sources) Corticosteroid Start: 01-02-2014 Beclomethasone Diprop Inhaler (Qvar 80 Mcg Inhaler) 1 PUFF inhaler Active 2 PUFF INHALATION TWICE A DAY January 02, 2014 10:18pm Start: 01-02-2014 Beclomethasone Diprop Inhaler (Qvar 80 Mcg Inhaler) 1 PUFF inhaler Active 2 PUFF INHALATION TWICE A DAY January 01, 2014 11:00pm Start: 01-02-2014 Beclomethasone Diprop Inhaler (Qvar 80 Mcg Inhaler) 1 PUFF inhaler Active 2 PUFF INHALATION TWICE A DAY January 02, 2014 12:00am benzonatate 100 mg oral capsule (10 sources) Non-narcotic Antitussive Start: 03-02-2025 take 2 capsules by mouth every eight hours as needed benzonatate (TESSALON PERLES) 100 mg capsule Take 2 capsules by mouth three times a day as needed. 60 capsule 03/02/2025 Active Start: 12-17-2022 End: 04-28-2023 take 2 capsules by mouth every eight hours as needed benzonatate (TESSALON PERLES) 100 mg capsule Take 2 capsules by mouth three times daily as needed. 30 capsule 0 12/17/2022 04/28/2023 Discontinued Start: 12-04-2022 End: 12-19-2022 take 1 capsule by mouth every eight hours as needed for cough and cough benzonatate (TESSALON PERLE) 100 mg capsule Indications: Acute cough Take 1 capsule by mouth every 8 hours as needed for cough for up to 15 days. 30 capsule 0 12/04/2022 12/19/2022 Active Comment on above: Take 1 capsule by mo uth every 8 hours as needed for cough for up to 15 days. Take 2 capsules by m outh three times daily as needed. Blood-Glucose Meter (TRUE METRIX GLUCOSE METER) (20 sources) Start: 10-05-2020 Blood-Glucose Meter (TRUE METRIX GLUCOSE METER) Indications: Controlled type 2 diabetes mellitus without complication, without long-term current use of insulin (HCC) Use as directed. 1 Each 10/05/2020 Active Start: 10-05-2020 Blood-Glucose Meter (TRUE METRIX GLUCOSE METER) Indications: Controlled type 2 diabetes mellitus without complication, without long-term current use of insulin (HCC) Use as directed. 1 Each 0 10/05/2020 Active Comment on above: Use as directed. Blood-Glucose Meter monitoring kit (20 sources) Start: 08-03-2024 Blood-Glucose Meter monitoring kit Indications: Controlled type 2 diabetes mellitus without complication, without long-term current use of insulin (HCC) Glucose Meter of Choice - Kit - Dx: Type 2 DM - Controlled E11.9 1 Each 08/03/2024 Active Start: 08-03-2024 End: 08-04-2024 Blood-Glucose Meter monitori ng kit Indications: Controlled type 2 diabetes mellitus without complication, without long-term current use of insulin (HCC) Glucose Meter of Choice - Kit - Dx: Type 2 DM - Controlled E11.9 1 Each 08/03/2024 08/04/2024 Active Start: 01-02-2022 Blood-Glucose Meter monitoring kit Glucose Meter of Choice - Kit - Dx: Type 2 DM - Uncontrolled E11.65 Insulin NO 1 Each 01/02/2022 Active Start: 01-02-2022 Blood-Glucose Meter monitoring kit Glucose Meter of Choice - Kit - Dx: Type 2 DM - Uncontrolled E11.65 Insulin NO 1 Each 0 01/02/2022 Active Comment on above: Glucose Meter of Cho ice - Kit - Dx: Type 2 DM - Uncontrolled E11.65 Insulin NO cephalexin 500 mg oral capsule (14 sources) Cephalosporin Antibacterial Start: End: take 1 capsule by mouth three times daily cephALEXin (KEFLEX) 500 mg capsule Indications: Open wound of skin Take 1 capsule by mouth three times a day for 7 days. 21 capsule 0 02/08/2024 02/15/2024 Active Start: 05-04-2022 take 500 mg by mouth every six hours Cephalexin Active 500 MG PO EVERY 6 HOURS 28 7 February 15, 2023 11:00pm cetirizine hydrochloride 10 mg oral tablet (7 sources) Histamine-1 Receptor Antagonist Start: 08-03-2024 End: 03-02-2025 take 1 tablet by mouth once daily cetirizine (ZYRTEC) 10 mg tablet Take 1 tablet by mouth once daily. 30 tablet 3 03/02/2025 Active ciprofloxacin 500 mg oral tablet (5 sources) Quinolone Antimicrobial Start: 02-16-2023 take 500 mg by mouth twice daily Ciprofloxacin Hcl Active 500 MG PO TWICE A DAY 14 February 15, 2023 11:00pm clindamycin 300 mg oral capsule (6 sources) Lincosamide Antibacterial Start: 01-28-2023 take 1 capsule by mouth every six hours Clindamycin Hcl (Cleocin Hcl) 300 mg capsule Active 300 MG PO EVERY 6 HOURS 40 January 27, 2023 11:00pm doxycycline hyclate 100 mg oral tablet (2 sources) Tetracycline-class Drug Start: 12-09-2022 End: 12-19-2022 take 1 tablet by mouth twice daily doxycycline (VIBRA-TABS) 100 mg tablet Indications: Bacterial sinusitis Take 1 tablet by mouth twice daily for 10 days. 20 tablet 0 12/09/2022 12/19/2022 Active Comment on above: Take 1 tablet by una th twice daily for 10 days. ferrous sulfate 325 mg oral tablet (20 sources) Start: 04-16-2023 End: 02-07-2025 take 1 tablet by mouth once daily ferrous sulfate 325 mg (65 mg iron) tablet Take 1 tablet by mouth once daily. take separately from multivitamin 90 tablet 1 02/07/2025 Active Start: 01-02-2022 End: 09-16-2022 take 1 tablet by mouth once daily ferrous sulfate 325 mg (65 mg iron) tablet Indications: Restless legs Take 1 tablet by mouth once daily. take separately from multivitamin 30 tablet 11 01/02/2022 09/08/2022 Discontinued Start: 02-15-2015 take 1 tablet by una th once daily Ferrous Sulfate (Iron (Ferrous Sulfate)) 325 MG tablet Active 325 MG PO DAILY February 14, 2015 11:00pm Comment on above: Take 1 tablet by una th once daily. take separately from multivitamin FLUoxetine 40 mg oral capsule (15 sources) Serotonin Reuptake Inhibitor Start: take 1 capsule by mouth once daily FLUoxetine (PROZAC) 40 mg capsule Indications: Irritability Take 1 capsule by mouth once daily. 90 capsule 1 02/07/2025 Active Start: 03-08-2024 End: 02-07-2025 take 1 capsule by mouth once daily FLUoxetine (PROZAC) 20 mg capsule Take 1 capsule by mouth once daily. 90 capsule 1 04/06/2024 02/07/2025 Discontinued hydroCHLOROthiazide 12.5 mg oral capsule (10 sources) Thiazide Diuretic Start: 07-06-2024 End: 02-07-2025 take 1 capsule by mouth once daily hydroCHLOROthiazide 12.5 mg capsule Indications: Primary hypertension Take 1 capsule by mouth once daily. 90 capsule 1 02/07/2025 Active ibuprofen 800 mg oral tablet (20 sources) Nonsteroidal Anti-inflammator y Drug Start: 10-21-2023 End: 04-20-2024 take 1 tablet by mouth every eight hours as needed ibuprofen (MOTRIN) 800 mg tablet Take 1 tablet by mouth every 8 hours as needed (FOR PAIN. TAKE WITH FOOD). 270 tablet 1 04/20/2024 Active Start: 07-31-2022 End: 04-28-2023 take 1 tablet by mouth every eight hours as needed ibuprofen (MOTRIN) 800 mg tablet Take 1 tablet by mouth every 8 hours as needed (FOR PAIN. TAKE WITH FOOD). 30 tablet 2 07/31/2022 08/05/2022 Discontinued Start: 12-14-2020 End: 08-06-2022 take 1 tablet by mouth three times daily as needed for pain ibuprofen (MOTRIN) 800 mg tablet Indications: Primary osteoarthritis of left knee TAKE 1 TABLET BY MOUTH 3 times daily NEEDED FOR PAIN WITH FOOD 90 tablet 1 12/14/2020 08/06/2022 Discontinued Start: 07-06-2017 End: 11-04-2017 take 800 mg by mouth twice daily Ibuprofen Discontinued 800 MG PO TWICE A DAY July 05, 2017 11:00pm November 04, 2017 3:36pm Comment on above: TAKE 1 TABLET BY UNA TH 3 times daily NEEDED FOR PAIN WITH FOOD Take 1 tablet by una th every 8 hours as needed (FOR PAIN. TAKE WITH FOOD). losartan potassium 50 mg oral tablet (20 sources) Angiotensin 2 Receptor Chiquis Start: End: take 1 tablet by mouth once daily losartan (COZAAR) 50 mg tablet Indications: Primary hypertension Take 1 tablet by mouth once daily. 90 tablet 1 02/07/2025 Active Start: 02-08-2024 End: 03-15-2024 take 1 tablet by mouth once daily losartan (COZAAR) 50 mg tablet Indications: Primary hypertension Take 1 tablet by mouth once daily. 30 tablet 1 03/08/2024 03/15/2024 Discontinued (Other) Start: 01-11-2024 End: 02-08-2024 take 1 tablet by mouth once daily losartan (COZAAR) 25 mg tablet Take 1 tablet by mouth once daily. 30 tablet 1 01/11/2024 02/08/2024 Discontinued Comment on above: Take 1 tablet by una th once daily. ondansetron 4 mg disintegrating oral tablet (1 source) Serotonin-3 Receptor Antagonist Start: 024 take 4 mg by mouth every six hours Ondansetron Active 4 MG PO EVERY 6 HOURS 8 2 November 01, 2023 12:00am pantoprazole 40 mg delayed release oral tablet (20 sources) Proton Pump Inhibitor Start: 024 End: 025 take 1 tablet by mouth once daily before breakfast pantoprazole DR (PROTONIX) 40 mg tablet Indications: Gastroesophageal reflux disease with esophagitis without hemorrhage Take 1 tablet by mouth daily before breakfast. Take on empty stomach, 1/2 hr before meal. 90 tablet 3 02/07/2025 Active Start: 05-04-2022 take 50 mg by mouth once daily Pantoprazole Active 50 MG PO DAILY May 03, 2022 11:00pm Start: 01-02-2022 End: 01-11-2024 take 1 tablet by mouth once daily pantoprazole DR (PROTONIX) 20 mg tablet Indications: Gastroesophageal reflux disease with esophagitis without hemorrhage Take 1 tablet by mouth once daily. 90 tablet 1 01/02/2022 09/08/2022 Discontinued Comment on above: Take 1 tablet by una th once daily. Take 1 tablet by una th daily before breakfast. Take on empty stomach, 1/2 hr before meal. phenazopyridine hydrochloride 200 mg oral tablet (7 sources) Start: 05-04-20 take 1 tablet by mouth three times daily Phenazopyridine (Pyridium) 200 mg tablet Active 200 MG PO THREE TIMES A DAY May 03, 2022 11:00pm predniSONE 20 mg oral tablet (4 sources) Start: 05-22-20 End: 05-27-20 take 2 tablets by mouth once daily predniSONE (DELTASONE) 20 mg tablet Indications: Mastoid pain, right Take 2 tablets by mouth once daily for 5 days. 10 tablet 0 05/22/2023 05/27/2023 Active Start: 04-28-2023 End: 05-01-2023 take 2 tablets by mouth once daily predniSONE (DELTASONE) 20 mg tablet Indications: Pain of left thumb Take 2 tablets by mouth once daily for 3 days. 6 tablet 0 04/28/2023 05/01/2023 Active Start: 12-17-2022 End: 12-22-2022 take 2 tablets by mouth once daily predniSONE (DELTASONE) 20 mg tablet Take 2 tablets by mouth once daily for 5 days. 10 tablet 0 12/17/2022 12/22/2022 Active Comment on above: Take 2 tablets by mo ut once daily for 5 days. Take 2 tablets by mo uth once daily for 3 days. Completed/Discontinued Medications Medication Drug Class(es) Dates Sig (Normalized) Sig (Original) betamethasone 3 mg/ml / betamethasone acetate 3 mg/ml injectable suspension (1 source) Corticosteroid Start: 05-18-2023 End: 05-18-2023 betamethasone acetate-betamethas one sodium phosphate 3 mg injection (CELESTONE) fluticasone propionate 0.05 mg/actuat metered dose nasal spray (7 sources) Corticosteroid Start: 07-16-2021 End: 09-16-2022 take 2 spray(s) by mouth once daily fluticasone (FLONASE) 50 mcg/actuation nasal spray Indications: Sinus congestion Use 2 Sprays in each nostril once daily. Rinse mouth after use. 1 Each 2 07/16/2021 09/16/2022 Discontinued (Other) Comment on above: Use 2 Sprays in each nostril once daily. Rinse mouth after use. 10 ml lidocaine hydrochloride 10 mg/ml injection (1 source) Antiarrhythmic, Amide Local Anesthetic Start: 05-18-2023 End: 05-18-2023 lidocaine (PF) 10 mg/mL (1 %) 0.5 mL injection (XYLOCAINE) metFORMIN hydrochloride 1000 mg oral tablet (20 sources) Biguanide Start: 07-07-2023 End: 05-23-2024 take 0.5 tablet by mouth once daily at breakfast metFORMIN (GLUCOPHAGE) 1,000 mg tablet Indications: Controlled type 2 diabetes mellitus without complication, without long-term current use of insulin (HCC) Take 0.5 tablets by mouth daily with breakfast. 45 tablet 1 11/25/2023 01/11/2024 Discontinued (Other) Start: 01-02-2022 End: 10-25-2023 take 1 tablet by mouth once daily at breakfast metFORMIN (GLUCOPHAGE) 1,000 mg tablet Indications: Controlled type 2 diabetes mellitus without complication, without long-term current use of insulin (HCC) Take 1 tablet by mouth daily with breakfast. 30 tablet 5 01/02/2022 09/08/2022 Discontinued Start: 01-05-2021 take 1000 mg by mout h twice daily at mealtime Metformin Active 1000 MG PO TWICE DAILY WITH MEALS January 04, 2021 11:00pm Comment on above: Take 1 tablet by una th daily with breakfast. Take 0.5 tablets by mouth daily with breakfast. valsartan 80 mg oral tablet (5 sources) Angiotensin 2 Receptor Chiquis Start: End: 4 take 1 tablet by mouth once daily valsartan (DIOVAN) 80 mg tablet Indications: Primary hypertension Take 1 tablet by mouth once daily. 30 tablet 1 03/15/2024 07/06/2024 Discontinued (Other) Problems Active Problems Problem Classification Problem Date Documented Date Episodic/Chronic Anxiety disorders (2 sources) Feeling irritable; Translations: [Irritability and anger] Onset: 02-07-2025 02-07-2025 Episodic Asthma (20 sources) Asthma; Translations: [Unspecified asthma, uncomplicated] Onset: 08-23-2007 12-13-2015 Chronic Chronic obstructive pulmonary disease and bronchiectasis (1 source) Bronchitis, not specified as acute or chronic; Translations: [Sinobronchitis] Onset: 03-02-2025 Episodic Crushing injury or internal injury (8 sources) Crush injury of left foot; Translations: [Crushing injury of left foot, initial encounter] 06-20-2019 Episodic Deficiency and other anemia (8 sources) Anemia; Translations: [Anemia, unspecified] 07-04-2020 Episodic Deficiency and other anemia (3 sources) Iron deficiency anemia; Translations: [Iron deficiency anemia, unspecified] 04-28-2023 Episodic Deficiency and other anemia (1 source) Iron deficiency anemia, unspecified; Translations: [Iron deficiency anemia, unspecified iron deficiency anemia type] Onset: 02-07-2025 Episodic Diabetes mellitus without complication (20 sources) Type 2 diabetes mellitus without complication; Translations: [Type 2 diabetes mellitus without complications] Onset: 08-08-2020 08-08-2020 Chronic Esophageal disorders (20 sources) Gastroesophageal reflux disease; Translations: [Gastro-esophageal reflux disease without esophagitis] Onset: 07-16-2012 Resolved: 01-18-2015 07-16-2012 Chronic Esophageal disorders (1 source) Esophageal disorders; Translations: [Gastroesophageal reflux disease with esophagitis without hemorrhage] Onset: 07-16-2012 Essential hypertension (10 sources) Essential hypertension; Translations: [Essential (primary) hypertension] Onset: 08-03-2024 01-11-2024 Chronic Genitourinary symptoms and ill-defined conditions (1 source) Urge incontinence of urine; Translations: [Urge incontinence] 01-11-2024 Chronic Headache; including migraine (20 sources) Tension-type headache; Translations: [Tension-type headache, unspecified, not intractable] Onset: 08-23-2007 01-14-2010 Chronic Osteoarthritis (20 sources) Osteoarthritis; Translations: [Unspecified osteoarthritis, unspecified site] Onset: 07-16-2012 07-16-2012 Chronic Other connective tissue disease (8 sources) Tendinitis; Translations: [Enthesopathy, unspecified] 06-16-2020 Episodic Other connective tissue disease (3 sources) Pain in finger of left hand; Translations: [Pain in left finger(s)] Episodic Other connective tissue disease (4 sources) Pain in left thumb; Translations: [Pain in left finger(s)] 04-28-2023 Episodic Other connective tissue disease (3 sources) Digital mucous cyst of left hand; Translations: [Ganglion, left hand] 05-18-2023 Episodic Other connective tissue disease (3 sources) Pain in thumb ; Translations: [Pain in left finger(s)] 05-19-2023 Episodic Other diseases of bladder and urethra (1 source) Overactive bladder; Translations: [Overactive bladder] 01-11-2024 Chronic Other ear and sense organ disorders (1 source) Pain of ear structure; Translations: [Otalgia, right ear] 05-22-2023 Episodic Other hematologic conditions (2 sources) History of anemia; Translations: [Personal history of diseases of the blood and blood-forming organs and certain disorders involving the immune mechanism] 10-05-2023 Episodic Other hereditary and degenerative nervous system conditions (20 sources) Restless legs; Translations: [Restless legs syndrome] Onset: 07-16-2012 07-16-2012 Chronic Other injuries and conditions due to external causes (5 sources) Injury of dental structures; Translations: [Unspecified injury of face, initial encounter] 04-13-2023 Episodic Other injuries and conditions due to external causes (1 source) Open wound of skin; Translations: [Other injury of unspecified body region, initial encounter] 02-08-2024 Episodic Other liver diseases (2 sources) Elevated liver enzymes level; Translations: [Abnormal levels of other serum enzymes] 04-28-2023 Episodic Other liver diseases (3 sources) Alkaline phosphatase raised; Translations: [Abnormal levels of other serum enzymes] 02-19-2024 Episodic Other lower respiratory disease (1 source) Cough; Translations: [Acute cough] Episodic Other nutritional; endocrine; and metabolic disorders (20 sources) Body mass index 40+ - severely obese; Translations: [Morbid (severe) obesity due to excess calories] Onset: 02-23-2018 02-23-2018 Chronic Other upper respiratory infections (3 sources) Bacterial sinusitis; Translations: [Chronic sinusitis, unspecified] Onset: 03-02-2025 Chronic Other upper respiratory infections (2 sources) Acute sinusitis; Translations: [Acute sinusitis, unspecified] Episodic Residual codes; unclassified (1 source) Asymptomatic menopausal state; Translations: [Asymptomatic menopausal state] Onset: 11-07-2024 Episodic Screening and history of mental health and substance abuse codes (2 sources) Ex-smoker; Translations: [Personal history of nicotine dependence] Onset: 03-02-2025 03-02-2025 Episodic Skin and subcutaneous tissue infections (6 sources) Paronychia of thumb; Translations: [Cellulitis of left finger] 02-05-2023 Episodic Superficial injury; contusion (6 sources) Abrasion of face; Translations: [Abrasion of other part of head, initial encounter] 04-13-2023 Episodic Urinary tract infections (13 sources) Urinary tract infectious disease; Translations: [Urinary tract infection, site not specified] 02-16-2023 Episodic Past or Other Problems Problem Classification Problem Date Documented Date Episodic/Chronic Allergic reactions (4 sources) Allergy to non-steroidal anti-inflammatory agent; Translations: [Allergy status to analgesic agent status] Onset: 08-03-2024 10-05-2023 Episodic Anxiety disorders (20 sources) Generalized anxiety disorder; Translations: [Generalized anxiety disorder] Onset: 08-23-2007 Resolved: 04-22-2017 04-22-2017 Chronic Biliary tract disease (17 sources) Cholelithiasis without obstruction; Translations: [Calculus of gallbladder without cholecystitis without obstruction] Onset: 02-19-2024 02-19-2024 Episodic Cancer of cervix (20 sources) Carcinoma in situ of uterine cervix; Translations: [Carcinoma in situ of cervix, unspecified] Onset: 07-19-2012 Resolved: 03-05-2015 03-05-2015 Episodic Genitourinary symptoms and ill-defined conditions (2 sources) Infrequent urination; Translations: [Other difficulties with micturition] Onset: 11-18-2023 Episodic Immunizations and screening for infectious disease (9 sources) Patient encounter status; Translations: [Encounter for immunization] Onset: 07-06-2024 Episodic Menstrual disorders (20 sources) Dysmenorrhea; Translations: [Dysmenorrhea, unspecified] Onset: 01-01-2015 Resolved: 03-05-2015 03-05-2015 Chronic Mood disorders (3 sources) Mood swings; Translations: [Emotional lability] Onset: 04-06-2024 03-08-2024 Episodic Other and unspecified benign neoplasm (20 sources) Leiomyoma; Translations: [Benign neoplasm of connective and other soft tissue, unspecified] Onset: 01-01-2015 Resolved: 03-05-2015 03-05-2015 Episodic Other female genital disorders (20 sources) Mucous polyp of cervix; Translations: [Polyp of cervix uteri] Onset: 07-19-2012 Resolved: 02-08-2015 02-08-2015 Episodic Other injuries and conditions due to external causes (1 source) Unspecified injury of left lower leg, initial encounter; Translations: [Unspecified injury of left lower leg, initial encounter] Onset: 04-08-2024 Episodic Other liver diseases (1 source) Abnormal levels of other serum enzymes; Translations: [Elevated alkaline phosphatase level] Onset: 03-04-2024 Episodic Other non-traumatic joint disorders (20 sources) Pain in left knee; Translations: [Pain in joint, lower leg] Onset: 07-16-2012 07-16-2012 Episodic Other non-traumatic joint disorders (20 sources) Pain in elbow; Translations: [Pain in left elbow] Onset: 04-22-2017 04-22-2017 Episodic Other non-traumatic joint disorders (20 sources) Disorder of lower leg; Translations: [Joint disorder, unspecified] Onset: 08-15-2013 Resolved: 12-08-2013 12-08-2013 Episodic Other screening for suspected conditions (not mental disorders or infectious disease) (20 sources) Ultrasonography of abdomen abnormal; Translations: [Abnormal findings on diagnostic imaging of other abdominal regions, including retroperitoneum] Onset: 07-30-2012 Resolved: 02-08-2015 02-08-2015 Episodic Ovarian cyst (20 sources) Cyst of ovary; Translations: [Unspecified ovarian cyst, unspecified side] Onset: 07-30-2012 Resolved: 03-05-2015 03-05-2015 Episodic Spondylosis; intervertebral disc disorders; other back problems (20 sources) Low back pain; Translations: [Lumbago] Onset: 01-01-2015 01-01-2015 Episodic Sprains and strains (12 sources) Sprain of knee; Translations: [Sprain of unspecified site of right knee, initial encounter] Onset: 04-05-2024 07-05-2020 Episodic Unclassified (2 sources) Body mass index 30+ - obesity; Translations: [Body mass index (BMI) greater than 35] 10-05-2023 Results Test Name Value Interpretation Reference Range Facility [facility] 03-02-2025 CNOV Office Visit (INTMWS ) AYSHA ROWLAND ([id number]) 1965 F Date Time Provider Department 03/02/25 1:40 PM RADHA SOTO During your visit today, we recorded the following information about you: Temperature Pulse Respiration Blood pressure 98 degrees 82/minute 16/minute 116/78 Weight 119 kg Radha Soto APRN.CNS 03/02/2025 2:08 PM Signed SUBJECTIVE Aysha Stiven Rowland is a 59 year old female who presents with 7 days of symptoms that are stable. Symptoms include: Fever (>=100.4F): No or Chills: No Cough: Yes productive with wheezing Shortness of breath: Yes mild or Difficulty breathing: No Fatigue: No Muscle aches: No Headache: No New loss of smell or taste: No Sore throat: No Nasal congestion: Yes or Rhinorrhea: Yes Nausea: No or Vomiting: No Diarrhea: No OTC meds/remedies that patient has tried: Mucinex. High risk category assessment Hypertension Exposures: Sick contacts? No Family or close contacts with confirmed/probable COVID-19 in last 14 days? No She reports that she has quit smoking. Her smoking use included cigarettes. She has a 15 pack-year smoking history. She has never used smokeless tobacco. OBJECTIVE PHYSICAL EXAM: BP 116/78 Pulse 82 Temp 36.7 ?C (98 ?F) Resp 16 Wt 119 kg (262 lb 5.6 oz) LMP 02/01/2015 SpO2 97% BMI 43.66 kg/m? General appearance: tired/ill appearing, alert, cooperative, pleasant, in no acute distress Head: Normocephalic Eyes: conjunctiva/corneas normal Ears: R TM - clear with good landmarks, nl light reflex, L TM - clear with good landmarks, nl light reflex Nose: purulent rhinorrhea, mucosa erythematous and swollen, maxillary sinus discomfort Oropharynx: moist without lesions, mild erythema to GPA, no exudate Neck: supple and small, benign anterior cervical nodes bilaterally Heart: regular rate and rhythm, without murmur Lungs: clear to auscultation, without rales or wheeze, good air exchange + productive cough Hemoglobin A1C (%) Date Value 02/07/2025 7.1 01/11/2024 6.1 03/13/2021 6.4 07/13/2020 6.9 Hemoglobin A1C (POCT) (%) Date Value 07/06/2024 6.1 ) ASSESSMENT/PLAN (J32.9, J40) Sinobronchitis (primary encounter diagnosis) (Z87.891) Former smoker ASSESSMENT/PLAN: 1. Sinobronchitis - ICD9: 473.9, 490, ICD10: J32.9, J40 (primary diagnosis) - Will begin treatment with as per antibiotic as written, see orders - Supportive care with plenty of fluids, rest, and analgesia prn. - Follow up if symptoms persist or worsen. 2. Former smoker - ICD9: V15.82, ICD10: Z87.891 quit smoking about 6 months ago Radha Soto APRN.CONTRACTS INTERN Medical Decision Making: Problems: Low: Acute, uncomplicated illness or injury Data: Unique test result(s) reviewed: 1 Risk: Moderate: Drug management Medical Decision Making Level: 3 - Low Radha Soto APRN.CONTRACTS INTERN 03/02/2025 2:04 PM Signed - Continue using your albuterol inhaler as needed, including before bedtime if you wake up coughing. - Begin taking the cough suppressant pills as prescribed (they do not cause drowsiness); take them around the clock. - Start the prescribed antibiotic to help clear your chest congestion and cough, ensuring your known allergy is noted. - Begin the newly provided allergy medicine to help dry up your nasal congestion. 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 - Follow up with our office on Thursday, the . - Monitor your symptoms; if you do not feel better in a couple of days, please contact our office. Allergies As of Date: 03/02/2025 Noted Allergy Reaction BIAXIN (CLARITHROMYCIN) 06/25/2005 2 - Rash Comments: zpak is ok CODEINE 11/11/2011 8 - GI Upset DOXYCYCLINE 07/24/2009 2 - Rash LOSARTAN 03/15/2024 14 - Other: See Comments Comments: Strong medicine taste and then vomits. MELOXICAM 04/27/2014 14 - Other: See Comments Comments: headaches NAPROSYN (NAPROXEN) 06/25/2005 Comments: headache PENICILLIN G 06/25/2005 2 - Rash SULFA (SULFONAMIDE ANTIBIOTICS) 06/25/2005 10 - Anaphylaxis Comments: headache TRAMADOL 11/11/2011 5 - Intolerance Comments: getts bad headache VICODIN (HYDROCODONE-ACETAMINO PHE*07/31/2008 11 - Vomiting Date Reviewed: 03/02/2025 Reviewed by: Cesilia Corea LPN - Fully Assessed Reason for Visit: URI [115] Primary Visit Diagnosis:Sinobronchit is [J32.9, J40] Other Visit Diagnosis:Former smoker [Z87.891] Order(s):cetirizine (ZYRTEC) 10 mg tabletTake 1 tablet by mouth once daily.Disp: 30 tabletRfl: 3 benzonatate (TESSALON PERLES) 100 mg capsuleTake 2 capsules by mouth three times a day as needed.Disp: 60 capsuleRfl: 0 amoxicillin-clavulanat e potassium (AUGMENTIN) 875-125 mg per tabletTake 1 tablet by mouth two times a day for 7 days. Take with foodDisp: 14 tabletRfl: 0 Prescriptions as of 03/02/2025 - cetirizine (ZYRTEC) 10 mg tablet Take 1 tablet by mouth once daily. - benzona (more content not included)... [facility] ([id number]) 1965 F Date Time Provider Department 02/09/25 [facility] During your visit today, we recorded the following information about you: Dorie Acosta RN 02/09/2025 11:32 AM Signed Pt called in and reports she received a letter from [facility] where she gets her incontinence supplies through. She said Dr Greene sent in for her panty liners, but he never signed the order. They need the order signed and sent back in. SEVERIANO Harry Tara, LPN 02/09/2025 11:55 AM Signed There is a signed order in scanned documents but it was not dated. We can date that and send back in. Completed. Allergies As of Date: 02/09/2025 Noted Allergy Reaction BIAXIN (CLARITHROMYCIN) 06/25/2005 2 - Rash Comments: zpak is ok CODEINE 11/11/2011 8 - GI Upset DOXYCYCLINE 07/24/2009 2 - Rash LOSARTAN 03/15/2024 14 - Other: See Comments Comments: Strong medicine taste and then vomits. MELOXICAM 04/27/2014 14 - Other: See Comments Comments: headaches NAPROSYN (NAPROXEN) 06/25/2005 Comments: headache PENICILLIN G 06/25/2005 2 - Rash SULFA (SULFONAMIDE ANTIBIOTICS) 06/25/2005 10 - Anaphylaxis Comments: headache TRAMADOL 11/11/2011 5 - Intolerance Comments: getts bad headache VICODIN (HYDROCODONE-ACETAMINO PHE*07/31/2008 11 - Vomiting Date Reviewed: 08/03/2024 Reviewed by: Rebel Fraga LPN - Fully Assessed Reason for Visit: Incontinence Supplies [Other] Prescriptions as of 02/09/2025 - hydroCHLOROthiazide 12.5 mg capsule Take 1 capsule by mouth once daily. - ferrous sulfate 325 mg (65 mg iron) tablet Take 1 tablet by mouth once daily. take separately from multivitamin - losartan (COZAAR) 50 mg tablet Take 1 tablet by mouth once daily. - pantoprazole DR (PROTONIX) 40 mg tablet Take 1 tablet by mouth daily before breakfast. Take on empty stomach, 1/2 hr before meal. - FLUoxetine (PROZAC) 40 mg capsule Take 1 capsule by mouth once daily. - cetirizine (ZYRTEC) 10 mg tablet Take 1 tablet by mouth once daily. - Blood-Glucose Meter monitoring kit Glucose Meter of Choice - Kit - Dx: Type 2 DM - Controlled E11. - blood sugar diagnostic (BLOOD GLUCOSE TEST) test strip Test blood sugar(s) 1 times daily. Dx: Type 2 DM - Controlled E11. Insulin: No - albuterol HFA (PROAIR HFA) 90 mcg/actuation inhaler INHALE 1 (ONE) TO 2 (TWO) PUFFS EVERY 6 HOURS NEEDED - blood sugar diagnostic (BLOOD GLUCOSE TEST) test strip Test blood sugar(s) 2 times daily. Dx: Type 2 DM - Uncontrolled Insulin: No - ibuprofen (MOTRIN) 800 mg tablet Take 1 tablet by mouth every 8 hours as needed (FOR PAIN. TAKE WITH FOOD). - Lancets lancets tTest blood sugar(s) 2 times daily. Dx: Type 2 DM - Uncontrolled Insulin: no - Blood-Glucose Meter monitoring kit Glucose Meter of Choice - Kit - Dx: Type 2 DM - Uncontrolled . Insulin NO - Blood-Glucose Meter (TRUE METRIX GLUCOSE METER) Use as directed. Problem List As Of Date 02/09/2025 Noted Resolved Tension Headache [G44.209] 08/23/2007 Generalized anxiety disorder [F41.1] 08/23/2007 04/22/2017 Asthma [J45.909] 08/23/2007 Routine general medical examination at [facility]*01/14/2010 07/16/2012 Class: Chronic Routine gynecological examination [...] Diabetes mellitus type 2, controlled, without c*08/08/2020 Calculus of gallbladder without cholecystitis w*02/19/2024 Encounter Status:Closed by NICOLLE YUSUF on 02/09/25 Normal [facility] ALBUMIN/CREATININE RATIO, UR INEon 02-08-2025 Albumin DL <= 20 mg/L (U) [Mass/Vol] mg/L mg/L [facility] Albumin/Creatinine (U) [Mass ratio] mg/g NINF - 30 mg/g [facility] Comment on above: Adult Male and Femal e Nephrotic Criteria: <30 mg/g is considered normal to mildly increased 30-300 mg/g is considered moderately increased >300 mg/g is considered severely increased KDIGO. (2013). KDIGO 2012 Clinical Practice Guideline for the Evaluation and Management of Chronic Kidney Disease. Official Journal of the International Society of Nephrology, 3(1), 1-150. Creatinine (U) [Mass/Vol] 106 mg/dL 20.0 - 300.0 mg/dL [facility] ALBUMIN/CREATININE RATIO, UR INEon 02-07-2025 Albumin DL <= 20 mg/L (U) [Mass/Vol] mg/dL Normal [facility] Comment on above: Order Comment: Speci men Type: URINE SPECIMENOrdering Facility: [facility] Address: [address] [place] [address] Performed By: #### U ACR ####[facility] LABCLIA [id number] [place] [address] [place] Albumin/Creatinine (U) [Mass ratio] <11 Normal <30 [facility] Comment on above: Order Comment: Speci men Type: URINE SPECIMENOrdering Facility: [facility] Address: [address] [place] [address] Result Comment: Adul t Male and Female Nephrotic Criteria: <30 mg/g is considered normal to mildly increased 30-300 mg/g is considered moderately increased >300 mg/g is considered severely increased KDIGO. (2013). KDIGO 2012 Clinical Practice Guideline for the Evaluation and Management of Chronic Kidney Disease. Official Journal of the International Society of Nephrology, 3(1), 1-150. Performed By: #### U ACR ####[facility] LABCLIA [id number] [place] [address] [place] Creatinine (U) [Mass/Vol] 106.0 mg/dL Normal 20.0-300.0 [facility] Comment on above: Order Comment: Speci men Type: URINE SPECIMENOrdering Facility: [facility] Address: [address] [place] [address] Performed By: #### U ACR ####[facility] LABCLIA [id number] [place] [address] [place] CBC W Auto Differential pane l (Bld)on 02-07-2025 Basophils (Bld) [#/Vol] 0.08 10*3/uL [facility] Basophils/100 WBC (Bld) 0.7 % C [facility] Differential cell count method Nom (Bld) Auto [facility] Eosinophils (Bld) [#/Vol] 0.3 10*3/uL [facility] Eosinophils/100 WBC (Bld) 2.8 % [facility] Erythrocyte distribution width (RBC) [Ratio] 14 % 11.5 - 15.0 % [facility] Hematocrit (Bld) [Volume fraction] 46.2 % High 36.0 - 46.0 % [facility] Hemoglobin (Bld) [Mass/Vol] 15.1 g/dL 11.5 - 15.5 g/dL [facility] Immature granulocytes (Bld) [#/Vol] 0.04 10*3/uL [facility] Immature granulocytes/100 WBC (Bld) 0.4 % [facility] Interpretation and review of laboratory results Abnormal [facility] Lymphocytes (Bld) [#/Vol] 2.4 10*3/uL [facility] Lymphocytes/100 WBC (Bld) 22.3 % [facility] MCH (RBC) [Entitic mass] 28.2 pg 26.0 - 34.0 pg [facility] MCHC (RBC) [Mass/Vol] 32.7 g/dL 30.5 - 36.0 g/dL [facility] MCV (RBC) [Entitic vol] 86.2 fL 80.0 - 100.0 fL [facility] Monocytes (Bld) [#/Vol] 0.55 10*3/uL [facility] Monocytes/100 WBC (Bld) 5.1 % C [facility] Neutrophils (Bld) [#/Vol] 7.4 10*3/uL [facility] Neutrophils/100 WBC (Bld) 68.7 % [facility] Nucleated RBC (Bld) [#/Vol] [facility] Nucleated RBC/100 WBC (Bld) [Ratio] 0 % /100 WBC [facility] Platelet mean volume (Bld) [Entitic vol] 10.9 fL 9.0 - 12.7 fL [facility] Platelets (Bld) [#/Vol] 343 10*3/uL [facility] RBC (Bld) [#/Vol] 5.36 10*6/uL High 3.90 - 5.2 0 m/uL [facility] WBC (Bld) [#/Vol] 10.77 10*3/[facility] Basophils (Bld) [#/Vol] 0.08 10*3/uL Normal <0.11 [facility] Comment on above: Order Comment: Speci men Type: BLOOD SPECIMENOrdering Facility: [facility] Address: [address] [place] [address] Performed By: #### 5 7021-8 ####[facility] LABCLIA [id number] [place] [address] [place] Basophils/100 WBC (Bld) 0.7 % Normal [facility] Comment on above: Order Comment: Speci men Type: BLOOD SPECIMENOrdering Facility: [facility] Address: [address] [place] [address] Performed By: #### 5 7021-8 ####[facility] LABCLIA [id number] [place] [address] [place] Differential cell count method Nom (Bld) Auto Normal [facility] Comment on above: Order Comment: Speci men Type: BLOOD SPECIMENOrdering Facility: [facility] Address: [address] [place] [address] Performed By: #### 5 7021-8 ####[facility] LABCLIA [id number] [place] [address] [place] Eosinophils (Bld) [#/Vol] 0.30 10*3/uL Normal <0.46 [facility] Comment on above: Order Comment: Speci men Type: BLOOD SPECIMENOrdering Facility: [facility] Address: [address] [place] [address] Performed By: #### 5 7021-8 ####[facility] LABCLIA [id number] [place] [address] [place] Eosinophils/100 WBC (Bld) 2.8 % Normal [facility] Comment on above: Order Comment: Speci men Type: BLOOD SPECIMENOrdering Facility: [facility] Address: [address] [place] [address] Performed By: #### 5 7021-8 ####[facility] LABCLIA [id number] [place] [address] [place] Erythrocyte distribution width (RBC) [Ratio] 14.0 % Normal 11.5-15.0 [facility] Comment on above: Order Comment: Speci men Type: BLOOD SPECIMENOrdering Facility: [facility] Address: [address] [place] [address] Performed By: #### 5 7021-8 ####[facility] LABCLIA [id number] [place] [address] [place] Hematocrit (Bld) [Volume fraction] 46.2 % High 36.0-46.0 [facility] Comment on above: Order Comment: Speci men Type: BLOOD SPECIMENOrdering Facility: [facility] Address: [address] [place] [address] Performed By: #### 5 7021-8 ####[facility] LABCLIA [id number] [place] [address] [place] Hemoglobin (Bld) [Mass/Vol] 15.1 g/dL Normal 11.5-15.5 [facility] Comment on above: Order Comment: Speci men Type: BLOOD SPECIMENOrdering Facility: [facility] Address: [address] [place] [address] Performed By: #### 5 7021-8 ####[facility] LABCLIA [id number] [place] [address] [place] Immature granulocytes (Bld) [#/Vol] 0.04 10*3/uL Normal <0.10 [facility] Comment on above: Order Comment: Speci men Type: BLOOD SPECIMENOrdering Facility: [facility] Address: [address] [place] [address] Performed By: #### 5 7021-8 ####[facility] LABCLIA [id number] [place] [address] [place] Immature granulocytes/100 WBC (Bld) 0.4 % Normal [facility] Comment on above: Order Comment: Speci men Type: BLOOD SPECIMENOrdering Facility: [facility] Address: [address] [place] [address] Performed By: #### 5 7021-8 ####[facility] LABCLIA [id number] [place] [address] [place] Lymphocytes (Bld) [#/Vol] 2.40 10*3/uL Normal 1.00-4.00 [facility] Comment on above: Order Comment: Speci men Type: BLOOD SPECIMENOrdering Facility: [facility] Address: [address] [place] [address] Performed By: #### 5 7021-8 ####[facility] LABIA [id number] [place] [address] [place] Lymphocytes/100 WBC (Bld) 22.3 % Normal [facility] Comment on above: Order Comment: Speci men Type: BLOOD SPECIMENOrdering Facility: [facility] Address: [address] [place] [address] Performed By: #### 5 7021-8 ####[facility] LABIA [id number] [place] [address] [place] MCH (RBC) [Entitic mass] 28.2 pg Normal 26.0-34.0 [facility] Comment on above: Order Comment: Speci men Type: BLOOD SPECIMENOrdering Facility: [facility] Address: [address] [place] [address] Performed By: #### 5 7021-8 ####[facility] LABIA [id number] [place] [id number] [place] MCHC (RBC) [Mass/Vol] 32.7 g/dL Normal 30.5-36.0 [facility] Comment on above: Order Comment: Speci men Type: BLOOD SPECIMENOrdering Facility: [facility] Address: [address] [place] [address] Performed By: #### 5 7021-8 ####[facility] LABCLIA [id number] [address] [place] [address] [place] MCV (RBC) [Entitic vol] 86.2 fL Normal 80.0-100.0 C [facility] Comment on above: Order Comment: Speci men Type: BLOOD SPECIMENOrdering Facility: [facility] Address: [address] [place] [address] Performed By: #### 5 7021-8 ####[facility] LABCLIA [id number] [address], [place] [address] [place] Monocytes (Bld) [#/Vol] 0.55 10*3/uL Normal <0.87 [facility] Comment on above: Order Comment: Speci men Type: BLOOD SPECIMENOrdering Facility: [facility] Address: [address] [place] [address] Performed By: #### 5 7021-8 ####[facility] LABIA [id number] [place] [address] [place] Monocytes/100 WBC (Bld) 5.1 % Normal C [facility] Comment on above: Order Comment: Speci men Type: BLOOD SPECIMENOrdering Facility: [facility] Address: [address] [place] [address] Performed By: #### 5 7021-8 ####[facility] LABIA [id number] [place] [address] [place] Neutrophils (Bld) [#/Vol] 7.40 10*3/uL Normal 1.45-7.50 [facility] Comment on above: Order Comment: Speci men Type: BLOOD SPECIMENOrdering Facility: [facility] Address: [address] [place] [address] Performed By: #### 5 7021-8 ####[facility] LABCLIA [id number] [place] [address] [place] Neutrophils/100 WBC (Bld) 68.7 % Normal [facility] Comment on above: Order Comment: Speci men Type: BLOOD SPECIMENOrdering Facility: [facility] Address: [address] [place] [address] Performed By: #### 5 7021-8 ####[facility] LABCLIA [id number] [address] [address] [place] Nucleated RBC (Bld) [#/Vol] 10*3/uL Normal <0.01 [facility] Comment on above: Order Comment: Speci men Type: BLOOD SPECIMENOrdering Facility: [facility] Address: [address] [place] [address] Performed By: #### 5 7021-8 ####[facility] LABIA [id number] [place] [address] [place] Nucleated RBC/100 WBC (Bld) [Ratio] 0.0 /100 WBC Normal [facility] Comment on above: Order Comment: Speci men Type: BLOOD SPECIMENOrdering Facility: [facility] Address: [address] [place] [address] Performed By: #### 5 7021-8 ####[facility] LABIA [id number] [place] [address] [place] Platelet mean volume (Bld) [Entitic vol] 10.9 fL Normal 9.0-12.7 [facility] Comment on above: Order Comment: Speci men Type: BLOOD SPECIMENOrdering Facility: [facility] Address: [address] [place] [address] Performed By: #### 5 7021-8 ####[facility] LABIA [id number] [place] [address] [place] Platelets (Bld) [#/Vol] 343 10*3/uL Normal 150-400 [facility] Comment on above: Order Comment: Speci men Type: BLOOD SPECIMENOrdering Facility: [facility] Address: [address] [place] [address] Performed By: #### 5 7021-8 ####[facility] LABIA [id number] [address] [address] [place] RBC (Bld) [#/Vol] 5.36 10*6/uL High 3.90-5.20 [facility] Comment on above: Order Comment: Speci men Type: BLOOD SPECIMENOrdering Facility: [facility] Address: [address] [place], [place] [address] Performed By: #### 5 7021-8 ####[facility] LABIA [id number] [address] [address] [place] WBC (Bld) [#/Vol] 10.77 10*3/uL Normal 3.70-11.00 [facility] Comment on above: Order Comment: Speci men Type: BLOOD SPECIMENOrdering Facility: [facility] Address: [address] [place], [place] [address] Performed By: #### 5 7021-8 ####[facility] [id number] [address] [address] [facility] CNOVon 02-07-2025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 1 tablet by mouth daily before breakfast. Take on empty stomach, 1/2 hr before meal. Lancets lancets tTest blood sugar(s) 2 times daily. Dx: Type 2 DM - Uncontrolled E11.65 Insulin: no Blood-Glucose Meter monitoring kit Glucose Meter of [...] History Tobacco Use Smoking status: Light Smoker Current packs/day: 0.50 Average packs/day: 0.5 packs/day for 30.0 years (15.0 ttl pk-yrs) Types: Cigarettes Smokeless tobacco: Never Vaping Use Vaping status: Never Used Substance Use Topics Alcohol use: No Drug use: No Comment: remote marijuana (teens) EXAM: BP 130/88 Pulse 73 Resp 16 LMP 02/01/2015 SpO2 93% PHYSICAL EXAM: General Appearance: Well appearing, alert, in no acute distress, well-hydrated, well nourished.. Skin: Skin color, texture, turgor normal, no suspicious rashes or lesions. Head: Normocephalic, no masses, lesions, tenderness or abnormalities. Eyes: Anicteric sclera. Pupils are equally round and reactive to light. Extraocular movements are intact. . Lungs: Lungs clear to auscultation. No wheezing, rhonchi, rales.. Heart: RRR without murmur, gallop, or rubs. No ectopy. Neurologic: Gait normal. ASSESSMENT/PLAN: 1. Primary hypertension - ICD9: 401.9, ICD10: I10 (primary diagnosis) - Improving control - Continue current medications - Recommend home blood pressure monitoring, to bring results to next visit - Encouraged sodium restricti (more content not included)... Normal [facility] metabolic 2000 panelon 08-03-2024 Albumin [Mass/Vol] 3.9 g/dL 3.9 - 4.9 g/dL [facility] ALP [Catalytic activity/Vol] 146 U/L High 34 - 123 U/L [facility] ALT [Catalytic activity/Vol] 9 U/L 7 - 38 U/L [facility] Anion gap [Moles/Vol] 11 mmol/L 8 - 15 mmol/L [facility] AST [Catalytic activity/Vol] 14 U/L 13 - 35 U/L [facility] Bilirubin [Mass/Vol] 0.2 mg/dL 0.2 - 1 .3 mg/dL [facility] Calcium [Mass/Vol] 9.3 mg/dL 8.5 - 10. 2 mg/dL [facility] Chloride [Moles/Vol] 104 mmol/L 98 - 10 7 mmol/L [facility] CO2 [Moles/Vol] 26 mmol/L 22 - 30 mmol/L [facility] Creatinine [Mass/Vol] 0.56 mg/dL Low 0.58 - 0.96 mg/dL [facility] GFR/1.73 sq M.predicted among non-blacks MDRD (S/P/Bld) [Vol rate/Area] 107 mL/min/{1.73_m2} - PINF [facility] Comment on above: Estimated Glomerular Filtration Rate (eGFR) is calculated using the 2020 CKD-EPI creatinine equation. This equation utilizes serum creatinine, sex, and age as parameters. The creatinine assay has traceable calibration to isotope dilution-mass spectrometry. Refer to KDIGO guidelines for clinical interpretation. In patients with unstable renal function, e.g. those with acute kidney injury, the eGFR may not accurately reflect actual GFR. Glucose [Mass/Vol] 125 mg/dL High 74 - 99 mg/dL [facility] Comment on above: The [place] Diabete s Association (ADA) provides guidance for cutoff values for fasting glucose and random glucose. The ADA defines fasting as no caloric intake for at least 8 hours. Fasting plasma glucose results between 100 to 125 mg/dL indicate increased risk for diabetes (prediabetes). Fasting plasma glucose results greater than or equal to 126 mg/dL meet the criteria for diagnosis of diabetes. In the absence of unequivocal hyperglycemia, results should be confirmed by repeat testing. In a patient with classic symptoms of hyperglycemia or hyperglycemic crisis, random plasma glucose results greater than or equal to 200 mg/dL meet the criteria for diagnosis of diabetes. Reference: Standards of Medical Care in Diabetes 2016, [place] Diabetes Association. Diabetes Care. 2016.39(Suppl 1). Interpretation and review of laboratory results Abnormal [facility] Potassium [Moles/Vol] 3.9 mmol/L 3.7 - 5.1 mmol/L [facility] Protein [Mass/Vol] 6.9 g/dL 6.3 - 8.0 g/dL [facility] Sodium [Moles/Vol] 141 mmol/L 136 - 144 mmol/L [facility] Urea nitrogen [Mass/Vol] 10 mg/dL 7 - 21 mg/dL [facility] Albumin [Mass/Vol] 3.9 g/dL Normal 3.9-4.9 [facility] Comment on above: Order Comment: Speci men Type: BLOOD SPECIMENOrdering Facility: [facility] Address: [address] [place] [address] Performed By: #### 2 4323-8 ####[facility] LABCLIA [id number] [place] [address] [place] ALP [Catalytic activity/Vol] 146 U/L High 34-123 [facility] Comment on above: Order Comment: Speci men Type: BLOOD SPECIMENOrdering Facility: [facility] Address: [address] [place] [address] Performed By: #### 2 4323-8 ####[facility] LABCLIA [id number] [place] [id number] [place] ALT [Catalytic activity/Vol] 9 U/L Normal 7-38 [facility] Comment on above: Order Comment: Speci men Type: BLOOD SPECIMENOrdering Facility: [facility] Address: [address] [place] [address] Performed By: #### 2 4323-8 ####[facility] LABCLIA [id number] [place] [address] [place] Anion gap [Moles/Vol] 11 mmol/L Normal 8-15 [facility] Comment on above: Order Comment: Speci men Type: BLOOD SPECIMENOrdering Facility: [facility] Address: [address] [place] [address] Performed By: #### 2 4323-8 ####[facility] LABCLIA [id number] [place] [address] [place] AST [Catalytic activity/Vol] 14 U/L Normal 13-35 [facility] Comment on above: Order Comment: Speci men Type: BLOOD SPECIMENOrdering Facility: [facility] Address: [address] [place] [address] Performed By: #### 2 4323-8 ####[facility] LABCLIA [id number] [place] [address] [place] Bilirubin [Mass/Vol] 0.2 mg/dL Normal 0.2-1.3 [facility] Comment on above: Order Comment: Speci men Type: BLOOD SPECIMENOrdering Facility: [facility] Address: [address] [place] [address] Performed By: #### 2 4323-8 ####[facility] LABCLIA [id number] [place] [address] [place] Calcium [Mass/Vol] 9.3 mg/dL Normal 8.5-10.2 [facility] Comment on above: Order Comment: Speci men Type: BLOOD SPECIMENOrdering Facility: [facility] Address: [address] [place] [address] Performed By: #### 2 4323-8 ####[facility] LABCLIA [id number] [place] [address] [place] Chloride [Moles/Vol] 104 mmol/L Normal 98-107 [facility] Comment on above: Order Comment: Speci men Type: BLOOD SPECIMENOrdering Facility: [facility] Address: [address] [place] [address] Performed By: #### 2 4323-8 ####[facility] LABCLIA [id number] [place] [address] [place] CO2 [Moles/Vol] 26 mmol/L Normal 22-30 [facility] Comment on above: Order Comment: Speci men Type: BLOOD SPECIMENOrdering Facility: [facility] Address: [address] [place] [address] Performed By: #### 2 4323-8 ####[facility] LABCLIA [id number] [place] [address] [place] Creatinine [Mass/Vol] 0.56 mg/dL Low 0.58-0.96 [facility] Comment on above: Order Comment: Speci men Type: BLOOD SPECIMENOrdering Facility: [facility] Address: [address] [place] [address] Performed By: #### 2 4323-8 ####[facility] LABIA [id number] [place] [address] [place] Creatinine and Glomerular filtration rate.predicted panel (S/P/Bld) 107 mL/min/1.73m??? Normal >=60 [facility] Comment on above: Order Comment: Speci men Type: BLOOD SPECIMENOrdering Facility: [facility] Address: [address] [place] [address] Result Comment: Krista mated Glomerular Filtration Rate (eGFR) is calculated using the 2020 CKD-EPI creatinine equation. This equation utilizes serum creatinine, sex, and age as parameters. The creatinine assay has traceable calibration to isotope dilution-mass spectrometry. Refer to KDIGO guidelines for clinical interpretation. In patients with unstable renal function, e.g. those with acute kidney injury, the eGFR may not accurately reflect actual GFR. Performed By: #### 2 4323-8 ####[facility] LABCLIA [id number] [place] [id number] [place] Glucose [Mass/Vol] 125 mg/dL High 74-99 [facility] Comment on above: Order Comment: Speci shayne Type: BLOOD SPECIMENOrdering Facility: [facility] Address: [address] [place] [address] Result Comment: The [place] Diabetes Association (ADA) provides guidance for cutoff values for fasting glucose and random glucose. The ADA defines fasting as no caloric intake for at least 8 hours. Fasting plasma glucose results between 100 to 125 mg/dL indicate increased risk for diabetes (prediabetes). Fasting plasma glucose results greater than or equal to 126 mg/dL meet the criteria for diagnosis of diabetes. In the absence of unequivocal hyperglycemia, results should be confirmed by repeat testing. In a patient with classic symptoms of hyperglycemia or hyperglycemic crisis, random plasma glucose results greater than or equal to 200 mg/dL meet the criteria for diagnosis of diabetes. Reference: Standards of Medical Care in Diabetes 2016, [place] Diabetes Association. Diabetes Care. 2016.39(Suppl 1). Performed By: #### 2 4323-8 ####[facility] LABCLIA [id number] [place] [id number] [place] Potassium [Moles/Vol] 3.9 mmol/L Normal 3.7-5.1 [facility] Comment on above: Order Comment: Marvin bella Type: BLOOD SPECIMENOrdering Facility: [facility] Address: [address] [place] [address] Performed By: #### 2 4323-8 ####[facility] LABCLIA [id number] [address] [address] [place] Protein [Mass/Vol] 6.9 g/dL Normal 6.3-8.0 [facility] Comment on above: Order Comment: Speci men Type: BLOOD SPECIMENOrdering Facility: [facility] Address: [address] [place] [address] Performed By: #### 2 4323-8 ####[facility] LABCLIA [id number] [place] [id number] [place] Sodium [Moles/Vol] 141 mmol/L Normal 136-144 [facility] Comment on above: Order Comment: Speci men Type: BLOOD SPECIMENOrdering Facility: [facility] Address: [address] [place] [address] Performed By: #### 2 4323-8 ####[facility] LABIA [id number] [address] [place] Urea nitrogen [Mass/Vol] 10 mg/dL Normal 7-21 [facility] Comment on above: Order Comment: Speci men Type: BLOOD SPECIMENOrdering Facility: [facility] Address: [address] [place] [address] Performed By: #### 2 4323-8 ####[facility] LABIA [id number] [address] [place] CNOVon 07-06-2024 [facility] AYSHA ROWLAND ([id number]) 1965 F Date Time Provider Department 07/06/24 9:40 AM [facility] During your visit today, we recorded the following information about you: Pulse Respiration Blood pressure Weight 87/minute 16/minute 142/90 111.6 kg Vidhi Bowers APRN.MAJOR DONOR COORDINATOR 07/06/2024 5:09 PM Signed This is a 58 year old female who presents today with: Patient presents with: Recheck: 3 month follow up HISTORY OF PRESENT ILLNESS: Aysha Rowland is a 58 year old female. Patient presents with: Recheck: 3 month follow up Pt presents today for 3 month follow-up. No problems/concerns. DM: Reports overall feeling well. Medication side effects: No. Home sugar checks: yes -- 125-130. Hypoglycemic spells: No. Watching diet: only eats when she is hungry -- usually once daily. Unexpected weight loss: No. Polyuria, polydipsia: no Vision Changes: No. Foot lesions or numbness or pain: No. HTN: Patient is compliant with meds Yes Monitors bp at home: Yes. Similar readings to hear. Denies side effects: No. Chest pain: No. Dyspnea: No. Edema: minimal. Palpitations: No. Syncope: No. Headache: No. Dizziness: No. PAST MEDICAL HISTORY: PAST MEDICAL HISTORY Diagnosis Date Asthma Bronchitis Carcinoma in situ of cervix uteri 1999 Diabetes mellitus (adult onset) (HCC) Heartburn Migraine headache Seasonal allergies Tobacco use disorder PAST SURGICAL HISTORY Procedure Laterality Date DELIVERY ONLY 1980 CONIZATION CERVIX W/WO [facility] RPR ELTRD EXC 1999 LEEP-Cervix ESOPHAGOGASTRODUODENOS COPY TRANSORAL DIAGNOSTIC 01/18/15 EGD HYSTEROSCOPY THERAPEUTIC 10/2011 [facility] w/ polyp resection LAPS W/VAG HYSTERECT 250 GM/ANDRMVL TUBEAND/OVARIES 02/22/15 [facility], bilateral salpingectomy, left oophorectomy LIG/TRNSXJ FLP TUBE ABDL/VAG APPR UNI/BI 1998 Tubal ligation ALLERGIES Biaxin [Clarithromycin], Codeine, Doxycycline, Losartan, Meloxicam, Naprosyn [Naproxen], Penicillin G, Sulfa (Sulfonamide Antibiotics), Tramadol, and Vicodin [Hydrocodone-Acetamino phen] MEDICATIONS Current Outpatient Medications Medication Sig losartan (COZAAR) 50 mg tablet Take 1 tablet by mouth once daily. ibuprofen (MOTRIN) 800 mg tablet Take 1 tablet by mouth every 8 hours as needed (FOR PAIN. TAKE WITH FOOD). FLUoxetine (PROZAC) 20 mg capsule Take 1 capsule by mouth once daily. valsartan (DIOVAN) 80 mg tablet Take 1 tablet by mouth once daily. albuterol HFA (PROAIR HFA) 90 mcg/actuation inhaler INHALE 1 (ONE) TO 2 (TWO) PUFFS EVERY [address] (PROTONIX) 40 mg tablet Take 1 tablet by mouth daily before breakfast. Take on empty stomach, 1/2 hr before meal. Lancets lancets tTest blood sugar(s) 2 times daily. Dx: Type 2 DM - Uncontrolled E11.65 Insulin: no ferrous sulfate 325 mg (65 mg iron) [...] History Tobacco Use Smoking status: Light Smoker Current packs/day: 0.50 Average packs/day: 0.5 packs/day for 30.0 years (15.0 ttl pk-yrs) Types: Cigarettes Smokeless tobacco: Never Vaping Use Vaping status: Never Used Substance Use Topics Alcohol use: No Drug use: No Comment: remote marijuana (teens) EXAM: BP 142/90 Pulse 87 Resp 16 LMP 02/01/2015 SpO2 95% PHYSICAL EXAM: General Appearance: Well appearing, alert, in no acute distress, well-hydrated, well nourished.. Skin: Skin color, texture, turgor normal, no suspicious rashes or lesions. Head: Normocephalic, no masses, lesions, tenderness or abnormalities. Eyes: Anicteric sclera. Extraocular movements are intact. . Lungs: Lungs clear to auscultation. No wheezing, rhonchi, rales.. Heart: RRR without murmur, gallop, or rubs. No ectopy. Extremities: No deformities, trace edema, skin discoloration, clubbing or cyanosis. Good capillary refill. Neurologic: Gait normal. ASSESSMENT/PLAN: 1. Controlled type 2 diabetes mellitus without complication, without long-term current us (more content not included)... Normal [facility] HEMOGLOBIN A1C (POC)on 07-06 HbA1c (Bld) [Mass fraction] 6.1 % Abnormal 4.3 - 5.6 % [facility] Comment on above: Location:[address], [place], [address] Point of care (POC) Hemoglobin A1c (HGBA1C) testing is intended to assess glucose control and provide a management tool for patients known to have diabetes and their healthcare providers. Target HGBA1C levels may depend on specific clinical circumstances. POC HGBA1C is not intended for use as a diagnostic or screening test; laboratory-based testing should be used for diagnostic purposes. The following information is supplemental and may not be applicable to specific diabetes management situations: The POC device dry room attendant provides a normal range of 4.2% to 6.5% for the HGBA1C POC test. However, the [place] Diabetes Association guidelines indicate that patients with HGBA1C in the range of 5.7% to 6.4% are at increased risk for development of diabetes and that intervention by lifestyle modification may be beneficial. A HGBA1C level greater than or equal to 6.5% is considered diagnostic of diabetes, pending confirmatory testing. Use of HGBA1C testing to evaluate glucose control may not be appropriate for patients with hemoglobin variants or other conditions (e.g. anemia) that alter red blood cell lifespan. Interpretation and review of laboratory results Abnormal [facility] CNOVon 04-06-2024 CNOV Office Visit ([facility] ) AYSHA ROWLAND ([id number]) 1965 F Date Time Provider Department 04/06/24 1:40 PM VIDHI BOWERS During your visit today, we recorded the following information about you: Pulse Respiration Blood pressure 86/minute 16/minute 138/92 Vidhi Bowers APRN.MAJOR DONOR COORDINATOR 04/06/2024 5:46 PM Signed This is a 58 year old female who presents today with: Patient presents with: Recheck: 1 month follow up HISTORY OF PRESENT ILLNESS: Aysha Rowland is a 58 year old female. Patient presents with: Recheck: 1 month follow up Pt presents with 1 month follow up after starting Prozac Mood: - pt takes 20 mg prozac - pt feels that mood is improved - pt has not experienced any side effects - pt feels comfortable continuing on same medication regimen HTN: Patient is compliant with meds Yes Monitors bp at home: Yes. Home BP: 125/85 Denies side effects: No. Chest pain: No. Dyspnea: Intermittently, pt has hx of asthma Edema: No. Palpitations: No. Syncope: No. Headache: No. Dizziness: No. Pt fell while walking dog (chasing squirrels) at the beginning of the month Seeing ortho @ [facility] Pt starting PT 04/12 Pt wearing leg brace Pt taking ibuprofen without any relief, RICE DM: Reports overall feeling well. Medication side effects: Pt not currently on DM medication. Home sugar checks: Home readings: 100-125 Hypoglycemic spells: No. Watching diet: Yes. Unexpected weight loss: No. Polyuria, polydipsia: No. Vision Changes: Yes. Cataract surgery on R eye 03/22/2024 Foot lesions or numbness or pain: No. PAST MEDICAL HISTORY: PAST MEDICAL HISTORY Diagnosis Date Asthma Bronchitis Carcinoma in situ of cervix uteri 1999 Diabetes mellitus (adult onset) (HCC) Heartburn Migraine headache Seasonal allergies Tobacco use disorder PAST SURGICAL HISTORY Procedure Laterality Date DELIVERY ONLY 1980 CONIZATION CERVIX W/WO DANDC RPR ELTRD EXC 1999 LEEP-Cervix ESOPHAGOGASTRODUODENOS COPY TRANSORAL DIAGNOSTIC 01/18/15 EGD HYSTEROSCOPY THERAPEUTIC 10/2011 DANTN w/ polyp resection LAPS W/VAG HYSTERECT 250 GM/ANDRMVL TUBEAND/OVARIES 02/22/15 LAVH, bilateral salpingectomy, left oophorectomy LIG/TRNSXJ FLP TUBE ABDL/VAG APPR UNI/BI 1998 Tubal ligation ALLERGIES Biaxin [Clarithromycin], Codeine, Doxycycline, Losartan, Meloxicam, Naprosyn [Naproxen], Penicillin G, Sulfa (Sulfonamide Antibiotics), Tramadol, and Vicodin [Hydrocodone-Acetamino phen] MEDICATIONS Current Outpatient Medications Medication Sig valsartan (DIOVAN) 80 mg tablet Take 1 tablet by mouth once daily. FLUoxetine (PROZAC) 20 mg capsule Take 1 capsule by mouth once daily. albuterol HFA (PROAIR HFA) 90 mcg/actuation inhaler INHALE 1 (ONE) TO 2 (TWO) PUFFS EVERY [address] (PROTONIX) 40 mg tablet Take 1 tablet by mouth daily before breakfast. Take on empty stomach, 1/2 hr before meal. Lancets lancets tTest blood sugar(s) 2 times daily. Dx: Type 2 DM - Uncontrolled E11.65 Insulin: no ibuprofen (MOTRIN) 800 mg tablet Take 1 [...] status: Light Smoker Packs/day: 0.50 Years: 30.00 Additional pack years: 0.00 Total pack years: 15.00 Types: Cigarettes Smokeless tobacco: Never Vaping Use Vaping Use: Never used Substance Use Topics Alcohol use: No Drug use: No Comment: remote marijuana (teens) EXAM: BP 138/92 Pulse 86 Resp 16 LMP 02/01/2015 SpO2 97% PHYSICAL EXAM: General Appearance: Well appearing, alert, in no acute distress, well-hydrated, well nourished. Skin: Skin color, texture, turgor normal, no suspicious rashes or lesions. Head: Normocephalic, no masses, lesions, tenderness or abnormalities. Eyes: Anicteric sclera. Extraocular movements are intact. Oropharynx: Lips, mucosa, and tongue casa (more content not included)... Normal [facility] Orthopedic Visit Reporton Orthopedic Visit Report [facility] [address] [place] [id number] OFFICE VISIT Date of Service: 04/05/24 MR#: [id number] Acct: [id number] Name: BLANCHE ROWLAND Rep #: [id number] : 1965 Provider: Dr. Ab rocha MD Age/Sex: 58/F Location[place] [facility] Status: Signed Intake Vital Signs 04/01/24 21:07 04/04/24 11:38 Height 5 ft 5 in 5 ft 5 in Intake Visit Reasons: LEFT KNEE Chief Complaint: Left Knee ER Follow-Up Accompanied by: Is patient in pain?: Yes Pain scale (1-10): 9 Allergies clarithromycin (From Biaxin) Allergy (Verified 04/05/24 13:26) Rash hydrocodone bitartrate (From Vicodin) Allergy (Verified 04/05/24 13:26) Rash naproxen (From Naprosyn) Allergy (Verified 04/05/24 13:26) Rash Penicillins Allergy (Verified 04/05/24 13:26) Rash Sulfa (Sulfonamide Antibiotics) Allergy (Verified 04/05/24 13:26) Rash codeine Adverse Reaction (Verified 04/05/24 13:26) Vomiting Medications ???Medication ???Instructions ???Recorded ???Confirmed ???Type Beclomethasone Diprop Inhaler 2 puff inhalation BID PRN 01/02/14 04/05/24 History [Qvar 80 Mcg Inhaler] Shortness Of Breath albuterol sulfate 90 mcg/actuation 1 - 2 puff inhalation Q4H PRN PRN 01/02/14 04/05/24 History aerosol inhaler (ProAir HFA) Shortness Of Breath ferrous sulfate 325 mg (65 mg 325 mg PO DAILY 02/15/15 04/05/24 History iron) tablet (Iron (ferrous sulfate)) metformin 1,000 mg tablet 1,000 mg PO BIDCM 01/05/21 04/05/24 History cephalexin 500 mg capsule 500 mg PO Q6 #28 CAPSULES 05/04/22 04/05/24 Rx pantoprazole 20 mg tablet,delayed 50 mg PO DAILY 05/04/22 04/05/24 History release phenazopyridine 200 mg tablet 200 mg PO TID 6 doses #6 tabs 05/04/22 04/05/24 Rx (Pyridium) clindamycin HCl 300 mg capsule 300 mg PO Q6H #40 CAPSULES 01/28/23 04/05/24 Rx (Cleocin HCl) cephalexin 500 mg capsule 500 mg PO Q6 7 days #28 CAPSULES 02/16/23 04/05/24 Rx ciprofloxacin HCl 500 mg tablet 500 mg PO BID #14 TABLETS 02/16/23 04/05/24 Rx oxycodone-acetaminophe n 5 mg-325 1 tab PO Q8H PRN pain 3 days #10 08/11/23 04/05/24 Rx mg tablet (Percocet) tabs oxycodone-acetaminophe n 5 mg-325 1 tab PO Q8H PRN pain 3 days #10 10/05/23 04/05/24 Rx mg tablet (Percocet) tabs ondansetron 4 mg disintegrating 4 mg PO Q6H PRN nausea and 11/01/23 04/05/24 Rx tablet vomiting 2 days #8 tabs oxycodone-acetaminophe n 5 mg-325 1 tab PO Q6H PRN pain 2 days #8 11/01/23 04/05/24 Rx mg tablet (Percocet) tabs ciprofloxacin HCl 500 mg tablet 500 mg PO BID #14 tabs 11/13/23 04/05/24 Rx (Cipro) PFSH Medical History GERD (gastroesophageal reflux disease) Diabetes Asthma Surgical History H/O section Social History household members: spouse Smoking Status: Current every day smoker tobacco type: cigarettes substance use type: does not use HPI LEFT KNEE Details: This documentation accurately reflects the service provided and the decisions made by mt, Dr. Ab Conley MD 04/05/24 [id number]. Part of today???s visit was documented by [ ], acting as scribe. BLANCHE ROWLAND is a 58 year old F here today for L knee pain, 2 weeks. injured, twisted. medial pain. level is a 9.55/10. tx ice motrin, and knee immobilizer. no prior problems. always there. has not tried to walk on it at all. Patient feels like the knee is little bit unstable but she has not really tried it out. Patient is unemployed not working. Patient is here with her . No mechanical symptoms some mild swelling on the medial side. per ED Patient states her dog's leash wrapped around her left knee causing it to twist on 03/21/2024. She had some pain then which seemed to improve but over the last few days it has been hurting more in the inner knee especially with walking. No swelling, bruising or skin changes. She denies the leg giving out, locking or clicking. She is not taking any pain relievers. Ortho Exam General General: Yes no acute distress Neurologic: Yes alert and Yes oriented x3 Psychologic: Yes reasonable and appropriate Right Knee Patella Translation: 2 Left Knee Skin/Wound: Yes CDI, No ecchymosis, No erythema and Yes swelling (mild medial side) Examination: Yes med jt line tenderness, No Lat jt line tenderness, No TTP inf pole patella, No Crepitus, Yes Pain with flexion, No Yuval's Test, No TTP Patellar tendon and No TTP Tibial tubercle Quad Atrophy: No Stability: NML: Anterior Drawer, NML: Heaven, NML: Posterior Drawer, NML: Valgus 0, NML: Varus 0 and NML: Varus 30 and 1+: Valgus 30 Apprehension with Lateral Translation: No Patella Translation: 2 Patellar Tilt Normal: Yes Pat (more content not included)... Normal [facility] Emergency Department Summary on 04-01-2024 Emergency Department Summary [facility] Medical Records Department [address] [place] [address] Emergency Department Summary 04/01/24 MR#: [id number] Acct: [id number] Name: BLANCHE ROWLAND Rep #: [id number] : 1965 58 From: Skip Mcfadden DO PCP: Dr. William Greene MD Status:REG ER Location: ED HPI History of Present Illness Chief Complaint: Lower Extremity Injury Narrative Narrative: Patient states her dog's leash wrapped around her left knee causing it to twist on 03/21/2024. She had some pain then which seemed to improve but over the last few days it has been hurting more in the inner knee especially with walking. No swelling, bruising or skin changes. She denies the leg giving out, locking or clicking. She is not taking any pain relievers. [facility] Medical History Asthma Diabetes GERD (gastroesophageal reflux disease) Home Medications ???Medication ???Instructions ???Recorded ???Last Taken ???Type Beclomethasone Diprop Inhaler 2 puff inhalation BID PRN 01/02/14 06/19/19 History [Qvar 80 Mcg Inhaler] Shortness Of Breath albuterol sulfate 90 mcg/actuation 1 - 2 puff inhalation Q4H PRN PRN 01/02/14 06/19/19 History aerosol inhaler (ProAir HFA) Shortness Of Breath ferrous sulfate 325 mg (65 mg 325 mg PO DAILY 02/15/15 06/19/19 History iron) tablet (Iron (ferrous sulfate)) metformin 1,000 mg tablet 1,000 mg PO BIDCM 01/05/21 Unknown History cephalexin 500 mg capsule 500 mg PO Q6 #28 CAPSULES 05/04/22 Unknown Rx pantoprazole 20 mg tablet,delayed 50 mg PO DAILY 05/04/22 Unknown History release phenazopyridine 200 mg tablet 200 mg PO TID 6 doses #6 tabs 05/04/22 Unknown Rx (Pyridium) clindamycin HCl 300 mg capsule 300 mg PO Q6H #40 CAPSULES 01/28/23 Unknown Rx (Cleocin HCl) cephalexin 500 mg capsule 500 mg PO Q6 7 days #28 CAPSULES 02/16/23 Unknown Rx ciprofloxacin HCl 500 mg tablet 500 mg PO BID #14 TABLETS 02/16/23 Unknown Rx oxycodone-acetaminophe n 5 mg-325 1 tab PO Q8H PRN pain 3 days #10 08/11/23 Unknown Rx mg tablet (Percocet) tabs oxycodone-acetaminophe n 5 mg-325 1 tab PO Q8H PRN pain 3 days #10 10/05/23 Unknown Rx mg tablet (Percocet) tabs ondansetron 4 mg disintegrating 4 mg PO Q6H PRN nausea and 11/01/23 Unknown Rx tablet vomiting 2 days #8 tabs oxycodone-acetaminophe n 5 mg-325 1 tab PO Q6H PRN pain 2 days #8 11/01/23 Unknown Rx mg tablet (Percocet) tabs ciprofloxacin HCl 500 mg tablet 500 mg PO BID #14 tabs 11/13/23 Unknown Rx (Cipro) Allergy/AdvReac Type Severity Reaction Status Date / Time clarithromycin (From Biaxin) Allergy Rash Verified 04/01/24 21:08 hydrocodone bitartrate (From Allergy Rash Verified 04/01/24 21:08 Vicodin) naproxen (From Naprosyn) Allergy Rash Verified 04/01/24 21:08 Penicillins Allergy Rash Verified 04/01/24 21:08 Sulfa (Sulfonamide Allergy Rash Verified 04/01/24 21:08 Antibiotics) codeine AdvReac Vomiting Verified 04/01/24 21:08 Surgical History H/O section Social History household members: spouse Smoking Status: Current every day smoker tobacco type: cigarettes substance use type: does not use ROS ROS ED ROS Narrative Neuro: Negative for motor/sensory dysfunction. Skin: Negative for rash, abscess, or wound. Musc: Positive for left knee pain. No swelling. EXAM Physical Exam Narrative Exam Narrative: CONST: Patient sitting in no acute distress. EYES: Normal inspection. SKIN: Color normal, no rash, warm, dry, intact. EXTREMITIES: Normal appearance of both lower extremities. Left knee extension intact but slightly limited by pain. Tender to palpation over the patella and medial joint line. Pain with valgus stress but no laxity, negative anterior and posterior drawer, negative modified Yuval's. 5/5 strength, normal sensation, 2+ DP pulse. NEURO: Alert and answering questions appropriately. PSYCH: Normal affect. Const Vital Signs: 04/01/24 21:07 Temperature 97 F L Temperature Source Temporal Pulse Rate 97 Respiratory Rate 18 Blood Pressure 139/104 H Blood Pressure Mean 115 Pulse Ox 99 Oxygen Delivery Method Room Air Physical Exam Const Vital Signs: 04/01/24 21:07 Temperature 97 F L Temperature Source Temporal Pulse Rate 97 Respiratory Rate 18 Blood Pressure 139/104 H Blood Pressure Mean 115 Pulse Ox 99 Oxygen Delivery Method Room Air MDM MDM MDM Narrative Medical decision making narrative: Patient has left knee pain from an injury over a week ago where her knee twisted in her dog's leash. She is tenderness over the medial joint line. No effusion, neuro (more content not included)... Normal [facility] Knee 4 or More Viewson 04-01 Knee 4 or More Views [facility] Imaging Services [address] [place], [place] [address] Knee 4 or More Views MR#: [id number] Acct: [id number] Name: BLANCHE ROLWAND Rep #: [id number] : 1965 F 58 From: Arun willis DO PCP: Dr. William Greene MD Status: DEP ER Study: Knee 4 or More Views Date of Exam: 04/01/24 Exam# [id number] Ordering Dr: Aysha Isabel [id number] EXAM: XR LEFT KNEE COMPLETE, 4 OR MORE VIEWS CLINICAL INDICATION: PAIN TECHNIQUE: Four or more views of the left knee. COMPARISON: 08/11/2023 FINDINGS: BONES/JOINTS: Possible avulsion fracture of the medial tibial spine which would be new compared to the prior examination. Patellar enthesophytes. Marginal osteophytes particularly of the medial patellofemoral joint space. No sclerotic or destructive changes observed. SOFT TISSUES: Mild anterior soft tissue swelling. No radiopaque foreign body. RAD/Knee 4 or More Views IMPRESSION: Possible avulsion fracture of the medial tibial spine which would be new compared to the prior examination. Degenerative changes and anterior soft tissue swelling. Consider follow-up MRI. Electronically Signed: Arun Holt DO at 21:39 EDT , CC: Dr. William Greene MD; TYLER Farrell Manager Event: [facility] ALFRED Telephone (FAMPWS) AYSHA ROWLAND ([id number]) 1965 F Date Time Provider Department 03/15/24 VIDHI BOWERS During your visit today, we recorded the following information about you: Inessa Burton LPN 03/15/2024 10:01 AM Signed Pt calls to report that she was prescribed losartan 50 mg at appt on 03/08. Pt reports when she tries to take medication she gets a strong medication taste in her mouth and then vomits. Pt is asking if there is something else she can take. CARMINA Cleveland Christy, APRN.MAJOR DONOR COORDINATOR 03/15/2024 5:14 PM Signed Lets see if she does better with diovan. I sent this into [employer] [facility] [employer] Please keep me updated. Vidhi Bowers APRN.Dorie Merino RN 03/16/2024 9:14 AM Signed Called patient and no answer. Patients voicemail was full. Will need to call back later. SEVERIANO Harry Jillian, LPN 03/16/2024 9:23 AM Signed Patient notified and voiced her understanding. Allergies As of Date: 03/15/2024 Noted Allergy Reaction BIAXIN (CLARITHROMYCIN) 06/25/2005 2 - Rash Comments: zpak is ok CODEINE 11/11/2011 8 - GI Upset DOXYCYCLINE 07/24/2009 2 - Rash LOSARTAN 03/15/2024 14 - Other: See Comments Comments: Strong medicine taste and then vomits. MELOXICAM 04/27/2014 14 - Other: See Comments Comments: headaches NAPROSYN (NAPROXEN) 06/25/2005 Comments: headache PENICILLIN G 06/25/2005 2 - Rash SULFA (SULFONAMIDE ANTIBIOTICS) 06/25/2005 10 - Anaphylaxis Comments: headache TRAMADOL 11/11/2011 5 - Intolerance Comments: getts bad headache VICODIN (HYDROCODONE-ACETAMINO PHE*07/31/2008 11 - Vomiting Date Reviewed: 03/08/2024 Reviewed by: Rebel Fraga LPN - Fully Assessed Reason for Visit: Medication Problem [65] Primary Visit Diagnosis:Primary hypertension [I10] Order(s):valsartan (DIOVAN) 80 mg tabletTake 1 tablet by mouth once daily.Disp: 30 tabletRfl: 1 Prescriptions as of 03/16/2024 - valsartan (DIOVAN) 80 mg tablet Take 1 tablet by mouth once daily. - FLUoxetine (PROZAC) 20 mg capsule Take 1 capsule by mouth once daily. - albuterol HFA (PROAIR HFA) 90 mcg/actuation inhaler INHALE 1 (ONE) TO 2 (TWO) PUFFS EVERY 6 HOURS NEEDED - pantoprazole DR (PROTONIX) 40 mg tablet Take 1 tablet by mouth daily before breakfast. Take on empty stomach, 1/2 hr before meal. - Lancets lancets tTest blood sugar(s) 2 times daily. Dx: Type 2 DM - Uncontrolled E11.65 Insulin: no - ibuprofen (MOTRIN) 800 mg [...] Uncontrolled E11.65 Insulin: No - Blood-Glucose Meter monitoring kit Glucose Meter of Choice - Kit - Dx: Type 2 DM - Uncontrolled E11.65 Insulin NO - Blood-Glucose Meter (TRUE METRIX GLUCOSE METER) Use as directed. Problem List As Of Date 03/15/2024 Noted Resolved Tension Headache [G44.209] 08/23/2007 Generalized anxiety disorder [F41.1] 08/23/2007 04/22/2017 Asthma [J45.909] 08/23/2007 Routine general medical examination at [facility]*01/14/2010 07/16/2012 Class: Chronic Routine gynecological examination [...] Diabetes mellitus type 2, controlled, without c*08/08/2020 Calculus of gallbladder without cholecystitis w*02/19/2024 Prescriptions ordered this encounter Disp Refills Start End VALSARTAN 80 MG TABLET 30 t* 1 03/15/2024 Route: ORAL Sig: Take 1 tablet by mouth once daily. Medications Discontinued During This Encounter Prescriptions - losartan (COZAAR) 50 mg tablet (Discontinued) Take 1 tablet by mouth once daily. - losartan (COZAAR) 50 mg tablet (Discontinued) Take 1 tablet by mouth once daily. Encounter Status:Closed by JOCELYN NIELSEN on 03/16/24 [facility] CNOVon 03-08-2024 CNOV Office Visit ([facility] ) KASHIFAYSHA ([id number]) 1965 F Date Time Provider Department 03/08/24 1:00 PM VIDHI BOWERS [facility] During your visit today, we recorded the following information about you: Pulse Respiration Blood pressure Weight 84/minute 16/minute 159/103 110.2 kg Vidhi Bowers APRN.MAJOR DONOR COORDINATOR 03/08/2024 5:05 PM Signed This is a 58 year old female who presents today with: Patient presents with: Recheck: 1 month follow up HISTORY OF PRESENT ILLNESS: Aysha Saleem Kashif is a 58 year old female. Patient presents with: Recheck: 1 month follow up Pt presents today for 1 month follow-up. At last visit, her blood pressure was elevated. We increased her losartan. This is a 58 year old female who presents today for: Follow-up Hypertension HTN: Patient is compliant with meds Yes Monitors bp at home: Yes. 125/80 at home - checking 1-3 times daily. Denies side effects: Yes. Chest pain: No. Dyspnea: yes d/t asthma. Edema: No. Palpitations: No. Syncope: No. Headache: No. Dizziness: No. Admits to some increased stress today and thinks that is affecting her blood pressure. She is also interested in starting a happy pill. Refers that she is having mood swings all over the place. This has been going on for quite awhile. She has taken medication in the past. (Prozac). Worked well. No side effects. Denies SI/HI. PAST MEDICAL HISTORY: PAST MEDICAL HISTORY Diagnosis Date Asthma Bronchitis Carcinoma in situ of cervix uteri 1999 Diabetes mellitus (adult onset) ([facility]) Heartburn Migraine headache Seasonal allergies Tobacco use disorder PAST SURGICAL HISTORY Procedure Laterality Date DELIVERY ONLY 1980 CONIZATION CERVIX W/WO DANDC RPR ELTRD EXC 1999 LEEP-Cervix ESOPHAGOGASTRODUODENOS COPY TRANSORAL DIAGNOSTIC 01/18/15 EGD HYSTEROSCOPY THERAPEUTIC 10/2011 [facility] w/ polyp resection LAPS W/VAG HYSTERECT 250 GM/ANDRMVL TUBEAND/OVARIES 02/22/15 LAVH, bilateral salpingectomy, left oophorectomy LIG/TRNSXJ FLP TUBE ABDL/VAG APPR UNI/BI 1998 Tubal ligation ALLERGIES Biaxin [Clarithromycin], Codeine, Doxycycline, Meloxicam, Naprosyn [Naproxen], Penicillin G, Sulfa (Sulfonamide Antibiotics), Tramadol, and Vicodin [Hydrocodone-Acetamino phen] MEDICATIONS Current Outpatient Medications Medication Sig losartan (COZAAR) 50 mg tablet Take 1 tablet by mouth once daily. losartan (COZAAR) 50 mg tablet Take 1 tablet by mouth once daily. albuterol HFA (PROAIR HFA) 90 mcg/actuation inhaler INHALE 1 (ONE) TO 2 (TWO) PUFFS EVERY [address] (PROTONIX) 40 mg tablet Take 1 tablet by mouth daily before breakfast. Take on empty stomach, 1/2 hr before meal. Lancets lancets tTest blood sugar(s) 2 times daily. Dx: Type 2 DM - Uncontrolled E11.65 Insulin: no ibuprofen (MOTRIN) 800 mg tablet Take 1 [...] status: Light Smoker Packs/day: 0.50 Years: 30.00 Additional pack years: 0.00 Total pack years: 15.00 Types: Cigarettes Smokeless tobacco: Never Vaping Use Vaping Use: Never used Substance Use Topics Alcohol use: No Drug use: No Comment: remote marijuana (teens) EXAM: BP 159/103 Pulse 84 Resp 16 Wt 110.2 kg (243 lb) LMP 02/01/2015 SpO2 96% BMI 40.44 kg/m? PHYSICAL EXAM: General Appearance: Well appearing, alert, in no acute distress, well-hydrated, well nourished.. Skin: Skin color, texture, turgor normal, no suspicious rashes or lesions. Head: Normocephalic, no masses, lesions, tenderness or abnormalities. Eyes: Anicteric sclera. Extraocular movements are intact. . Lungs: Lungs clear to auscultation. No wheezing, rhonchi, rales.. Heart: RRR without murmur, gallop, or rubs. No ectopy. Extremities: No deformities, edema, skin discoloration, clubbing or cyanosis. Good capillary refill. . N (more content not included)... Normal [facility] ALKALINE PHOSPHATASE ISOENZY MES (P)on 03-04-2024 ALK PHOS BONE % 31.9 % Normal 10.7-68.3 [facility] Comment on above: Order Comment: Speci men Type: BLOOD SPECIMENOrdering Facility: [facility] Address: [address] [place] [address] Performed By: #### A LKISOP ####[facility] LABIA [id number] [place] [address] [place] ALK PHOS LIVER % 68.1 % Normal 26.0-86.2 [facility] Comment on above: Order Comment: Speci men Type: BLOOD SPECIMENOrdering Facility: [facility] Address: [address] [place] [address] Performed By: #### A LKISOP ####[facility] LABIA [id number] [place] [address] [place] BONE FRACTION 43.1 U/L Normal 12.9-52.6 [facility] Comment on above: Order Comment: Speci men Type: BLOOD SPECIMENOrdering Facility: [facility] Address: [address] [place] [address] Performed By: #### A LKISOP ####[facility] LABCLIA [id number] [place] [address] [place] INTESTINE FRACTION 0.0 U/L Normal 0.0-16.3 [facility] Comment on above: Order Comment: Speci men Type: BLOOD SPECIMENOrdering Facility: [facility] Address: [address] [place] [address] Performed By: #### A LKISOP ####[facility] LABCLIA [id number] [place] [address] [place] LIVER FRACTION 91.9 U/L High 16.0-69.3 [facility] Comment on above: Order Comment: Speci men Type: BLOOD SPECIMENOrdering Facility: [facility] Address: [address] [place] [address] Performed By: #### A LKISOP ####[facility] LABIA [id number] [place] [address] [place] Neutrophils/100 WBC (Bld) 0.0 % Normal 0.0-24.2 [facility] Comment on above: Order Comment: Speci men Type: BLOOD SPECIMENOrdering Facility: [facility] Address: [address] [place] [address] Performed By: #### A LKISOP ####[facility] LABCLIA [id number] [place] [address] [place] Hep Func 2000 Pnl SerPlon ALP [Catalytic activity/Vol] 135 U/L High 34-123 [facility] Comment on above: Order Comment: Speci men Type: BLOOD SPECIMENOrdering Facility: [facility] Address: [address] [place] [address] Performed By: #### 2 4325-3, 6768-6 ####[facility] LABCLIA [id number] [place] [address] [place] Hepatic function 2000 panelo n 03-04-2024 Albumin [Mass/Vol] 4.0 g/dL Normal 3.9-4.9 [facility] Comment on above: Order Comment: Speci men Type: BLOOD SPECIMENOrdering Facility: [facility] Address: [address] [place] [address] Performed By: #### 2 4325-3, 6768-6 ####[facility] LABCLIA [id number] [place] [address] [place] [place] ALT [Catalytic activity/Vol] 10 U/L Normal 7-38 [facility] Comment on above: Order Comment: Speci men Type: BLOOD SPECIMENOrdering Facility: [facility] Address: [address] [place] [address] Performed By: #### 2 4325-3, 68-6 ####[facility] LABCLIA [id number] [place] [address] [place] AST [Catalytic activity/Vol] 13 U/L Normal 13-35 [facility] Comment on above: Order Comment: Speci men Type: BLOOD SPECIMENOrdering Facility: [facility] Address: [address] [place] [address] Performed By: #### 2 4325-3, 6768-6 ####[facility] LABCLIA [id number] [place] [address] [place] Bilirubin [Mass/Vol] 0.3 mg/dL Normal 0.2-1.3 [facility] Comment on above: Order Comment: Speci men Type: BLOOD SPECIMENOrdering Facility: [facility] Address: [address] [place] [address] Performed By: #### 2 4325-3, 6768-6 ####[facility] LABCLIA [id number] [place] [address] [place] Bilirubin.conjugated [Mass/Vol] mg/dL Normal <0.2 [facility] Comment on above: Order Comment: Speci men Type: BLOOD SPECIMENOrdering Facility: [facility] Address: [address] [place] [address] Performed By: #### 2 4325-3, 6768-6 ####[facility] LABCLIA [id number] [place] [address] [place] Protein [Mass/Vol] 6.1 g/dL Low 6.3-8.0 [facility] Comment on above: Order Comment: Speci men Type: BLOOD SPECIMENOrdering Facility: [facility] Address: [address] [place] [address] Performed By: #### 2 4325-3, 6768-6 ####[facility] LABCLIA [id number] [address] [place] No Panel Informationon 02-18 IMPRESSION: Gallbladder stones. Manager Event: RADHA Transcribe Date/Time: Feb 19 2024 11:21A Dictated by : NAM DECKER MD This examination was interpreted and the report reviewed and electronically signed by: NAM DECKER MD on Feb 19 2024 11:28AM [facility] DIVISION OF RADIOLOGY No Panel InformationOrdered By: Cc Provider on 02-19-2024 [facility] US ABD SPLEEN - NBon 024 * * *Final Report* * * DATE OF EXAM: Feb 19 2024 10:10AM [facility] 1232 - US ABD SPLEEN -NB / PROCEDURE REASON: Elevated alkaline phosphatase level * * * * Physician Interpretation * * * * EXAM TITLE: US ABD RIGHT UPPER QUADRANT, US ABD SPLEEN -NB HISTORY: Abnormal alkaline phosphatase. TECHNIQUE: Sonography of the right upper quadrant and spleen was performed. Images were obtained and stored in a permanent archive. MQ: URUQ_1 COMPARISON: None. RESULT: Limitations: Body habitus. Pancreas: Normal sonographic appearance in the visualized portions. Portions obscured: tail Liver: Echotexture: Homogeneous. Echogenicity: Normal Surface contour: Smooth Lesions: None. Biliary: No intrahepatic biliary duct dilation. CBD: 4 mm in diameter. Gallbladder: Normal caliber -Contents: At least 3 mobile shadowing stones are visualized measuring up to 9 mm. -Wall: 2 mm in thickness -Other: Negative sonographic Lino's sign. Kidneys: Within normal limits. Spleen: No splenomegaly or mass lesion identified. The spleen measures 10.4 x 4.0 x 9.0 cm. DIVISION OF RADIOLOGY Provider, [facility] - 02/19/2024 * * *Final Report* * * DATE OF EXAM: Feb 19 2024 10:10AM [facility] 1232 - US ABD SPLEEN -NB / PROCEDURE REASON: Elevated alkaline phosphatase level * * * * Physician Interpretation * * * * EXAM TITLE: US ABD RIGHT UPPER QUADRANT, US ABD SPLEEN -NB HISTORY: Abnormal alkaline phosphatase. TECHNIQUE: Sonography of the right upper quadrant and spleen was performed. Images were obtained and stored in a permanent archive. MQ: URUQ_1 COMPARISON: None. RESULT: Limitations: Body habitus. Pancreas: Normal sonographic appearance in the visualized portions. Portions obscured: tail Liver: Echotexture: Homogeneous. Echogenicity: Normal Surface contour: Smooth Lesions: None. Biliary: No intrahepatic biliary duct dilation. CBD: 4 mm in diameter. Gallbladder: Normal caliber -Contents: At least 3 mobile shadowing stones are visualized measuring up to 9 mm. -Wall: 2 mm in thickness -Other: Negative sonographic Lino's sign. Kidneys: Within normal limits. Spleen: No splenomegaly or mass lesion identified. The spleen measures 10.4 x 4.0 x 9.0 cm. IMPRESSION IMPRESSION: Gallbladder stones. Manager Event: [facility] Transcribe Date/Time: Feb 19 2024 11:21A Dictated by : NAM DECKER MD This examination was interpreted and the report reviewed and electronically signed by: NAM DECKER MD on Feb 19 2024 11:28AM EST [facility] Radiology Study observation (narrative) [facility] US Abdomen RUQon 02-19-2024 * * *Final Report* * * DATE OF EXAM: Feb 19 2024 10:10AM [facility] 1032 - US ABD RIGHT UPPER QUADRANT / PROCEDURE REASON: Elevated alkaline phosphatase level * * * * Physician Interpretation * * * * EXAM TITLE: US ABD RIGHT UPPER QUADRANT, US ABD SPLEEN -NB HISTORY: Abnormal alkaline phosphatase. TECHNIQUE: Sonography of the right upper quadrant and spleen was performed. Images were obtained and stored in a permanent archive. MQ: URUQ_1 COMPARISON: None. RESULT: Limitations: Body habitus. Pancreas: Normal sonographic appearance in the visualized portions. Portions obscured: tail Liver: Echotexture: Homogeneous. Echogenicity: Normal Surface contour: Smooth Lesions: None. Biliary: No intrahepatic biliary duct dilation. CBD: 4 mm in diameter. Gallbladder: Normal caliber -Contents: At least 3 mobile shadowing stones are visualized measuring up to 9 mm. -Wall: 2 mm in thickness -Other: Negative sonographic Lino's sign. Kidneys: Within normal limits. Spleen: No splenomegaly or mass lesion identified. The spleen measures 10.4 x 4.0 x 9.0 cm. DIVISION OF RADIOLOGY Provider, [facility] - 02/19/2024 * * *Final Report* * * DATE OF EXAM: Feb 19 2024 10:10AM [facility] 1032 - US ABD RIGHT UPPER QUADRANT / PROCEDURE REASON: Elevated alkaline phosphatase level * * * * Physician Interpretation * * * * EXAM TITLE: US ABD RIGHT UPPER QUADRANT, US ABD SPLEEN -NB HISTORY: Abnormal alkaline phosphatase. TECHNIQUE: Sonography of the right upper quadrant and spleen was performed. Images were obtained and stored in a permanent archive. MQ: URUQ_1 COMPARISON: None. RESULT: Limitations: Body habitus. Pancreas: Normal sonographic appearance in the visualized portions. Portions obscured: tail Liver: Echotexture: Homogeneous. Echogenicity: Normal Surface contour: Smooth Lesions: None. Biliary: No intrahepatic biliary duct dilation. CBD: 4 mm in diameter. Gallbladder: Normal caliber -Contents: At least 3 mobile shadowing stones are visualized measuring up to 9 mm. -Wall: 2 mm in thickness -Other: Negative sonographic Lino's sign. Kidneys: Within normal limits. Spleen: No splenomegaly or mass lesion identified. The spleen measures 10.4 x 4.0 x 9.0 cm. IMPRESSION IMPRESSION: Gallbladder stones. Manager Event: RADHA Transcribe Date/Time: Feb 19 2024 11:21A Dictated by : NAM DECKER MD This examination was interpreted and the report reviewed and electronically signed by: NAM DECKER MD on Feb 19 2024 11:28AM EST [facility] Radiology Study observation (narrative) [facility] CBC W Auto Differential pane l (Bld)on 01-11-2024 Basophils (Bld) [#/Vol] 0.09 10*3/uL <0.11 k/uL [facility] Basophils/100 WBC (Bld) 0.9 % C [facility] Differential cell count method Nom (Bld) Auto [facility] Eosinophils (Bld) [#/Vol] 0.29 10*3/uL <0.46 k/uL [facility] Eosinophils/100 WBC (Bld) 2.8 % [facility] Erythrocyte distribution width (RBC) [Ratio] 13.3 % 11.5 - 15.0 % [facility] Hematocrit (Bld) [Volume fraction] 49.1 % High 36.0 - 46.0 % [facility] Hemoglobin (Bld) [Mass/Vol] 15.7 g/dL High 11.5 - 15.5 g/dL [facility] Immature granulocytes (Bld) [#/Vol] <0.10 k/uL [facility] Immature granulocytes/100 WBC (Bld) 0.2 % [facility] Lymphocytes (Bld) [#/Vol] 2.70 10*3/uL 1.00 - 4.00 k/uL [facility] Lymphocytes/100 WBC (Bld) 26.5 % [facility] MCH (RBC) [Entitic mass] 28.1 pg 26.0 - 34.0 pg [facility] MCHC (RBC) [Mass/Vol] 32.0 g/dL 30.5 - 36.0 g/dL [facility] MCV (RBC) [Entitic vol] 88.0 fL 80.0 - 100.0 fL [facility] Monocytes (Bld) [#/Vol] 0.52 10*3/uL <0.87 k/uL [facility] Monocytes/100 WBC (Bld) 5.1 % C [facility] Neutrophils (Bld) [#/Vol] 6.56 10*3/uL 1.45 - 7.50 k/uL [facility] Neutrophils/100 WBC (Bld) 64.5 % [facility] Nucleated RBC (Bld) [#/Vol] <0.01 k/uL [facility] Nucleated RBC/100 WBC (Bld) [Ratio] 0.0 /100 WBC [facility] Platelet mean volume (Bld) [Entitic vol] 10.2 fL 9.0 - 12.7 fL [facility] Platelets (Bld) [#/Vol] 284 10*3/uL 150 - 400 k/uL [facility] RBC (Bld) [#/Vol] 5.58 10*6/uL High 3.90 - 5.2 0 m/uL [facility] WBC (Bld) [#/Vol] 10.18 10*3/uL 3.70 - 11 .00 k/uL [facility] Comprehensive metabolic 2000 panelon 01-11-2024 Albumin [Mass/Vol] 4.1 g/dL 3.9 - 4.9 g/dL [facility] ALP [Catalytic activity/Vol] 148 U/L High 34 - 123 U/L [facility] ALT [Catalytic activity/Vol] 12 U/L 7 - 38 U/L [facility] Anion gap [Moles/Vol] 10 mmol/L 9 - 18 mmol/L [facility] AST [Catalytic activity/Vol] 16 U/L 13 - 35 U/L [facility] Bilirubin [Mass/Vol] 0.3 mg/dL 0.2 - 1 .3 mg/dL [facility] Calcium [Mass/Vol] 9.5 mg/dL 8.5 - 10. 2 mg/dL [facility] Chloride [Moles/Vol] 106 mmol/L High 97 - 10 5 mmol/L [facility] CO2 [Moles/Vol] 25 mmol/L 22 - 30 mmol/L [facility] Creatinine [Mass/Vol] 0.55 mg/dL Low 0.58 - 0.96 mg/dL [facility] Estimated Glomerular Filtration Rate 107 mL/min/1.73m >=60 mL/min/1.73m [facility] Glucose [Mass/Vol] 121 mg/dL High 74 - 99 mg/dL [facility] Potassium [Moles/Vol] 4.2 mmol/L 3.7 - 5.1 mmol/L [facility] Protein [Mass/Vol] 7.1 g/dL 6.3 - 8.0 g/dL [facility] Sodium [Moles/Vol] 141 mmol/L 136 - 144 mmol/L [facility] Urea nitrogen [Mass/Vol] 7 mg/dL 7 - 21 mg/dL [facility] HbA1c (Bld)on 01-11-2024 Average glucose Estimated from glycated hemoglobin (d) [Mass/Vol] 128 mg/dL [facility] HbA1c (Bld) [Mass fraction] 6.1 % High 4.3 - 5.6 % [facility] Lipid 1996 panelon Cholesterol [Mass/Vol] 154 mg/dL <200 mg/dL [facility] Cholesterol in HDL [Mass/Vol] 52 mg/dL >39 mg/dL [facility] Cholesterol in LDL [Mass/Vol] 90 mg/dL <100 mg/dL [facility] Cholesterol in LDL/Cholesterol in HDL [Mass ratio] 1.73 {ratio} <2.54 [facility] Cholesterol in VLDL [Mass/Vol] 12 mg/dL <30 mg/dL [facility] Cholesterol non HDL [Mass/Vol] 102 mg/dL <130 mg/dL [facility] Cholesterol.total/Temi sterol in HDL [Mass ratio] 2.96 {ratio} <5.10 [facility] Fasting Time 12 hrs [facility] Triglyceride [Mass/Vol] 62 mg/dL <150 mg/dL C [facility] MAGNESIUM BLDon 01-11-2024 Magnesium [Mass/Vol] 1.9 mg/dL 1.7 - 2 .3 mg/dL [facility] Urine Cultureon 11-15-2023 [facility] Escherichia coli [place] Count 80,000-100,000 Escherichia coli: REACTION Ampicillin Islt BIJAN <=2 S Ampicillin+Sulbac Islt BIJAN <=2 S ceFAZolin Islt BIJAN <=4 S Cefepime Islt BIJAN <=0.12 S cefTRIAXone Islt BIJAN <=0.25 S Ciprofloxacin Islt BIJAN <=0.25 S Ertapenem Islt BIJAN <=0.12 S B-Lactamase Extended Susc Islt NEG Gentamicin Islt BIJAN <=1 S Imipenem Islt BIJAN <=0.25 S levoFLOXacin Islt BIJAN <=0.12 S Nitrofurantoin Islt BIJAN <=16 S Pip+Tazo Islt BIJAN <=4 S Tobramycin Islt BIJAN <=1 S TMP SMX Islt BIJAN <=20 S Normal [facility] Comment on above: Performed By: #### L 400.0001, M100.2200 #### [facility] [address] [place], [address] Emergency Department Summary on 11-13-2023 Emergency Department Summary [facility] Medical Records Department [address] [place] [address] Emergency Department Summary 11/13/23 MR#: [id number] Acct: [id number] Name: BLANCHE ROWLAND Rep #: [id number] : 1965 58 From: Florinda Rea MD PCP: Dr. William Greene MD Status:DEP ER Location: ED HPI History of Present Illness Chief Complaint: Complaint Informant: patient Onset/Context/Timing Onset: Days Context: Gradual Onset Narrative Narrative: Patient presents with decreased urine output and dysuria. She states she has frequency but is only able to go a small amount. She is complaining of pain across her kidney area. She called her PCP and was able to get appointment for Thursday, but was advised to come to the ER for evaluation. No fever or chills. She does not get frequent UTIs. [facility] Medical History Asthma Diabetes GERD (gastroesophageal reflux disease) Home Medications Beclomethasone Diprop Inhaler [Qvar 80 Mcg Inhaler] 2 puff inhalation BID PRN Shortness Of Breath 01/02/14 [History Last Taken 06/19/19] albuterol sulfate 90 mcg/actuation aerosol inhaler (ProAir HFA) 1 - 2 puff inhalation Q4H PRN PRN Shortness Of Breath 01/02/14 [History Last Taken 06/19/19] ferrous sulfate 325 mg (65 mg iron) tablet (Iron (ferrous sulfate)) 325 mg PO DAILY 02/15/15 [History Last Taken 06/19/19] metformin 1,000 mg tablet 1,000 mg PO BIDCM 01/05/21 [History Last Taken Unknown] cephalexin 500 mg capsule 500 mg PO Q6 #28 CAPSULES 05/04/22 [Rx Last Taken Unknown] pantoprazole 20 mg tablet,delayed release 50 mg PO DAILY 05/04/22 [History Last Taken Unknown] phenazopyridine 200 mg tablet (Pyridium) 200 mg PO TID 6 doses #6 tabs 05/04/22 [Rx Last Taken Unknown] clindamycin HCl 300 mg capsule (Cleocin HCl) 300 mg PO Q6H #40 CAPSULES 01/28/23 [Rx Last Taken Unknown] cephalexin 500 mg capsule 500 mg PO Q6 7 days #28 CAPSULES 02/16/23 [Rx Last Taken Unknown] ciprofloxacin HCl 500 mg tablet 500 mg PO BID #14 TABLETS 02/16/23 [Rx Last Taken Unknown] oxycodone-acetaminophe n 5 mg-325 mg tablet (Percocet) 1 tab PO Q8H PRN pain 3 days #10 tabs 08/11/23 [Rx Last Taken Unknown] oxycodone-acetaminophe n 5 mg-325 mg tablet (Percocet) 1 tab PO Q8H PRN pain 3 days #10 tabs 10/05/23 [Rx Last Taken Unknown] ondansetron 4 mg disintegrating tablet 4 mg PO Q6H PRN nausea and vomiting 2 days #8 tabs 11/01/23 [Rx Last Taken Unknown] oxycodone-acetaminophe n 5 mg-325 mg tablet (Percocet) 1 tab PO Q6H PRN pain 2 days #8 tabs 11/01/23 [Rx Last Taken Unknown] ciprofloxacin HCl 500 mg tablet (Cipro) 500 mg PO BID #14 tabs 11/13/23 [Rx Last Taken Unknown] Allergy/AdvReac Type Severity Reaction Status Date / Time clarithromycin [From Biaxin] Allergy Rash Verified 11/13/23 17:19 hydrocodone bitartrate Allergy Rash Verified 11/13/23 17:19 [From Vicodin] naproxen [From Naprosyn] Allergy Rash Verified 11/13/23 17:19 Penicillins Allergy Rash Verified 11/13/23 17:19 Sulfa (Sulfonamide Allergy Rash Verified 11/13/23 17:19 Antibiotics) codeine AdvReac Vomiting Verified 11/13/23 17:19 Surgical History H/O section Social History household members: spouse Smoking Status: Current every day smoker tobacco type: cigarettes substance use type: does not use ROS ROS ED Constitutional Constitutional ED: Denies chills or fever(s) Eyes Eyes: Denies discharge from eye(s) ENT ENT ED: Denies discharge from eye(s), rhinorrhea or sore throat Cardiovascular Cardiovascular: Denies chest pain Respiratory/Chest Respiratory/Chest: Denies cough or dyspnea Gastrointestinal Gastrointestinal: Denies abdominal pain, nausea or vomiting Genitourinary Genitourinary ED: Reports difficulty urinating, dysuria and urinary frequency Musculoskeletal Musculoskeletal: Reports back pain; Denies extremity pain Integumentary Denies Abrasions or rash Neurologic Neurologic: Denies headache(s) or weakness Allergic/Immunologic Allergic/Immunologic ED: Denies lip swelling or urticaria EXAM Physical Exam Const Vital Signs: 11/13/23 17:20 Temperature 97.2 F L Temperature Source Temporal Pulse Rate 96 Respiratory Rate 16 Blood Pressure 160/127 H Blood Pressure Mean 138 Pulse Ox 98 Oxygen Delivery Method Room Air Positive well nourished and well developed General Appearance ED: well developed HEENT Reports moist mucous membranes Eyes EOMs intact bilaterally Chest Wall inspection of chest normal and palpation of chest normal Resp normal respiratory effort and clear to auscultation bilaterally Cardio regular rate and regular rhythm GI non-tender Palpation: soft Back/Spine Back/Spine (more content not included)... Normal [facility] Urinalysis, Completeon 11-13 BACTERIA 1+ /hpf Normal None Seen [facility] Comment on above: Order Comment: CLEAN CATCH Performed By: #### L 400.0001, M1.2199 #### [facility] [address] [place], [address] EPI,SQUAMOUS 0-5 SEEN Normal 5-10 [facility] Comment on above: Order Comment: CLEAN CATCH Performed By: #### L 400.0001, M1.2199 #### [facility] [address] [place], [address] RBC 10-25 SEEN Normal 0-5 [facility] Comment on above: Order Comment: CLEAN CATCH Performed By: #### L 400.0001, M100.0 #### [facility] [address] [place], [address] WBC >100 SEEN Normal 0-5 [facility] Comment on above: Order Comment: CLEAN CATCH Performed By: #### L 400.0001, M100.2200 #### [facility] [address] [place], [address] Mucus Ql (Urine sed) 0 SEEN Normal [facility] Comment on above: Order Comment: CLEAN CATCH Performed By: #### L 400.0001, M100.2200 #### [facility] [address] [place], [address] XR Finger - left AP and Late ral and obliqueon 05-01-2023 IMPRESSION: NO ACUTE BONY ABNORMALITY. Manager Event: [facility] Transcribe Date/Time: May 01 2023 1:46P Dictated by : MAKSIM ROSS MD This examination was interpreted and the report reviewed and electronically signed by: MAKSIM ROSS MD on May 01 2023 1:48PM [facility] DIVISION OF RADIOLOGY * * *Final Report* * * DATE [...] soft tissue abnormalities identified on the radiograph. DIVISION OF RADIOLOGY [facility]/01/2023 * * *Final Report* * * DATE [...] soft tissue abnormalities identified on the radiograph. IMPRESSION IMPRESSION: NO ACUTE BONY ABNORMALITY. Manager Event: [facility] Transcribe Date/Time: May 01 2023 1:46P Dictated by : MAKSIM ROSS MD This examination was interpreted and the report reviewed and electronically signed by: MAKSIM ROSS MD on May 01 2023 1:48PM EST [facility] XR Finger - left AP and Late ral and obliqueOrdered By: Ccf Provider on 05-01-2023 [facility] HbA1c (Bld)on 04-29-2023 Average glucose Estimated from glycated hemoglobin (Bld) [Mass/Vol] 137 mg/dL [facility] HbA1c (Bld) [Mass fraction] 6.4 % High 4.3 - 5.6 % [facility] CBC panel Auto (Bld)on 04-28 Erythrocyte distribution width (RBC) [Ratio] 13.7 % 11.5 - 15.0 % [facility] Hematocrit (Bld) [Volume fraction] 46.0 % 36.0 - 46.0 % [facility] Hemoglobin (Bld) [Mass/Vol] 14.8 g/dL 11.5 - 15.5 g/dL [facility] MCH (RBC) [Entitic mass] 28.7 pg 26.0 - 34.0 pg [facility] MCHC (RBC) [Mass/Vol] 32.2 g/dL 30.5 - 36.0 g/dL [facility] MCV (RBC) [Entitic vol] 89.3 fL 80.0 - 100.0 fL [facility] Nucleated RBC (Bld) [#/Vol] <0.01 k/uL [facility] Platelet mean volume (Bld) [Entitic vol] 10.8 fL 9.0 - 12.7 fL [facility] Platelets (Bld) [#/Vol] 299 10*3/uL 150 - 400 k/uL [facility] RBC (Bld) [#/Vol] 5.15 10*6/uL 3.90 - 5.2 0 m/uL [facility] WBC (Bld) [#/Vol] 10.59 10*3/uL 3.70 - 11 .00 k/uL [facility] XR Finger - left AP and Late ral and obliqueon 04-28-2023 Radiology Study observation (narrative) [facility] XR KNEE THREE VIEWS RIGHTon 03-11-2023 XR KNEE THREE VIEWS RIGHT ORIGINAL EXAMINATION: THREE XRAY VIEWS OF THE RIGHT KNEE 03/11/2023 5:00 pm COMPARISON: None. HISTORY: ORDERING SYSTEM PROVIDED HISTORY: Reason for Exam: Pain FINDINGS: Minor scattered degenerative changes are present with small marginal spurs noted. There is minimal spurring at the quadriceps insertion. No fracture, dislocation or significant joint fluid seen. IMPRESSION: No acute finding. Interpreted by: Dante Bradley MD Preliminary Report By: Dante Bradley MD Electronically signed By Dante Bradley MD Dictated Date: 03/11/2023 5:10:39 PM Prelim Date: 03/11/2023 5:11:07 PM Sign Date: 03/11/2023 5:11:07 PM Ordering Provider: PHILOMENA NORTON [facility] ([place] Basophil percentageOrdered B y: Dr. Scanlon on 02-16-2023 Basophil percentage 25-50 SEEN /hpf 0-5 [facility] Bilirubin Test strip Ql (U)O rdered By: Dr. Scanlon on 02-16-2023 Bilirubin Ql (U) Negative Negative [facility] Ketones Test strip Ql (U)Ord ered By: Dr. Scanlon on 02-16-2023 Ketones Ql (U) Negative Negative [facility] Mucus LM Ql (Urine sed)Order ed By: Dr. Scanlon on 02-16-2023 Mucus Ql (Urine sed) 0 SEEN /hpf [facility] Nitrite Test strip Ql (U)Ord ered By: Dr. Scanlon on 02-16-2023 Nitrite Ql (U) Positive Negative [facility] Protein Test strip Ql (U)Ord ered By: Dr. Scanlon on 02-16-2023 Protein Ql (U) 500 mg/dl Negative [facility] Squamous epithelial cells de tection in urine sediment by light microscopyOrdered By: Dr. Scanlon on 02-16-2023 Epithelial cells.squamous LM Ql (Urine sed) 0-5 SEEN /hpf 5-10 [facility] Urine blood detectionOrdered By: Dr. Scanlon on 02-16-2023 RBC Ql (U) 250 /ul Negative [facility] RBC Ql (U) 25-50 SEEN /hpf 0-5 [facility] Urine clarityOrdered By: Dr. Scanlon on 02-16-2023 Clarity (U) Cloudy Clear [facility] Urine color determinationOrd ered By: Dr. Scanlon on 02-16-2023 Color (U) Yellow Yellow [facility] Urine glucose detectionOrder ed By: Dr. Scanlon on 02-16-2023 Glucose Ql (U) Normal mg/dl Normal [facility] Urine leukocyte esterase det ection by dipstickOrdered By: Dr. Scanlon on 02-16-2023 Leukocyte esterase Test strip Ql (U) 500 /ul Negative [facility] Urine pHOrdered By: Dr. Ibeth suersh on 02-16-2023 pH (U) 6.5 [pH] 5.0 - 8.0 [facility] Urine sediment bacteria coun t by microscopy (number/high power field)Ordered By: Dr. Scanlon on 02-16-2023 Bacteria LM.HPF (Urine sed) [#/Area] 2 /[HPF] None Seen [facility] Urine specific gravity measu rementOrdered By: Dr. Scanlon on 02-16-2023 Specific gravity (U) [Rel density] 1.010 1.002-1.030 [facility] Urobilinogen Auto test strip Ql (U)Ordered By: Dr. Scanlon on 02-16-2023 Urobilinogen Ql (U) Normal mg/dl Normal [facility] XR SHOULDER MINIMUM 2 VIEWS LEFTon 12-23-2022 XR SHOULDER MINIMUM 2 VIEWS LEFT ORIGINAL EXAMINATION: TWO XRAY VIEWS OF THE LEFT SHOULDER12/23/2022 5:07 pm COMPARISON: None HISTORY: ORDERING SYSTEM PROVIDED HISTORY: Reason for Exam: pain FINDINGS: There is no acute fracture or dislocation. The humeral head sits appropriately within the glenoid fossa. Minimal to no significant degenerative changes. There is no radiopaque foreign body. IMPRESSION: No acute osseous abnormality. I have personally reviewed the images of this examination and agree with the resident's findings and interpretation. Interpreted by: Aki Hernandez Preliminary Report By: Dante Arthur Electronically signed By Aki Hernandez Dictated Date: 12/23/2022 5:11:52 PM Prelim Date: 12/23/2022 5:14:34 PM Sign Date: 12/23/2022 5:19:22 PM Ordering Provider: BOSTON CUNHA [facility] ([place]) XR Finger - left AP and Late ral and obliqueon 08-01-2022 IMPRESSION: Mild diffuse soft tissue swelling. No acute osseous or articular process. Manager Event: [facility] Transcribe Date/Time: Aug 01 2022 1:34P Dictated by : ANGELA HUTCHINS MD This examination was interpreted and the report reviewed and electronically signed by: ANGELA HUTCHINS MD on Aug 01 2022 1:36PM [facility] DIVISION OF RADIOLOGY * * *Final Report* * * DATE OF EXAM: Jul 31 2022 2:19PM WOX [id number] - XR DIGIT 3V FRONTAL/LAT/OBL LT / PROCEDURE REASON: Finger pain, left * * * * Physician Interpretation * * * * EXAMINATION: XR DIGIT 3V FRONTAL/LAT/OBL LT HISTORY: Finger pain, left. TECHNIQUE: XR DIGIT 3V FRONTAL/LAT/OBL LT Laterality: LEFT Number of different views (projections): 3 M: XB_1 COMPARISON: Comparison is made to prior study dated 03 June 2022 RESULT: 3 views of the left second finger demonstrated persistent mild diffuse soft tissue swelling. There is a mild swan-neck configuration to the second finger. There is no acute osseous or articular process. Joint spaces are preserved and there are no erosive or bony destructive changes. DIVISION OF RADIOLOGY Provider, [facility] - 08/01/2022 * * *Final Report* * * DATE OF EXAM: Jul 31 2022 2:19PM WOX [id number] - XR DIGIT 3V FRONTAL/LAT/OBL LT / PROCEDURE REASON: Finger pain, left * * * * Physician Interpretation * * * * EXAMINATION: XR DIGIT 3V FRONTAL/LAT/OBL LT HISTORY: Finger pain, left. TECHNIQUE: XR DIGIT 3V FRONTAL/LAT/OBL LT Laterality: LEFT Number of different views (projections): 3 M: XB_1 COMPARISON: Comparison is made to prior study dated 03 June 2022 RESULT: 3 views of the left second finger demonstrated persistent mild diffuse soft tissue swelling. There is a mild swan-neck configuration to the second finger. There is no acute osseous or articular process. Joint spaces are preserved and there are no erosive or bony destructive changes. IMPRESSION IMPRESSION: Mild diffuse soft tissue swelling. No acute osseous or articular process. Manager Event: RADHA Transcribe Date/Time: Aug 01 2022 1:34P Dictated by : ANGELA HUTCHINS MD This examination was interpreted and the report reviewed and electronically signed by: ANGELA HUTCHINS MD on Aug 01 2022 1:36PM EST [facility] XR Finger - left AP and Late ral and obliqueOrdered By: Ccf Provider on 08-01-2022 [facility] XR Finger - left AP and Late ral and obliqueon 07-31-2022 Radiology Study observation (narrative) [facility] XR DIGIT GENERAL 3V FRONTAL/ LAT/OBL LEFTon 06-03-2022 [facility] XR Finger - left AP and Late ral and obliqueon 06-03-2022 IMPRESSION: No radiographic evidence of acute osseous injury Manager Event: [facility] Transcribe Date/Time: Jun 03 2022 11:01A Dictated by : KARAN NEWBERRY MD This examination was interpreted and the report reviewed and electronically signed by: KARAN NEWBERRY MD on Jun 03 2022 11:06AM [facility] DIVISION OF RADIOLOGY * * *Final Report* * * DATE OF EXAM: Jun 03 2022 10:59AM WOX [id number] - XR DIGIT 3V FRONTAL/LAT/OBL LT / PROCEDURE REASON: Finger pain, left * * * * Physician Interpretation * * * * CLINICAL INDICATION: Pain TECHNIQUE: 3 view radiographic study of the left second finger COMPARISON: None FINDINGS: No acute fracture or dislocation identified. Joint spaces preserved. DIVISION OF RADIOLOGY Provider, [facility] Vishal Cortez - 06/03/2022 * * *Final Report* * * DATE OF EXAM: Jun 03 2022 10:59AM WOX [id number] - XR DIGIT 3V FRONTAL/LAT/OBL LT / PROCEDURE REASON: Finger pain, left * * * * Physician Interpretation * * * * CLINICAL INDICATION: Pain TECHNIQUE: 3 view radiographic study of the left second finger COMPARISON: None FINDINGS: No acute fracture or dislocation identified. Joint spaces preserved. IMPRESSION IMPRESSION: No radiographic evidence of acute osseous injury Manager Event: [facility] Transcribe Date/Time: Jun 03 2022 11:01A Dictated by : KARAN NEWBERRY MD This examination was interpreted and the report reviewed and electronically signed by: KARAN NEWBERRY MD on Jun 03 2022 11:06AM EST [facility] Radiology [facility]narrative[facility] Finger - left AP and Late ral and obliqueOrdered By: Ccf Provider on 06-03-2022 [facility] Basophil percentageon 2021 Basophil percentage >100 SEEN /hpf 0-5 [facility] Work Phone: Bilirubin Test strip Ql (U)o n 05-04-2022 Bilirubin Ql (U) 1 mg/dL Negative [facility] Work Phone: Comment on above: COLOR OF URINE MAY A FFECT DIPSTICK RESULTS. Ketones Test strip Ql (U)on 05-04-2022 Ketones Ql (U) 5 mg/dl Negative [facility] Work Phone: Mucus LM Ql (Urine sed)on Mucus Ql (Urine sed) 0 SEEN /hpf [facility] Work Phone: Nitrite Test strip Ql (U)on 05-04-2022 Nitrite Ql (U) Negative Negative [facility] Work Phone: Protein Test strip Ql (U)on 05-04-2022 Protein Ql (U) 30 mg/dl Negative [facility] Work Phone: Squamous epithelial cells de tection in urine sediment by light microscopyon 05-04-2022 Epithelial cells.squamous LM Ql (Urine sed) 0-5 SEEN /hpf 5-10 [facility] Work Phone: Urine blood detectionon 04-18 RBC Ql (U) 50 /ul Negative [facility] Work Phone: RBC Ql (U) 0 SEEN /hpf 0-5 [facility] Work Phone: Urine clarityon 05-04-2022 Clarity (U) Clear Clear [facility] Work Phone: Urine color determinationon 05-04-2022 Color (U) Yellow Yellow [facility] Work Phone: Urine glucose detectionon Glucose Ql (U) Normal mg/dl Normal [facility] Work Phone: Urine leukocyte esterase det ection by dipstickon 05-04-2022 Leukocyte esterase Test strip Ql (U) 500 /ul Negative [facility] Work Phone: Urine pHon 05-04-2022 pH (U) 6.0 [pH] 5.0 - 8.0 [facility] Work Phone: Urine sediment bacteria coun t by microscopy (number/high power field)on 05-04-2022 Bacteria LM.HPF (Urine sed) [#/Area] 1 /[HPF] None Seen [facility] Work Phone: Urine specific gravity measu rementon 05-04-2022 Specific gravity (U) [Rel density] 1.010 1.002-1.030 [facility] Work Phone: Urobilinogen Auto test strip Ql (U)on 05-04-2022 Urobilinogen Ql (U) 1 mg/dl Normal [facility] Work Phone: EMERGENCY REPORTon 9 EMERGENCY REPORT [facility] EMERGENCY ROOM REPORT NAME ACCOUNT SEX AGE ADMIT DISCHARGE PT MED. RECORD# NUMBER DATE DATE TYPE BLANCHE ROWLAND [id number] F 53 09/26/18 09/26/18 3 [id number] ROOM: ER DATE OF : 1965 DICTATING PHYSICIAN: Edilma Blevins HISTORY OF PRESENT ILLNESS: This is a 53-year-old female who presents with toe pain. She states that about 30 minutes prior to arrival she kicked her couch, resulting in pain to her second and third toes on her left foot. She states she was playing with her dog and accidentally missed the ball and kicked the couch. She denies any other injury. She denies numbness or weakness of the foot. She denies any open abrasions. The patient did not take any pain medication prior to arrival. PAST MEDICAL HISTORY: Asthma, GERD and migraines. PAST SURGICAL HISTORY: and hysterectomy. ALLERGIES: Sulfa, NSAIDs, penicillin and [place]. SOCIAL HISTORY: She denies smoking or alcohol use. She lives at home with her daughter. REVIEW OF SYSTEMS: Ten systems were reviewed and negative except as mentioned above. PHYSICAL EXAMINATION: Vital signs: Heart rate 100, blood pressure 153/95, oxygen saturation 95% on room air, and temperature 97.3. General: Well-appearing, in no acute distress, alert and oriented x3. Skin: Warm and dry. HEENT: Pupils are 4 mm and brisk. EOMI. Conjunctivae without erythema or injection. Moist mucous membranes. Neck: Supple. No lymphadenopathy. Trachea is midline. Heart: Regular rate and rhythm. No murmurs, gallops or rubs. Lungs: Clear to auscultation in all lung joaquin without wheezes, rales or rhonchi. Abdomen: Soft, nontender and nondistended. Neurologic: Strength is 5/5 in the upper and lower extremities bilaterally. She is able to move all toes. Sensation is intact in all toes and fingers. Musculoskeletal: There is erythema and ecchymosis to the volar aspect of the third left toe. There is no crepitus. Range of motion is limited due to pain but intact. No tenderness to palpation of the foot or ankle. Capillary refill is less than 3 seconds. Psychiatric: She acts appropriate with normal thought content. MEDICAL DECISION-MAKING/EMERGE NCY DEPARTMENT COURSE AND TREATMENT: This is a 53-year-old female who presents with left toe pain after an injury. She has normal vital signs. X-ray here is negative for fracture. The patient ambulates without difficulty. She is neurovascularly intact. She states she takes Page 1 of 2 BLANCHE ROWLAND Emergency Room Report ibuprofen at home, although she is allergic to NSAIDs, and I told her that she can take Tylenol at home. She is given symptomatic care instructions for home and told to follow up with primary care. She is discharged in stable condition. Dictated By: Edilma Blevins DO 09/27/18 09:09 JOB #: [id number] Transcribed By: osiel 09/27/18 13:49 Electronically signed by: E-Sign: Edilma Blevins D.O. 12/05/18 21:13 Page 2 of 2 BLANCHE ROWLAND Emergency Room Report Normal [facility] EMERGENCY REPORTon 9 EMERGENCY REPORT [facility] EMERGENCY ROOM REPORT NAME ACCOUNT SEX AGE ADMIT DISCHARGE PT MED. RECORD# NUMBER DATE DATE TYPE BLANCHE ROWLAND [id number] F 53 11/20/18 11/20/18 3 [id number] ROOM: ER DATE OF : 1965 DICTATING PHYSICIAN: William Lyles HISTORY OF PRESENT ILLNESS: The patient was walking today and she slipped. When she slipped she fell. When she fell she hit a mailbox with her left forearm. She did not fall on the ground. She caught herself when she hit the mailbox. She denies any neck pain or chest pain. No shortness of breath. She denies any nausea or vomiting. She presents to the emergency department. She states her pain is 9/10. It is sharp and stabbing pain. It is in the proximal mid forearm. She has no swelling or ecchymosis. It hurts whenever she puts it down. It is better when she elevates it. She presents to the emergency department. PAST MEDICAL HISTORY: She has a history of asthma. PAST SURGICAL HISTORY: Hysterectomy, . SOCIAL HISTORY: She does smoke. She was counseled to stop. Alcohol use denied. REVIEW OF SYSTEMS: Eight systems were reviewed and are negative except as mentioned above. PHYSICAL EXAMINATION: She is an awake, alert and oriented female in no acute distress. The patient is afebrile. Blood pressure 134/118, pulse 101, respirations 18, pulse oximetry 97% on room air. Head is normocephalic and atraumatic. Pupils are equally round and reactive to light. Extraocular muscles are intact. Nares are patent. Throat has adequate moisture. Uvula is midline. Neck is supple without petechial rash. Heart without murmur, S1, S2. No S3 or S4 appreciated. Lungs are clear to auscultation bilaterally. No rales, rhonchi or retractions. Abdomen is soft, nontender and nondistended. Skin is warm and dry. She has some generalized tenderness at the mid proximal forearm. I note no scaphoid tenderness. No obvious tenderness over the radial head. She is right hand dominant. This is on her left forearm. DIAGNOSTIC DATA: She had x-rays of her left forearm which are unremarkable for fracture. DIAGNOSIS: Acute left forearm contusion status post fall. PLAN/DISPOSITION: I did write her for Motrin and a sling and she will be discharged to home. Page 1 of 2 BLANCHE ROWLAND Emergency Room Report Dictated By: William Lyles DO 11/20/18 11:47 JOB #: [id number] Transcribed By: lavern 11/20/18 15:47 Electronically signed by: SANDEEP Lyles D.O. 11/24/18 15:39 Page 2 of 2 BLANCHE ROWLAND Emergency Room Report Normal [facility] FOREARM LTon 11-20-[address] [address] Patient: SEBASTIANLUISJose BLANCHE Saleem. Phone#: : 1965 Age: 53 Gender: F Pt. Type: ER Account: [id number] Location: 052 Ordering: WILLIAM LYLES Exam Date: 11/20/2018/9:29 Family Phys: WILLIAM GREENE Charge Code: [id number] Physician: Troup Order #: [id number] DLP Dose#: PROCEDURE: X-RAY FOREARM LT 2 VIEWS COMPARISON: None. INDICATIONS: Trauma, FINDINGS: BONES: Normal. No significant arthropathy or acute abnormality. Lucency in the lunate, and the absence of focal tenderness this is likely projectional. SOFT TISSUES: There is mild soft tissue swelling in the dorsal aspect of the forearm. No radiopaque foreign body. EFFUSION: None visible. OTHER: Negative. CONCLUSION: 1. Soft tissue swelling without acute osseous abnormality. Dictated by: Mai Bernstein MD on 11/21/2018 at 9:25 Approved by: Mai Bernstein MD on 11/21/2018 at 9:25 Normal [facility] FOOT COMPLETE LTon 8 FOOT COMPLETE [address] [address] Patient: BLANCHE ROWLAND Phone#: : 1965 Age: 53 Gender: F Pt. Type: ER Account: [id number] Location: 05 Ordering: DR. STAS MEDEL Exam Date: 09/26/2018/18:05 Family Phys: WILLIAM GREENE Charge Code: [id number] Physician: Troup Order #: [id number] DLP Dose#: PROCEDURE: X-RAY FOOT LT COMPLETE MIN 3 VIEWS COMPARISON: None. INDICATIONS: Trauma FINDINGS: BONES: A small calcaneal spur is present. SOFT TISSUES: Negative. No visible soft tissue swelling. EFFUSION: None visible. OTHER: Negative. CONCLUSION: No acute disease. Dictated by: Ibeth Cano MD on 09/26/2018 at 18:36 Approved by: Ibeth Cano MD on 09/26/2018 at 18:36 Normal [facility] Culture, urine Bacteria identified Cx Nom (U) Escherichia coli [facility] Work Phone: Small Joint Arthro/Inj: L th umb IP [facility] Vital Signs Date Time Vital Sign Value Performing Clinician Facility 03-02-2025 13:40-0400 Body mass index (BMI) [Ratio] 43.66 kg/m2 Radhabethany Soto SEARCH ENGINE OPTIMIZATION CONSULTANT.CONTRACTS INTERN Work Phone: [facility] 03-02-2025 13:40-0400 Body temperature 98.01 [degF] Radha Soto SEARCH ENGINE OPTIMIZATION CONSULTANT.CONTRACTS INTERN Work Phone: [facility] 03-02-2025 13:40-0400 Body weight 119 kg Radha Charles SEARCH ENGINE OPTIMIZATION CONSULTANT.CONTRACTS INTERN Work Phone: [facility] 03-02-2025 13:40-0400 Diastolic blood pressure 78 mm[Hg] Radhabethany Soto SEARCH ENGINE OPTIMIZATION CONSULTANT.CONTRACTS INTERN Work Phone: [facility] 03-02-2025 13:40-0400 Heart rate 82 /min Radhabethany Soto SEARCH ENGINE OPTIMIZATION CONSULTANT.CONTRACTS INTERN Work Phone: [facility] 03-02-2025 13:40-0400 Respiratory rate 16 /min Radha Soto SEARCH ENGINE OPTIMIZATION CONSULTANT.CONTRACTS INTERN Work Phone: [facility] 03-02-2025 13:40-0400 SaO2% (BldA) [Mass fraction] 97 % Radha Soto SEARCH ENGINE OPTIMIZATION CONSULTANT.CONTRACTS INTERN Work Phone: [facility] 03-02-2025 13:40-0400 Systolic blood pressure 116 mm[Hg] Radha Soto SEARCH ENGINE OPTIMIZATION CONSULTANT.CONTRACTS INTERN Work Phone: [facility] 02-07-2025 11:07-0400 Diastolic blood pressure 80 mm[Hg] Vidhi Haagen SEARCH ENGINE OPTIMIZATION CONSULTANT.MAJOR DONOR COORDINATOR Work Phone: [facility] 02-07-2025 11:07-0400 Systolic blood pressure 124 mm[Hg] Vidhi Haagen SEARCH ENGINE OPTIMIZATION CONSULTANT.MAJOR DONOR COORDINATOR Work Phone: [facility] 02-07-2025 10:31-0400 Body mass index (BMI) [Ratio] 44.1 kg/m2 Vidhi Haagen SEARCH ENGINE OPTIMIZATION CONSULTANT.MAJOR DONOR COORDINATOR Work Phone: [facility] 02-07-2025 10:31-0400 Body weight 120.2 kg Vidhi Haagen SEARCH ENGINE OPTIMIZATION CONSULTANT.MAJOR DONOR COORDINATOR Work Phone: [facility] 02-07-2025 10:31-0400 Heart rate 84 /min Vidhi Haagen SEARCH ENGINE OPTIMIZATION CONSULTANT.MAJOR DONOR COORDINATOR Work Phone: [facility] 02-07-2025 10:31-0400 Respiratory rate 16 /min Vidhi Haagen SEARCH ENGINE OPTIMIZATION CONSULTANT.MAJOR DONOR COORDINATOR Work Phone: [facility] 02-07-2025 10:31-0400 SaO2% (BldA) [Mass fraction] 92 % Vidhi Haagen SEARCH ENGINE OPTIMIZATION CONSULTANT.MAJOR DONOR COORDINATOR Work Phone: [facility] 08-03-2024 09:10-0400 Diastolic blood pressure 88 mm[Hg] Vidhi Haagen SEARCH ENGINE OPTIMIZATION CONSULTANT.MAJOR DONOR COORDINATOR Work Phone: [facility] 08-03-2024 09:10-0400 Heart rate 73 /min Vidhi Haagen SEARCH ENGINE OPTIMIZATION CONSULTANT.MAJOR DONOR COORDINATOR Work Phone: [facility] 08-03-2024 09:10-0400 Respiratory rate 16 /min Vidhi Haagen SEARCH ENGINE OPTIMIZATION CONSULTANT.MAJOR DONOR COORDINATOR Work Phone: [facility] 08-03-2024 09:10-0400 SaO2% (BldA) [Mass fraction] 93 % Vidhi Haagen SEARCH ENGINE OPTIMIZATION CONSULTANT.MAJOR DONOR COORDINATOR Work Phone: [facility] 08-03-2024 09:10-0400 Systolic blood pressure 130 mm[Hg] Vidhi Haagen SEARCH ENGINE OPTIMIZATION CONSULTANT.MAJOR DONOR COORDINATOR Work Phone: [facility] 07-06-2024 09:22-0400 Body mass index (BMI) [Ratio] 40.94 kg/m2 Vidhi Haagen SEARCH ENGINE OPTIMIZATION CONSULTANT.MAJOR DONOR COORDINATOR Work Phone: [facility] 07-06-2024 09:22-0400 Body weight 111.58 kg Vidhi Haagen SEARCH ENGINE OPTIMIZATION CONSULTANT.MAJOR DONOR COORDINATOR Work Phone: [facility] 07-06-2024 09:22-0400 Diastolic blood pressure 90 mm[Hg] Vidhi Haagen SEARCH ENGINE OPTIMIZATION CONSULTANT.MAJOR DONOR COORDINATOR Work Phone: [facility] 07-06-2024 09:22-0400 Heart rate 87 /min Vidhi Haagen SEARCH ENGINE OPTIMIZATION CONSULTANT.MAJOR DONOR COORDINATOR Work Phone: [facility] 07-06-2024 09:22-0400 Respiratory rate 16 /min Vidhi Haagen SEARCH ENGINE OPTIMIZATION CONSULTANT.MAJOR DONOR COORDINATOR Work Phone: [facility] 07-06-2024 09:22-0400 SaO2% (BldA) [Mass fraction] 95 % Vidhi Haagen SEARCH ENGINE OPTIMIZATION CONSULTANT.MAJOR DONOR COORDINATOR Work Phone: [facility] 07-06-2024 09:22-0400 Systolic blood pressure 142 mm[Hg] Vidhi Haagen SEARCH ENGINE OPTIMIZATION CONSULTANT.MAJOR DONOR COORDINATOR Work Phone: [facility] 04-06-2024 13:33-0400 Diastolic blood pressure 92 mm[Hg] Vidhi Haagen SEARCH ENGINE OPTIMIZATION CONSULTANT.MAJOR DONOR COORDINATOR Work Phone: [facility] 04-06-2024 13:33-0400 Heart rate 86 /min Vidhi Haagen SEARCH ENGINE OPTIMIZATION CONSULTANT.MAJOR DONOR COORDINATOR Work Phone: [facility] 04-06-2024 13:33-0400 Respiratory rate 16 /min Vidhi Haagen SEARCH ENGINE OPTIMIZATION CONSULTANT.MAJOR DONOR COORDINATOR Work Phone: [facility] 04-06-2024 13:33-0400 SaO2% (BldA) [Mass fraction] 97 % Vidhi Haagen SEARCH ENGINE OPTIMIZATION CONSULTANT.MAJOR DONOR COORDINATOR Work Phone: [facility] 04-06-2024 13:33-0400 Systolic blood pressure 138 mm[Hg] Vidhi Haagen SEARCH ENGINE OPTIMIZATION CONSULTANT.MAJOR DONOR COORDINATOR Work Phone: [facility] 03-08-2024 13:10-0400 Diastolic blood pressure 103 mm[Hg] Vidhi Haagen SEARCH ENGINE OPTIMIZATION CONSULTANT.MAJOR DONOR COORDINATOR Work Phone: [facility] Comment on above: ELIAS BP 03-08-2024 13:10-0400 Heart rate 84 /min Vidhi Haagen SEARCH ENGINE OPTIMIZATION CONSULTANT.MAJOR DONOR COORDINATOR Work Phone: [facility] 03-08-2024 13:10-0400 Systolic blood pressure 159 mm[Hg] Vidhi Haagen SEARCH ENGINE OPTIMIZATION CONSULTANT.MAJOR DONOR COORDINATOR Work Phone: [facility] Comment on above: ELIAS BP 03-08-2024 12:55-0400 Body mass index (BMI) [Ratio] 40.44 kg/m2 Vidhi Haagen SEARCH ENGINE OPTIMIZATION CONSULTANT.MAJOR DONOR COORDINATOR Work Phone: [facility] 03-08-2024 12:55-0400 Body weight 110.22 kg Vidhi Haagen SEARCH ENGINE OPTIMIZATION CONSULTANT.MAJOR DONOR COORDINATOR Work Phone: [facility] 03-08-2024 12:55-0400 Respiratory rate 16 /min Vidhi Haagen SEARCH ENGINE OPTIMIZATION CONSULTANT.MAJOR DONOR COORDINATOR Work Phone: [facility] 03-08-2024 12:55-0400 SaO2% (BldA) [Mass fraction] 96 % Vidhi Haagen SEARCH ENGINE OPTIMIZATION CONSULTANT.MAJOR DONOR COORDINATOR Work Phone: [facility] 02-08-2024 12:58-0400 Diastolic blood pressure 88 mm[Hg] Vidhi Haagen SEARCH ENGINE OPTIMIZATION CONSULTANT.MAJOR DONOR COORDINATOR Work Phone: [facility] 02-08-2024 12:58-0400 Heart rate 89 /min Vidhi Haagen SEARCH ENGINE OPTIMIZATION CONSULTANT.MAJOR DONOR COORDINATOR Work Phone: [facility] 02-08-2024 12:58-0400 Respiratory rate 16 /min Vidhi Haagen SEARCH ENGINE OPTIMIZATION CONSULTANT.MAJOR DONOR COORDINATOR Work Phone: [facility] 02-08-2024 12:58-0400 SaO2% (BldA) [Mass fraction] 94 % Vidhi Haagen SEARCH ENGINE OPTIMIZATION CONSULTANT.MAJOR DONOR COORDINATOR Work Phone: [facility] 02-08-2024 12:58-0400 Systolic blood pressure 142 mm[Hg] Vidhi Haagen SEARCH ENGINE OPTIMIZATION CONSULTANT.MAJOR DONOR COORDINATOR Work Phone: [facility] 01-11-2024 10:25-0400 Diastolic blood pressure 95 mm[Hg] Vidhi Haagen SEARCH ENGINE OPTIMIZATION CONSULTANT.MAJOR DONOR COORDINATOR Work Phone: [facility] 01-11-2024 10:25-0400 Heart rate 89 /min Vidhi Haagen SEARCH ENGINE OPTIMIZATION CONSULTANT.MAJOR DONOR COORDINATOR Work Phone: [facility] 01-11-2024 10:25-0400 Systolic blood pressure 142 mm[Hg] Vidhi Haagen SEARCH ENGINE OPTIMIZATION CONSULTANT.MAJOR DONOR COORDINATOR Work Phone: [facility] 01-11-2024 10:13-0400 Body weight 110.22 kg Vidhi Haagen SEARCH ENGINE OPTIMIZATION CONSULTANT.MAJOR DONOR COORDINATOR Work Phone: [facility] 01-11-2024 10:13-0400 Respiratory rate 16 /min Vidhi Haagen SEARCH ENGINE OPTIMIZATION CONSULTANT.MAJOR DONOR COORDINATOR Work Phone: [facility] 01-11-2024 10:13-0400 SaO2% (BldA) [Mass fraction] 95 % Vidhi Haagen SEARCH ENGINE OPTIMIZATION CONSULTANT.MAJOR DONOR COORDINATOR Work Phone: [facility] 11-01-2023 13:46-0500 SaO2% (BldA) [Mass fraction] 98 % Dr. Wililam Greene Work Phone: [facility] 11-01-2023 13:33-0500 Body height 165.[address] William Greene Work Phone: [facility] 11-01-2023 13:33-0500 Body temperature 96.4 [degF] Dr. William Greene Work Phone: 2(445)[phone] [place] [address] 11-01-2023 13:33-0500 Diastolic blood pressure 113 mm[Hg] Dr. William Greene Work Phone: 7(187)[phone] [place] [address] 11-01-2023 13:33-0500 Heart rate 95 /min Dr. Willima Greene Work Phone: 3(328)[phone] [place] [address] 11-01-2023 13:33-0500 Respiratory rate 18 /min Dr. William Greene Work Phone: 0(675)[phone] [place] [address] 11-01-2023 13:33-0500 Systolic blood pressure 164 mm[Hg] Dr. William Greene Work Phone: 7(484)[phone] [place] [address] 10-05-2023 13:36-0500 Body height 165.[address] William Greene Work Phone: 6(499)403-273183 [place] [address] 10-05-2023 13:36-0500 Body mass index (BMI) [Ratio] 38.9 kg/m2 Dr. William Greene Work Phone: 8(070)309-025083 [place] [address] 10-05-2023 13:36-0500 Body temperature 97 [degF] Dr. William Greene Work Phone: 9(766)[phone] [place] [address] 10-05-2023 13:36-0500 Body weight 106.[address] William Greene Work Phone: 6(949)092-898383 [place] [address] 10-05-2023 13:36-0500 Diastolic blood pressure 128 mm[Hg] Dr. William Greene Work Phone: 4(461)559-538783 [place] [address] 10-05-2023 13:36-0500 Heart rate 91 /min Dr. William Greene Work Phone: 1(095)013-128183 [place] [address] 10-05-2023 13:36-0500 Respiratory rate 18 /min Dr. William Greene Work Phone: 8(082)374-353683 [place] [address] 10-05-2023 13:36-0500 SaO2% (BldA) [Mass fraction] 97 % Dr. William Greene Work Phone: [facility] 10-05-2023 13:36-0500 Systolic blood pressure 173 mm[Hg] Dr. William Greene Work Phone: [facility] 08-11-2023 15:27-0400 Diastolic blood pressure 119 mm[Hg] [facility] 08-11-2023 15:27-0400 Heart rate 76 /min [facility] 08-11-2023 15:27-0400 Respiratory rate 18 /min [facility] 08-11-2023 15:27-0400 SaO2% (BldA) [Mass fraction] 94 % [facility] 08-11-2023 15:27-0400 Systolic blood pressure 162 mm[Hg] [facility] 08-11-2023 13:42-0400 Body height 165.1 cm [facility] 08-11-2023 13:42-0400 Body mass index (BMI) [Ratio] 40.1 kg/m2 [facility] 08-11-2023 13:42-0400 Body temperature 96 [degF] [facility] 08-11-2023 13:42-0400 Body weight 109.31 kg [facility] 05-22-2023 14:35-0400 Body temperature 97.9 [degF] Serge Kyle SEARCH ENGINE OPTIMIZATION CONSULTANT.MAJOR DONOR COORDINATOR Work Phone: [facility] 05-22-2023 14:35-0400 Body weight 114.4 kg Serge Kyle SEARCH ENGINE OPTIMIZATION CONSULTANT.MAJOR DONOR COORDINATOR Work Phone: [facility] 05-22-2023 14:35-0400 Diastolic blood pressure 88 mm[Hg] Serge Kyle SEARCH ENGINE OPTIMIZATION CONSULTANT.MAJOR DONOR COORDINATOR Work Phone: [facility] 05-22-2023 14:35-0400 Heart rate 82 /min Serge Kyle SEARCH ENGINE OPTIMIZATION CONSULTANT.MAJOR DONOR COORDINATOR Work Phone: [facility] 05-22-2023 14:35-0400 Respiratory rate 18 /min Serge Kyle SEARCH ENGINE OPTIMIZATION CONSULTANT.MAJOR DONOR COORDINATOR Work Phone: [facility] 05-22-2023 14:35-0400 SaO2% (BldA) [Mass fraction] 98 % Serge Wright NEHA.MAJOR DONOR COORDINATOR Work Phone: [facility] 05-22-2023 14:35-0400 Systolic blood pressure 152 mm[Hg] Serge Wright NEHA.MAJOR DONOR COORDINATOR Work Phone: [facility] 05-11-2023 13:27-0400 Body height 165.1 cm [facility] 05-11-2023 13:27-0400 Body mass index (BMI) [Ratio] 41.8 kg/m2 [facility] 05-11-2023 13:27-0400 Body temperature 95.6 [degF] [facility] 05-11-2023 13:27-0400 Body weight 114.21 kg [facility] 05-11-2023 13:27-0400 Heart rate 93 /min [facility] 05-11-2023 13:27-0400 Respiratory rate 18 /min [facility] 05-11-2023 13:27-0400 SaO2% (BldA) [Mass fraction] 99 % [facility] 05-11-2023 13:26-0400 Diastolic blood pressure 115 mm[Hg] [facility] 05-11-2023 13:26-0400 Systolic blood pressure 170 mm[Hg] [facility] 04-28-2023 11:46-0400 Body weight 115.21 kg NA Smith PA-C Work Phone: [facility] 04-28-2023 11:46-0400 Diastolic blood pressure 84 mm[Hg] NA Smith PA-C Work Phone: [facility] 04-28-2023 11:46-0400 Heart rate 85 /min NA Smith PA-C Work Phone: [facility] 04-28-2023 11:46-0400 Respiratory rate 16 /min NA Smith PA-C Work Phone: [facility] 04-28-2023 11:46-0400 SaO2% (BldA) [Mass fraction] 96 % NA Smith PA-C Work Phone: [facility] 04-28-2023 11:46-0400 Systolic blood pressure 126 mm[Hg] CARIDAD Smith PA-C Work Phone: [facility] 04-13-2023 12:28-0400 Body mass index (BMI) [Ratio] 40.8 kg/m2 [facility] 04-13-2023 12:28-0400 Body weight 111.2 kg [facility] 04-13-2023 11:53-0400 Body height 165.1 cm [facility] 04-13-2023 11:53-0400 Body temperature 96.5 [degF] [facility] 04-13-2023 11:53-0400 Diastolic blood pressure 140 mm[Hg] [facility] 04-13-2023 11:53-0400 Heart rate 103 /min [facility] 04-13-2023 11:53-0400 Respiratory rate 18 /min [facility] 04-13-2023 11:53-0400 SaO2% (BldA) [Mass fraction] 99 % [facility] 04-13-2023 11:53-0400 Systolic blood pressure 190 mm[Hg] [facility] 02-16-2023 13:48-0400 Diastolic blood pressure 95 mm[Hg] [facility] 02-16-2023 13:48-0400 Heart rate 90 /min [facility] 02-16-2023 13:48-0400 Respiratory rate 16 /min [facility] 02-16-2023 13:48-0400 SaO2% (BldA) [Mass fraction] 98 % [facility] 02-16-2023 13:48-0400 Systolic blood pressure 145 mm[Hg] [facility] 02-16-2023 12:12-0400 Body height 165.1 cm [facility] 02-16-2023 12:12-0400 Body mass index (BMI) [Ratio] 42.4 kg/m2 [facility] 02-16-2023 12:12-0400 Body temperature 96.8 [degF] [facility] 02-16-2023 12:12-0400 Body weight 115.66 kg [facility] 01-28-2023 18:33-0400 Body mass index (BMI) [Ratio] 42.4 kg/m2 [facility] 01-28-2023 18:33-0400 Body temperature 97.7 [degF] [facility] 01-28-2023 18:33-0400 Body weight 119.29 kg [facility] 01-28-2023 18:33-0400 Diastolic blood pressure 104 mm[Hg] [facility] 01-28-2023 18:33-0400 Heart rate 93 /min [facility] 01-28-2023 18:33-0400 Respiratory rate 18 /min [facility] 01-28-2023 18:33-0400 SaO2% (BldA) [Mass fraction] 99 % [facility] 01-28-2023 18:33-0400 Systolic blood pressure 172 mm[Hg] [facility] 12-17-2022 15:06-0500 Body temperature 98.01 [degF] Sherri Athy PA-C Work Phone: [facility] 12-17-2022 15:06-0500 Body weight 118.66 kg Sherri Athy PA-C Work Phone: [facility] 12-17-2022 15:06-0500 Diastolic blood pressure 78 mm[Hg] Sherri Athy PA-C Work Phone: [facility] 12-17-2022 15:06-0500 Heart rate 77 /min Sherri Athy PA-C Work Phone: [facility] 12-17-2022 15:06-0500 Respiratory rate 16 /min Sherri Athy PA-C Work Phone: [facility] 12-17-2022 15:06-0500 SaO2% (BldA) [Mass fraction] 97 % Sherri Athy PA-C Work Phone: [facility] 12-17-2022 15:06-0500 Systolic blood pressure 112 mm[Hg] Sherri Athy PA-C Work Phone: [facility] 12-04-2022 14:12-0500 Body temperature 98.01 [degF] Jesus Squirse MD Work Phone: [facility] 12-04-2022 14:12-0500 Body weight 118.39 kg Jesus Squires MD Work Phone: [facility] 12-04-2022 14:12-0500 Diastolic blood pressure 110 mm[Hg] Jesus Squires MD Work Phone: [facility] 12-04-2022 14:12-0500 Heart rate 105 /min Jesus Squires MD Work Phone: [facility] 12-04-2022 14:12-0500 Respiratory rate 21 /min Jesus Squires MD Work Phone: [facility] 12-04-2022 14:12-0500 SaO2% (BldA) [Mass fraction] 96 % Jesus Squires MD Work Phone: [facility] 12-04-2022 14:12-0500 Systolic blood pressure 172 mm[Hg] Jesus Squires MD Work Phone: [facility] 09-16-2022 18:39-0500 Diastolic blood pressure 76 mm[Hg] Vidhi Haagen SEARCH ENGINE OPTIMIZATION CONSULTANT.MAJOR DONOR COORDINATOR Work Phone: [facility] 09-16-2022 18:39-0500 Systolic blood pressure 118 mm[Hg] Vidhi Haagen SEARCH ENGINE OPTIMIZATION CONSULTANT.MAJOR DONOR COORDINATOR Work Phone: [facility] 09-16-2022 14:39-0500 Body height 165.1 cm Vidhi Haagen SEARCH ENGINE OPTIMIZATION CONSULTANT.MAJOR DONOR COORDINATOR Work Phone: [facility] 09-16-2022 14:39-0500 Body weight 119.3 kg Vidhi Haagen SEARCH ENGINE OPTIMIZATION CONSULTANT.MAJOR DONOR COORDINATOR Work Phone: [facility] 09-16-2022 14:39-0500 Heart rate 88 /min Vidhi Haagen SEARCH ENGINE OPTIMIZATION CONSULTANT.MAJOR DONOR COORDINATOR Work Phone: [facility] 09-16-2022 14:39-0500 Respiratory rate 18 /min Vidhi Haagen SEARCH ENGINE OPTIMIZATION CONSULTANT.MAJOR DONOR COORDINATOR Work Phone: [facility] 09-16-2022 14:39-0500 SaO2% (BldA) [Mass fraction] 96 % Vidhi Bowers SEARCH ENGINE OPTIMIZATION CONSULTANT.MAJOR DONOR COORDINATOR Work Phone: [facility] 06-03-2022 10:27-0400 Body temperature 97.9 [degF] Carolina Callaway SEARCH ENGINE OPTIMIZATION CONSULTANT.MAJOR DONOR COORDINATOR Work Phone: [facility] 06-03-2022 10:27-0400 Body weight 115.3 kg Carolina Callaway SEARCH ENGINE OPTIMIZATION CONSULTANT.MAJOR DONOR COORDINATOR Work Phone: [facility] 06-03-2022 10:27-0400 Diastolic blood pressure 76 mm[Hg] Carolina Callaway SEARCH ENGINE OPTIMIZATION CONSULTANT.MAJOR DONOR COORDINATOR Work Phone: [facility] 06-03-2022 10:27-0400 Heart rate 88 /min Carolina Callaway SEARCH ENGINE OPTIMIZATION CONSULTANT.MAJOR DONOR COORDINATOR Work Phone: [facility] 06-03-2022 10:27-0400 Respiratory rate 18 /min Carolina Callaway SEARCH ENGINE OPTIMIZATION CONSULTANT.MAJOR DONOR COORDINATOR Work Phone: [facility] 06-03-2022 10:27-0400 SaO2% (BldA) [Mass fraction] 97 % Carolina Callaway SEARCH ENGINE OPTIMIZATION CONSULTANT.MAJOR DONOR COORDINATOR Work Phone: [facility] 06-03-2022 10:27-0400 Systolic blood pressure 118 mm[Hg] Carolina Callaway SEARCH ENGINE OPTIMIZATION CONSULTANT.MAJOR DONOR COORDINATOR Work Phone: [facility] 06-02-2022 18:55-0400 Body height 165.1 cm [facility] Work Phone: 06-02-2022 18:55-0400 Body mass index (BMI) [Ratio] 39.1 kg/m2 [facility] Work Phone: 06-02-2022 18:55-0400 Body temperature 98 [degF] [facility] Work Phone: 06-02-2022 18:55-0400 Body weight 106.59 kg [facility] Work Phone: 06-02-2022 18:55-0400 Diastolic blood pressure 109 mm[Hg] [facility] Work Phone: 06-02-2022 18:55-0400 Heart rate 96 /min [facility] Work Phone: 06-02-2022 18:55-0400 Respiratory rate 16 /min [facility] Work Phone: 06-02-2022 18:55-0400 SaO2% (BldA) [Mass fraction] 98 % [facility] Work Phone: 06-02-2022 18:55-0400 Systolic blood pressure 165 mm[Hg] [facility] Work Phone: 05-04-2022 14:59-0400 Body mass index (BMI) [Ratio] 39.1 kg/m2 [facility] Work Phone: 05-04-2022 14:59-0400 Body temperature 98 [degF] [facility] Work Phone: 05-04-2022 14:59-0400 Body weight 106.59 kg [facility] Work Phone: 05-04-2022 14:59-0400 Diastolic blood pressure 110 mm[Hg] [facility] Work Phone: 05-04-2022 14:59-0400 Heart rate 99 /min [facility] Work Phone: 05-04-2022 14:59-0400 Respiratory rate 16 /min [facility] Work Phone: 05-04-2022 14:59-0400 SaO2% (BldA) [Mass fraction] 96 % [facility] Work Phone: 05-04-2022 14:59-0400 Systolic blood pressure 141 mm[Hg] [facility] Work Phone: 01-15-2022 19:14-0400 Body height 165.1 cm [facility] Work Phone: 01-15-2022 19:14-0400 Body mass index (BMI) [Ratio] 39.9 kg/m2 [facility] Work Phone: 01-15-2022 19:14-0400 Body temperature 98.1 [degF] [facility] Work Phone: 01-15-2022 19:14-0400 Body weight 108.86 kg [facility] Work Phone: 01-15-2022 19:14-0400 Diastolic blood pressure 113 mm[Hg] [facility] Work Phone: 01-15-2022 19:14-0400 Heart rate 90 /min [facility] Work Phone: 01-15-2022 19:14-0400 Respiratory rate 18 /min [facility] Work Phone: 01-15-2022 19:14-0400 SaO2% (BldA) [Mass fraction] 96 % [facility] Work Phone: 01-15-2022 19:14-0400 Systolic blood pressure 161 mm[Hg] [facility] Work Phone: Encounters Encounter Date Encounter Type Care Provider Facility Start: 05-18-2025 End: 05-19-2025 Refill William Greene MD Work Phone: [facility] [place] Comment on above: Refill Request Start: 03-02-2025 End: 03-02-2025 Office outpatient visit 15 minutes Radha Soto APRN.CONTRACTS INTERN Work Phone: [facility] [place] Comment on above: Sinobronchitis (Prim jamel Dx); Former smoker Start: 03-02-2025 End: 03-02-2025 ambulatory William Greene MD Work Phone: [facility] [place] Comment on above: Cough Start: 02-07-2025 End: 02-07-2025 ambulatory VIDHI BOWERS Facility:[facility] Start: 02-07-2025 End: 02-07-2025 Office outpatient visit 25 minutes Vidhi Bowers APRN.MAJOR DONOR COORDINATOR Work Phone: [facility] [place] Comment on above: Iron deficiency anem ia, unspecified iron deficiency anemia type (Primary Dx); Primary hypertension; Controlled type 2 diabetes mellitus without complication, without long-term current use of insulin (HCC); Gastroesophageal reflux disease with esophagitis without hemorrhage; Irritability Start: 02-07-2025 End: 02-07-2025 ambulatory [facility] Facility:[facility] Start: 11-09-2024 ambulatory [facility] Facility:[facility] Start: 09-21-2024 End: 09-26-2024 ambulatory William Greene MD Work Phone: Internal Medicine [place] [phone] Start: 08-03-2024 End: 08-03-2024 Office outpatient visit 25 minutes Vidhi Bowers SEARCH ENGINE OPTIMIZATION CONSULTANT.MAJOR DONOR COORDINATOR Work Phone: [facility] [place] Comment on above: Primary hypertension (Primary Dx); Environmental allergies; Controlled type 2 diabetes mellitus without complication, without long-term current use of insulin (HCC) Start: 08-03-2024 End: 08-03-2024 ambulatory [facility] Facility:[facility] Start: 07-14-2024 End: 07-14-2024 Refill William Greene MD Work Phone: [facility] [place] Comment on above: Refill Request Start: 07-06-2024 End: 07-06-2024 Office outpatient visit 25 minutes Vidhi Bowers SEARCH ENGINE OPTIMIZATION CONSULTANT.MAJOR DONOR COORDINATOR Work Phone: [facility] [place] Comment on above: Controlled type 2 di abetes mellitus without complication, without long-term current use of insulin (HCC) (Primary Dx); Encounter for immunization; Primary hypertension Start: 07-06-2024 End: 07-06-2024 ambulatory [facility] Facility:[facility] Start: 05-13-2024 Refill William Greene MD Work Phone: [facility] [place] Comment on above: Refill Request Start: 05-03-2024 [facility] Facility:[facility] Start: 04-20-2024 Refill William Greene MD Work Phone: Family [place] Comment on above: Refill Request Start: 04-06-2024 End: 04-06-2024 Office outpatient visit 25 minutes Vidhi Bowers SEARCH ENGINE OPTIMIZATION CONSULTANT.MAJOR DONOR COORDINATOR Work Phone: [facility] [place] Comment on above: Mood swings (Primary Dx); Primary hypertension; Controlled type 2 diabetes mellitus without complication, without long-term current use of insulin ([facility]) Start: 04-06-2024 End: 04-06-2024 ambulatory [facility] Facility:[facility] Start: 04-05-2024 End: 04-05-2024 ambulatory [facility] Start: 04-01-2024 End: 04-01-2024 Emergency department patient visit [facility] Facility:[facility] Start: 03-15-2024 Telephone encounter Vidhi leroy APRN.MAJOR DONOR COORDINATOR Work Phone: [facility] [place] Comment on above: Medication Problem Start: 03-08-2024 End: 03-08-2024 [facility] Facility:[facility] Start: 03-08-2024 End: 03-08-2024 Office outpatient visit 25 minutes Vidhi Bowers SEARCH ENGINE OPTIMIZATION CONSULTANT.MAJOR DONOR COORDINATOR Work Phone: [facility] [place] Comment on above: Primary hypertension (Primary Dx); Mood swings Start: 03-04-2024 End: 03-04-2024 ambulatory [facility] Facility:[facility] Start: 02-19-2024 Telephone encounter Vidhi leroy APRN.MAJOR DONOR COORDINATOR Work Phone: [facility] [place] Comment on above: Results Start: 02-19-2024 End: 02-19-2024 Subsequent hospital visit by physician [facility] Work Phone: Radiology Comment on above: Elevated alkaline ph osphatase level [R74.8] Start: 02-08-2024 End: 02-08-2024 Office outpatient visit 25 minutes Vidhi Bowers SEARCH ENGINE OPTIMIZATION CONSULTANT.MAJOR DONOR COORDINATOR Work Phone: [facility] Medicine [place] Comment on above: Primary hypertension (Primary Dx); Open wound of skin Start: 01-23-2024 Refill William Greene MD Work Phone: [facility] Comment on above: Refill Request Start: 01-14-2024 Telephone encounter Vidhi Yip rad SOLOMON.MAJOR DONOR COORDINATOR Work Phone: [facility] Comment on above: Results Start: 01-11-2024 End: 01-11-2024 Office outpatient visit 25 minutes Vidhi Robinson SOLOMON.MAJOR DONOR COORDINATOR Work Phone: [facility] Comment on above: Controlled type 2 di abetes mellitus without complication, without long-term current use of insulin (HCC) (Primary Dx); Elevated liver enzymes; Iron deficiency anemia, unspecified iron deficiency anemia type; Gastroesophageal reflux disease with esophagitis without hemorrhage; Primary hypertension; Screening for colorectal cancer; Urge incontinence; OAB (overactive bladder) Start: 01-07-2024 Telephone encounter William Greene MD Work Phone: [facility] Comment on above: certificate of medic al necessity Start: 11-25-2023 Refill William Greene MD Work Phone: [facility] Comment on above: Refill Request Start: 11-23-2023 Refill William Greene MD Work Phone: [facility] Comment on above: Refill Request Start: 11-13-2023 End: 11-13-2023 Emergency department patient visit Florinda Rea Facility:[facility] Start: 11-01-2023 End: 11-01-2023 Emergency department patient visit Dr. William Greene Work Phone: [facility] Work Phone: Start: 10-05-2023 End: 10-05-2023 Emergency department patient visit Dr. William Greene Work Phone: [facility] Work Phone: Start: 09-23-2023 ambulatory William Greene MD Work Phone: [facility] [place] Start: 09-21-2023 [facility] Comment on above: Refill Request Start: 08-26-2023 Refill William Greene MD Work Phone: [facility] Comment on above: Refill Request Start: 08-11-2023 Non-patient / Non-visit Dr. Danyelle Greene Work Phone: [facility] Start: 08-11-2023 End: 08-11-2023 [facility]: Start: 07-07-2023 Refill William Greene MD Work Phone: [facility] Comment on above: Refill Request Start: 06-25-2023 Telephone encounter Tod camarena MD Work Phone: Orthopaedics Comment on above: Appointment Start: 06-16-2023 Telephone encounter Tod camarena MD Work Phone: Orthopaedics Comment on above: Schedule Surgery Start: 06-15-2023 End: 06-15-2023 Patient encounter procedure Anupama Ugalde PA-C Work Phone: Orthopaedics Comment on above: Digital mucinous cys t of finger of left hand (Primary Dx); Pain of left thumb Start: 05-28-2023 Refill William Greene MD Work Phone: [facility] Comment on above: Refill Request Start: 05-22-2023 End: 05-22-2023 Patient encounter procedure Serge Wright APRN.CNP Work Phone: [facility] Comment on above: Mastoid pain, right (Primary Dx) Start: 05-18-2023 End: 05-18-2023 Patient encounter procedure Anupama Vetovitz PA-C Work Phone: Orthopaedics Comment on above: Digital mucinous cys t of finger of left hand (Primary Dx); Pain of left thumb Start: 05-11-2023 End: 05-11-2023 [facility] Work Phone: Start: 04-28-2023 End: 04-28-2023 Patient encounter procedure Parth Smith PA-C Work Phone: [facility] [place] Comment on above: Pain of left thumb ( Primary Dx); Controlled type 2 diabetes mellitus without complication, without long-term current use of insulin (HCC); Elevated liver enzymes; Gastroesophageal reflux disease with esophagitis without hemorrhage; Iron deficiency anemia, unspecified iron deficiency anemia type; Screening for lipid disorders; Screening for colorectal cancer Refill Request Start: 04-28-2023 End: 04-28-2023 Subsequent hospital visit by physician [facility] Work Phone: Radiology Comment on above: Pain of left thumb [ M79.645] Start: 04-13-2023 End: 04-13-2023 [facility] Start: 03-11-2023 End: 03-11-2023 Emergency department patient visit NAVIN REY MD Facility:[facility] Start: 02-16-2023 ambulatory William Greene MD Work Phone: [facility] Comment on above: urinary symptoms Start: 02-16-2023 End: 02-16-2023 Emergency department patient visit [facility] Start: 01-28-2023 End: 01-28-2023 [facility] Start: 01-22-2023 Refill William Greene MD Work Phone: [facility] Comment on above: Refill Request Start: 12-24-2022 Refill William Greene MD Work Phone: [facility] Comment on above: Refill Request Start: 12-23-2022 End: 12-23-2022 Emergency department patient visit DR BOSTON CUNHA MD Facility:[facility] Start: 12-17-2022 End: 12-17-2022 Patient encounter procedure Sherri Acosta PA-C Work Phone: [facility] Comment on above: Laryngitis (Primary Dx) Start: 12-09-2022 Telephone encounter William Greene MD Work Phone: [facility] Comment on above: Patient Update; Requ esting Advise Start: 12-04-2022 End: 12-04-2022 Patient encounter procedure Jesus Squires MD Work Phone: [facility] Comment on above: Acute non-recurrent sinusitis, unspecified location (Primary Dx); Acute cough Start: 12-03-2022 Telephone encounter William Greene MD Work Phone: [facility] Comment on above: Forms Start: 10-22-2022 ambulatory William Greene MD Work Phone: Internal [facility] Start: 09-16-2022 End: 09-16-2022 Patient encounter procedure Vidhi Bowers APRN.MAJOR DONOR COORDINATOR Work Phone: [facility] Comment on above: Routine physical exa mination (Primary Dx); Controlled type 2 diabetes mellitus without complication, without long-term current use of insulin (HCC); Gastroesophageal reflux disease with esophagitis without hemorrhage; Restless legs; Asthma, unspecified asthma severity, unspecified whether complicated, unspecified whether persistent; Encounter for immunization; Infrequent urination Start: 09-16-2022 End: 09-16-2022 Physical examination Vidhi Bowers APRN.MAJOR DONOR COORDINATOR Work Phone: [facility] Start: 09-08-2022 Refill William Greene MD Work Phone: [facility] Comment on above: Refill Request Start: 08-05-2022 Refill William Greene MD Work Phone: [facility] Comment on above: Refill Request Start: 08-01-2022 Telephone encounter William Greene MD Work Phone: [facility] Comment on above: Results Start: 07-31-2022 End: 07-31-2022 Subsequent hospital visit by physician [facility] Work Phone: Radiology Comment on above: Finger pain, left [M [id number]] Start: 06-11-2022 ambulatory William Greene MD Work Phone: [facility] Comment on above: Finger Injury Start: 06-03-2022 End: 06-03-2022 Subsequent hospital visit by physician [facility] Work Phone: Radiology Comment on above: Finger pain, left [M [id number]] Start: 06-03-2022 End: 06-03-2022 Patient encounter procedure Carolina Callaway SEARCH ENGINE OPTIMIZATION CONSULTANT.MAJOR DONOR COORDINATOR Work Phone: [facility] Comment on above: Finger pain, left (P rimary Dx) Start: 06-02-2022 End: 06-02-2022 Emergency department patient visit [facility] Start: 05-04-2022 End: 05-04-2022 Emergency department patient visit [facility] Start: 01-15-2022 End: 01-15-2022 Emergency department patient visit [facility] Start: 11-20-2018 End: 11-20-2018 Emergency department patient visit WILLIAM LYLES [facility] Start: 09-26-2018 End: 09-26-2018 Emergency department patient visit STAS Alba GRAY [facility] Start: 01-14-2010 End: 07-16-2012 Patient encounter status Vidhi Bowers APRN.MAJOR DONOR COORDINATOR Work Phone: [facility] Procedures Date Procedure Procedure Detail Performing Clinician Start: 07-06-2024 Hemoglobin A1c/Hemoglobin.total in Blood Vidhi Bowers APRN.CNP Work Phone: Start: 02-19-2024 Us abdominal real ti me w/image limited Vidhi Bowers APRN.CNP Work Phone: Start: 11-01-2023 Plain x-ray of pelvi s and lower extremity Dr. William Greene Work Phone: Start: 08-11-2023 Radiologic examinati on of knee Start: 05-18-2023 Arthrocentesis aspir &/inj small jt/bursa w/o us Anupama Ugalde PA-C Work Phone: Start: 05-11-2023 Diagnostic radiograp hy of finger Start: 04-28-2023 Radex fingr minimum 2 views M Reji Smith PA-C Work Phone: Start: 09-16-2022 INFLUENZA VACCINE QUADRIVALENT 6 MO - 64 YRS IM Vidhi Haagen SEARCH ENGINE OPTIMIZATION CONSULTANT.MAJOR DONOR COORDINATOR Work Phone: Start: 07-31-2022 Radex fingr minimum 2 views Parth Smith PA-C Work Phone: Start: 06-03-2022 Radex fingr minimum 2 views Carolina Callaway SEARCH ENGINE OPTIMIZATION CONSULTANT.MAJOR DONOR COORDINATOR Work Phone: Start: 06-02-2022 Plain x-ray of hand Start: 01-15-2022 X-ray of both feet Start: 09-17-2021 Mammography Carolina mo SEARCH ENGINE OPTIMIZATION CONSULTANT.MAJOR DONOR COORDINATOR Work Phone: Start: 08-08-2019 Adult depression scr eening assessment Carolina Callaway SEARCH ENGINE OPTIMIZATION CONSULTANT.MAJOR DONOR COORDINATOR Work Phone: Urine culture Plan of Treatment Date Care Activity Detail Author Start: 03-22-2027 Urine microalbumin profile [facility] Start: 03-02-2026 Annual PCP Team Gin Pole Operator stan Disease Visit Annual PCP Team Chronic Disease Visit [facility] Start: 03-02-2026 BP Controlled (<130/80) BP Controlle d (<130/80) [facility] Start: 02-16-2026 Glaucoma screening Dilated Retinal E xam [facility] Start: 02-07-2026 Annual PCP Team Gin Pole Operator stan Disease Visit Annual PCP Team Chronic Disease Visit [facility] Start: 02-07-2026 Covid-19 Vaccine ( season) Covid-19 Vaccine ( season) [facility] Comment on above: Postponed from 06/19 (Declined at this time) Start: 02-07-2026 Hepatitis B screening Urine Al bumin:Creatinine Ratio [facility] Start: 02-07-2026 Hepatitis B surface antibody level LDL Cholesterol [facility] Start: 02-07-2026 Hepatitis B Vaccine (1 of 3 - 19+ 3-dose series) Hepatitis B Vaccine (1 of 3 - 19+ 3-dose series) [facility] Comment on above: Postponed from 08/17 (Declined at this time) Start: 02-07-2026 HIV screening HIV Screening [facility] Comment on above: Postponed from 08/17 (Declined at this time) Start: 02-07-2026 Shingrix Vaccine (1 of 2) Shingrix Vaccine (1 of 2) [facility] Comment on above: Postponed from 08/17 (Declined at this time) Start: 08-09-2025 Hemoglobin A1c measurement HbA1C [facility] Start: 08-03-2025 Annual PCP Team Gin Pole Operator stan Disease Visit Annual PCP Team Chronic Disease Visit [facility] Start: 07-06-2025 Annual PCP Team Gin Pole Operator stan Disease Visit Annual PCP Team Chronic Disease Visit [facility] Start: 06-19-2025 Influenza vaccination Influenza Vacc ine (#1) [facility] Start: 04-06-2025 Annual PCP Team Gin Pole Operator stan Disease Visit Annual PCP Team Chronic Disease Visit [facility] Start: 03-08-2025 Annual PCP Team Gin Pole Operator stan Disease Visit Annual PCP Team Chronic Disease Visit [facility] Start: 03-07-2025 End: 03-07-2025 Patient encounter procedure 03/07/2025 10:20 AM EDT Office Visit Family Velia Herrera [address] [place], [place] [id number] Vidhi Bowers, NEHA.MAJOR DONOR COORDINATOR [address] [place], [place] [id number] 1 month follow up Family Velia Herrera Comment on above: 1 month follow up Start: 02-18-2025 Glaucoma screening Dilated Retinal E xam [facility] Start: 02-07-2025 Annual PCP Team Gin Pole Operator stan Disease Visit Annual PCP Team Chronic Disease Visit [facility] Start: 02-01-2025 End: 02-01-2025 Patient encounter procedure Family Velia Herrera Comment on above: 6 month follow up Start: 01-12-2025 Hepatitis B screening Urine Al bumin:Creatinine Ratio [facility] Start: 01-10-2025 Annual PCP Team Gin Pole Operator stan Disease Visit Annual PCP Team Chronic Disease Visit [facility] Start: 01-10-2025 Covid-19 Vaccine ( season) Covid-19 Vaccine ( season) [facility] Comment on above: Postponed from 06/19 (Declined at this time) Start: 01-10-2025 Hepatitis B surface antibody level LDL Cholesterol [facility] Start: 01-10-2025 Hepatitis B Vaccine (1 of - + 3-dose series) Hepatitis B Vaccine (1 of 3 - 19+ 3-dose series) [facility] Comment on above: Postponed from 08/17 (Declined at this time) Start: 01-10-2025 HIV screening HIV Screening [facility] Comment on above: Postponed from 08/17 (Declined at this time) Start: 01-10-2025 Shingrix Vaccine (1 of 2) Shingrix Vaccine (1 of 2) [facility] Comment on above: Postponed from 08/17 (Declined at this time) Start: 01-10-2025 Spirometry Spirometry [facility] Comment on above: Postponed from 08/17 (Declined at this time) Start: 01-03-2025 Hemoglobin A1c measurement HbA1C [facility] Start: 10-18-2024 Behavioral Health Screening Behavioral Health Screening [facility] Comment on above: Postponed from 10/19 (Declined at this time) Start: 10-18-2024 Depression Assessment Depression Ass essment [facility] Comment on above: Postponed from 10/19 (Declined at this time) Start: 08-03-2024 End: 08-03-2024 Patient encounter procedure [facility] Comment on above: 3 month follow up (c heck A1C) 3 month follow up Start: 07-13-2024 Hemoglobin A1c measurement HbA1C [facility] Start: 07-06-2024 End: 07-06-2024 Patient encounter procedure 07/06/2024 1:40 PM EDT Office Visit [facility] Velia Herrera [address] [place], [place] [id number] Vidhi Bowers, NEHA.MAJOR DONOR COORDINATOR [address] [place] [address] 3 month follow up (check A1C) Family [facility] Comment on above: 3 month follow up (c heck A1C) Start: 06-19-2024 Covid-19 Vaccine ( season) Covid-19 Vaccine ( season) [facility] Start: 06-19-2024 Covid-19 Vaccine ( season) Covid-19 Vaccine ( season) [facility] Start: 06-19-2024 Influenza vaccination [facility] Start: 05-13-2024 ANNUAL PCP TEAM LOCOMOTIVE CRANE OPERATOR HELPER STAN DISEASE VISIT ANNUAL PCP TEAM CHRONIC DISEASE VISIT [facility] Start: 04-28-2024 3 comp foot exam completed DIABETIC FOOT EXAM [facility] Start: 04-28-2024 ANNUAL PCP TEAM LOCOMOTIVE CRANE OPERATOR HELPER STAN DISEASE VISIT ANNUAL PCP TEAM CHRONIC DISEASE VISIT [facility] Start: 04-28-2024 Diabetic foot examination Diabetic Foot Exam [facility] Start: 04-28-2024 Hepatitis B surface antibody level LDL CHOLESTEROL [facility] Start: 04-17-2024 Influenza vaccination Influenza Vacc ine (#1) [facility] Comment on above: Postponed from 06/19 (Declined at this time) Start: 04-05-2024 End: 04-05-2024 Patient encounter procedure 04/05/2024 1:00 PM EDT Office Visit Family Velia Herrera [address] [place] [address] Vidhi Bowers, SEARCH ENGINE OPTIMIZATION CONSULTANT.MAJOR DONOR COORDINATOR [address] [facility] [place] [address] 1 month follow up Family Velia Herrera Comment on above: 1 month follow up Start: 03-08-2024 End: 03-08-2024 Patient encounter procedure 03/08/2024 1:00 PM EDT Office Visit Family Velia Herrera [address] [facility] [place] [place] [address] Vidhi Bowers, SEARCH ENGINE OPTIMIZATION CONSULTANT.MAJOR DONOR COORDINATOR [address] [facility] [place] [place] [address] 1 month follow up Family Velia Herrera Comment on above: 1 month follow up Start: 02-19-2024 End: 05-20-2024 ALK PHOS ISOENZYM BL ALK PHOS ISOENZYM BL Lab Routine Elevated alkaline phosphatase level Expected: 02/19/2024, Expires: 05/20/2024 [facility] Work Phone: Comment on above: Expected: 02/19/2024 , Expires: 05/20/2024 Start: 02-19-2024 End: 05-20-2024 Hepatic function 2000 panel - Serum or Plasma HEPATIC FUNCTION PNL Lab Routine Elevated alkaline phosphatase level Expected: 02/19/2024, Expires: 05/20/2024 [facility] Comment on above: Expected: 02/19/2024 , Expires: 05/20/2024 Start: 02-19-2024 End: 02-19-2024 Patient encounter procedure 02/19/2024 9:45 AM EDT Appointment Radiology [address] [place] [address] Elevated alkaline phosphatase level [R74.8] Radiology Comment on above: Elevated alkaline ph osphatase level [R74.8] Start: 01-11-2024 End: 04-11-2024 ALBUMIN/CREAT RATIO RND UR ALBUMIN/CREAT RATIO RND UR Lab Routine Controlled type 2 diabetes mellitus without complication, without long-term current use of insulin (HCC) Expected: 01/11/2024, Expires: 04/11/2024 [facility] Work Phone: Comment on above: Expected: 01/11/2024 , Expires: 04/11/2024 Start: 11-01-2023 [facility] Start: 10-29-2023 Hemoglobin A1c measurement HbA1C [facility] Start: 10-29-2023 Hemoglobin A1c/Hemoglobin.total in Blood HBA1C [facility] Start: 10-19-2023 Depression Assessment Depression Ass essment [facility] Start: 10-05-2023 [facility] Start: 09-16-2023 ANNUAL PCP TEAM LOCOMOTIVE CRANE OPERATOR HELPER STAN DISEASE VISIT ANNUAL PCP TEAM CHRONIC DISEASE VISIT [facility] Start: 09-16-2023 COVID-19 VACCINE (#1) COVID-19 VACCI NE (#1) [facility] Comment on above: Postponed from 02/15 (Declined at this time) Start: 09-16-2023 HEPATITIS B (1 of 3 - 3-dose series) HEPATITIS B (1 of 3 - 3-dose series) [facility] Comment on above: Postponed from 08/17 (Declined at this time) Start: 09-16-2023 Hepatitis B Vaccine (1 of 3 - 3-dose series) Hepatitis B Vaccine (1 of 3 - 3-dose series) [facility] Comment on above: Postponed from 08/17 (Declined at this time) Start: 09-16-2023 HIV SCREENING HIV SCREENING [facility] Comment on above: Postponed from 08/17 (Declined at this time) Start: 09-10-2023 Hepatitis B screening URINE AL BUMIN:CREATININE RATIO [facility] Start: 09-10-2023 Hepatitis B surface antibody level LDL CHOLESTEROL [facility] Start: 08-11-2023 [facility] Start: 07-31-2023 ANNUAL PCP TEAM LOCOMOTIVE CRANE OPERATOR HELPER STAN DISEASE VISIT ANNUAL PCP TEAM CHRONIC DISEASE VISIT [facility] Start: 06-19-2023 Influenza vaccination C [facility] Start: 04-28-2023 End: 06-28-2023 ALBUMIN/CREAT RATIO RND UR ALBUMIN/CREAT RATIO RND UR Lab Routine Controlled type 2 diabetes mellitus without complication, without long-term current use of insulin (HCC) Expected: 04/28/2023, Expires: 06/28/2023 [facility] Work Phone: Comment on above: Expected: 04/28/2023 , Expires: 06/28/2023 Start: 04-28-2023 End: 06-28-2023 Comprehensive metabolic 2000 panel - Serum or Plasma [facility] Work Phone: Comment on above: Expected: 04/28/2023 , Expires: 06/28/2023 Start: 04-28-2023 End: 06-28-2023 Iron and Iron binding capacity panel - Serum or Plasma [facility] Work Phone: Comment on above: Expected: 04/28/2023 , Expires: 06/28/2023 Start: 04-28-2023 End: 06-28-2023 Lipid 1996 panel - Serum or Plasma [facility] Work Phone: Comment on above: Expected: 04/28/2023 , Expires: 06/28/2023 Start: 04-28-2023 End: 06-28-2023 Magnesium [Mass/volume] in Serum or Plasma MAGNESIUM BLD Lab Routine Gastroesophageal reflux disease with esophagitis without hemorrhage Expected: 04/28/2023, Expires: 06/28/2023 [facility] Work Phone: Comment on above: Expected: 04/28/2023 , Expires: 06/28/2023 Start: 03-10-2023 Hemoglobin A1c/Hemoglobin.total in Blood HBA1C [facility] Start: 12-04-2022 End: 12-18-2022 SARS-CoV-2 (COVID-19) RNA [Presence] in Respiratory specimen by MARS with probe detection [facility] Work Phone: Comment on above: Expected: 12/04/2022 , Expires: 12/18/2022 Start: 10-19-2022 DEPRESSION ASSESSMENT DEPRESSION ASS ESSMENT [facility] Start: 09-17-2022 Mammography [facility] Start: 09-17-2022 Screening for malign ant neoplasm of breast Mammogram Screening [facility] Start: 09-08-2022 End: 11-08-2022 ALBUMIN/CREAT RATIO RND UR ALBUMIN/CREAT RATIO RND UR Lab Routine Controlled type 2 diabetes mellitus without complication, without long-term current use of insulin (HCC) Expected: 09/08/2022, Expires: 11/08/2022 [facility] Work Phone: Comment on above: Expected: 09/08/2022 , Expires: 11/08/2022 Start: 09-08-2022 End: 11-08-2022 CBC W Auto Differential panel - Blood CBC + DIFF Lab Routine Controlled type 2 diabetes mellitus without complication, without long-term current use of insulin (HCC) Expected: 09/08/2022, Expires: 11/08/2022 [facility] Work Phone: Comment on above: Expected: 09/08/2022 , Expires: 11/08/2022 Start: 09-08-2022 End: 11-08-2022 Comprehensive metabolic 2000 panel - Serum or Plasma COMP METABOLIC PANEL Lab Routine Controlled type 2 diabetes mellitus without complication, without long-term current use of insulin (HCC) Expected: 09/08/2022, Expires: 11/08/2022 [facility] Work Phone: Comment on above: Expected: 09/08/2022 , Expires: 11/08/2022 Start: 09-08-2022 End: 11-08-2022 Hemoglobin A1c in Blood HGB A1C Lab Routine Controlled type 2 diabetes mellitus without complication, without long-term current use of insulin (HCC) Expected: 09/08/2022, Expires: 11/08/2022 [facility] Work Phone: Comment on above: Expected: 09/08/2022 , Expires: 11/08/2022 Start: 09-08-2022 End: 11-08-2022 Lipid 1996 panel - Serum or Plasma LIPID PANEL BASIC Lab Routine Controlled type 2 diabetes mellitus without complication, without long-term current use of insulin (HCC) Expected: 09/08/2022, Expires: 11/08/2022 [facility] Work Phone: Comment on above: Expected: 09/08/2022 , Expires: 11/08/2022 Start: 07-24-2022 Hepatitis B screening URINE AL BUMIN:CREATININE RATIO [facility] Start: 07-20-2022 Hepatitis B surface antibody level LDL CHOLESTEROL [facility] Start: 07-16-2022 3 comp foot exam completed DIABETIC FOOT EXAM [facility] Start: 07-16-2022 ANNUAL PCP TEAM LOCOMOTIVE CRANE OPERATOR HELPER STAN DISEASE VISIT ANNUAL PCP TEAM CHRONIC DISEASE VISIT [facility] Start: 06-19-2022 Influenza vaccination INFLUENZA (#1) [facility] Start: 10-19-2021 DEPRESSION ASSESSMENT DEPRESSION ASS ESSMENT [facility] Start: 09-13-2021 Hemoglobin A1c/Hemoglobin.total in Blood HBA1C [facility] Start: 08-08-2020 Adult depression screening assessment DEPRESSION SCREENING [facility] Start: 04-22-2018 PNEUMOCOCCAL (2 - PCV) PNEUMOCOCCAL (2 - PCV) [facility] Start: 07-19-2017 HPV TESTING HPV TESTING [facility] Start: 07-19-2017 PAP TESTING PAP TESTING [facility] Start: 07-19-2017 Screening for malign ant neoplasm of cervix [facility] Start: 2016 SHINGRIX VACCINE (1 of 2) SHINGRIX VACCINE (1 of 2) [facility] Start: 2011 COLOGUARD (FIT-DNA) COLOGUARD (FIT-D NA) [facility] Start: 2011 Colonoscopy COLONOSCOPY [facility] Start: 2011 COLORECTAL CANCER SCREENING COLORECTAL CANCER SCREENING [facility] Start: [address] COLONOGRAPHY [facility] Start: 2011 FECAL OCCULT BLOOD FECAL OCCULT BLOO D [facility] Start: 2011 Screening for malign ant neoplasm of colon [facility] Start: 2011 SIGMOIDOSCOPY SIGMOIDOSCOPY [facility] Start: 1984 Anxiety Screening Anxiety Screening [facility] Start: 1984 BP Controlled (<130/80) BP Controlle d (<130/80) [facility] Start: 1984 Depression Screening Depression Scre ening [facility] Start: 1984 HIV SCREENING HIV SCREENING [facility] Start: 1984 HIV screening HIV Screening [facility] Start: 1984 SPIROMETRY SPIROMETRY [facility] Start: 1976 Glaucoma screening Dilated Retinal E xam [facility] Start: 1976 Hepatitis C antibody , confirmatory test DILATED RETINAL EXAM [facility] Start: 02-15-1967 COVID-19 VACCINE (#1) COVID-19 VACCI NE (#1) [facility] Start: 1966 HEPATITIS B (1 of 3 - 3-dose series) HEPATITIS B (1 of 3 - 3-dose series) [facility] Start: 1966 Hepatitis B Vaccine (1 of 3 - 3-dose series) Hepatitis B Vaccine (1 of 3 - 3-dose series) [facility] End: 10-21-2025 DBT Breast - bilateral screening MIKA SCREENING W [facility] Radiology Routine Encounter for screening mammogram for breast cancer 1 Occurrences starting 09/21/2024 until 10/21/2025 [facility] Work Phone: Comment on above: 1 Occurrences starti ng 09/21/2024 until 10/21/2025 Hemoglobin.gastroint est inal.lower [Presence] in Stool by Immunoassay FECAL OCCULT BLOOD TEST Lab Routine Screening for colorectal cancer Ordered: 04/28/2023 [facility] Work Phone: Comment on above: Ordered: 04/28/2023 End: 11-21-2023 MIKA SCREENING MIKA SCREENING Radiology Routine Encounter for screening mammogram for breast cancer 1 Occurrences starting 10/22/2022 until 11/21/2023 [facility] Work Phone: Comment on above: 1 Occurrences starti ng 10/22/2022 until 11/21/2023 End: 10-22-2024 MIKA SCREENING MIKA SCREENING Radiology Routine Encounter for screening mammogram for breast cancer 1 Occurrences starting 09/23/2023 until 10/22/2024 [facility] Work Phone: Comment on above: 1 Occurrences starti ng 09/23/2023 until 10/22/2024 Patient Education [facility] Work Phone: Patient referral [facility] Work Phone: End: 10-16-2023 US KIDNEY/BLADDER US KIDNEY/BLADDER Radiology Routine Infrequent urination 1 Occurrences starting 09/16/2022 until 10/16/2023 [facility] Work Phone: Comment on above: 1 Occurrences starti ng 09/16/2022 until 10/16/2023 End: 05-27-2024 XR DIGIT GENERAL 3V FRONTAL/LAT/OBL LEFT XR DIGIT GENERAL 3V FRONTAL/LAT/OBL LEFT Radiology Routine Pain of left thumb 1 Occurrences starting 04/28/2023 until 05/27/2024 [facility] Work Phone: Comment on above: 1 Occurrences starti ng 04/28/2023 until 05/27/2024 XR DIGIT GENERAL 3V FRONTAL/LAT/OBL LEFT XR DIGIT GENERAL 3V FRONTAL/LAT/OBL LEFT Radiology Routine Pain of left thumb 04/28/2023 1:26 PM EDT [facility] Work Phone: [facility] Immunizations Immunization Date Immunization Notes Care Provider Fa cili 07-06-2024 influenza, seasonal,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 Increased fluoxetine dosage from 20 mg to 40 mg daily. - Advised to take two 20 mg tablets if any remain; prescription for 40 mg tablets sent to [facility]. Recheck in 1 month. Discussed treatment plan and patient voices understanding. Patient's questions answered appropriately. Medications and potential side effects were discussed and patient voices understanding. Return to the office as scheduled or as needed for worsening/no improvement. Vidhi Bowers APRN.MAJOR DONOR COORDINATOR Recording using [employer] software for draft documentation of the visit was discussed with the patient/authorized home furnishings sales representative; all questions welcomed and answered. Patient/authorized home furnishings sales representative agreed to proceed documented in this encounter [facility] 02-07-2025 Instructions Vidhi Bowers APRN.MAJOR DONOR COORDINATOR - 02/07/2025 11:15 AM EDT Your Prozac dose has been doubled. Until your new 40-mg prescription arrives, use two of your 20-mg pills if you have any left. Continue taking your other medications as usual. Your blood work will be completed today. This panel includes a CMP (electrolytes, kidney function, glucose, liver), complete blood count, cholesterol panel, A1c, magnesium level, and urine protein measurement. Continue checking your blood sugar every morning. Your mammogram is scheduled for next month, and you already have a colonoscopy arranged. -Recheck in 1 month. documented in this encounter [facility] 09-21-2024 Note Patient Outreach ([place] [facility]) AYSHA ROWLAND ([id number]) 1965 F Date Time Provider Department 09/21/24 WILLIAM GREENE During your visit today, we recorded the following information about you: Allergies As of Date: 09/21/2024 Noted Allergy Reaction BIAXIN (CLARITHROMYCIN) 06/25/2005 2 - Rash Comments: zpak is ok CODEINE 11/11/2011 8 - GI Upset DOXYCYCLINE 07/24/2009 2 - Rash LOSARTAN 03/15/2024 14 - Other: See Comments Comments: Strong medicine taste and then vomits. MELOXICAM 04/27/2014 14 - Other: See Comments Comments: headaches NAPROSYN (NAPROXEN) 06/25/2005 Comments: headache PENICILLIN G 06/25/2005 2 - Rash SULFA (SULFONAMIDE ANTIBIOTICS) 06/25/2005 10 - Anaphylaxis Comments: headache TRAMADOL 11/11/2011 5 - Intolerance Comments: getts bad headache VICODIN (HYDROCODONE-ACETAMINOPHE*07/31/20 08 11 - Vomiting Date Reviewed: 08/03/2024 Reviewed by: Mowrer, Rebel, MICROELECTRONICS ENGINEER - Fully Assessed Visit Diagnosis:Encounter for screening mammogram for breast cancer [Z12.31] Order(s):[facility] SCREENING [facility]EREMY [[id number]] Order #: [id number] FUTURE Prescriptions as of 09/26/2024 - cetirizine (ZYRTEC) 10 mg tablet Take 1 tablet by mouth once daily. - hydroCHLOROthiazide 12.5 mg capsule Take 1 capsule by mouth once daily. - Blood-Glucose Meter monitoring kit Glucose Meter of Choice - Kit - Dx: Type 2 DM - Controlled E11.9 - blood sugar diagnostic (BLOOD GLUCOSE TEST) test strip Test blood sugar(s) 1 times daily. Dx: Type 2 DM - Controlled E11.9 Insulin: No - ferrous sulfate 325 mg (65 mg iron) tablet Take 1 tablet by mouth once daily. take separately from multivitamin - albuterol HFA (PROAIR HFA) 90 mcg/actuation inhaler INHALE 1 (ONE) TO 2 (TWO) PUFFS EVERY 6 HOURS NEEDED - blood sugar diagnostic (BLOOD GLUCOSE TEST) test strip Test blood sugar(s) 2 times daily. Dx: Type 2 DM - Uncontrolled E11.65 Insulin: No - losartan (COZAAR) 50 mg tablet Take 1 tablet by mouth once daily. - ibuprofen (MOTRIN) 800 mg tablet Take 1 tablet by mouth every 8 hours as needed (FOR PAIN. TAKE WITH FOOD). - FLUoxetine (PROZAC) 20 mg capsule Take 1 capsule by mouth once daily. - pantoprazole DR (PROTONIX) 40 mg tablet Take 1 tablet by mouth daily before breakfast. Take on empty stomach, 1/2 hr before meal. - Lancets lancets tTest blood sugar(s) 2 times daily. Dx: Type 2 DM - Uncontrolled E11.65 Insulin: no - Blood-Glucose Meter monitoring kit Glucose Meter of Choice - Kit - Dx: Type 2 DM - Uncontrolled E11.65 Insulin NO - Blood-Glucose Meter (TRUE METRIX GLUCOSE METER) Use as directed. Problem List As Of Date 09/21/2024 Noted Resolved Tension Headache [G44.209] 08/23/2007 Generalized anxiety disorder [F41.1] 08/23/2007 04/22/2017 Asthma [J45.909] 08/23/2007 Routine general medical examination at [facility]*01/14/2010 07/16/2012 Class: Chronic Routine gynecological examination [...] Diabetes mellitus type 2, controlled, without c*08/08/2020 Calculus of gallbladder without cholecystitis w*02/19/2024 Encounter Status:Closed by [employer], [employer] on 09/26/24 [facility] 08-03-2024 Instructions iVdhi Bowers APRN.CNP - 08/03/2024 9:36 AM EDT Continue the same medications. Start zyrtec. Get labs. Recheck in 6 months. documented in this encounter [facility] 08-03-2024 Note HNO ID: [id number] Author: VIDHI BOWERS APRN.CNP Service: ? Author Type: Nurse Practitioner Type: Progress Notes Filed: 08/03/2024 15:46 Note Text: This is a 58 year old female who presents today with: Patient presents with: Recheck: 1 month follow up HISTORY OF PRESENT ILLNESS: Aysha Rowland is a 58 year old female. Patient presents with: Recheck: 1 month follow up Pt presents today for 1 month recheck. At last visit, we started the HCTZ. HTN: Patient is compliant with meds Yes Monitors bp at home: No. Denies side effects: No. Chest pain: No. Dyspnea: No. Edema: No. Palpitations: No. Syncope: No. Headache: No. Dizziness: No. Reports that she needs a new glucometer. Meter is not consistently working. Checks sugars daily. She also reports that she has been having trouble with allergies. + itchy eyes. + sneezing. + head congestion. Hasn't been taking any allergy medication. PAST MEDICAL HISTORY: PAST MEDICAL HISTORY Diagnosis Date Asthma Bronchitis Carcinoma in situ of cervix uteri 1999 Diabetes mellitus (adult onset) (HCC) Heartburn Migraine headache Seasonal allergies Tobacco use disorder PAST SURGICAL HISTORY Procedure Laterality Date DELIVERY ONLY 1980 CONIZATION CERVIX W/WO [facility] RPR ELTRD EXC 1999 LEEP-Cervix ESOPHAGOGASTRODUODENOSCOPY TRANSORAL DIAGNOSTIC 01/18/15 EGD HYSTEROSCOPY THERAPEUTIC 10/2011 [facility] w/ polyp resection LAPS W/VAG HYSTERECT 250 GM/ANDRMVL TUBEAND/OVARIES 02/22/15 [facility], bilateral salpingectomy, left oophorectomy LIG/TRNSXJ FLP TUBE ABDL/VAG APPR UNI/BI 1998 Tubal ligation ALLERGIES Biaxin [Clarithromycin], Codeine, Doxycycline, Losartan, Meloxicam, Naprosyn [Naproxen], Penicillin G, Sulfa (Sulfonamide Antibiotics), Tramadol, and Vicodin [Hydrocodone-Acetaminophen] MEDICATIONS Current Outpatient Medications Medication Sig ferrous sulfate 325 mg (65 mg iron) tablet Take 1 tablet by mouth once daily. take separately from multivitamin albuterol HFA (PROAIR HFA) 90 mcg/actuation inhaler INHALE 1 (ONE) TO 2 (TWO) PUFFS EVERY 6 HOURS NEEDED blood sugar diagnostic (BLOOD GLUCOSE TEST) test strip Test blood sugar(s) 2 times daily. Dx: Type 2 DM - Uncontrolled E11.65 Insulin: No hydroCHLOROthiazide 12.5 mg capsule Take 1 capsule by mouth once daily. losartan (COZAAR) 50 mg tablet Take 1 tablet by mouth once daily. ibuprofen (MOTRIN) 800 mg tablet Take 1 tablet by mouth every 8 hours as needed (FOR PAIN. TAKE WITH FOOD). FLUoxetine (PROZAC) 20 mg capsule Take 1 capsule by mouth once daily. pantoprazole DR (PROTONIX) 40 mg tablet Take 1 tablet by mouth daily before breakfast. Take on empty stomach, 1/2 hr before meal. Lancets lancets tTest blood sugar(s) 2 times daily. Dx: Type 2 DM - Uncontrolled Insulin: no Blood-Glucose Meter monitoring kit Glucose Meter of Choice - Kit - Dx: Type 2 DM - Uncontrolled Insulin NO Blood-Glucose Meter (TRUE METRIX GLUCOSE [...] History Tobacco Use Smoking status: Light Smoker Current packs/day: 0.50 Average packs/day: 0.5 packs/day for 30.0 years (15.0 ttl pk-yrs) Types: Cigarettes Smokeless tobacco: Never Vaping Use Vaping status: Never Used Substance Use Topics Alcohol use: No Drug use: No Comment: remote marijuana (teens) EXAM: BP 130/88 Pulse 73 Resp 16 LMP 02/01/2015 SpO2 93% PHYSICAL EXAM: General Appearance: Well appearing, alert, in no acute distress, well-hydrated, well nourished.. Skin: Skin color, texture, turgor normal, no suspicious rashes or lesions. Head: Normocephalic, no masses, lesions, tenderness or abnormalities. Eyes: Anicteric sclera. Pupils are equally round and reactive to light. Extraocular movements are intact. . Lungs: Lungs clear to auscultation. No wheezing, rhonchi, rales.. Heart: RRR without murmur, gallop, or rubs. No ectopy. Neurologic: Gait normal. ASSESSMENT/PLAN: 1. Primary hypertension - ICD9: 401.9, ICD10: I10 (primary diagnosis) - Improving control - Continue current medications - Recommend home blood pressure monitoring, to bring results to next visit - Encouraged sodium restriction, DASH or Mediterranean diet - Recommend regular aerobic exercise - HYDROCHLOROTHIAZIDE 12.5 MG CAPSULE - COMPREHENSIVE METABOLIC PANEL 2. Environmental allergies - ICD9: V15.09, ICD10: Z91.09 Start: - CETIRIZINE 10 MG TABLET 3. Co (more content not included)... [facility] 08-03-2024 History of Present illness Narrative This is a 58 year old female who presents today with: Patient presents with: Recheck: 1 month follow up HISTORY OF PRESENT ILLNESS: Aysha Rowland is a 58 year old female. Patient presents with: Recheck: 1 month follow up Pt presents today for 1 month recheck. At last visit, we started the HCTZ. HTN: Patient is compliant with meds Yes Monitors bp at home: No. Denies side effects: No. Chest pain: No. Dyspnea: No. Edema: No. Palpitations: No. Syncope: No. Headache: No. Dizziness: No. Reports that she needs a new glucometer. Meter is not consistently working. Checks sugars daily. She also reports that she has been having trouble with allergies. + itchy eyes. + sneezing. + head congestion. Hasn't been taking any allergy medication. PAST MEDICAL HISTORY: PAST MEDICAL HISTORY Diagnosis [...] Tubal ligation ALLERGIES Biaxin [Clarithromycin], Codeine, Doxycycline, Losartan, Meloxicam, Naprosyn [Naproxen], Penicillin G, Sulfa (Sulfonamide Antibiotics), Tramadol, and Vicodin [Hydrocodone-Acetaminophen] MEDICATIONS Current Outpatient Medications Medication Sig ferrous sulfate 325 mg (65 mg iron) tablet Take 1 tablet by mouth once daily. take separately from multivitamin albuterol HFA (PROAIR HFA) 90 mcg/actuation inhaler INHALE 1 (ONE) TO 2 (TWO) PUFFS EVERY 6 HOURS NEEDED blood sugar diagnostic (BLOOD GLUCOSE TEST) test strip Test blood sugar(s) 2 times daily. Dx: Type 2 DM - Uncontrolled E11.65 Insulin: No hydroCHLOROthiazide 12.5 mg capsule Take 1 capsule by mouth once daily. losartan (COZAAR) 50 mg tablet Take 1 tablet by mouth once daily. ibuprofen (MOTRIN) 800 mg tablet Take 1 tablet by mouth every 8 hours as needed (FOR PAIN. TAKE WITH FOOD). FLUoxetine (PROZAC) 20 mg capsule Take 1 capsule by mouth once daily. pantoprazole DR (PROTONIX) 40 mg tablet Take 1 tablet by mouth daily before breakfast. Take on empty stomach, 1/2 hr before meal. Lancets lancets tTest blood sugar(s) 2 times daily. Dx: Type 2 DM - Uncontrolled E11.65 Insulin: no Blood-Glucose Meter monitoring kit Glucose Meter of [...] History Tobacco Use Smoking status: Light Smoker Current packs/day: 0.50 Average packs/day: 0.5 packs/day for 30.0 years (15.0 ttl pk-yrs) Types: Cigarettes Smokeless tobacco: Never Vaping Use Vaping status: Never Used Substance Use Topics Alcohol use: No Drug use: No Comment: remote marijuana (teens) EXAM: BP 130/88 Pulse 73 Resp 16 LMP 02/01/2015 SpO2 93% PHYSICAL EXAM: General Appearance: Well appearing, alert, in no acute distress, well-hydrated, well nourished.. Skin: Skin color, texture, turgor normal, no suspicious rashes or lesions. Head: Normocephalic, no masses, lesions, tenderness or abnormalities. Eyes: Anicteric sclera. Pupils are equally round and reactive to light. Extraocular movements are intact. . Lungs: Lungs clear to auscultation. No wheezing, rhonchi, rales.. Heart: RRR without murmur, gallop, or rubs. No ectopy. Neurologic: Gait normal. ASSESSMENT/PLAN: 1. Primary hypertension - ICD9: 401.9, ICD10: I10 (primary diagnosis) - Improving control - Continue current medications - Recommend home blood pressure monitoring, to bring results to next visit - Encouraged sodium restriction, DASH or Mediterranean diet - Recommend regular aerobic exercise - HYDROCHLOROTHIAZIDE 12.5 MG CAPSULE - COMPREHENSIVE METABOLIC PANEL 2. Environmental allergies - ICD9: V15.09, ICD10: Z91.09 Start: - CETIRIZINE 10 MG TABLET 3. Controlled type 2 diabetes mellitus without complication, without long-term current use of insulin (HCC) - ICD9: 250.00, ICD10: E11.9 - BLOOD-GLUCOSE METER KIT - BLOOD SUGAR DIAGNOSTIC STRIPS Discussed treatment plan and patient voices understanding. Patient's questions answered appropriately. Medications and potential side effects were discussed and patient voices understanding. Return to the office as scheduled or as needed for worsening/no improvement. Vidhi Bowers APRN.MAJOR DONOR COORDINATOR documented in this encounter [facility] 07-14-2024 Telephone encounter Note The following approved medication requests have been transmitted electronically. Requested Prescriptions Pending Prescriptions Disp Refills ferrous sulfate 325 mg (65 mg iron) tablet 90 tablet 1 Sig: Take 1 tablet by mouth once daily. take separately from multivitamin albuterol HFA (PROAIR HFA) 90 mcg/actuation inhaler 18 g 3 Sig: INHALE 1 (ONE) TO 2 (TWO) PUFFS EVERY 6 HOURS NEEDED blood sugar diagnostic (BLOOD GLUCOSE TEST) test strip 200 Strip 1 Sig: Test blood sugar(s) 2 times daily. Dx: Type 2 DM - Uncontrolled E11.65 Insulin: No Antoinette Velazquez APRN.MAJOR DONOR COORDINATOR [facility] 07-14-2024 Miscellaneous Notes The following approved medication requests have been transmitted electronically. Requested Prescriptions Pending Prescriptions Disp Refills ferrous sulfate 325 mg (65 mg iron) tablet 90 tablet 1 Sig: Take 1 tablet by mouth once daily. take separately from multivitamin albuterol HFA (PROAIR HFA) 90 mcg/actuation inhaler 18 g 3 Sig: INHALE 1 (ONE) TO 2 (TWO) PUFFS EVERY 6 HOURS NEEDED blood sugar diagnostic (BLOOD GLUCOSE TEST) test strip 200 Strip 1 Sig: Test blood sugar(s) 2 times daily. Dx: Type 2 DM - Uncontrolled E11.65 Insulin: No Antoinette Velazquez APRN.CNP The patient has been identified by name and date of : Yes Caregiver verified no other encounters exist for this prescription request: Yes Caregiver confirmed with patient/requestor that no other refills are due, in the near future, with this provider at this time: Yes The last office visit in the department: 07/06/2024 Does the patient have a future office visit with this provider/department: Yes 08/03/2024 Requested Prescriptions Pending Prescriptions Disp Refills ferrous sulfate 325 mg (65 mg iron) tablet 90 tablet 1 Sig: Take 1 tablet by mouth once daily. take separately from multivitamin albuterol HFA (PROAIR HFA) 90 mcg/actuation inhaler 18 g 3 Sig: INHALE 1 (ONE) TO 2 (TWO) PUFFS EVERY 6 HOURS NEEDED blood sugar diagnostic (BLOOD GLUCOSE TEST) test strip 200 Strip 1 Sig: Test blood sugar(s) 2 times daily. Dx: Type 2 DM - Uncontrolled E11.65 Insulin: No Marisol Dumont RN July 14, 2024 2:10 PM documented in this encounter [facility] 07-14-2024 Telephone encounter Note The patient has been identified by name and date of : Yes Caregiver verified no other encounters exist for this prescription request: Yes Caregiver confirmed with patient/requestor that no other refills are due, in the near future, with this provider at this time: Yes The last office visit in the department: 07/06/2024 Does the patient have a future office visit with this provider/department: Yes 08/03/2024 Requested Prescriptions Pending Prescriptions Disp Refills ferrous sulfate 325 mg (65 mg iron) tablet 90 tablet 1 Sig: Take 1 tablet by mouth once daily. take separately from multivitamin albuterol HFA (PROAIR HFA) 90 mcg/actuation inhaler 18 g 3 Sig: INHALE 1 (ONE) TO 2 (TWO) PUFFS EVERY 6 HOURS NEEDED blood sugar diagnostic (BLOOD GLUCOSE TEST) test strip 200 Strip 1 Sig: Test blood sugar(s) 2 times daily. Dx: Type 2 DM - Uncontrolled E11.65 Insulin: No Marisol Dumont RN July 14, 2024 2:10 PM [facility] 07-06-2024 Instructions Vidhi oBwers APRN.CARMELITA - 07/06/2024 9:38 AM EDT Start the hydrochlorothiazide. Recheck in a month. documented in this encounter [facility] 07-06-2024 Note HNO ID: [id number] Author: VIDHI BOWERS APRN.CARMELITA Service: ? Author Type: Nurse Practitioner Type: Progress Notes Filed: 07/06/2024 17:09 Note Text: This is a 58 year old female who presents today with: Patient presents with: Recheck: 3 month follow up HISTORY OF PRESENT ILLNESS: Aysha Rowland is a 58 year old female. Patient presents with: Recheck: 3 month follow up Pt presents today for 3 month follow-up. No problems/concerns. DM: Reports overall feeling well. Medication side effects: No. Home sugar checks: yes -- 125-130. Hypoglycemic spells: No. Watching diet: only eats when she is hungry -- usually once daily. Unexpected weight loss: No. Polyuria, polydipsia: no Vision Changes: No. Foot lesions or numbness or pain: No. HTN: Patient is compliant with meds Yes Monitors bp at home: Yes. Similar readings to hear. Denies side effects: No. Chest pain: No. Dyspnea: No. Edema: minimal. Palpitations: No. Syncope: No. Headache: No. Dizziness: No. PAST MEDICAL HISTORY: PAST MEDICAL HISTORY Diagnosis Date Asthma Bronchitis Carcinoma in situ of cervix uteri 1999 Diabetes mellitus (adult onset) (HCC) Heartburn Migraine headache Seasonal allergies Tobacco use disorder PAST SURGICAL HISTORY Procedure Laterality Date DELIVERY ONLY 1980 CONIZATION CERVIX W/WO [facility] RPR ELTRD EXC 1999 LEEP-Cervix ESOPHAGOGASTRODUODENOSCOPY TRANSORAL DIAGNOSTIC 01/18/15 EGD HYSTEROSCOPY THERAPEUTIC 10/2011 [facility] w/ polyp resection LAPS W/VAG HYSTERECT 250 GM/ANDRMVL TUBEAND/OVARIES 02/22/15 [facility], bilateral salpingectomy, left oophorectomy LIG/TRNSXJ FLP TUBE ABDL/VAG APPR UNI/BI 1998 Tubal ligation ALLERGIES Biaxin [Clarithromycin], Codeine, Doxycycline, Losartan, Meloxicam, Naprosyn [Naproxen], Penicillin G, Sulfa (Sulfonamide Antibiotics), Tramadol, and Vicodin [Hydrocodone-Acetaminophen] MEDICATIONS Current Outpatient Medications Medication Sig losartan (COZAAR) 50 mg tablet Take 1 tablet by mouth once daily. ibuprofen (MOTRIN) 800 mg tablet Take 1 tablet by mouth every 8 hours as needed (FOR PAIN. TAKE WITH FOOD). FLUoxetine (PROZAC) 20 mg capsule Take 1 capsule by mouth once daily. valsartan (DIOVAN) 80 mg tablet Take 1 tablet by mouth once daily. albuterol HFA (PROAIR HFA) 90 mcg/actuation inhaler INHALE 1 (ONE) TO 2 (TWO) PUFFS EVERY [address] (PROTONIX) 40 mg tablet Take 1 tablet by mouth daily before breakfast. Take on empty stomach, 1/2 hr before meal. Lancets lancets tTest blood sugar(s) 2 times daily. Dx: Type 2 DM - Uncontrolled E11.65 Insulin: no ferrous sulfate 325 mg (65 mg iron) [...] History Tobacco Use Smoking status: Light Smoker Current packs/day: 0.50 Average packs/day: 0.5 packs/day for 30.0 years (15.0 ttl pk-yrs) Types: Cigarettes Smokeless tobacco: Never Vaping Use Vaping status: Never Used Substance Use Topics Alcohol use: No Drug use: No Comment: remote marijuana (teens) EXAM: BP 142/90 Pulse 87 Resp 16 LMP 02/01/2015 SpO2 95% PHYSICAL EXAM: General Appearance: Well appearing, alert, in no acute distress, well-hydrated, well nourished.. Skin: Skin color, texture, turgor normal, no suspicious rashes or lesions. Head: Normocephalic, no masses, lesions, tenderness or abnormalities. Eyes: Anicteric sclera. Extraocular movements are intact. . Lungs: Lungs clear to auscultation. No wheezing, rhonchi, rales.. Heart: RRR without murmur, gallop, or rubs. No ectopy. Extremities: No deformities, trace edema, skin discoloration, clubbing or cyanosis. Good capillary refill. Neurologic: Gait normal. ASSESSMENT/PLAN: 1. Controlled type 2 diabetes mellitus without complication, without long-term current use of insulin (HCC) - ICD9: 250.00, ICD10: E11.9 (primary diagnosis) - Controlled - Continue current medications - HEMOGLOBIN A1C (POC) 2. Encounter for immunization - ICD9: V03.89, ICD10: Z23 - INFLUENZA VACCINE, AGE 6MO-64YR, TRIVALENT (AFLURIA, FLUL (more content not included)... [facility] 07-06-2024 History of Present illness Narrative This is a 58 year old female who presents today with: Patient presents with: Recheck: 3 month follow up HISTORY OF PRESENT ILLNESS: Aysha Rowland is a 58 year old female. Patient presents with: Recheck: 3 month follow up Pt presents today for 3 month follow-up. No problems/concerns. DM: Reports overall feeling well. Medication side effects: No. Home sugar checks: yes -- 125-130. Hypoglycemic spells: No. Watching diet: only eats when she is hungry -- usually once daily. Unexpected weight loss: No. Polyuria, polydipsia: no Vision Changes: No. Foot lesions or numbness or pain: No. HTN: Patient is compliant with meds Yes Monitors bp at home: Yes. Similar readings to hear. Denies side effects: No. Chest pain: No. Dyspnea: No. Edema: minimal. Palpitations: No. Syncope: No. Headache: No. Dizziness: No. PAST MEDICAL HISTORY: PAST MEDICAL HISTORY Diagnosis [...] Tubal ligation ALLERGIES Biaxin [Clarithromycin], Codeine, Doxycycline, Losartan, Meloxicam, Naprosyn [Naproxen], Penicillin G, Sulfa (Sulfonamide Antibiotics), Tramadol, and Vicodin [Hydrocodone-Acetaminophen] MEDICATIONS Current Outpatient Medications Medication Sig losartan (COZAAR) 50 mg tablet Take 1 tablet by mouth once daily. ibuprofen (MOTRIN) 800 mg tablet Take 1 tablet by mouth every 8 hours as needed (FOR PAIN. TAKE WITH FOOD). FLUoxetine (PROZAC) 20 mg capsule Take 1 capsule by mouth once daily. valsartan (DIOVAN) 80 mg tablet Take 1 tablet by mouth once daily. albuterol HFA (PROAIR HFA) 90 mcg/actuation inhaler INHALE 1 (ONE) TO 2 (TWO) PUFFS EVERY [address] (PROTONIX) 40 mg tablet Take 1 tablet by mouth daily before breakfast. Take on empty stomach, 1/2 hr before meal. Lancets lancets tTest blood sugar(s) 2 times daily. Dx: Type 2 DM - Uncontrolled E11.65 Insulin: no ferrous sulfate 325 mg (65 mg iron) [...] History Tobacco Use Smoking status: Light Smoker Current packs/day: 0.50 Average packs/day: 0.5 packs/day for 30.0 years (15.0 ttl pk-yrs) Types: Cigarettes Smokeless tobacco: Never Vaping Use Vaping status: Never Used Substance Use Topics Alcohol use: No Drug use: No Comment: remote marijuana (teens) EXAM: BP 142/90 Pulse 87 Resp 16 LMP 02/01/2015 SpO2 95% PHYSICAL EXAM: General Appearance: Well appearing, alert, in no acute distress, well-hydrated, well nourished.. Skin: Skin color, texture, turgor normal, no suspicious rashes or lesions. Head: Normocephalic, no masses, lesions, tenderness or abnormalities. Eyes: Anicteric sclera. Extraocular movements are intact. . Lungs: Lungs clear to auscultation. No wheezing, rhonchi, rales.. Heart: RRR without murmur, gallop, or rubs. No ectopy. Extremities: No deformities, trace edema, skin discoloration, clubbing or cyanosis. Good capillary refill. Neurologic: Gait normal. ASSESSMENT/PLAN: 1. Controlled type 2 diabetes mellitus without complication, without long-term current use of insulin (HCC) - ICD9: 250.00, ICD10: E11.9 (primary diagnosis) - Controlled - Continue current medications - HEMOGLOBIN A1C (POC) 2. Encounter for immunization - ICD9: V03.89, ICD10: Z23 - INFLUENZA VACCINE, AGE 6MO-64YR, TRIVALENT (AFLURIA, FLULAVAL, FLUVIRIN, FLUZONE) 3. Primary hypertension - ICD9: 401.9, ICD10: I10 - Uncontrolled - Start hydrochlorothiazide - Recommend home blood pressure monitoring, to bring results to next visit - Encouraged sodium restriction, DASH or Mediterranean diet - Recommend regular aerobic exercise - HYDROCHLOROTHIAZIDE 12.5 MG CAPSULE recheck in 1 months. Discussed treatment plan and patient voices understanding. Patient's questions answered appropriately. Medications and potential side effects were discussed and patient voices understanding. Return to the office as scheduled or as needed for worsening/no improvement. Vidhi Bowers APRN.MAJOR DONOR COORDINATOR documented in this encounter [facility] 05-13-2024 Telephone encounter Note Patient has been identified by name and date of : Patient phones for refill(s): Requested Prescriptions Pending Prescriptions Disp Refills losartan (COZAAR) 50 mg tablet 90 tablet 1 Sig: Take 1 tablet by mouth once daily. Date of last office visit in primary care: 04/06/2024 Date of next office visit in primary care: 07/06/2024 Please advise. Thank you. Nandini Abraham LPN. [facility] 05-13-2024 Miscellaneous Notes Patient has been identified by name and date of : Patient phones for refill(s): Requested Prescriptions Pending Prescriptions Disp Refills losartan (COZAAR) 50 mg tablet 90 tablet 1 Sig: Take 1 tablet by mouth once daily. Date of last office visit in primary care: 04/06/2024 Date of next office visit in primary care: 07/06/2024 Please advise. Thank you. Nandini Abraham LPN. documented in this encounter [facility] 04-20-2024 Telephone encounter Note Prescription Refill Information The patient has been identified by name and date of : Yes Caregiver verified no other encounters exist for this prescription request: Yes Caregiver confirmed with patient/requestor that no other refills are due, in the near future, with this provider at this time: Yes The last office visit in the department: 04-06-24 Does the patient have a future office visit with this provider/department: Yes Requested Prescriptions Pending Prescriptions Disp Refills ibuprofen (MOTRIN) 800 mg tablet 270 tablet 1 Sig: Take 1 tablet by mouth every 8 hours as needed (FOR PAIN. TAKE WITH FOOD). Ivonne Varghese April 20, 2024 4:23 PM [facility] 04-20-2024 Miscellaneous Notes Prescription Refill Information The patient has been identified by name and date of : Yes Caregiver verified no other encounters exist for this prescription request: Yes Caregiver confirmed with patient/requestor that no other refills are due, in the near future, with this provider at this time: Yes The last office visit in the department: 04-06-24 Does the patient have a future office visit with this provider/department: Yes Requested Prescriptions Pending Prescriptions Disp Refills ibuprofen (MOTRIN) 800 mg tablet 270 tablet 1 Sig: Take 1 tablet by mouth every 8 hours as needed (FOR PAIN. TAKE WITH FOOD). Ivonne Varghese April 20, 2024 4:23 PM documented in this encounter [facility] 04-06-2024 Instructions Vidhi Bowers APRN.[facility] - 04/06/2024 2:07 PM EDT Continue the same medications. Recheck in 3 month. documented in this encounter [facility] 04-06-2024 Note HNO ID: [id number] Author: VIDHI BOWERS APRN.[facility] Service: ? Author Type: Nurse Practitioner Type: Progress Notes Filed: 04/06/2024 17:46 Note Text: This is a 58 year old female who presents today with: Patient presents with: Recheck: 1 month follow up HISTORY OF PRESENT ILLNESS: Aysha Rowland is a 58 year old female. Patient presents with: Recheck: 1 month follow up Pt presents with 1 month follow up after starting Prozac Mood: - pt takes 20 mg prozac - pt feels that mood is improved - pt has not experienced any side effects - pt feels comfortable continuing on same medication regimen HTN: Patient is compliant with meds Yes Monitors bp at home: Yes. Home BP: 125/85 Denies side effects: No. Chest pain: No. Dyspnea: Intermittently, pt has hx of asthma Edema: No. Palpitations: No. Syncope: No. Headache: No. Dizziness: No. Pt fell while walking dog (chasing squirrels) at the beginning of the month Seeing ortho @ [facility] Pt starting PT 04/12 Pt wearing leg brace Pt taking ibuprofen without any relief, RICE DM: Reports overall feeling well. Medication side effects: Pt not currently on DM medication. Home sugar checks: Home readings: 100-125 Hypoglycemic spells: No. Watching diet: Yes. Unexpected weight loss: No. Polyuria, polydipsia: No. Vision Changes: Yes. Cataract surgery on R eye 03/22/2024 Foot lesions or numbness or pain: No. PAST MEDICAL HISTORY: PAST MEDICAL HISTORY Diagnosis Date Asthma Bronchitis Carcinoma in situ of cervix uteri 1999 Diabetes mellitus (adult onset) (HCC) Heartburn Migraine headache Seasonal allergies Tobacco use disorder PAST SURGICAL HISTORY Procedure Laterality Date DELIVERY ONLY 1980 CONIZATION CERVIX W/WO [facility] RPR ELTRD EXC 1999 LEEP-Cervix ESOPHAGOGASTRODUODENOSCOPY TRANSORAL DIAGNOSTIC 01/18/15 EGD HYSTEROSCOPY THERAPEUTIC 10/2011 [facility] w/ polyp resection LAPS W/VAG HYSTERECT 250 GM/ANDRMVL TUBEAND/OVARIES 02/22/15 [facility], bilateral salpingectomy, left oophorectomy LIG/TRNSXJ FLP TUBE ABDL/VAG APPR UNI/BI 1998 Tubal ligation ALLERGIES Biaxin [Clarithromycin], Codeine, Doxycycline, Losartan, Meloxicam, Naprosyn [Naproxen], Penicillin G, Sulfa (Sulfonamide Antibiotics), Tramadol, and Vicodin [Hydrocodone-Acetaminophen] MEDICATIONS Current Outpatient Medications Medication Sig valsartan (DIOVAN) 80 mg tablet Take 1 tablet by mouth once daily. FLUoxetine (PROZAC) 20 mg capsule Take 1 capsule by mouth once daily. albuterol HFA (PROAIR HFA) 90 mcg/actuation inhaler INHALE 1 (ONE) TO 2 (TWO) PUFFS EVERY [address] (PROTONIX) 40 mg tablet Take 1 tablet by mouth daily before breakfast. Take on empty stomach, 1/2 hr before meal. Lancets lancets tTest blood sugar(s) 2 times daily. Dx: Type 2 DM - Uncontrolled E11.65 Insulin: no ibuprofen (MOTRIN) 800 mg tablet Take 1 [...] status: Light Smoker Packs/day: 0.50 Years: 30.00 Additional pack years: 0.00 Total pack years: 15.00 Types: Cigarettes Smokeless tobacco: Never Vaping Use Vaping Use: Never used Substance Use Topics Alcohol use: No Drug use: No Comment: remote marijuana (teens) EXAM: BP 138/92 Pulse 86 Resp 16 LMP 02/01/2015 SpO2 97% PHYSICAL EXAM: General Appearance: Well appearing, alert, in no acute distress, well-hydrated, well nourished. Skin: Skin color, texture, turgor normal, no suspicious rashes or lesions. Head: Normocephalic, no masses, lesions, tenderness or abnormalities. Eyes: Anicteric sclera. Extraocular movements are intact. Oropharynx: Lips, mucosa, and tongue normal, teeth and gums normal, oropharynx normal. Lungs: Lungs clear to auscultation. No wheezing, rhonchi, rales. Heart: RRR without murmur, gallop, or rubs. No ectopy. Extremities: No deformities, edema, skin discoloration, clubbing or cyan (more content not included)... [facility] 04-06-2024 History of Present illness Narrative This is a 58 year old female who presents today with: Patient presents with: Recheck: 1 month follow up HISTORY OF PRESENT ILLNESS: Aysha Rowland is a 58 year old female. Patient presents with: Recheck: 1 month follow up Pt presents with 1 month follow up after starting Prozac Mood: - pt takes 20 mg prozac - pt feels that mood is improved - pt has not experienced any side effects - pt feels comfortable continuing on same medication regimen HTN: Patient is compliant with meds Yes Monitors bp at home: Yes. Home BP: 125/85 Denies side effects: No. Chest pain: No. Dyspnea: Intermittently, pt has hx of asthma Edema: No. Palpitations: No. Syncope: No. Headache: No. Dizziness: No. Pt fell while walking dog (chasing squirrels) at the beginning of the month Seeing ortho @ [facility] Pt starting PT 04/12 Pt wearing leg brace Pt taking ibuprofen without any relief, RICE DM: Reports overall feeling well. Medication side effects: Pt not currently on DM medication. Home sugar checks: Home readings: 100-125 Hypoglycemic spells: No. Watching diet: Yes. Unexpected weight loss: No. Polyuria, polydipsia: No. Vision Changes: Yes. Cataract surgery on R eye 03/22/2024 Foot lesions or numbness or pain: No. PAST MEDICAL HISTORY: PAST MEDICAL HISTORY Diagnosis Date Asthma Bronchitis Carcinoma in situ of cervix uteri 1999 Diabetes mellitus (adult onset) ([facility]) Heartburn Migraine headache Seasonal allergies Tobacco use [...] Tubal ligation ALLERGIES Biaxin [Clarithromycin], Codeine, Doxycycline, Losartan, Meloxicam, Naprosyn [Naproxen], Penicillin G, Sulfa (Sulfonamide Antibiotics), Tramadol, and Vicodin [Hydrocodone-Acetaminophen] MEDICATIONS Current Outpatient Medications Medication Sig valsartan (DIOVAN) 80 mg tablet Take 1 tablet by mouth once daily. FLUoxetine (PROZAC) 20 mg capsule Take 1 capsule by mouth once daily. albuterol HFA (PROAIR HFA) 90 mcg/actuation inhaler INHALE 1 (ONE) TO 2 (TWO) PUFFS EVERY [address] (PROTONIX) 40 mg tablet Take 1 tablet by mouth daily before breakfast. Take on empty stomach, 1/2 hr before meal. Lancets lancets tTest blood sugar(s) 2 times daily. Dx: Type 2 DM - Uncontrolled E11.65 Insulin: no ibuprofen (MOTRIN) 800 mg tablet Take 1 [...] status: Light Smoker Packs/day: 0.50 Years: 30.00 Additional pack years: 0.00 Total pack years: 15.00 Types: Cigarettes Smokeless tobacco: Never Vaping Use Vaping Use: Never used Substance Use Topics Alcohol use: No Drug use: No Comment: remote marijuana (teens) EXAM: BP 138/92 Pulse 86 Resp 16 LMP 02/01/2015 SpO2 97% PHYSICAL EXAM: General Appearance: Well appearing, alert, in no acute distress, well-hydrated, well nourished. Skin: Skin color, texture, turgor normal, no suspicious rashes or lesions. Head: Normocephalic, no masses, lesions, tenderness or abnormalities. Eyes: Anicteric sclera. Extraocular movements are intact. Oropharynx: Lips, mucosa, and tongue normal, teeth and gums normal, oropharynx normal. Lungs: Lungs clear to auscultation. No wheezing, rhonchi, rales. Heart: RRR without murmur, gallop, or rubs. No ectopy. Extremities: No deformities, edema, skin discoloration, clubbing or cyanosis. Good capillary refill. . Neurologic: Gait normal. ASSESSMENT/PLAN: 1. Mood swings - ICD9: 799.24, ICD10: R45.86 (primary diagnosis) - pt currently taking 20 mg Prozac - pt feels improvement with current medication regimen 2. Primary hypertension - ICD9: 401.9, ICD10: I10 - Controlled - Home blood pressure readings controlled - Continue current medications - Recommend home blood pressure monitoring, to bring results to next visit - Encouraged sodium restriction, DASH or Mediterranean diet 3. Controlled type 2 diabetes mellitus without complication, without long-term current use of insulin (HCC) - ICD9: 250.00, ICD10: E11.9 - Controlled - No current DM medications - Hgb A1c recheck at next visit Recheck in 3 months. Discussed treatment plan and patient voices understanding. Patient's questions answered appropriately. Medications and potential side effects were discussed and patient voices understanding. Return to the office as scheduled or as needed for worsening/no improvement. Vidhi Bowers APRN.[facility] The patient indicates understanding of these issues and agrees with the plan. documented in this encounter [facility] 03-16-2024 Telephone encounter Note Patient notified and voiced her understanding. [facility] 03-16-2024 Miscellaneous Notes Patient notified and voiced her understanding. Called patient and no answer. Patients voicemail was full. Will need to call back later. Dorie Acosta RN Lets see if she does better with diovan. I sent this into [employer]. Please keep me updated. Vidhi Bowers APRN.[facility] Pt calls to report that she was prescribed losartan 50 mg at [facility] on 03/08. Pt reports when she tries to take medication she gets a strong medication taste in her mouth and then vomits. Pt is asking if there is something else she can take. Inessa Burton LPN documented in this encounter [facility] 03-16-2024 Telephone encounter Note Called patient and no answer. Patients voicemail was full. Will need to call back later. Dorie Acosta RN [facility] 03-15-2024 Telephone encounter Note Lets see if she does better with diovan. I sent this into [employer]. Please keep me updated. Vidhi Bowers APRN.CARMELITA [facility] 03-15-2024 Telephone encounter Note Pt calls to report that she was prescribed losartan 50 mg at appt on 03/08. Pt reports when she tries to take medication she gets a strong medication taste in her mouth and then vomits. Pt is asking if there is something else she can take. Inessa Burton LPN [facility] 03-08-2024 Instructions Vidhi Bowers APRN.[facility] - 03/08/2024 1:28 PM EDT Continue same blood pressure medication. Start the prozac. Recheck in 1 month. Sooner if problems/concerns. documented in this encounter [facility] 03-08-2024 Note HNO ID: [id number] Author: VIDHI BOWERS APRN.[facility] Service: ? Author Type: Nurse Practitioner Type: Progress Notes Filed: 03/08/2024 17:05 Note Text: This is a 58 year old female who presents today with: Patient presents with: Recheck: 1 month follow up HISTORY OF PRESENT ILLNESS: Aysha Rowland is a 58 year old female. Patient presents with: Recheck: 1 month follow up Pt presents today for 1 month follow-up. At last visit, her blood pressure was elevated. We increased her losartan. This is a 58 year old female who presents today for: Follow-up Hypertension HTN: Patient is compliant with meds Yes Monitors bp at home: Yes. 125/80 at home - checking 1-3 times daily. Denies side effects: Yes. Chest pain: No. Dyspnea: yes d/t asthma. Edema: No. Palpitations: No. Syncope: No. Headache: No. Dizziness: No. Admits to some increased stress today and thinks that is affecting her blood pressure. She is also interested in starting a happy pill. Refers that she is having mood swings all over the place. This has been going on for quite awhile. She has taken medication in the past. (Prozac). Worked well. No side effects. Denies SI/HI. PAST MEDICAL HISTORY: PAST MEDICAL HISTORY Diagnosis Date Asthma Bronchitis Carcinoma in situ of cervix uteri 1999 Diabetes mellitus (adult onset) ([facility]) Heartburn Migraine headache Seasonal allergies Tobacco use disorder PAST SURGICAL HISTORY Procedure Laterality Date DELIVERY ONLY 1980 CONIZATION CERVIX W/WO [facility] RPR ELTRD EXC 1999 LEEP-Cervix ESOPHAGOGASTRODUODENOSCOPY TRANSORAL DIAGNOSTIC 01/18/15 EGD HYSTEROSCOPY THERAPEUTIC 10/2011 [facility] w/ polyp resection LAPS W/VAG HYSTERECT 250 GM/ANDRMVL TUBEAND/OVARIES 02/22/15 [facility], bilateral salpingectomy, left oophorectomy LIG/TRNSXJ FLP TUBE ABDL/VAG APPR UNI/BI 1998 Tubal ligation ALLERGIES Biaxin [Clarithromycin], Codeine, Doxycycline, Meloxicam, Naprosyn [Naproxen], Penicillin G, Sulfa (Sulfonamide Antibiotics), Tramadol, and Vicodin [Hydrocodone-Acetaminophen] MEDICATIONS Current Outpatient Medications Medication Sig losartan (COZAAR) 50 mg tablet Take 1 tablet by mouth once daily. losartan (COZAAR) 50 mg tablet Take 1 tablet by mouth once daily. albuterol HFA (PROAIR HFA) 90 mcg/actuation inhaler INHALE 1 (ONE) TO 2 (TWO) PUFFS EVERY [address] (PROTONIX) 40 mg tablet Take 1 tablet by mouth daily before breakfast. Take on empty stomach, 1/2 hr before meal. Lancets lancets tTest blood sugar(s) 2 times daily. Dx: Type 2 DM - Uncontrolled E11.65 Insulin: no ibuprofen (MOTRIN) 800 mg tablet Take 1 [...] status: Light Smoker Packs/day: 0.50 Years: 30.00 Additional pack years: 0.00 Total pack years: 15.00 Types: Cigarettes Smokeless tobacco: Never Vaping Use Vaping Use: Never used Substance Use Topics Alcohol use: No Drug use: No Comment: remote marijuana (teens) EXAM: BP 159/103 Pulse 84 Resp 16 Wt 110.2 kg (243 lb) LMP 02/01/2015 SpO2 96% BMI 40.44 kg/m? PHYSICAL EXAM: General Appearance: Well appearing, alert, in no acute distress, well-hydrated, well nourished.. Skin: Skin color, texture, turgor normal, no suspicious rashes or lesions. Head: Normocephalic, no masses, lesions, tenderness or abnormalities. Eyes: Anicteric sclera. Extraocular movements are intact. . Lungs: Lungs clear to auscultation. No wheezing, rhonchi, rales.. Heart: RRR without murmur, gallop, or rubs. No ectopy. Extremities: No deformities, edema, skin discoloration, clubbing or cyanosis. Good capillary refill. . Neurologic: Gait normal. ASSESSMENT/PLAN: 1. Primary hypertension - ICD9: 401.9, ICD10: I10 (primary diagnosis) - Uncontrolled - Home blood pressure readings controlled - Continue current medications - Recommend home blood pressure monitoring, to brin (more content not included)... [facility] 03-08-2024 History of Present illness Narrative This is a 58 year old female who presents today with: Patient presents with: Recheck: 1 month follow up HISTORY OF PRESENT ILLNESS: Aysha J Heiks is a 58 year old female. Patient presents with: Recheck: 1 month follow up Pt presents today for 1 month follow-up. At last visit, her blood pressure was elevated. We increased her losartan. This is a 58 year old female who presents today for: Follow-up Hypertension HTN: Patient is compliant with meds Yes Monitors bp at home: Yes. 125/80 at home - checking 1-3 times daily. Denies side effects: Yes. Chest pain: No. Dyspnea: yes d/t asthma. Edema: No. Palpitations: No. Syncope: No. Headache: No. Dizziness: No. Admits to some increased stress today and thinks that is affecting her blood pressure. She is also interested in starting a happy pill. Refers that she is having mood swings all over the place. This has been going on for quite awhile. She has taken medication in the past. (Prozac). Worked well. No side effects. Denies SI/HI. PAST MEDICAL HISTORY: PAST MEDICAL HISTORY Diagnosis [...] [Hydrocodone-Acetaminophen] MEDICATIONS Current Outpatient Medications Medication Sig losartan (COZAAR) 50 mg tablet Take 1 tablet by mouth once daily. losartan (COZAAR) 50 mg tablet Take 1 tablet by mouth once daily. albuterol HFA (PROAIR HFA) 90 mcg/actuation inhaler INHALE 1 (ONE) TO 2 (TWO) PUFFS EVERY [address] (PROTONIX) 40 mg tablet Take 1 tablet by mouth daily before breakfast. Take on empty stomach, 1/2 hr before meal. Lancets lancets tTest blood sugar(s) 2 times daily. Dx: Type 2 DM - Uncontrolled E11.65 Insulin: no ibuprofen (MOTRIN) 800 mg tablet Take 1 [...] status: Light Smoker Packs/day: 0.50 Years: 30.00 Additional pack years: 0.00 Total pack years: 15.00 Types: Cigarettes Smokeless tobacco: Never Vaping Use Vaping Use: Never used Substance Use Topics Alcohol use: No Drug use: No Comment: remote marijuana (teens) EXAM: BP 159/103 Pulse 84 Resp 16 Wt 110.2 kg (243 lb) LMP 02/01/2015 SpO2 96% BMI 40.44 kg/m PHYSICAL EXAM: General Appearance: Well appearing, alert, in no acute distress, well-hydrated, well nourished.. Skin: Skin color, texture, turgor normal, no suspicious rashes or lesions. Head: Normocephalic, no masses, lesions, tenderness or abnormalities. Eyes: Anicteric sclera. Extraocular movements are intact. . Lungs: Lungs clear to auscultation. No wheezing, rhonchi, rales.. Heart: RRR without murmur, gallop, or rubs. No ectopy. Extremities: No deformities, edema, skin discoloration, clubbing or cyanosis. Good capillary refill. . Neurologic: Gait normal. ASSESSMENT/PLAN: 1. Primary hypertension - ICD9: 401.9, ICD10: I10 (primary diagnosis) - Uncontrolled - Home blood pressure readings controlled - Continue current medications - Recommend home blood pressure monitoring, to bring results to next visit - Encouraged sodium restriction, DASH or Mediterranean diet - Recommend regular aerobic exercise - LOSARTAN 50 MG TABLET Increased stress today. Stable home blood pressures. Recheck in 1 month when return for anxiety follow-up. 2. Mood swings - ICD9: 799.24, ICD10: R45.86 Will go ahead and restart fluoxetine. Recheck in 1 month. - FLUOXETINE 20 MG CAPSULE Discussed treatment plan and patient voices understanding. Patient's questions answered appropriately. Medications and potential side effects were discussed and patient voices understanding. Return to the office as scheduled or as needed for worsening/no improvement. Vidhi Bowers APRN.[employer] documented in this encounter [facility] 02-23-2024 Telephone encounter Note Patient notified of results and provider's instructions. Patient verbalizes understanding. Aliya Giles RN [facility] 02-23-2024 Miscellaneous Notes Patient notified of results and provider's instructions. Patient verbalizes understanding. Aliya Giles RN TC to pt, no answer, unable to leave message d/t voicemail box is full. Rebel Fraga LPN TC to pt, no answer, unable to leave message d/t voicemail is full. Rebel Fraga LPN Can please let patient know that I received her ultrasound results. The liver looks normal. It does show that she has a few gallbladder stones, but does not currently look inflamed. So if she starts with gallbladder symptoms -- then we may want to have her follow-up with general surgery. Lets have her repeat the labwork in a few weeks. The orders are in. She does not need to fast. Vidhi Bowers APRN.[facility] documented in this encounter [facility] 02-22-2024 Telephone encounter Note TC to pt, no answer, unable to leave message d/t voicemail box is full. Rebel Fraga LPN [facility] 02-19-2024 Telephone encounter Note TC to pt, no answer, unable to leave message d/t voicemail is full. Rebel Fraga LPN [facility] 02-19-2024 Telephone encounter Note Can please let patient know that I received her ultrasound results. The liver looks normal. It does show that she has a few gallbladder stones, but does not currently look inflamed. So if she starts with gallbladder symptoms -- then we may want to have her follow-up with general surgery. Lets have her repeat the labwork in a few weeks. The orders are in. She does not need to fast. Vidhi Bowers APRN.CARMELITA [facility] 02-19-2024 History of Present illness Narrative Radiology Service Progress Note PATIENT NAME: Aysha Rowland DATE OF SERVICE: February 19, 2024 TIME: 10:11 AM PATIENT IDENTITY VERIFICATION COMPLETED USING TWO (2) IDENTIFIERS: Name and Date of confirmed by patient verbally. FALL SCREENING: Has the patient had 2 falls in the last year or 1 fall with injury or currently using an Ambulatory Assistive Device (Walker, Cane, Wheelchair, Crutches, etc.)? No PATIENT GENDER DATA: Female. status: : No status: NO. PATIENT RELEVANT IMPLANT DATA REVIEWED: Not Applicable PATIENT PRESENTS WITH AN IMPLANTABLE OR ATTACHED SYSTEM CONSULTANT: No RADIOLOGY DEPARTMENT: Ultrasound PERIPHERAL IV DATA: Not applicable SIGNED BY: Indira Burkett RDMS February 19, 2024 10:11 AM documented in this encounter [facility] 02-08-2024 Instructions Vidhi Bowers APRN.[facility] - 02/08/2024 1:20 PM EDT Start cephlexin -- one pill three times daily X 1 week. If not getting better, please let us know. Increase the losartan to 50 mg daily. Recheck in 1 month. documented in this encounter [facility] 02-08-2024 History of Present illness Narrative This is a 58 year old female who presents today with: Patient presents with: Recheck: 1 month follow up; wound on R lower leg, just above ankle HISTORY OF PRESENT ILLNESS: Aysha Rowland is a 58 year old female. Patient presents with: Recheck: 1 month follow up; wound on R lower leg, just above ankle HTN: Patient is compliant with meds Yes Monitors bp at home: Yes. Denies side effects: No. Chest pain: No. Dyspnea: only r/t asthma. Edema: No. Palpitations: No. Syncope: No. Headache: No. Dizziness: No. Has an injury on the right anterior ankle. Started 1-2 weeks. Was outside and dogs rope cut into her. Last tdap 2016. PAST MEDICAL HISTORY: PAST MEDICAL HISTORY Diagnosis [...] [Hydrocodone-Acetaminophen] MEDICATIONS Current Outpatient Medications Medication Sig albuterol HFA (PROAIR HFA) 90 mcg/actuation inhaler INHALE 1 (ONE) TO 2 (TWO) PUFFS EVERY 6 HOURS NEEDED losartan (COZAAR) 25 mg tablet Take 1 tablet by mouth once daily. pantoprazole DR (PROTONIX) 40 mg tablet Take 1 tablet by mouth daily before breakfast. Take on empty stomach, 1/2 hr before meal. Lancets lancets tTest blood sugar(s) 2 times daily. Dx: Type 2 DM - Uncontrolled E11.65 Insulin: no ibuprofen (MOTRIN) 800 mg tablet Take 1 [...] status: Light Smoker Packs/day: 0.50 Years: 30.00 Additional pack years: 0.00 Total pack years: 15.00 Types: Cigarettes Smokeless tobacco: Never Vaping Use Vaping Use: Never used Substance Use Topics Alcohol use: No Drug use: No Comment: remote marijuana (teens) EXAM: BP 142/88 Pulse 89 Resp 16 LMP 02/01/2015 SpO2 94% PHYSICAL EXAM: General Appearance: Well appearing, alert, in no acute distress, well-hydrated, well nourished.. Skin: right anterior ankle with 3cm red area with central 1.4 cm superficial open area. No drainage. Head: Normocephalic, no masses, lesions, tenderness or abnormalities. Eyes: Anicteric sclera. Pupils are equally round and reactive to light. Extraocular movements are intact. . Lungs: Lungs clear to auscultation. No wheezing, rhonchi, rales.. Heart: RRR without murmur, gallop, or rubs. No ectopy. Neurologic: Gait normal. ASSESSMENT/PLAN: 1. Primary hypertension - ICD9: 401.9, ICD10: I10 (primary diagnosis) - Uncontrolled - Increase losartan - Recommend home blood pressure monitoring, to bring results to next visit - Encouraged sodium restriction, DASH or Mediterranean diet - Recommend regular aerobic exercise - LOSARTAN 50 MG TABLET - LOSARTAN 50 MG TABLET 2. Open wound of skin - ICD9: 879.8, ICD10: T14.8XXA Start: - CEPHALEXIN 500 MG CAPSULE Continue antibiotic ointment. Notify provider if no better/worsening. Tdap up to date. Discussed treatment plan and patient voices understanding. Patient's questions answered appropriately. Medications and potential side effects were discussed and patient voices understanding. Return to the office as scheduled or as needed for worsening/no improvement. Vidhi Bowers APRN.CARMELITA documented in this encounter [facility] 01-23-2024 Miscellaneous Notes Patient has been identified by name and date of : Yes, Provider JC Patient phones for refill(s): Requested Prescriptions Pending Prescriptions Disp Refills albuterol HFA (PROAIR HFA) 90 mcg/actuation inhaler 18 g 3 Sig: INHALE 1 (ONE) TO 2 (TWO) PUFFS EVERY 6 HOURS NEEDED Date of last office visit in primary care: 01/11/2024 Date of next office visit in primary care: 02/08/2024 Please advise. Thank you. Bruna Florez. documented in this encounter [facility] 01-14-2024 Telephone encounter Note Pt notified. She verbalized understanding. Please assist with scheduling US. Rebel Fraga LPN [facility] 01-14-2024 Miscellaneous Notes Pt notified. She verbalized understanding. Please assist with scheduling US. Rebel Fraga LPN Can please let patient know that I received her labs. Everything looks normal/stable. Her alk phos level continues to be just mildly elevated. It looks like Yair further evaluted this a few years ago. Just to follow-up, I'd like to have her get an ultrasound of her liver. I put the order in. It just needs to be scheduled. Vidhi Bowers APRN.CARMELITA documented in this encounter [facility] 01-14-2024 Telephone encounter Note Can please let patient know that I received her labs. Everything looks normal/stable. Her alk phos level continues to be just mildly elevated. It looks like Yair further evaluted this a few years ago. Just to follow-up, I'd like to have her get an ultrasound of her liver. I put the order in. It just needs to be scheduled. Vidhi Bowers APRN.CARMELITA [facility] 01-11-2024 Miscellaneous Notes Form faxed. Rebel Fraga LPN Form complete. Please return as requested. Vidhi Bowers APRN.CARMELITA Has appt on Thursday. Vidhi Bowers APRN.CARMELITA Type of form: Medical Necessity Form received via fax When form is completed, Fax form to [phone] Form has been forwarded to Nurse Practitioner: Vidhi Yusuf LPN Patient overdue for visit in office. Called and scheduled to be seen on 01/11/24. Mary Grace with [facility] faxed today a certificate of medical necessity for panty liners for incontinence. Pt has been getting these past couple year from [facility]. Please watch for this. PH: [phone] FAX: [phone] Mellissa Tenorio LPN documented in this encounter [facility] 01-11-2024 Instructions Vidhi Bowers APRN.CARMELITA - 01/11/2024 10:53 AM EDT Start the losartan daily. Get the labwork. Increase the protonix -- new script sent in. Return in a month for recheck. Schedule mammogram. Do the stool test. documented in this encounter [facility] 01-11-2024 History of Present illness Narrative This is a 58 year old female who presents today with: Patient presents with: Follow Up HISTORY OF PRESENT ILLNESS: Aysha Rowland is a 58 year old female. Patient presents with: Follow Up GERD: Requesting that the protonic be increased. Having more heartburn breakthrough symptoms. Not taking anything else for symptoms. Getting breakthrough symptoms twice weekly. Avoids food triggers. Asthma: Symptoms worse in spring and fall. Has only used once so far this month. DM: Reports overall feeling well. Medication side effects: No. Home sugar checks: twice daily -- 109-125. Hypoglycemic spells: No. Watching diet: Yes. Unexpected weight loss: trying to lose some weight. Polyuria, polydipsia: No. Vision Changes: yes -- has upcoming eye appt next month. Foot lesions or numbness or pain: No. Needs refill of incontinence supplies. She reports that she has had trouble with incontinence since she had her hysterectomy in 2014. She has bladder leakage. She uses incontinence pads. Reports that she uses approximately 4 pads per day. BP elevated. Denies any CP/SOB/palpitations. PAST MEDICAL HISTORY: PAST MEDICAL HISTORY Diagnosis [...] [Hydrocodone-Acetaminophen] MEDICATIONS Current Outpatient Medications Medication Sig pantoprazole DR (PROTONIX) 20 mg tablet Take 1 tablet by mouth once daily. Lancets lancets tTest blood sugar(s) 2 times daily. Dx: Type 2 DM - Uncontrolled E11.65 Insulin: no ibuprofen (MOTRIN) 800 mg tablet Take 1 tablet by mouth every 8 hours as needed (FOR PAIN. TAKE WITH FOOD). albuterol HFA (PROAIR HFA) 90 mcg/actuation inhaler INHALE 1 (ONE) TO 2 (TWO) PUFFS EVERY 6 HOURS NEEDED ferrous sulfate 325 mg (65 mg iron) tablet Take 1 tablet by mouth once daily. take separately from multivitamin blood sugar diagnostic (BLOOD GLUCOSE TEST) test strip Test blood sugar(s) 2 times daily. Dx: Type 2 DM - Uncontrolled . Insulin: No Blood-Glucose Meter monitoring kit Glucose Meter of Choice - Kit - Dx: Type 2 DM - Uncontrolled E11.65 Insulin NO Blood-Glucose Meter (TRUE METRIX GLUCOSE METER) Use as directed. metFORMIN (GLUCOPHAGE) 1,000 mg tablet Take 0.5 tablets by mouth daily with breakfast. No current facility-administered medications for this visit. [...] status: Light Smoker Packs/day: 0.50 Years: 30.00 Additional pack years: 0.00 Total pack years: 15.00 Types: Cigarettes Smokeless tobacco: Never Vaping Use Vaping Use: Never used Substance Use Topics Alcohol use: No Drug use: No Comment: remote marijuana (teens) EXAM: BP 142/95 Pulse 89 Resp 16 Wt 110.2 kg (243 lb) LMP 02/01/2015 SpO2 95% BMI 40.44 kg/m PHYSICAL EXAM: General Appearance: Well appearing, alert, in no acute distress, well-hydrated, well nourished.. Skin: Skin color, texture, turgor normal, no suspicious rashes or lesions. Head: Normocephalic, no masses, lesions, tenderness or abnormalities. Eyes: Anicteric sclera. Pupils are equally round and reactive to light. Extraocular movements are intact. . Neck: Supple, no adenopathy; thyroid symmetric, normal size, no bruits. Lungs: Lungs clear to auscultation. No wheezing, rhonchi, rales.. Heart: RRR without murmur, gallop, or rubs. No ectopy. Abdomen: Abdomen soft, non-tender. Bowel sounds normal. No masses, organomegaly. Extremities: No deformities, edema, skin discoloration, clubbing or cyanosis. Good capillary refill. . Neurologic: Gait normal. ASSESSMENT/PLAN: 1. Controlled type 2 diabetes mellitus without complication, without long-term current use of insulin (HCC) - ICD9: 250.00, ICD10: E11.9 (primary diagnosis) - Control undetermined, due for labs - ALBUMIN/CREAT RATIO RND UR - HGB A1C - LIPID PANEL BASIC 2. Elevated liver enzymes - ICD9: 790.5, ICD10: R74.8 - COMP METABOLIC PANEL 3. Iron deficiency anemia, unspecified iron deficiency anemia type - ICD9: 280.9, ICD10: D50.9 - CBC + DIFF 4. Gastroesophageal reflux disease with esophagitis without hemorrhage - ICD9: 530.81, 530.10, ICD10: K21.00 Breakthrough symptoms several times weekly. Tries to avoid food triggers. - increase protonix to 40 mg daily. - MAGNESIUM BLD 5. Primary hypertension - ICD9: 401.9, ICD10: I10 - New diagnosis - Start losartan - Recommend home blood pressure monitoring, to bring results to next visit - Encouraged sodium restriction, DASH or Mediterranean diet - Recommend regular aerobic exercise Recheck in 1 month. 6. Screening for colorectal cancer - ICD9: V76.51, V76.41, ICD10: Z12.11, Z12.12 Encouraged to complete ifob as previously ordered. 7. Urge incontinence - ICD9: 788.31, ICD10: N39.41 CMN complete 8. OAB (overactive bladder) - ICD9: 596.51, ICD10: N32.81 CMN complete Discussed treatment plan and patient voices understanding. Patient's questions answered appropriately. Medications and potential side effects were discussed and patient voices understanding. Return to the office as scheduled or as needed for worsening/no improvement. Vidhi Bowers APRN.MAJOR DONOR COORDINATOR documented in this encounter [facility] 11-25-2023 Miscellaneous Notes Patient has been identified by name and date of : Yes Patient phones for refill(s): Requested Prescriptions Pending Prescriptions Disp Refills pantoprazole DR (PROTONIX) 20 mg tablet 90 tablet 1 Sig: Take 1 tablet by mouth once daily. metFORMIN (GLUCOPHAGE) 1,000 mg tablet 45 tablet 1 Sig: Take 0.5 tablets by mouth daily with breakfast. Date of last office visit in primary care: 05/13/2023 Date of next office visit in primary care: Visit date not found Please advise. Thank you. Jocelyn Nielsen LPN. documented in this encounter [facility] 11-23-2023 Miscellaneous Notes Patient has been identified by name and date of : Yes, Provider Jc Pharmacy phones for refill(s): Requested Prescriptions Pending Prescriptions Disp Refills Lancets lancets 100 Each 3 Sig: tTest blood sugar(s) 2 times daily. Dx: Type 2 DM - Uncontrolled E11.65 Insulin: no Date of last office visit in primary care: 05/13/2023 Date of next office visit in primary care: Visit date not found Please advise. Thank you. Inessa Burton LPN. documented in this encounter [facility] 11-01-2023 Discharge summary Note Date/Time November 01, 2023 1:49pm [facility] Medical Records Department [address] [place] [id number] Emergency Department Summary 11/01/23 MR#: [id number] Acct: [id number] Name: BLANCHE ROWLAND Rep #:[id number] : 1965 58 From: Aysha SCOTT PCP: Dr. William Greene MD Status:REG E R Location: ED HPI <TYLER Farrell - Last Filed: 11/01/23 14:46> HPI - Fall History of Present Illness Chief Complaint: Fall Narrative Narrative: 58-year-old female fell on the ice this morning landing on her left hip and buttock. She was able to get up and walk but has continued pain in that area. She has chronic bilateral low back pain. She has no pain radiating down the leg, no weakness or paresthesias. There is no head injury. [facility] <TYLER Farrell - Last Filed: 11/01/23 14:46> [facility] Medical History Asthma Diabetes GERD (gastroesophageal reflux disease) Home Medications Beclomethasone Diprop Inhaler [Qvar 80 Mcg Inhaler] 2 puff inhalation BID PRN Shortness Of Breath 01/02/14 [History Last Taken 06/19/19] albuterol sulfate 90 mcg/actuation aerosol inhaler (ProAir HFA) 1 - 2 puff inhalation Q4H PRN PRN Shortness Of Breath 01/02/14 [History Last Taken 06/19/19] ferrous sulfate 325 mg (65 mg iron) tablet (Iron (ferrous sulfate)) 325 mg PO DAILY 02/15/15 [History Last Taken 06/19/19] metformin 1,000 mg tablet 1,000 mg PO BIDCM 01/05/21 [History Last Taken Unknown] cephalexin 500 mg capsule 500 mg PO Q6 #28 CAPSULES 05/04/22 [Rx Last Taken Unknown] pantoprazole 20 mg tablet,delayed release 50 mg PO DAILY 05/04/22 [History Last Taken Unknown] phenazopyridine 200 mg tablet (Pyridium) 200 mg PO TID 6 doses #6 tabs 05/04/22 [Rx Last Taken Unknown] clindamycin HCl 300 mg capsule (Cleocin HCl) 300 mg PO Q6H #40 CAPSULES 01/28/23[Rx Last Taken Unknown] cephalexin 500 mg capsule 500 mg PO Q6 7 days #28 CAPSULES 02/16/23 [Rx Last Taken Unknown] ciprofloxacin HCl 500 mg tablet 500 mg PO BID #14 TABLETS 02/16/23 [Rx Last Taken Unknown] oxycodone-acetaminophen 5 mg-325 mg tablet (Percocet) 1 tab PO Q8H PRN pain 3 days #10 tabs 08/11/23 [Rx Last Taken Unknown] oxycodone-acetaminophen 5 mg-325 mg tablet (Percocet) 1 tab PO Q8H PRN pain 3 days #10 tabs 10/05/23 [Rx Last Taken Unknown] ondansetron 4 mg disintegrating tablet 4 mg PO Q6H PRN nausea and vomiting 2 days #8 tabs 11/01/23 [Rx Last Taken Unknown] oxycodone-acetaminophen 5 mg-325 mg tablet (Percocet) 1 tab PO Q6H PRN pain 2 days #8 tabs 11/01/23 [Rx Last Taken Unknown] Allergy/AdvReac Type Severity Reaction Status Date / Time clarithromycin [From Biaxin] Allergy Rash Verified 11/01/23 13:33 hydrocodone bitartrate Allergy Rash Verified 11/01/23 13:33 [From Vicodin] naproxen [From Naprosyn] Allergy Rash Verified 11/01/23 13:33 Penicillins Allergy Rash Verified 11/01/23 13:33 Sulfa (Sulfonamide Allergy Rash Verified 11/01/23 13:33 Antibiotics) codeine AdvReac Vomiting Verified 11/01/23 13:33 Surgical History H/O section Social History (Updated 10/05/23 @ 13:[address] Badillo MD) household members: spouse Smoking Status: Current every day smoker tobacco type: cigarettes substance use type: does not use ROS <TYLER Farrell - Last Filed: 11/01/23 14:46> ROS ED ROS Narrative Neuro: Negative for motor/sensory dysfunction. Skin: Negative for wound. Musc: Positive for left hip pain, trauma. Heme: Negative for easy bruising, bleeding, lymphadenopathy. EXAM <TYLER Farrell - Last Filed: 11/01/23 14:46> Physical Exam Narrative Exam Narrative: CONST: Patient sitting in no acute distress. EYES: Normal inspection. NECK: Normal inspection. RESP: No respiratory distress, CTAB. CVS: Regular rate and rhythm, no murmur, no gallop. Back: Normal inspection, no midline tenderness. No bruising. SKIN: Color normal, no rash, warm, dry, intact. EXTREMITIES: Normal appearance, no shortening or rotation, tender left buttock and slightly left hip, no other tenderness, 5/5 strength in hip flexion, knee flexion/extension, DF/PF. Normal sensation, 2+ DP pulses. Full ROM upper extremities, nontender, 2+ radial pulses. NEURO: Oriented x4. PSYCH: Normal affect. Const Vital Signs: 11/01/23 13:33 11/01/23 13:46 Temperature 96.4 F L Temperature Source Temporal Pulse Rate 95 Respiratory Rate 18 Respiratory Effort Normal Non-Labored Respiratory Depth Normal Respiratory Pattern Normal Blood Pressure 164/113 H Blood Pressure Mean 130 Pulse Ox 100 98 Oxygen Delivery Method Room Air Room Air <Dr. Eitan Sánchez DO - Last Filed: 11/01/23 14:46> Physical Exam Const Vital Signs: 11/01/23 13:33 11/01/23 13:46 Temperature 96.4 F L Temperature Source Temporal Pulse Rate 95 Respiratory Rate 18 Respiratory Effort Normal Non-Labored Respiratory Depth Normal Respiratory Pattern Normal Blood Pressure 164/113 H Blood Pressure Mean 130 Pulse Ox 100 98 Oxygen Delivery Method Room Air Room Air MDM <TYLER Farrell - Last Filed: 11/01/23 14:46> MDM MDM Narrative Medical decision making narrative: History gathered from: Patient and daughter Mechanical fall on the ice injuring her left buttock and hip. No head injury. Ambulated into the ED. No external signs of trauma or bruising. Reproducible tenderness left buttock and slightly left greater trochanter. Distal pulses intact. Left hip/pelvic x-ray shows no acute findings. Patient feels improved after IM Toradol, will continue ice and NSAIDs at home, and was prescribed Percocet for breakthrough pain. Discharged in stable condition. I have personally performed a face to face assessment of the patient and have reviewed the DINESH Note. I performed a substantive portion of the visit including all aspects of the following. My kaur findings include: History is patient feeling the isolating on the left buttock region. She notes pain near the ischial tuberosity. No low back pain. Painful to touch after sitting. Exam is tender to palpation at the ischial tuberosity. No focal palpable hematoma. No midline lumbar tenderness. Neurovascular intact distal. Medical Dasha Novoa interpretation of the plain films of the left hip and pelvis is no acute fracture. Patient was advised of the x-ray findings. Advised on conservative treatment. Expect soreness 1 to 2 weeks. Tylenol and Motrin for pain. We can write for some narcotic pain medicine for severe pain. Follow-up 10 to 14 days if not improved Radiography Diagnostic Testing: Clinical Impression(s) from Imaging Studies Hip/Pelvis X-Ray 11/01/23 13:53 IMPRESSION: No evidence of displaced pelvic or hip fracture. Electronically Signed: Mason Renee MD at 14:15 EST , <Dr. Eitan Sánchez, DO - Last Filed: 11/01/23 14:46> [facility] MDM Narrative Medical decision making narrative: History gathered from: Patient and daughter Mechanical fall on the ice injuring her left buttock and hip. No head injury. Ambulated into the ED. No external signs of trauma or bruising. Reproducible tenderness left buttock and slightly left greater trochanter. Distal pulses intact. Left hip/pelvic x-ray shows no acute findings. Patient feels improved after IM Toradol, will continue ice and NSAIDs at home. Discharged in stable condition. I have personally performed a face to face assessment of the patient and have reviewed the DINESH Note. I performed a substantive portion of the visit including all aspects of the following. My kaur findings include: History is patient feeling the isolating on the left buttock region. She notes pain near the ischial tuberosity. No low back pain. Painful to touch after sitting. Exam is tender to palpation at the ischial tuberosity. No focal palpable hematoma. No midline lumbar tenderness. Neurovascular intact distal. Medical Dasha Novoa interpretation of the plain films of the left hip and pelvis is no acute fracture. Patient was advised of the x-ray findings. Advised on conservative treatment. Expect soreness 1 to 2 weeks. Tylenol and Motrin for pain. We can write for some narcotic pain medicine for severe pain. Follow-up 10 to 14 days if not improved Radiography Diagnostic Testing: Clinical Impression(s) from Imaging Studies Hip/Pelvis X-Ray 11/01/23 13:53 IMPRESSION: No evidence of displaced pelvic or hip fracture. Electronically Signed: Mason Renee MD at 14:15 EST , Discharge Plan Triage Chief Complaint: Fall ED Midlevel Provider: Aysha Isabel ED Provider: Eitan Sánchez Dx/Rx/DC Orders Clinical Impression: Contusion of left buttock Instructions: Bruises (Contusions) Prescriptions: New oxycodone-acetaminophen [Percocet] 5-325 mg tablet 1 tab PO Q6H PRN (Reason: pain) 2 Days Qty: 8 0RF ondansetron 4 mg tablet,disintegrating 4 mg PO Q6H PRN (Reason: nausea and vomiting) 2 Days Qty: 8 0RF No Action albuterol sulfate [ProAir HFA] 1 PUFF inhaler 1 - 2 puff inhalation Q4H PRN PRN (Reason: Shortness Of Breath) Patient Comments: shortness of breath Beclomethasone Diprop Inhaler [Qvar 80 Mcg Inhaler] 1 PUFF inhaler 2 puff inhalation BID PRN (Reason: Shortness Of Breath) Patient Comments: asthma ferrous sulfate [Iron (ferrous sulfate)] 325 MG tablet 325 mg PO DAILY Patient Comments: iron supplement/anemia metformin 1,000 MG tablet 1,000 mg PO BIDCM pantoprazole 20 mg tablet,delayed release (DR/EC) 50 mg PO DAILY Patient Comments: TAKE 1 TABLET BY MOUTH ONCE DAILY cephalexin [cephalexin] 500 mg capsule 500 mg PO Q6 Qty: 28 0RF phenazopyridine [Pyridium] 200 mg tablet 200 mg PO TID Qty: 6 0RF clindamycin HCl [Cleocin HCl] 300 mg capsule 300 mg PO Q6H Qty: 40 0RF cephalexin 500 mg capsule 500 mg PO Q6 7 Days Qty: 28 0RF ciprofloxacin HCl 500 mg tablet 500 mg PO BID Qty: 14 0RF oxycodone-acetaminophen [Percocet] 5-325 mg tablet 1 tab PO Q8H PRN (Reason: pain) 3 Days Qty: 10 0RF oxycodone-acetaminophen [Percocet] 5-325 mg tablet 1 tab PO Q8H PRN (Reason: pain) 3 Days Qty: 10 0RF Primary Care Provider: William Greene Referrals: William Greene MD [Primary Care Provider] - Activity Restrictions/Additional Instructions: Ice and use ibuprofen every 6 hours as needed Disposition Disposition: Home, Self Care What to do if you have Problems For any increased pain, shortness of breath, bleeding, nausea or vomiting, chestpain, or any unexpected problems, contact your Primary Care Provider. Call [facility] ([phone]) or report to the closest Emergency Room. Call 911 if necessary. 11/01/231445 <Electronically signed by Aysha SCOTT> Cosigner Signature (if applicable): 11/01/231445 <Electronically signed by Eitan Sánchez DO> CC: Dr. William Greene MD ~ Signed [facility] Work Phone: [phone]) 197-860712-18-[address] Badillo [facility] October 05, 2023 3:21pm Note Date/Time October 05, 2023 2:01pm [facility] Medical Records Department [address] [place] [address] Emergency Department Summary 10/05/23 MR#: [id number] Acct: [id number] Name: BLANCHE ROWLAND Rep #:[id number] : 1965 58 From: Lane Badillo MD PCP: Dr. William Greene MD Status:REG E R Location: ED HPI History of Present Illness Chief Complaint: Back Detail of Chief Complaint: Lower back pain, right Informant: patient Onset/Context/Timing Onset: Days (Approximately 3 days ago) Context: Sudden Onset Chronic pain exacerbated by: any type of movement Injury: - (No history of trauma per patient) Timing: Continuous and Waxes and wanes Quality: Dull and Aching Location: Lumbar (On the right side) Maximum Severity: Severe Worsened by: improves with Movement, Ambulation, Bending and Lifting Relieved by: Nothing Associated Symptoms Associated Symptoms: - (Denies saddle paresthesia or anesthesia. Denies foot drop with walking. Denies buckling of her knees going up or down stairs.); Negative for Numbness, Tingling, Radiation to Right Leg, Radiation to Left Leg, Fever, Abdominal Pain, Dysuria, Unable to Ambulate, Unable to Transfer, Urinary Retention, Urinary Incontinence, Constipation or Fecal Incontinence Narrative Narrative: Patient is a 58-year-old woman with history of lumbar problems . She denies any recent injury. She denies fever, chills or night sweats. She denies weightloss or weight gain. She denies bowel bladder dysfunction. Denies saddle paresthesia or anesthesia. She denies radicular pain. She denies foot drop. She denies quadricep weakness. Patient states she is applied heat and taken ibuprofen with no improvement. She denies recent dental procedure or any type of procedure. Prior similar symptoms: Yes and With Prior Back Pain Recent Illness/Hospitalization: No PFSH PFSH Medical History Asthma Diabetes GERD (gastroesophageal reflux disease) Home Medications Beclomethasone Diprop Inhaler [Qvar 80 Mcg Inhaler] 2 puff inhalation BID PRN Shortness Of Breath 01/02/14 [History Last Taken 06/19/19] albuterol sulfate 90 mcg/actuation aerosol inhaler (ProAir HFA) 1 - 2 puff inhalation Q4H PRN PRN Shortness Of Breath 01/02/14 [History Last Taken 06/19/19] ferrous sulfate 325 mg (65 mg iron) tablet (Iron (ferrous sulfate)) 325 mg PO DAILY 02/15/15 [History Last Taken 06/19/19] metformin 1,000 mg tablet 1,000 mg PO BIDCM 01/05/21 [History Last Taken Unknown] cephalexin 500 mg capsule 500 mg PO Q6 #28 CAPSULES 05/04/22 [Rx Last Taken Unknown] pantoprazole 20 mg tablet,delayed release 50 mg PO DAILY 05/04/22 [History Last Taken Unknown] phenazopyridine 200 mg tablet (Pyridium) 200 mg PO TID 6 doses #6 tabs 05/04/22 [Rx Last Taken Unknown] clindamycin HCl 300 mg capsule (Cleocin HCl) 300 mg PO Q6H #40 CAPSULES 01/28/23[Rx Last Taken Unknown] cephalexin 500 mg capsule 500 mg PO Q6 7 days #28 CAPSULES 02/16/23 [Rx Last Taken Unknown] ciprofloxacin HCl 500 mg tablet 500 mg PO BID #14 TABLETS 02/16/23 [Rx Last Taken Unknown] oxycodone-acetaminophen 5 mg-325 mg tablet (Percocet) 1 tab PO Q8H PRN pain 3 days #10 tabs 08/11/23 [Rx Last Taken Unknown] oxycodone-acetaminophen 5 mg-325 mg tablet (Percocet) 1 tab PO Q8H PRN pain 3 days #10 tabs 10/05/23 [Rx Last Taken Unknown] Allergy/AdvReac Type Severity Reaction Status Date / Time clarithromycin [From Biaxin] Allergy Rash Verified 10/05/23 13:36 hydrocodone bitartrate Allergy Rash Verified 10/05/23 13:36 [From Vicodin] naproxen [From Naprosyn] Allergy Rash Verified 10/05/23 13:36 Penicillins Allergy Rash Verified 10/05/23 13:36 Sulfa (Sulfonamide Allergy Rash Verified 10/05/23 13:36 Antibiotics) codeine AdvReac Vomiting Verified 10/05/23 13:36 Surgical History H/O section Social History (Updated 10/05/23 @ 13:[address] Badillo MD) household members: spouse Smoking Status: Current every day smoker tobacco type: cigarettes substance use type: does not use ROS ROS ED Constitutional Constitutional ED: Denies chills, fever(s), subjective or sweats Eyes Eyes: Denies blurry vision or change in vision ENT ENT ED: Denies ear pain, rhinorrhea or sore throat Cardiovascular Cardiovascular: Denies chest pain or palpitations Respiratory/Chest Respiratory/Chest: Denies dyspnea or dyspnea on exertion Gastrointestinal Gastrointestinal: Denies abdominal pain, constipation, nausea or vomiting Genitourinary Genitourinary ED: Denies dysuria, hematuria or urinary frequency Musculoskeletal Musculoskeletal: Reports back pain; Denies arthralgias, myalgias or neck pain Integumentary Denies rash Neurologic Neurologic: Reports other Details: See HPI narrative ; Denies headache(s), paresthesias or weakness Endocrine Endocrinology: Denies cold intolerance, polydipsia or polyuria Hematologic/Lymphatic Hematologic/Lymphatic: Denies easy bleeding or easy bruising EXAM Physical Exam Const Vital Signs: 10/05/23 13:36 Temperature 97.0 F L Temperature Source Temporal Pulse Rate 91 Respiratory Rate 18 Blood Pressure 173/128 H Blood Pressure Mean 143 Pulse Ox 97 Oxygen Delivery Method Room Air Positive well nourished, well developed and obese Constitutional Narrative: Has odor of tobacco noted. General Appearance ED: well developed and NAD Nutritional Appearance: obese HEENT Reports moist mucous membranes HEENT Narrative: Head is atraumatic and normocephalic. Ears are normal. Nares are patent. Posterior pharynx is unremarkable. Eyes PERRL and EOMs intact bilaterally General Eye ED: Negative for pale conjunctiva or scleral icterus Neck no lymphadenopathy, supple and no JVD Resp normal respiratory effort and clear to auscultation bilaterally Cardio regular rate, regular rhythm, S1 normal heart sound, S2 normal heart sound and no murmurs GI normal to inspection, nondistended, normoactive bowel sounds, soft to palpation,non-tender, non-distended and no masses GI Narrative: There is no palpable or pulsatile mass. There is no abdominal bruit. Exam is limited due to but habitus. Back/Spine normal to inspection Back/Spine Narrative: There is right para lumbar discomfort to palpation. Lumbar Spine / Lower Back: ROM limited and straight leg raise negative bilaterally Extremity normal to inspection and no clubbing, cyanosis or edema Extremity Narrative: There is no asymmetry, discoloration, leg vein distention, palpable cords or tenderness along the distribution of the deep venous system. Neuro oriented x3 and no sensory deficits noted Neuro Narrative: EHL is intact bilaterally. Sensation over L3-S1 1 dermatome are intact. There is 5/5 strength with dorsi and plantarflexion of the foot. Will assess for quadricep weakness once patient has been medicated. Sensorium / Orientation: alert Motor Exam: strength 5/5 throughout Deep Tendon Reflexes: Rt Patellar (L4): 1+, Lt Patellar (L4): 1+, Rt Ankle (S1):1+ and Lt Ankle (S1): 1+ Deep Tendon Reflexes Back: Rt Patellar (L4): 1+, Lt Patellar (L4): 1+, Rt Ankle (S1): 1+ and Lt Ankle (S1): 1+ Plantar Reflex: Downgoing: bilateral Psych mental status grossly normal Skin no rashes or lesions noted and no wounds MDM MDM MDM Narrative Medical decision making narrative: Patient presents with low back pain. There are no red flags that would raise concern for cauda equina syndrome, epidural abscess, spontaneous epidural hematoma or discitis. Suspect this is myofascial lumbar strain. Patient reports rash to naproxen however she cannot take ibuprofen. She was medicated with morphine. Will reassess. Treatment and Re-Evaluation Narrative: Was reassessed at 1510. Sitting up smiling. She has had a 70% reduction of pain. Patient feels comfortable going home. She was prescribed Percocet which she has taken in the past without adverse reaction. Discharge Plan Triage Chief Complaint: Back ED Provider: Lane Badillo Dx/Rx/DC Orders Clinical Impression: Myofascial low back pain, BMI over 35, History of anemia Instructions: ED Back Pain (Acute or Chronic) Prescriptions: New oxycodone-acetaminophen [Percocet] 5-325 mg tablet 1 tab PO Q8H PRN (Reason: pain) 3 Days Qty: 10 0RF No Action albuterol sulfate [ProAir HFA] 1 PUFF inhaler 1 - 2 puff inhalation Q4H PRN PRN (Reason: Shortness Of Breath) Patient Comments: shortness of breath Beclomethasone Diprop Inhaler [Qvar 80 Mcg Inhaler] 1 PUFF inhaler 2 puff inhalation BID PRN (Reason: Shortness Of Breath) Patient Comments: asthma ferrous sulfate [Iron (ferrous sulfate)] 325 MG tablet 325 mg PO DAILY Patient Comments: iron supplement/anemia metformin 1,000 MG tablet 1,000 mg PO BIDCM pantoprazole 20 mg tablet,delayed release (DR/EC) 50 mg PO DAILY Patient Comments: TAKE 1 TABLET BY MOUTH ONCE DAILY cephalexin [cephalexin] 500 mg capsule 500 mg PO Q6 Qty: 28 0RF phenazopyridine [Pyridium] 200 mg tablet 200 mg PO TID Qty: 6 0RF clindamycin HCl [Cleocin HCl] 300 mg capsule 300 mg PO Q6H Qty: 40 0RF cephalexin 500 mg capsule 500 mg PO Q6 7 Days Qty: 28 0RF ciprofloxacin HCl 500 mg tablet 500 mg PO BID Qty: 14 0RF oxycodone-acetaminophen [Percocet] 5-325 mg tablet 1 tab PO Q8H PRN (Reason: pain) 3 Days Qty: 10 0RF Primary Care Provider: William Greene Referrals: William Greene MD [Primary Care Provider] - 3-5 Days if not improving Activity Restrictions/Additional Instructions: 1. Apply ice 6-10 times a day 2. Take medication as prescribed 3. If you are unable to urinate, loss of bowel control or develop weakness in one of your legs return to the emergency department Disposition Disposition: Home, Self Care What to do if you have Problems For any increased pain, shortness of breath, bleeding, nausea or vomiting, chestpain, or any unexpected problems, contact your Primary Care Provider. Call [facility] ([phone]) or report to the closest Emergency Room. Call 911 if necessary. 10/05/23 1521 <Electronically signed by Lane Badillo MD> Cosigner Signature (if applicable): CC: Dr. William Greene MD ~ Signed [facility] Work Phone: 1(774) 572-240112-18-2023 Hospital Discharge instructions Additional Instructions 1. Apply ice 6-10 times a day 2. Take medication as prescribed 3. If you are unable to urinate, loss of bowel control or develop weakness in one of your legs return [facility] the [facility] Work Phone: 1(896) 333-469512-04-2023 Miscellaneous Notes* Telephone Encounter - Angela Carver LPN - 09/21/2023 4:35 PM EST Patient has been identified by name and [...] you. Angela Carver LPN. documented in this encounterWadsworth-Rittman Hospital11-08-2023 Miscellaneous Notes* Telephone Encounter - Mellissa Tenorio LPN - 08/26/2023 11:25 AM EST Patient has been identified by name and date of : Yes, Provider Dr. Greene Date 08/26/23 Time 11:25 am Patient phones [...] you. Mellissa Tenorio LPN. documented in this encounterWadsworth-Rittman Hospital09-19-2023 Miscellaneous Notes* Telephone Encounter - Mellissa Tenorio LPN - 07/07/2023 2:13 PM EDT Pt switched pharmacy to [facility]. Patient has been identified by name and date of : Yes, Provider Dr Greene Date 07/07/23 Time 2:13pm Patient phones for refill(s): Requested Prescriptions Pending [...] you. Mellissa Tenorio LPN documented in this encounterWadsworth-Rittman Hospital09-07-2023 Miscellaneous Notes* Telephone Encounter - Nadya Marie Ma - 06/25/2023 4:18 PM EDT I called and spoke with patient. She is fearful of having the surgery. She does not wish to reschedule at this time. Case message sent and post op appointments have been cancelled. * Telephone Encounter - Pat Huerta - 06/25/2023 9:54 AM EDT Spouse is calling to cancel procedure and reschedule please advise the patient. documented in this encounterWadsworth-Rittman Hospital08-29-2023 Miscellaneous Notes* Telephone Encounter - Nadya Marie Ma - 06/16/2023 10:42 AM EDT Surgery has been scheduled as requested. * Telephone Encounter - Nadya Marie Ma - 06/16/2023 9:53 AM EDT Surgical request completed for left thumb excision digital mucous cyst at [facility] on 07/03/2023. Post op appointments have been scheduled and mailed to the patient. documented in this encounterWadsworth-Rittman Hospital08-28-2023 History of Present illness Narrative* Anupama Ugalde PA-C - 06/15/2023 11:09 AM EDT Anupama Ugalde PA-C Department of Orthopaedics Orthopaedics [address] [place] [address] Dept: [phone] Dept June 15, 2023 CHIEF COMPLAINT: Pain and Established Patient of the Left Thumb (4 weeks post visit L thumb pain with injection given). ASSESSMENT: M67.442 Digital mucinous cyst of finger of left hand (primary encounter diagnosis) M79.645 Pain of left thumb SUMMARY/PLAN: Patient presents about 4 weeks status post left thumb injection for a digital mucous cyst. The cysthas decreased significantly in size the patient is [...] digit. Imaging: IMPRESSION: NO ACUTE BONY ABNORMALITY. Manager Event: RADHA Transcribe Date/Time: May 01 2023 1:46P Dictated [...] abnormalities identified on the radiograph. Ms. Aysha Rowland was advised as to contrast therapies and/or to take analgesics/anti-inflammatoriesas needed and all contraindications were reviewed. Supporting [...] tablet by mouth daily with breakfast. (Patient takingdifferently: Take 1,000 mg by mouth daily with [...] [Hydrocodone-Acetaminophen] This note was partially generated using Armor5 voice recognition system, and there may be some incorrect words, spellings, and punctuation that were not noted in checking the note before saving. Anupama Ugalde PA-C * Florinda Olson - 06/15/2023 10:31 AM EDT Patient presents with: Left Thumb - Pain, [...] Intervention/Comfort measure: Medication, Heat documented in this encounterWadsworth-Rittman Hospital08-10-2023 Miscellaneous Notes* Telephone Encounter - Анна Smith - 05/28/2023 6:14 PM EDT Patient has been identified by name and [...] and advise. Анна Smith documented in this encounterWadsworth-Rittman Hospital08-10-2023 Miscellaneous Notes* Telephone Encounter - Marisol Dumont RN - 05/28/2023 6:09 PM EDT Patient has been identified by name and [...] 07/13/2020 6.9 Please advise. Thank you. Marisol Dumont RN documented in this encounterWadsworth-Rittman Hospital08-04-2023 History of Present illness Narrative* Serge Wright APRN.MAJOR DONOR COORDINATOR - 05/22/2023 3:49 PM EDT Subjective HPI HPI Aysha Rowland is a 57 year old female who [...] Biaxin [Clarithromycin], Codeine, Doxycycline, Meloxicam, Naprosyn [Naproxen], PenicillinG, Sulfa (Sulfonamide Antibiotics), Tramadol, and Vicodin [Hydrocodone-Acetaminophen] MEDICATIONS metFORMIN (GLUCOPHAGE) 1,000 mg tablet Take 1 tablet by mouth daily with breakfast. (Patient takingdifferently: Take 1,000 mg by mouth daily with [...] - PREDNISONE 20 MG TABLET Serge Wright APRN.MAJOR DONOR COORDINATOR documented in this encounterWadsworth-Rittman Hospital07-31-2023 History of Present illness Narrative* Anupama Ugalde PA-C - 05/18/2023 9:22 AM EDTAssociated Order(s): Small Joint Arthro/Inj: L thumb IP Post-Procedure Diagnose(s): Digital mucinous cyst of finger of left hand Anupama Ugalde PA-C Department of Orthopaedics Orthopaedics [facility] [address] Dept: [phone] Dept May 18, 2023 CHIEF COMPLAINT: Pain and Established Patient of the Left Thumb and Referred by Vidhi Bowers (Last seen 08/13/20 Right knee pain. ) Ms. Aysha Rowland is a 57 year old female who [...] excision. Patient agrees to plan. Ms. Aysha Rwoland was advised as to contrast therapies and/or to take analgesics/anti-inflammatoriesas needed and all contraindications were reviewed. OBJECTIVE: Ms. Aysha Rowland is a pleasant 57 year old in [...] No noted nail deformity. Patient has full andactive range of motion in the left thumb without any locking or catching of the digit. The digit isstable to collateral stresses, there is no pain or tenderness at the basal joint or over the first dorsal compartment. Sensation is intact to the pad of the digit. Small Joint Arthro/Inj: L thumb IP Informed Consent Consent Obtained: Written [place] Protocol A moment to CARE was completed. [...] tablet by mouth daily with breakfast. (Patient takingdifferently: Take 1,000 mg by mouth daily with [...] anxiety) This note was partially generated using Armor5 voice recognition system, and there may be some incorrect words, spellings, and punctuation that were not noted in checking the note before saving. Anupama Ugalde PA-C * Juany Yan Ma - 05/18/2023 8:26 AM EDT Patient presents with: Left Thumb - Pain, [...] and does not help. X-rays done at [facility] on 04/28/23, and on 05/11/23 at [facility] uploaded into Epic. documented in this encounterWadsworth-Rittman Hospital07-11-2023 Miscellaneous Notes* Telephone Encounter - Karol Braun RN - 04/28/2023 5:11 PM EDT Patient has been identified by name and [...] you. Karol Braun RN documented in this encounterWadsworth-Rittman Hospital07-11-2023 History of Present illness Narrative* Angelia Colby RT(R) - 04/28/2023 1:20 PM EDT Radiology Service Progress Note PATIENT NAME: Aysha Rowland DATE OF SERVICE: April 28, 2023 TIME: 1:13 PM PATIENT IDENTITY VERIFICATION COMPLETED USING TWO (2) IDENTIFIERS: Name and Date of confirmedby patient verbally. FALL SCREENING: Has the patient had 2 falls in the last year or 1 fall with injury or currently using an Ambulatory Assistive Device (Walker, Cane, Wheelchair, Crutches, etc.)? No PATIENT GENDER DATA: Female. status: : No status: NO. PATIENT RELEVANT IMPLANT DATA REVIEWED: Yes RADIOLOGY DEPARTMENT: General X-ray: Exam(s) Completed: Upper Extremity X- Ray(s): Fingers/Thumb, left PERIPHERAL IV DATA: Not applicable SIGNED BY: RT Pinky(R) April 28, 2023 1:13 PM documented in this encounterWadsworth-Rittman Hospital07-11-2023 History of Present illness Narrative* Parth Smith PA-C - 04/28/2023 12:04 PM EDT 57 year old female with c/o left [...] - Negative for goblet cells and dysplasia. TWB/rene 01-22-15 COMMENT 1. An immunohistochemical stain of the gastric biopsy confirms the presence of Helicobacter organisms. TWCorrine Mena M.D., Ph.D. (Electronic Signature) Component Latest [...] Lymph 1.00 - 4.00 k/uL 2.62 2.50 [place]% % 6.3 6.2 Abs [place] <0.87 k/uL 0.60 0.67 E[place]% % 3.2 [...] Obesity, Class Iii, Bmi 40-49.9 (Morbid Obesity) ([facility]) Diabetes Mellitus Type 2, Controlled, Without Complications ([facility]) Current Outpatient Medications Medication Sig Dispense [...] Type 2 DM - Uncontrolled E11.65 Insulin: no100 Each 3 benzonatate (TESSALON PERLES) 100 mg [...] distress. Alert and oriented all spheres. Normal affectand cognition. Speech normal. No deficits to learning [...] foot pain no, No deformities, ulcers, calluses, normaldistal pulses, and sensitive to 10 gm monofilament [...] history context and comparison. documented in this encounterWadsworth-Rittman Hospital05-01-2023 Miscellaneous Notes* Telephone Encounter - Pat Sadler RN - 02/16/2023 11:24 AM EDT Triage protocol recommended: See provider within 24 [...] above 6. : no Protocols used: Urinary [id number]-BX documented in this encounterWadsworth-Rittman Hospital04-06-2023 Miscellaneous Notes* Telephone Encounter - Mellissa Tenorio LPN - 01/22/2023 3:03 PM EDT Patient has been identified by name and date of : Yes, Provider Dr. Greene Date 01/22/23 Time 3:03am Patient phones for refill(s): Requested Prescriptions Pending [...] you. Mellissa Tenorio LPN documented in this encounterWadsworth-Rittman Hospital03-08-2023 Miscellaneous Notes* Telephone Encounter - Edilma Stein - 12/24/2022 3:50 PM EST Patient has been identified by name and date of : Yes Requested Prescriptions Pending Prescriptions Disp Refills Lancets lancets 100 Each 11 Sig: tTest blood sugar(s) 2 times daily. Dx: Type 2 DM - Uncontrolled E11.65 Insulin: no RX INSTRUCTIONS: Patient aware RX will be sent to pharmacy. No need to notify patient. Edilma Stein documented in this encounterWadsworth-Rittman Hospital03-01-2023 History of Present illness Narrative* Sherri Acosta PA-C - 12/17/2022 3:22 PM EST This note was created using xiao qu wu youriter. Subjective Aysha Rowland is a 57 year old female. HPI Presents with the chief complaint of hoarse voice and cough. She was seen on the 16 and given Tessalon. She had called her primary doctor a week later when she was not better and they placed her ondoxycycline. This did improve her sinus congestion. She [...] cervix uteri 1999 Diabetes mellitus (adult onset) ([facility]) Heartburn Migraine headache Seasonal allergies Tobacco use [...] Type 2 DM - Uncontrolled E11.65 Insulin: no100 Each 11 Blood-Glucose Meter (TRUE METRIX GLUCOSE [...] cough. Discussed if she has a worsening cough,fever, chest pain or shortness of breath would recommend being seen again for x-ray. She did just complete doxycycline which did help her symptoms other than her hoarse voice. Commended voice rest aswell. Sherri Acosta PA-C documented in this encounterWadsworth-Rittman Hospital02-22-2023 Miscellaneous Notes* Telephone Encounter - Nicolle Yusuf LPN - 12/10/2022 10:51 AM EST Faxed as requested. * Telephone Encounter - Nicolle Yusuf LPN - 12/03/2022 11:48 AM EST Patient has been identified by name and date of : Yes, Provider Jc Date 12/03/22 Type of form: CMN [employer] Incontinence liner Form received via: Fax When form is completed, fax form to fax number provided. Form has been forwarded to: Provider's desk. Provider name: Jc Yusuf LPN documented in this encounterWadsworth-Rittman Hospital02-21-2023 Miscellaneous Notes* Telephone Encounter - Pat Sadler RN - 12/09/2022 4:01 PM EST Pt notified. Pat Sadler RN * Telephone Encounter - William Greene MD - 12/09/2022 3:06 PM EST Rx sent. Call if symptoms worsen at all or if not better in one to two weeks * Telephone Encounter - Pat Sadler RN - 12/09/2022 2:33 PM EST Patient calling and states she was seen in [facility] on 12/04 for sore throat, cough and sinus issues. Tested negative for COVID. Benzonatate was ordered for pt. Pt states she does not feel much better. Her cough is better with the medication, but she continuesto cough. Throat is still irritated and she has sinus pressure between her eyes and in her forehead. Nasal congestion continues and pt has sweats at times. No increased in SOB. Has asthma and uses inhaler with good effect. Denies fever (but having sweats), nausea, vomiting or diarrhea. Drinking fluids well. Decreased appetite. Uses [facility]. Patient requesting PCP advise due to her medical history. Thank you. documented in this encounterWadsworth-Rittman Hospital02-16-2023 History of Present illness Narrative* Jesus Squires MD - 12/04/2022 2:17 PM EST Patient presents with: Sore Throat: YIP, sinus, [...] pain, shortness of breath, and lethargy; in theER if severe. - BENZONATATE 100 MG CAPSULE - 2019 CORONAVIRUS Jesus Squires MD documented in this encounterWadsworth-Rittman Hospital11-29-2022 Instructions* Patient Instructions* Vidhi Bowers APRN.CNP - 09/16/2022 3:15 PM EST Schedule ultrasound. Continue same medication. 3. Check into Shingrix (shingles shot). Find out whether to get at doctor's office or pharmacy. 4. Let me know about colon cancer screening. Health Promotion: - Eat healthy -- go to [employer].Fluid-1 to get started - Have a yearly [...] drive - Wear sunscreen documented in this encounterWadsworth-Rittman Hospital11-29-2022 History of Present illness Narrative* Vidhi Bowers APRN.CARMELITA - 09/16/2022 2:42 PM EST This is a 57 year old female who presents today with: No chief complaint on file. HISTORY OF PRESENT ILLNESS: Aysha Rowland is a 57 year old female. No [...] Biaxin [Clarithromycin], Codeine, Doxycycline, Meloxicam, Naprosyn [Naproxen], PenicillinG, Sulfa (Sulfonamide Antibiotics), Tramadol, and Vicodin [Hydrocodone-Acetaminophen] [...] 88 Resp 18 Ht 165.1 cm (5' 5) Wt 119.3 kg (263 lb) LMP 02/01/2015 RvC541% BMI 43.77 kg/m 118/76 PHYSICAL EXAM: General [...] as needed for worsening/no improvement. Vidhi Bowers APRN.MAJOR DONOR COORDINATOR documented in this encounterCleveland [phone] Miscellaneous Notes* Telephone Encounter - Mellissa Tenorio LPN - 09/08/2022 4:46 PM EST Spoke with pt and information listed below given. Pt verbalizes understanding. Physical scheduled and pt will get lab work done prior to apt. Mellissa eTnorio LPN * Telephone Encounter - William Greene MD - 09/08/2022 4:[address] over due for labs and check up. * Telephone Encounter - Aliya Giles RN - 09/08/2022 3:44 PM EST Patient only has one day left of her medication. Patient requesting 2 week dose of medications to be sent to [facility] and 90 day supplies to be sent to [facility]. Last Office Visit: 07/31/2022 Future Office [...] of Last Labs: 07/20/2021 documented in this encounterWadsworth-Rittman Hospital10-19-2022 Miscellaneous Notes* Telephone Encounter - Parth Smith PA-C - 08/06/2022 9:02 AM EDT The following approved medication requests have been [...] Insulin: No Authorizing Provider: Parth SMITH PA-C * Telephone Encounter - Angie Bocanegra LPN - 08/05/2022 9:27 AM EDT Last office visit: 07/31/22 Next appointment scheduled: [...] advise. Angie Bocanegra LPN documented in this encounterWadsworth-Rittman Hospital10-17-2022 Miscellaneous Notes* Telephone Encounter - Aysha Gonzáles Ma - 08/04/2022 2:22 PM EDT Pt notified * Telephone Encounter - Parth Smith PA-C - 08/04/2022 12:07 PM EDT 4-6 weeks to heal from injury. If problematic after 4 weeks, let me know. Thanks, Yair Smith PA-C * Telephone Encounter - Angela Carver LPN - 08/04/2022 10:43 AM EDT Patient returned call and went over results from Yair SCOTT. Patient asking what is she to do with the finger still swollen and red? * Telephone Encounter - Aysha Gonzáles Ma - 08/01/2022 5:13 PM EDT Left message for patient to return call. Aysha Gonzáles Ma * Telephone Encounter - Parth Smith PA-C - 08/01/2022 5:06 PM EDT Please advise no fracture evident Thanks, Yair Smith PA-C * Telephone Encounter - Jazmine Taylor LPN - 08/01/2022 11:12 AM EDT Patient calling for x-ray results done yesterday. Jazmine Taylor LPN documented in this encounterWadsworth-Rittman Hospital10-13-2022 History of Present illness Narrative* Rachel Amaya RT(R) - 07/31/2022 2:20 PM EDT Radiology Service Progress Note PATIENT NAME: Aysha Rowland DATE OF SERVICE: July 31, 2022 TIME: 2:16 PM PATIENT IDENTITY VERIFICATION COMPLETED USING TWO (2) IDENTIFIERS: Name and Date of confirmedby patient verbally. FALL SCREENING: Has the patient had 2 falls in the last year or 1 fall with injury or currently using an Ambulatory Assistive Device (Walker, Cane, Wheelchair, Crutches, etc.)? No PATIENT GENDER DATA: Female. status: : No status: NO. PATIENT RELEVANT IMPLANT DATA REVIEWED: Not Applicable RADIOLOGY DEPARTMENT: General X-ray: Exam(s) Completed: Upper Extremity X- Ray(s): Fingers/Thumb, left PERIPHERAL IV DATA: Not applicable SIGNED BY: RT Frida(R) July 31, 2022 2:16 PM documented in this encounterWadsworth-Rittman Hospital08-24-2022 Miscellaneous Notes* Telephone Encounter - Laura Sauer RN - 06/11/2022 11:10 AM EDT Patient calls to report she has a [...] in her pants pocket and stoved it. Patienttold this nurse it was a new injury. [...] finger. 10. : No Protocols used: Finger [id number] documented in this encounterWadsworth-Rittman Hospital08-16-2022 Instructions* Patient Instructions* Carolina Callaway APRN.CNP - 06/03/2022 11:18 AM EDT R.I.C.E. The [...] thin washcloth between the bag and your skin.Apply the ice bag to the area for [...] pillows when lying down. documented in this encounterWadsworth-Rittman Hospital08-16-2022 History of Present illness Narrative* Carolina Callaway APRN.CNP - 06/03/2022 10:42 AM EDT This note was created using NoteWriter. Subjective Aysha Rowland is a 56 year old female. 56 [...] history is provided by the patient. No elementary education tutor was used. Musculoskeletal Problem This is a new problem. The current episode started yesterday. The problem occurs constantly. The problem has been unchanged. Pertinent negatives include no abdominal pain, anorexia, arthralgias, change in bowel habit, chest pain, chills, congestion, coughing, diaphoresis, fatigue, fever, headaches,joint swelling, myalgias, nausea, neck pain, numbness, rash, [...] Biaxin [Clarithromycin], Codeine, Doxycycline, Meloxicam, Naprosyn [Naproxen], PenicillinG, Sulfa (Sulfonamide Antibiotics), Tramadol, and Vicodin [Hydrocodone-Acetaminophen] [...] up with PCP if symptoms persist Carolina Callaway APRN.CARMELITA documented in this encounterKelly Ville [address]-02-2015 History of Past illness Narrative* Problem Noted [...] of this encounter (statuses as of 06/03/2022) [facility] History of Past illness Narrative* Problem [...] of this encounter (statuses as of 06/11/2022) [facility] History of Past illness Narrative* Problem [...] of this encounter (statuses as of 08/04/2022) [facility] History of Past illness Narrative* Problem [...] of this encounter (statuses as of 08/06/2022) [facility] History of Past illness Narrative* Problem [...] of this encounter (statuses as of 09/08/2022) [facility] History of Past illness Narrative* Problem [...] of this encounter (statuses as of 09/16/2022) [facility] History of Past illness Narrative* Problem [...] of this encounter (statuses as of 10/27/2022) [facility] History of Past illness Narrative* Problem [...] of this encounter (statuses as of 12/04/2022) [facility] History of Past illness Narrative* Problem [...] of this encounter (statuses as of 12/10/2022) [facility] History of Past illness Narrative* Problem [...] of this encounter (statuses as of 12/10/2022) [facility] History of Past illness Narrative* Problem [...] of this encounter (statuses as of 12/18/2022) [facility] History of Past illness Narrative* Problem [...] of this encounter (statuses as of 12/25/2022) [facility] History of Past illness Narrative* Problem [...] of this encounter (statuses as of 01/23/2023) [facility] History of Past illness Narrative* Problem [...] of this encounter (statuses as of 04/10/2023) [facility] History of Past illness Narrative* Problem [...] of this encounter (statuses as of 04/29/2023) [facility] History of Past illness Narrative* Problem [...] of this encounter (statuses as of 04/29/2023) [facility] History of Past illness Narrative* Problem [...] of this encounter (statuses as of 05/18/2023) [facility] History of Past illness Narrative* Problem [...] of this encounter (statuses as of 05/23/2023) [facility] History of Past illness Narrative* Problem [...] of this encounter (statuses as of 05/29/2023) [facility] History of Past illness Narrative* Problem [...] of this encounter (statuses as of 05/29/2023) [facility] History of Past illness Narrative* Problem [...] of this encounter (statuses as of 06/15/2023) [facility] History of Past illness Narrative* Problem [...] of this encounter (statuses as of 06/16/2023) [facility] History of Past illness Narrative* Problem [...] of this encounter (statuses as of 06/26/2023) [facility] History of Past illness Narrative* Problem [...] of this encounter (statuses as of 07/08/2023) [place] [address]-02-2015 History of Past illness Narrative* Problem Noted [...] of this encounter (statuses as of 08/27/2023) [facility] History of Past illness Narrative* Problem [...] of this encounter (statuses as of 09/22/2023) [facility] History of Past illness Narrative* Problem [...] of this encounter (statuses as of 09/28/2023) [facility] History of Past illness Narrative* Problem [...] as of this encounter (statuses as of 11/24/2023) [facility] History of Past illness Narrative* Problem [...] as of this encounter (statuses as of 11/26/2023) [facility] History of Past illness Narrative* Problem [...] as of this encounter (statuses as of 01/11/2024) [facility] History of Past illness Narrative* Problem [...] as of this encounter (statuses as of 01/11/2024) [facility] History of Past illness Narrative* Problem [...] as of this encounter (statuses as of 01/25/2024) [facility] Duron [facility] April 13, 2023 12:21pm Note Date/Time April 13, 2023 12:1 5pm [facility] Medical Records Department [address] [place] [address] Emergency Department Summary 04/13/23 MR#: [id number] Acct: [id number] Name: BLANCHE ROWLAND Rep #:[id number] 2 : 1965 57 From: Tod Duron MD PCP: Dr. William Greene MD Status:PRE E R Location: ED HPI History of Present Illness Chief Complaint: Laceration Informant: patient Narrative Narrative: 57-year-old female states she was mowing the grass and something flew up and hither in the face very hard and she is in a lot of pain. States she has a cut on her face and her tooth hurts. No other injuries. [facility] Medical History Asthma Diabetes GERD (gastroesophageal reflux disease) Home Medications Beclomethasone Diprop Inhaler [Qvar 80 Mcg Inhaler] 2 puff inhalation BID PRN Shortness Of Breath 01/02/14 [History Last Taken 06/19/19] albuterol sulfate 90 mcg/actuation aerosol inhaler (ProAir HFA) 1 - 2 puff inhalation Q4H PRN PRN Shortness Of Breath 01/02/14 [History Last Taken 06/19/19] ferrous sulfate 325 mg (65 mg iron) tablet (Iron (ferrous sulfate)) 325 mg PO DAILY 02/15/15 [History Last Taken 06/19/19] metformin 1,000 mg tablet 1,000 mg PO BIDCM 01/05/21 [History Last Taken Unknown] cephalexin 500 mg capsule 500 mg PO Q6 #28 CAPSULES 05/04/22 [Rx Last Taken Unknown] pantoprazole 20 mg tablet,delayed release 50 mg PO DAILY 05/04/22 [History Last Taken Unknown] phenazopyridine 200 mg tablet (Pyridium) 200 mg PO TID 6 doses #6 tabs 05/04/22 [Rx Last Taken Unknown] clindamycin HCl 300 mg capsule (Cleocin HCl) 300 mg PO Q6H #40 CAPSULES 01/28/23[Rx Last Taken Unknown] cephalexin 500 mg capsule 500 mg PO Q6 7 days #28 CAPSULES 02/16/23 [Rx Last Taken Unknown] ciprofloxacin HCl 500 mg tablet 500 mg PO BID #14 TABLETS 02/16/23 [Rx Last Taken Unknown] Allergy/AdvReac Type Severity Reaction Status Date / Time clarithromycin [From Biaxin] Allergy Rash Verified 02/16/23 12:12 hydrocodone bitartrate Allergy Rash Verified 02/16/23 12:12 [From Vicodin] naproxen [From Naprosyn] Allergy Rash Verified 02/16/23 12:12 Penicillins Allergy Rash Verified 02/16/23 12:12 Sulfa (Sulfonamide Allergy Rash Verified 02/16/23 12:12 Antibiotics) codeine AdvReac Vomiting Verified 02/16/23 12:12 Surgical History H/O section Social History Smoking Status: Current every day smoker tobacco type: cigarettes ROS ROS ED Eyes Eyes: Denies blurry vision or change in vision ENT ENT ED: Reports as per HPI and dental pain Gastrointestinal Gastrointestinal: Denies nausea or vomiting Neurologic Neurologic: Denies headache(s), paresthesias or weakness Psychiatric Psychiatric: Reports anxiety EXAM Physical Exam Const Vital Signs: 04/13/23 11:53 Temperature 96.5 F L Temperature Source Temporal Pulse Rate 103 H Respiratory Rate 18 Blood Pressure 190/140 H Blood Pressure Mean 156 Pulse Ox 99 Oxygen Delivery Method Room Air Positive well nourished, well developed and obese General Appearance ED: well developed and NAD Nutritional Appearance: obese HEENT HEENT Narrative: Small abrasion to the face below the left lower lip, does not involve the vermilion, there is no lesion at the oral mucosa opposite this, but the nearby mandibular lateral incisor which appears chronically crooked is tender without being loose, and there is a very superficial laceration at the gingiva just caudal to that tooth 0.5 cm without any need for repair. No lip laceration. Noother areas of facial tenderness. Moving his jaw well without difficulty, no tenderness below the laceration at the margin of the bony mandible. Eyes PERRL and EOMs intact bilaterally Neck full ROM General: Negative for tenderness Extremity normal to inspection and full ROM Neuro oriented x3, CN's II-XII intact bilaterally, moves all extremities, no focal motor deficits, no sensory deficits noted and gait normal Psych Mood & Affect: anxious and tearful Skin no rashes or lesions noted Skin Narrative: Small superficial abrasion to the left lower face see above. No need for repair. MDM MDM MDM Narrative Medical decision making narrative: Patient reassured, no repair indicated for this. I will have nurses cleanse andplace a bandage with bacitracin, I advised twice daily salt water rinses for hermouth to prevent infection and this should heal on its own without any difficulty, and I do not think she needs a mandible x-ray. Given ibuprofen prior to discharge. Discharge Plan Triage Chief Complaint: Laceration ED Provider: Tod Duron Dx/Rx/DC Orders Clinical Impression: Dental injury, Abrasion of face Instructions: First Aid: Cuts and Scrapes Prescriptions: No Action albuterol sulfate [ProAir HFA] 1 PUFF inhaler 1 - 2 puff inhalation Q4H PRN PRN (Reason: Shortness Of Breath) Label Comments: shortness of breath Beclomethasone Diprop Inhaler [Qvar 80 Mcg Inhaler] 1 PUFF inhaler 2 puff inhalation BID PRN (Reason: Shortness Of Breath) Label Comments: asthma ferrous sulfate [Iron (ferrous sulfate)] 325 MG tablet 325 mg PO DAILY Label Comments: iron supplement/anemia metformin 1,000 MG tablet 1,000 mg PO BIDCM pantoprazole 20 mg tablet,delayed release (DR/EC) 50 mg PO DAILY Label Comments: TAKE 1 TABLET BY MOUTH ONCE DAILY cephalexin [cephalexin] 500 mg capsule 500 mg PO Q6 Qty: 28 0RF phenazopyridine [Pyridium] 200 mg tablet 200 mg PO TID Qty: 6 0RF clindamycin HCl [Cleocin HCl] 300 mg capsule 300 mg PO Q6H Qty: 40 0RF cephalexin 500 mg capsule 500 mg PO Q6 7 Days Qty: 28 0RF ciprofloxacin HCl 500 mg tablet 500 mg PO BID Qty: 14 0RF Primary Care Provider: William Greene Referrals: William Greene MD [Primary Care Provider] - As Needed (And/or dentist) Activity Restrictions/Additional Instructions: Rinse the front of your mouth with mild salt water twice daily to help prevent infection. Apply ice pack to your face as needed. Change Band-Aid to your faceas needed until no more bleeding or discharge. Disposition Disposition: Home, Self Care What to do if you have Problems For any increased pain, shortness of breath, bleeding, nausea or vomiting, chestpain, or any unexpected problems, contact your Primary Care Provider. Call [facility] ([phone]) or report to the closest Emergency Room. Call 911 if necessary. 04/13/23 1221 <Electronically signed by Tod Duron MD> Cosigner Signature (if applicable): CC: Dr. William Greene MD ~ Signed [facility] Work Phone: Evaluation noteNo assessment information available [facility] Work Phone: Evaluation note* Diagnosis Finger pain, left- Primary Pain in limb documented in this encounter [facility] note* Diagnosis Controlled type 2 diabetes mellitus without complication, without long-term current use of insulin (HCC) Gastroesophageal reflux disease with esophagitis without hemorrhage Restless legs Restless legs syndrome (RLS) documented in this encounter [facility] note* Diagnosis Routine physical examination- Primary Routine [...] abnormality of urination [facility] Diagnosis Encounter for screening mammogram for breast cancer documented [facility] Diagnosis Acute non-recurrent sinusitis, unspecified location- Primary Acute cough [facility] Diagnosis Bacterial sinusitis- Primary Unspecified sinusitis (chronic) [facility] Diagnosis Laryngitis- Primary Acute laryngitis, without mention of obstruction [facility] Diagnosis Controlled type 2 diabetes mellitus without complication, without long-term current use of insulin (HCC) [facility] Diagnosis Asthma, unspecified asthma severity, unspecified whether complicated, unspecified whether persistent [facility] Diagnosis Pain of left thumb- Primary [...] malignant neoplasms, colon [facility] Diagnosis Digital mucinous cyst of finger of left hand- Primary Pain of left thumb Pain in limb [facility] Diagnosis Mastoid pain, right- Primary [facility] Diagnosis Controlled type 2 diabetes mellitus without complication, without long-term current use of insulin (HCC) Asthma, unspecified asthma severity, unspecified whether complicated, unspecified whether persistent [facility] Diagnosis Gastroesophageal reflux disease with esophagitis without hemorrhage [facility] Diagnosis Digital mucinous cyst of finger of left hand- Primary Pain of left thumb Pain in limb [facility] Diagnosis Digital mucinous cyst of finger of left hand- Primary Digital mucinous cyst of finger of left hand [facility] Diagnosis Controlled type 2 diabetes mellitus without complication, without long-term current use of insulin (HCC) Gastroesophageal reflux disease with esophagitis without hemorrhage [facility] Diagnosis Controlled type 2 diabetes mellitus without complication, without long-term current use of insulin (HCC) [facility] Diagnosis Asthma, unspecified asthma severity, unspecified whether complicated, unspecified whether persistent Restless legs Restless legs syndrome (RLS) [facility] Diagnosis Encounter for screening mammogram for breast cancer [facility] Diagnosis Controlled type 2 diabetes mellitus without complication, without long-term current use of insulin (HCC) [facility] Diagnosis Gastroesophageal reflux disease with esophagitis without hemorrhage Controlled type 2 diabetes mellitus without complication, without long-term current use of insulin (HCC) [facility] Diagnosis Controlled type 2 diabetes mellitus without complication, without long-term current use of insulin (HCC)- Primary Elevated liver enzymes Other nonspecific abnormal serum enzyme levels Iron deficiency anemia, unspecified iron deficiency anemia type Gastroesophageal reflux disease with esophagitis without hemorrhage Primary hypertension Unspecified essential hypertension Screening for colorectal cancer Special screening for malignant neoplasms, colon Urge incontinence OAB (overactive bladder) Hypertonicity of bladder [facility] Diagnosis Asthma, unspecified asthma severity, unspecified whether complicated, unspecified whether persistent [facility] Diagnosis Primary hypertension- Primary Unspecified essential hypertension Open wound of skin [facility] Diagnosis Elevated alkaline phosphatase level Other nonspecific abnormal serum enzyme levels [facility] Diagnosis Elevated alkaline phosphatase level- Primary Other nonspecific abnormal serum enzyme levels Calculus of gallbladder without cholecystitis without obstruction Calculus of gallbladder without mention of cholecystitis or obstruction [facility] Diagnosis Primary hypertension- Primary Unspecified essential hypertension Mood swings Other specified episodic mood disorder [facility] Diagnosis Elevated alkaline phosphatase level- Primary Other nonspecific abnormal serum enzyme levels Elevated alkaline phosphatase level Other nonspecific abnormal serum enzyme levels [facility] Diagnosis Primary hypertension- Primary Unspecified essential hypertension [facility] Diagnosis Mood swings- Primary Other specified episodic mood disorder Primary hypertension Unspecified essential hypertension Controlled type 2 diabetes mellitus without complication, without long-term current use of insulin (HCC) [facility] Diagnosis Primary hypertension Unspecified essential hypertension [facility] Diagnosis Controlled type 2 diabetes mellitus without complication, without long-term current use of insulin (HCC)- Primary Encounter for immunization Need for other specified prophylactic vaccination against single bacterial disease Primary hypertension Unspecified essential hypertension [facility] Diagnosis Pain of left thumb Pain in limb [facility] Diagnosis Finger pain, left Pain in limb [facility]* Diagnosis Restless legs Restless legs syndrome (RLS) Asthma, unspecified asthma severity, unspecified whether complicated, unspecified whether persistent Controlled type 2 diabetes mellitus without complication, without long-term current use of insulin (HCC) [facility] Diagnosis Finger pain, left Pain in limb documented in this encounter [facility] note* Diagnosis Primary hypertension- Primary Unspecified essential hypertension Environmental allergies Other allergy, other than to medicinal agents Controlled type 2 diabetes mellitus without complication, without long-term current use of insulin (HCC) documented in this encounter [facility] note* Diagnosis Encounter for screening mammogram for breast cancer [facility]* Diagnosis Iron deficiency anemia, unspecified iron deficiency anemia type- Primary Primary hypertension Unspecified essential hypertension Controlled type 2 diabetes mellitus without complication, without long-term current use of insulin (HCC) Gastroesophageal reflux disease with esophagitis without hemorrhage Irritability [facility]* Diagnosis Sinobronchitis- Primary Unspecified sinusitis (chronic) Former smoker Personal history of tobacco use, presenting hazards to health documented in this encounter [facility] note* Diagnosis Controlled type 2 diabetes mellitus without complication, without long-term current use of insulin (HCC) [facility] Additional Instructions Thank you for trusting us with your care today! Please take Tylenol (2 pills, 650 mg), ibuprofen (2 pills, 400 mg) every 6 hours as needed for pain and fever control. Please take antibiotics as prescribed. Please complete entire antibiotic course. Please return if he cannot tolerate antibiotics by mouth. Please return to the emergency department if your symptoms change or worsen. Please follow with your primary care physician for further outpatient evaluation and management.[facility] Work Phone: Hospital Discharge instructions Additional Instructions Rinse the front of your mouth with mild salt water twice daily to help prevent infection. Apply ice pack to your face as needed. Change Band-Aid to your face as needed until no more bleeding or discharge.[facility] Work Phone: Hospital Discharge instructions Additional Instructions Ice and use ibuprofen every 6 hours [facility] Work Phone: Reason for referral (narrative)* Diagnostic Procedure Only (Urgent) - Closed Specialty Diagnoses / Procedures Referred By Contac t Referred To Contact XR IMAGING Diagnoses Finger pain, left Procedures XR DIGIT GENERAL 3V FRONTAL/LAT/OBL LEFT RADEX FINGR MINIMUM 2 VIEWS Carolina Callaway APRN.MAJOR DONOR COORDINATOR [address] [place] [address] Xr Imaging Referral ID Status Reason Start Date Expiration Date V isits Requested Visits Authorized [id number] Closed Auto-Generate d Referral 06/03/2022 07/03/2023 1 1 [facility] for referral (narrative)* Diagnostic Procedure Only (Routine) - Authorized Specialty Diagnoses / Procedures Referred By Contac t Referred To Contact US IMAGING Diagnoses Infrequent urination Procedures US KIDNEY/BLADDER US RETROPERITONEAL REAL TIME W/IMAGE COMPLETE Vidhi Bowers APRN.MAJOR DONOR COORDINATOR [address] [place] [address] Us Imaging Referral ID Status Reason Start Date Expiration Date Visits Requested Visits Authorized [id number] Authorized Auto-Generat ed Referral 2 10/16/2023 1 1 * Medication Prior Authorization - Closed Specialty Diagnoses / Procedures Referred By Contac t Referred To Contact Diagnoses Asthma, unspecified asthma severity, unspecified whether complicated, unspecified whether persistent Vidhi Bowers APRN.MAJOR DONOR COORDINATOR [address] [place] [address] Referral ID Status Reason Start Date Expiration Date Visits Re quested Visits Authorized [id number] Closed 1 1 [facility] for referral (narrative)* Diagnostic Procedure Only (Routine) - Pending Review Specialty Diagnoses / Procedures Referred By Contac t Referred To Contact BR IMAGING Diagnoses Encounter for screening mammogram for breast cancer Procedures MIKA SCREENING SCREENING MAMMOGRAPHY BI 2-VIEW BREAST INC William Yan MD [address] [place] [address] [facility] [address] [place] [address] Referral ID Status Reason Start Date Expiration Date Visits Requested Visits Authorized [id number] Pending Review Auto-Generat ed Referral 10/22/2022 11/21/2023 1 1 [facility] for referral (narrative)* Diagnostic Procedure Only (Routine) - Pending Review Specialty Diagnoses / Procedures Referred By Contac t Referred To Contact BR IMAGING Diagnoses Encounter for screening mammogram for breast cancer Procedures MIKA SCREENING SCREENING MAMMOGRAPHY BI 2-VIEW BREAST INC William Yan MD [address] [place] [address] [facility] [address] [place] [address] Referral ID Status Reason Start Date Expiration Date Visits Requested Visits Authorized [id number] Pending Review Auto-Generat ed Referral 09/23/2023 10/22/2024 1 1 [facility] for referral (narrative)* Diagnostic Procedure Only (Routine) - Closed Specialty Diagnoses / Procedures Referred By Contac t Referred To Contact US IMAGING Diagnoses Elevated alkaline phosphatase level Procedures US ABD RIGHT UPPER QUADRANT US ABDOMINAL REAL TIME W/IMAGE LIMITED Vidhi Bowers APRN.MAJOR DONOR COORDINATOR [address] [place] [address] [place] [address] Referral ID Status Reason Start Date Expiration Date V isits Requested Visits Authorized [id number] Closed Auto-Generate d Referral 01/14/2024 02/12/2025 1 1 [facility] for referral (narrative)* Diagnostic Procedure Only (Routine) - Closed Specialty Diagnoses / Procedures Referred By Contac t Referred To Contact US IMAGING Diagnoses Elevated alkaline phosphatase level Procedures US ABD RIGHT UPPER QUADRANT US ABDOMINAL REAL TIME W/IMAGE LIMITED Vidhi Bowers APRN.CNP [address] [place] [address] [place] [address] Referral ID Status Reason Start Date Expiration Date V isits Requested Visits Authorized [id number] Closed Auto-Generate d Referral 01/14/2024 02/12/2025 1 1 [facility] for referral (narrative)* Diagnostic Procedure Only (Routine) - Closed Specialty Diagnoses / Procedures Referred By Contac t Referred To Contact XR IMAGING Diagnoses Pain of left thumb Procedures XR DIGIT GENERAL 3V FRONTAL/LAT/OBL LEFT RADEX FINGR MINIMUM 2 VIEWS Parth Smith PA-C [address] [place] [address] [place] [address] Referral ID Status Reason Start Date Expiration Date V isits Requested Visits Authorized [id number] Closed Auto-Generate d Referral 04/28/2023 05/27/2024 1 1 [facility] for referral (narrative)* Diagnostic Procedure Only (Routine) - Closed Specialty Diagnoses / Procedures Referred By Contac t Referred To Contact XR IMAGING Diagnoses Finger pain, left Procedures XR DIGIT GENERAL 3V FRONTAL/LAT/OBL LEFT RADEX FINGR MINIMUM 2 VIEWS Parth Smith PA-C [address] [place] [address] [place] [address] Referral ID Status Reason Start Date Expiration Date V isits Requested Visits Authorized [id number] Closed Auto-Generate d Referral 07/31/2022 08/30/2023 1 1 [facility] for referral (narrative)* Diagnostic Procedure Only (Urgent) - Closed Specialty Diagnoses / Procedures Referred By Contac t Referred To Contact XR IMAGING Diagnoses Finger pain, left Procedures XR DIGIT GENERAL 3V FRONTAL/LAT/OBL LEFT RADEX FINGR MINIMUM 2 VIEWS Carolina Callaway, SEARCH ENGINE OPTIMIZATION CONSULTANT.MAJOR DONOR COORDINATOR [address] [place] [address] [place] [address] Referral ID Status Reason Start Date Expiration Date V isits Requested Visits Authorized [id number] Closed Auto-Generate d Referral 06/03/2022 07/03/2023 1 1 Electronically signed by Carolina Callaway SEARCH ENGINE OPTIMIZATION CONSULTANT.MAJOR DONOR COORDINATOR at 06/03/2022 10:45 AM EDT [facility] for referral (narrative)* Diagnostic Procedure Only (Routine) - New Request Specialty Diagnoses / Procedures Referred By Contac t Referred To Contact BR IMAGING Diagnoses Encounter for screening mammogram for breast cancer Procedures MIKA SCREENING W JEREMY SCREENING DIGITAL BREAST TOMOSYNTHESIS BI SCREENING MAMMOGRAPHY BI 2-VIEW BREAST INC CAD William Greene MD [address] [place] [address] [facility] [address] [place] [address] Referral ID Status Reason Start Date Expiration Date Visits Requested Visits Authorized [id number] New Request Auto-Generat ed Referral 09/21/2024 10/21/2025 1 1 [facility] for visit Narrative* Diagnostic Procedure Only (Routine) - Closed Specialty Diagnoses / Procedures Referred By Contac t Referred To Contact XR IMAGING Diagnoses Pain of left thumb Procedures XR DIGIT GENERAL 3V FRONTAL/LAT/OBL LEFT RADEX FINGR MINIMUM 2 VIEWS Parth Smith PA-C [address] [place] [address] [place] [address] Referral ID Status Reason Start Date Expiration Date V isits Requested Visits Authorized [id number] Closed Auto-Generate d Referral 04/28/2023 05/27/2024 1 1 [facility] for visit Narrative* Diagnostic Procedure Only (Routine) - Closed Specialty Diagnoses / Procedures Referred By Contac t Referred To Contact XR IMAGING Diagnoses Finger pain, left Procedures XR DIGIT GENERAL 3V FRONTAL/LAT/OBL LEFT RADEX FINGR MINIMUM 2 VIEWS Parth Smith PA-C [address] [place] [address] [place] [address] Referral ID Status Reason Start Date Expiration Date V isits Requested Visits Authorized [id number] Closed Auto-Generate d Referral 07/31/2022 08/30/2023 1 1 [facility] for visit Narrative* Diagnostic Procedure Only (Urgent) - Closed Specialty Diagnoses / Procedures Referred By Contac t Referred To Contact XR IMAGING Diagnoses Finger pain, left Procedures XR DIGIT GENERAL 3V FRONTAL/LAT/OBL LEFT RADEX FINGR MINIMUM 2 VIEWS Carolina Callaway, SEARCH ENGINE OPTIMIZATION CONSULTANT.MAJOR DONOR COORDINATOR [address] [place] [address] [place] [address] Referral ID Status Reason Start Date Expiration Date V isits Requested Visits Authorized [id number] Closed Auto-Generate d Referral 06/03/2022 07/03/2023 1 1 [facility] Summary Purpose Family History No Family History Records FoundNo Family History Records FoundNo Family History Records FoundNo Family History Records Found Advance Directives Advance Directive Response Recorded Date/ Time Advance Directives No August 4:26pm Living Will No January 15, 2022 7:19pm Power of Manager Perioperative No January 15 7:19pm Advance Directive Response Recorded Date/ Time Advance Directives No August 4:26pm Living Will No May 04, 2022 3:45pm Power of Manager Perioperative No May 04 3:45pm Advance Directive Response Recorded Date/ Time Advance Directives No August 4:26pm Living Will No February 16, 2023 12 :45pm Power of Manager Perioperative No February 16, 2023 12:45pm Advance Directive Response Recorded Date/ Time Advance Directives No August 4:26pm Living Will No April 13, 2023 12:04pm Power of Manager Perioperative No April 13 12:04pm Advance Directive Response Recorded Date/ Time Advance Directives No August 4:26pm Living Will No May 11, 2023 1:51pm Power of Manager Perioperative No May 11 1:51pm Advance Directive Response Recorded Date/ Time Advance Directives No August 4:26pm Living Will No August 11 1:48pm Power of Manager Perioperative No August 11, 2023 1:48pm Advance Directive Response Recorded Date/ Time Advance Directives No August 3:26pm Living Will No October 05 2:43pm Power of Manager Perioperative No October 05, 2023 2:43pm Advance Directive Response Recorded Date/ Time Advance Directives No August 3:26pm Living Will No November 01 1:46pm Power of Manager Perioperative No November 01, 2023 1:46pm Chief Complaint and Reason for Visit Chief Complaint right foot injury Chief Complaint COMPLAINT FINGER INJURY Chief Complaint LEFT THUMB gu Chief Complaint LEFT THUMB gu laceration Chief Complaint LEFT THUMB gu laceration THUMB PAIN Chief Complaint laceration THUMB PAIN lower ext Chief Complaint lower ext back Chief Complaint lower ext back [facility] Concerns Infection Onset Date Last Indicated Resolved Time COVID-19 Rule-Out 12/04/2022 12/04/2022 Infection Onset Date Last Indicated Resolved Time COVID-19 Rule-Out 12/04/2022 12/04/2022 12/05/2022 4:58 AM EST Reason for Referral Specialty Diagnoses / Procedures Referred By Shelby dominguez Referred To Contact Ophthalmology Diagnoses Controlled type 2 diabetes mellitus without complication, without long-term current use of insulin (HCC) Procedures CONSULT TO OPHTHALMOLOGY OFFICE/OUTPATIENT [facility] 60-74 MINUTES Parth Smith PA-C [address] [place] [address] Referral ID Status Reason Start Date Expiration Date Visits Requested Visits Authorized [id number] Authorized PCP Requested Referral 04/28/2023 04/27/2024 1 1 Specialty Diagnoses / Procedures Referred By Shelby dominguez Referred To Contact XR IMAGING Diagnoses Pain of left thumb Procedures XR DIGIT GENERAL 3V FRONTAL/LAT/OBL LEFT RADEX FINGR MINIMUM 2 VIEWS Parth Smith PA-C [address] [place] [address] Xr Imaging Referral ID Status Reason Start Date Expiration Date V isits Requested Visits Authorized [id number] Closed Auto-Generate d Referral 04/28/2023 05/27/2024 1 [...] ized section and content) DATE CREATED AUTHOR 07/24/2019 [facility] DATE CREATED AUTHOR AUTHOR'S ORGANIZ ATION 03/27/2023 [facility] DATE CREATED AUTHOR AUTHOR'S ORGANIZ ATION 11/08/2024 [facility] DATE CREATED AUTHOR AUTHOR'S ORGANIZ ATION 03/03/2025 [facility] Goals (unrecognized section and content) Goals may be documented in a n alternate sectionGoals may be documented in an alternate sectionGoals may be documented in an alternate sectionGoals may be documented in an alternate sectionGoals may be documented in an alternate sectionGoals may be documented in an alternate sectionGoals may be documented in an alternate sectionGoals may be documented in an alternate section Source Comments (unrecognize d section and content) In the event this informatio n is protected by the Federal Confidentiality of Alcohol and Drug Abuse Patient Records regulations: The Federal rules restrict any use of the information to criminally investigate or prosecute any alcohol or drug abuse patient.[facility] the event this information is protected by the Federal Confidentiality of Alcohol and Drug Abuse Patient Records regulations: The Federal rules restrict any use of the information to criminally investigate or prosecute any alcohol or drug abuse patient.[facility] HospitalIn the event this information is protected by the Federal Confidentiality of Alcohol and Drug Abuse Patient Records regulations: The Federal rules restrict any use of the information to criminally investigate or prosecute any alcohol or drug abuse patient.[facility] HospitalIn the event this information is protected by the Federal Confidentiality of Alcohol and Drug Abuse Patient Records regulations: The Federal rules restrict any use of the information to criminally investigate or prosecute any alcohol or drug abuse patient.[facility] HospitalIn the event this information is protected by the Federal Confidentiality of Alcohol and Drug Abuse Patient Records regulations: The Federal rules restrict any use of the information to criminally investigate or prosecute any alcohol or drug abuse patient.[facility] HospitalIn the event this information is protected by the Federal Confidentiality of Alcohol and Drug Abuse Patient Records regulations: The Federal rules restrict any use of the information to criminally investigate or prosecute any alcohol or drug abuse patient.[facility] HospitalIn the event this information is protected by the Federal Confidentiality of Alcohol and Drug Abuse Patient Records regulations: The Federal rules restrict any use of the information to criminally investigate or prosecute any alcohol or drug abuse patient.[facility] HospitalIn the event this information is protected by the Federal Confidentiality of Alcohol and Drug Abuse Patient Records regulations: The Federal rules restrict any use of the information to criminally investigate or prosecute any alcohol or drug abuse patient.[facility] HospitalIn the event this information is protected by the Federal Confidentiality of Alcohol and Drug Abuse Patient Records regulations: The Federal rules restrict any use of the information to criminally investigate or prosecute any alcohol or drug abuse patient.[facility] HospitalIn the event this information is protected by the Federal Confidentiality of Alcohol and Drug Abuse Patient Records regulations: The Federal rules restrict any use of the information to criminally investigate or prosecute any alcohol or drug abuse patient.[facility] HospitalIn the event this information is protected by the Federal Confidentiality of Alcohol and Drug Abuse Patient Records regulations: The Federal rules restrict any use of the information to criminally investigate or prosecute any alcohol or drug abuse patient.[facility] HospitalIn the event this information is protected by the Federal Confidentiality of Alcohol and Drug Abuse Patient Records regulations: The Federal rules restrict any use of the information to criminally investigate or prosecute any alcohol or drug abuse patient.[facility] HospitalIn the event this information is protected by the Federal Confidentiality of Alcohol and Drug Abuse Patient Records regulations: The Federal rules restrict any use of the information to criminally investigate or prosecute any alcohol or drug abuse patient.[facility] HospitalIn the event this information is protected by the Federal Confidentiality of Alcohol and Drug Abuse Patient Records regulations: The Federal rules restrict any use of the information to criminally investigate or prosecute any alcohol or drug abuse patient.[facility] HospitalIn the event this information is protected by the Federal Confidentiality of Alcohol and Drug Abuse Patient Records regulations: The Federal rules restrict any use of the information to criminally investigate or prosecute any alcohol or drug abuse patient.[facility] HospitalIn the event this information is protected by the Federal Confidentiality of Alcohol and Drug Abuse Patient Records regulations: The Federal rules restrict any use of the information to criminally investigate or prosecute any alcohol or drug abuse patient.[facility] HospitalIn the event this information is protected by the Federal Confidentiality of Alcohol and Drug Abuse Patient Records regulations: The Federal rules restrict any use of the information to criminally investigate or prosecute any alcohol or drug abuse patient.[facility] HospitalIn the event this information is protected by the Federal Confidentiality of Alcohol and Drug Abuse Patient Records regulations: The Federal rules restrict any use of the information to criminally investigate or prosecute any alcohol or drug abuse patient.[facility] HospitalIn the event this information is protected by the Federal Confidentiality of Alcohol and Drug Abuse Patient Records regulations: The Federal rules restrict any use of the information to criminally investigate or prosecute any alcohol or drug abuse patient.[facility] HospitalIn the event this information is protected by the Federal Confidentiality of Alcohol and Drug Abuse Patient Records regulations: The Federal rules restrict any use of the information to criminally investigate or prosecute any alcohol or drug abuse patient.[facility] HospitalIn the event this information is protected by the Federal Confidentiality of Alcohol and Drug Abuse Patient Records regulations: The Federal rules restrict any use of the information to criminally investigate or prosecute any alcohol or drug abuse patient.[facility] HospitalIn the event this information is protected by the Federal Confidentiality of Alcohol and Drug Abuse Patient Records regulations: The Federal rules restrict any use of the information to criminally investigate or prosecute any alcohol or drug abuse patient.[facility] HospitalIn the event this information is protected by the Federal Confidentiality of Alcohol and Drug Abuse Patient Records regulations: The Federal rules restrict any use of the information to criminally investigate or prosecute any alcohol or drug abuse patient.[facility] HospitalIn the event this information is protected by the Federal Confidentiality of Alcohol and Drug Abuse Patient Records regulations: The Federal rules restrict any use of the information to criminally investigate or prosecute any alcohol or drug abuse patient.[facility] the event this information is protected by the Federal Confidentiality of Alcohol and Drug Abuse Patient Records regulations: The Federal rules restrict any use of the information to criminally investigate or prosecute any alcohol or drug abuse patient.[facility] HospitalIn the event this information is protected by the Federal Confidentiality of Alcohol and Drug Abuse Patient Records regulations: The Federal rules restrict any use of the information to criminally investigate or prosecute any alcohol or drug abuse patient.[facility] HospitalIn the event this information is protected by the Federal Confidentiality of Alcohol and Drug Abuse Patient Records regulations: The Federal rules restrict any use of the information to criminally investigate or prosecute any alcohol or drug abuse patient.[facility] HospitalIn the event this information is protected by the Federal Confidentiality of Alcohol and Drug Abuse Patient Records regulations: The Federal rules restrict any use of the information to criminally investigate or prosecute any alcohol or drug abuse patient.[facility] HospitalIn the event this information is protected by the Federal Confidentiality of Alcohol and Drug Abuse Patient Records regulations: The Federal rules restrict any use of the information to criminally investigate or prosecute any alcohol or drug abuse patient.[facility] HospitalIn the event this information is protected by the Federal Confidentiality of Alcohol and Drug Abuse Patient Records regulations: The Federal rules restrict any use of the information to criminally investigate or prosecute any alcohol or drug abuse patient.[facility] HospitalIn the event this information is protected by the Federal Confidentiality of Alcohol and Drug Abuse Patient Records regulations: The Federal rules restrict any use of the information to criminally investigate or prosecute any alcohol or drug abuse patient.[facility] HospitalIn the event this information is protected by the Federal Confidentiality of Alcohol and Drug Abuse Patient Records regulations: The Federal rules restrict any use of the information to criminally investigate or prosecute any alcohol or drug abuse patient.[facility] HospitalIn the event this information is protected by the Federal Confidentiality of Alcohol and Drug Abuse Patient Records regulations: The Federal rules restrict any use of the information to criminally investigate or prosecute any alcohol or drug abuse patient.[facility] HospitalIn the event this information is protected by the Federal Confidentiality of Alcohol and Drug Abuse Patient Records regulations: The Federal rules restrict any use of the information to criminally investigate or prosecute any alcohol or drug abuse patient.[facility] HospitalIn the event this information is protected by the Federal Confidentiality of Alcohol and Drug Abuse Patient Records regulations: The Federal rules restrict any use of the information to criminally investigate or prosecute any alcohol or drug abuse patient.[facility] HospitalIn the event this information is protected by the Federal Confidentiality of Alcohol and Drug Abuse Patient Records regulations: The Federal rules restrict any use of the information to criminally investigate or prosecute any alcohol or drug abuse patient.[facility] HospitalIn the event this information is protected by the Federal Confidentiality of Alcohol and Drug Abuse Patient Records regulations: The Federal rules restrict any use of the information to criminally investigate or prosecute any alcohol or drug abuse patient.[facility] HospitalIn the event this information is protected by the Federal Confidentiality of Alcohol and Drug Abuse Patient Records regulations: The Federal rules restrict any use of the information to criminally investigate or prosecute any alcohol or drug abuse patient.[facility] HospitalIn the event this information is protected by the Federal Confidentiality of Alcohol and Drug Abuse Patient Records regulations: The Federal rules restrict any use of the information to criminally investigate or prosecute any alcohol or drug abuse patient.[facility] HospitalIn the event this information is protected by the Federal Confidentiality of Alcohol and Drug Abuse Patient Records regulations: The Federal rules restrict any use of the information to criminally investigate or prosecute any alcohol or drug abuse patient.[facility] HospitalIn the event this information is protected by the Federal Confidentiality of Alcohol and Drug Abuse Patient Records regulations: The Federal rules restrict any use of the information to criminally investigate or prosecute any alcohol or drug abuse patient.[facility] HospitalIn the event this information is protected by the Federal Confidentiality of Alcohol and Drug Abuse Patient Records regulations: The Federal rules restrict any use of the information to criminally investigate or prosecute any alcohol or drug abuse patient.[facility] HospitalIn the event this information is protected by the Federal Confidentiality of Alcohol and Drug Abuse Patient Records regulations: The Federal rules restrict any use of the information to criminally investigate or prosecute any alcohol or drug abuse patient.[facility] HospitalIn the event this information is protected by the Federal Confidentiality of Alcohol and Drug Abuse Patient Records regulations: The Federal rules restrict any use of the information to criminally investigate or prosecute any alcohol or drug abuse patient.[facility] HospitalIn the event this information is protected by the Federal Confidentiality of Alcohol and Drug Abuse Patient Records regulations: The Federal rules restrict any use of the information to criminally investigate or prosecute any alcohol or drug abuse patient.[facility] HospitalIn the event this information is protected by the Federal Confidentiality of Alcohol and Drug Abuse Patient Records regulations: The Federal rules restrict any use of the information to criminally investigate or prosecute any alcohol or drug abuse patient.[facility] HospitalIn the event this information is protected by the Federal Confidentiality of Alcohol and Drug Abuse Patient Records regulations: The Federal rules restrict any use of the information to criminally investigate or prosecute any alcohol or drug abuse patient.[facility] HospitalIn the event this information is protected by the Federal Confidentiality of Alcohol and Drug Abuse Patient Records regulations: The Federal rules restrict any use of the information to criminally investigate or prosecute any alcohol or drug abuse patient.[facility] HospitalIn the event this information is protected by the Federal Confidentiality of Alcohol and Drug Abuse Patient Records regulations: The Federal rules restrict any use of the information to criminally investigate or prosecute any alcohol or drug abuse patient.[facility] HospitalIn the event this information is protected by the Federal Confidentiality of Alcohol and Drug Abuse Patient Records regulations: The Federal rules restrict any use of the information to criminally investigate or prosecute any alcohol or drug abuse patient.[facility] HospitalIn the event this information is protected by the Federal Confidentiality of Alcohol and Drug Abuse Patient Records regulations: The Federal rules restrict any use of the information to criminally investigate or prosecute any alcohol or drug abuse patient.[facility] HospitalIn the event this information is protected by the Federal Confidentiality of Alcohol and Drug Abuse Patient Records regulations: The Federal rules restrict any use of the information to criminally investigate or prosecute any alcohol or drug abuse patient.[facility] Reason for Visit (unrecogniz ed section and content) Reason Comments left index finger pain Injured it yester day Reason Comments Finger Injury Reason Comments Results [...] left thumb Procedures CONSULT TO ORTHOPAEDICS OFFICE/OUTPATIENT [facility] MDM 60-74 MINUTES Vidhi Bowers, SEARCH ENGINE OPTIMIZATION CONSULTANT.MAJOR DONOR COORDINATOR [address] [place] [address] Referral ID Status Reason Start Date Expiration Date V isits Requested Visits Authorized [id number] Closed PCP Requested Referral 05/13/2023 05/12/2024 1 [...] Reason Onset Date Comments Refill Request 09/21/2023 Reason Onset Date Comments Refill Request 11/23/2023 Reason Onset Date Comments Refill Request 11/25/2023 Reason Comments Follow Up Reason Comments certificate of medical necessity Reason Onset Date Comments Refill Request 01/23/2024 Reason Comments Recheck 1 month follow up; w ound on R lower leg, just above ankle Reason Comments Radiology US Specialty Diagnoses / Procedures Referred By Shelby dominguez Referred To Contact US IMAGING Diagnoses Elevated alkaline phosphatase level Procedures US ABD RIGHT UPPER QUADRANT US ABDOMINAL REAL TIME W/IMAGE LIMITED Vidhi Bowers APRN.CARMELITA [address] [place] [address] [facility] Referral ID Status Reason Start Date Expiration Date V isits Requested Visits Authorized [id number] Closed Auto-Generate d Referral 01/14/2024 02/12/2025 1 1 Reason Comments Recheck 1 month follow up Reason Comments Results Reason Comments Medication Problem Reason Onset Date Comments Refill Request 04/20/2024 Reason Onset Date Comments Refill Request 05/13/2024 Reason Comments Recheck 3 month follow up Reason Onset Date Comments Refill Request 07/14/2024 Reason Comments 6 Month Exam Reason Comments Cough Reason Comments URI Reason Onset Date Comments Refill Request 05/18/2025 Care Teams (unrecognized sec tion and content) 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 Relationship Specialty Start Date End Date William Greene MD [address] [place], [place] [id number] PCP - General Family Practice 07/16/12 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 Relationship Specialty Start Date End Date William Greene MD [address] [place], [place] [address] PCP - General Family Practice 07/16/12 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 Relationship Specialty Start Date End Date William Greene MD [address] [place] [address] PCP - General Family Medicine 07/16/12 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 Relationship Specialty Start Date End Date William Greene MD [address] [place] [address] PCP - General Family Medicine 07/16/12 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 Relationship Specialty Start Date End Date William Greene MD [address] [place] [address] PCP - General Family Medicine 07/16/12 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 Relationship Specialty Start Date End Date William Greene MD [address] [place] [address] PCP - General Family Medicine 07/16/12 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 Relationship Specialty Start Date End Date William Greene MD [address] [place] [address] PCP - General Family Medicine 07/16/12 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 Relationship Specialty Start Date End Date William Greene MD [address] [place] [address] PCP - General Family Medicine 07/16/12 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 Relationship Specialty Start Date End Date William Greene MD [address] [place] [address] PCP - General Family Medicine 07/16/12 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 Relationship Specialty Start Date End Date William Greene MD [address] [place] [address] PCP - General Family Medicine 07/16/12 Team Status: Active Member Role Status Dates Dr. William Greene MD Family Provider Active Dr. William Greene MD Primary Care Provider Active Team Status: Inactive Member Role Status Dates Dr. William Greene MD Primary Care Provider Active Dr. Skip Mcfadden DO Attending Provider, Emergency P rovider Active Team Status: Inactive Member Role Status Dates Dr. William Greene MD Primary Care Provider Active Dr. Perico Scanlon DO Emergency Provider Active Team Status: Inactive Member Role Status Dates Dr. William Greene MD Primary Care Provider Active Dr. Perico Scanlon DO Attending Provider, Emergency P rovider Active Team Status: Inactive Member Role Status Dates Dr. William Greene MD Primary Care Provider Active Dr. Tod Duron MD Emergency Provider Active 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 Relationship Specialty Start Date End Date William Greene MD [address] [place] [address] PCP - General Family Medicine 07/16/12 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 Relationship Specialty Start Date End Date William Greene MD [address] [place] [address] PCP - General Family Medicine 07/16/12 Team Status: Inactive Member Role Status Dates Dr. William Greene MD Primary Care Provider Active Dr. Tod Duron MD Attending Provider, Emergency Provider Active Team Status: Inactive Member Role Status Dates Dr. William Greene MD Primary Care Provider Active Dr. Payal Lucas DO Emergency Provider Active 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 Relationship Specialty Start Date End Date William Greene MD [address] [place] [address] PCP - General Family Medicine 07/16/12 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 Relationship Specialty Start Date End Date William Greene MD [address] [place] [address] PCP - General Family Medicine 07/16/12 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 Relationship Specialty Start Date End Date William Greene MD [address] [place] [address] PCP - General Family Medicine 07/16/12 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 Relationship Specialty Start Date End Date William Greene MD [address] [place], [place] [id number] PCP - General Family Medicine 07/16/12 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 Relationship Specialty Start Date End Date William Greene MD [address] [place], [place] [address] PCP - General Family Medicine 07/16/12 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 William Greene MD Primary Care Provider Active Dr. Payal Lucas DO Attending Provider, Emergency Gay mar Active Team Status: Inactive Member Role Status Dates Dr. William Greene MD Primary Care Provider Active Dr. 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 William Greene MD Primary Care Provider Active Dr. Skip Rubio MD Attending Provider Active Team Status: Inactive Member Role Status Dates Dr. William Greene MD Primary Care Provider Active Dr. Lane Badillo MD Emergency Provider Active Team Status: Inactive Member Role Status Dates Dr. William Greene MD Primary Care Provider Active Dr. Florinda Rea MD Attending Provider, Emergency Provider Active Team Status: Inactive Member Role Status Dates Dr. William Greene MD Primary Care Provider Active Dr. Lane Badillo MD Attending Provider, Emergency Provi mariel Active Team Status: Inactive Member Role Status Dates Dr. William Greene MD Primary Care Provider Active Dr. 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 Relationship Specialty Start Date End Date William Greene MD [address] [place] [address] PCP - General Family Medicine 07/16/12 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 Relationship Specialty Start Date End Date William Greene MD [address] [place] [address] PCP - General Family Medicine 07/16/12 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 Relationship Specialty Start Date End Date William Greene MD [address] [place] [address] PCP - General Family Medicine 07/16/12 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 Relationship Specialty Start Date End Date William Greene MD [address] [place] [address] PCP - General Family Medicine 07/16/12 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 Relationship Specialty Start Date End Date William Greene MD [address] [place] [address] PCP - General Family Medicine 07/16/12 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 Relationship Specialty Start Date End Date William Greene MD [address] [place] [address] PCP - General Family Medicine 07/16/12 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 Relationship Specialty Start Date End Date William Greene MD [address] [place] [address] PCP - General Family Medicine 07/16/12 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 Relationship Specialty Start Date End Date William Greene MD [address] [place] [address] PCP - General Family Medicine 07/16/12 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 Relationship Specialty Start Date End Date William Greene MD [address] [place] [address] PCP - General Family Medicine 07/16/12 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 Relationship Specialty Start Date End Date William Greene MD [address] [place] [address] PCP - General Family Medicine 07/16/12 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 Relationship Specialty Start Date End Date William Greene MD [address] [facility] [place], [place] [address] PCP - General Family Medicine 07/16/12 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 Relationship Specialty Start Date End Date William Greene MD [address] [place] [address] PCP - General Family Medicine 07/16/12 Vidhi Bowers APRN.MAJOR DONOR COORDINATOR [address] [facility] [place] [address] Refrigeration Manager Family Medicine 09/26/24 Antoinette Velazquez APRN.MAJOR DONOR COORDINATOR [address] [place] [address] Refrigeration Manager Family Medicine 09/26/24 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 Relationship Specialty Start Date End Date William Greene MD [address] [place] [address] PCP - General Family Medicine 07/16/12 Vidhi Bowers APRN.MAJOR DONOR COORDINATOR [address] [facility] [place] [address] Refrigeration Manager Family Medicine 09/26/24 Antoinette Velazquez SEARCH ENGINE OPTIMIZATION CONSULTANT.MAJOR DONOR COORDINATOR [address] [place] [address] [facility] 09/26/24 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 Relationship Specialty Start Date End Date William Greene MD [address] [place] [address] PCP - General Family Medicine 07/16/12 Vidhi Bowers, SEARCH ENGINE OPTIMIZATION CONSULTANT.MAJOR DONOR COORDINATOR [address] [facility] [place] [address] Refrigeration Manager Family Medicine 09/26/24 Antoinette Velazquez APRN.MAJOR DONOR COORDINATOR [address] [place] [address] Refrigeration Manager Family Medicine 09/26/24 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 [employer] [facility]. provides no warranty or guarantee of the accuracy or completeness of information in this document.
[2025-06-17 18:58] VITALS: BP 166/80; PULSE 87; RESP 16; TEMP 36.8; O2SAT 97
== END 2025-06-17 18:59 | disposition home or self-care (01) ==
PROVIDERS: Emergency Provider Emergency Medicine; PCP Family Medicine; Visit Provider Emergency Medicine
DX: T63.441A Toxic effect of venom of bees, accidental (unintentional), initial encounter (principal); E11.9 Type 2 diabetes mellitus without complications; F17.210 Nicotine dependence, cigarettes, uncomplicated; R22.0 Localized swelling, mass and lump, head
CPT/HCPCS: 99282